=== PATIENT | male | born 1960 | race Caucasian/White ===

== ENCOUNTER → 2016-06-29 | Outpatient (CLI) | payer BC ==
[~2016-06-29] MED LIST: LNS30CCR; MTC10T; PNT40TEC; SCR1T1
--- NOTE | 2016-06-29 07:54 | Diagnostic Imaging Report ---
PROCEDURE: US Gallbladder. TECHNIQUE: Multiple real-time grayscale images were obtained over the right upper quadrant in various projections. INDICATION: Epigastric and right upper quadrant abdominal pain. FINDINGS: Grayscale imaging of the gallbladder reveals no intraluminal filling defect. There is no gallbladder wall thickening or pericholecystic fluid. No intra or extrahepatic biliary ductal dilatation is identified. Pancreas was obscured. Right kidney contains a 4-cm cyst. IMPRESSION: Unremarkable gallbladder ultrasound. Dictated by: Dictated on workstation # [id number]
== END ==
LOC: RAD 06:54
PROVIDERS: ATTEND Nurse Practitioner Family
DX: R10.13 Epigastric pain (principal)
CPT/HCPCS: 76705

== ENCOUNTER → 2016-07-17 | Outpatient (CLI) | payer BC ==
[~2016-07-17] MED LIST changes: +CATHETER FLUSH 10 ML SYR IV PRN
--- NOTE | 2016-07-17 14:58 | Diagnostic Imaging Report ---
EXAMINATION: HIDA with EF measurements Indication: Abdominal pain TECHNIQUE: After the intravenous administration of 5.2 mCi of Tc 99m Choletec, imaging over the abdomen was obtained. This was followed by administration of Ensure orally to stimulate intrinsic CCK secretion, followed by continued imaging with ejection fraction measured. FINDINGS: There is homogeneous uptake in the liver with prompt bile duct and gallbladder filling seen. Bowel activity is seen at 15 minutes. Based on further imaging and gallbladder area of interest activity measurements after the administration of Ensure, the gallbladder ejection fraction is estimated at 54%. IMPRESSION: 1. Normal hepatobiliary uptake and Gallbladder filling. 2. Borderline normal gallbladder ejection fraction. Correlate clinically. Dictated by: Dictated on workstation # [id number]
== END ==
LOC: CARD 12:44
PROVIDERS: ATTEND Nurse Practitioner Family
DX: R10.13 Epigastric pain (principal)
CPT/HCPCS: 78227

== ENCOUNTER → 2016-08-14 | Outpatient (CLI) | payer BC, OTHER ==
[~2016-08-14] MED LIST changes: -CATHETER FLUSH 10 ML SYR IV PRN
--- NOTE | 2016-08-14 10:28 | Diagnostic Imaging Report ---
PROCEDURE: CT abdomen without contrast. TECHNIQUE: Multiple contiguous axial images were obtained through the abdomen without the use of intravenous contrast. INDICATION: Ventral hernia. FINDINGS: There is a small/ moderate supraumbilical ventral hernia with suggestion of 2-cm abdominal wall defect to the right side of the midline. The craniocaudal extent of the defect is not well seen on this exam but is suspected to be around 1 to 2 cm. The hernia contains omental fat with stranding which may relate to panniculitis or strangulation. There is no herniating bowel loop. There is also a tiny fat-containing umbilical hernia. The lung bases demonstrate no significant abnormality. There is diffuse hepatic steatosis. The gallbladder demonstrates no calcified stones. The spleen is not enlarged. The pancreas and the adrenal glands appear unremarkable for an unenhanced exam. The kidneys demonstrate no hydronephrosis. There are nonobstructive stones up to 3 mm in the right kidney and up to 4 mm in the left kidney. There is a cystic lesion in the lower pole of the right kidney measuring 3.9 cm which was demonstrated to be a simple cyst on ultrasound performed 06/29/2016. The abdominal aorta is normal in caliber. No para-aortic significantly enlarged lymph nodes. The osseous structures appear grossly unremarkable. IMPRESSION: 1. Supraumbilical ventral hernia with defect seen just to the right of the midline and just above the level of the umbilicus. There is stranding in the herniating fat suggestive of panniculitis or strangulation. Correlate clinically. No herniating bowel loops seen. 2. Nonobstructive bilateral kidney stones. 3. Diffuse hepatic steatosis. Dictated by: Dictated on workstation # [id number]
== END ==
LOC: RAD 08:35
PROVIDERS: ATTEND Surgery
DX: K43.9 Ventral hernia without obstruction or gangrene (principal); K76.0 Fatty (change of) liver, not elsewhere classified; N20.0 Calculus of kidney
CPT/HCPCS: 74150

== ENCOUNTER 2016-08-22 15:04 | Outpatient (CLI) | payer OTHER ==
[~2016-08-22] VITALS: Ht 185.4 cm; Wt 131.5 kg
[2016-08-22 15:11] VITALS: BP 120/79
[2016-08-22] MEDS ORDERED: LOVA20TA2 PO (15:15)
[2016-08-22] MEDS ORDERED: METF500T4 PO (15:15)
[2016-08-22] MEDS ORDERED: OMEP20TA7 PO (15:15)
[2016-08-22] MEDS ORDERED: LOSA1TAB69 PO (15:15)
[2016-08-22 15:35] LABS: BASOPHILS % (AUTO) 0 % (0-10); EOSINOPHILS # (AUTO) 0.4 10^3/uL (0.0-0.3); EOSINOPHILS % (AUTO) 4 % (0-10); LYMPHOCYTES # (AUTO) 3.3 X 10^3 (1.0-4.0); LYMPHOCYTES % (AUTO) 33 % (12-44); MEAN CORPUSCULAR HEMOGLOBIN 29 PG (25-34); MEAN CORPUSCULAR HGB CONC 34 G/DL (32-36); MEAN CORPUSCULAR VOLUME 85 FL (80-99); MEAN PLATELET VOLUME 10.4 FL (7.4-10.4); MONOCYTES # (AUTO) 0.8 X 10^3 (0.0-1.0); MONOCYTES % (AUTO) 9 % (0-12); NEUTROPHILS # (AUTO) 5.4 X 10^3 (1.8-7.8); NEUTROPHILS % (AUTO) 54 % (42-75); PLATELET COUNT 217 10^3/uL (130-400); RED BLOOD COUNT 4.85 10^6/uL (4.35-5.85); RED CELL DISTRIBUTION WIDTH 13.7 % (10.0-14.5); WHITE BLOOD COUNT 9.9 10^3/uL (4.3-11.0)
[2016-08-22 15:55] LABS: ANION GAP 9 MMOL/L (5-14); BLOOD UREA NITROGEN 12 MG/DL (7-18); BUN/CREATININE RATIO 16; CALCIUM 9.3 MG/DL (8.5-10.1); CARBON DIOXIDE 25 MMOL/L (21-32); CHLORIDE 106 MMOL/L (98-107); CREATININE SERUM 0.74 MG/DL (0.60-1.30); GFR ESTIMATED > 60; GLUCOSE 125 MG/DL (70-105); POTASSIUM 3.7 MMOL/L (3.6-5.0); SODIUM 140 MMOL/L (135-145)
== END 2016-08-22 15:30 | disposition home or self-care (01) ==
LOC: PREOP 15:04
PROVIDERS: ATTEND Surgery
DX: Z01.812 Encounter for preprocedural laboratory examination (principal); Z11.2 Encounter for screening for other bacterial diseases; K43.9 Ventral hernia without obstruction or gangrene
CPT/HCPCS: 36415; 80048; 85025; 87081

== ENCOUNTER 2016-08-25 06:00 | Day surgery (SDC) | payer OTHER ==
[~2016-08-25] VITALS: Ht 185.4 cm; Wt 131.5 kg
[~2016-08-25 06:00] MED LIST changes: +LOSA1TAB69 PO; +LOVA20TA2 PO; +METF500T4 PO; +OMEP20TA7 PO
[2016-08-25] MEDS ORDERED: morphine INJ 10 MG/ML 1ML (SYR OR VIAL) IV PRN ×2 (06:30→10:00)
[2016-08-25] MEDS ORDERED: CELECOXIB 100 MG (CeleBREX) CAP PO ONE ×2 (06:30→06:44)
[2016-08-25] MEDS ORDERED: oxyCODONE ER 10 MG (OxyCONTIN CR) TAB PO ONE ×2 (06:30→06:44)
[2016-08-25] MEDS ORDERED: PREGABALIN 75 MG (LYRICA) CAP PO ONE (06:30)
[2016-08-25] MEDS ORDERED: KETOROLAC 30 MG/ML VIAL IV PRN (06:30)
[2016-08-25] MEDS ORDERED: ACETAMINOPHEN 500 MG TAB (TYLENOL) PO ONE (06:30)
[2016-08-25] MEDS ORDERED: ACETAMINOPHEN 500 MG TAB (TYLENOL) ONE (06:44)
[2016-08-25] MEDS ORDERED: PREGABALIN 75 MG (LYRICA) CAP ONE (06:44)
[2016-08-25] MEDS ORDERED: ceFAZolin 2 GM/50 ML NS 50 ML ONE (06:45)
[2016-08-25] MEDS: LACTATED RINGERS 1,000 ML IV PRN ×2 (06:54→09:00)
[2016-08-25] MEDS ORDERED: BUP/EPI 0.25% 1:200,000 (MARCAINE) 30 ML VIAL ONE (07:09)
[2016-08-25] MEDS ORDERED: ceFAZolin 2 GM/NS 50 ML IV ONE (07:15)
[2016-08-25] MEDS ORDERED: fentaNYL INJECTION 100 MCG/2 ML AMP ONE (07:23)
[2016-08-25] MEDS ORDERED: proPOfol 200 MG/20 ML (DIPRIVAN) VIAL IV ONE (07:23)
[2016-08-25] MEDS ORDERED: SEVOFLURANE (ULTANE) 15 ML INHAL SOLN ONE ×2 (07:23→09:48)
[2016-08-25] MEDS ORDERED: MIDAZOLAM 2 MG/2 ML (VERSED) VIAL ONE (07:23)
[2016-08-25] MEDS ORDERED: LIDOCAINE PF 2% 5 ML (XYLOCAINE) VIAL ONE (07:23)
--- NOTE | 2016-08-25 07:28 | Progress Note-Pre Operative ---
Pre-Operative Progress Note H&P Reviewed The H&P was reviewed, patient examined and no changes noted. Date H&P Reviewed: Aug 25, 2016 Time H&P Reviewed: 07:28 Pre-Operative Diagnosis: ventral hernia JEAN VEGAS MD Aug 25, 2016 7:28 am
[2016-08-25] MEDS ORDERED: KETAMINE HCL 100 MG/ML 5 ML VIAL ONE (07:30)
[2016-08-25 07:52] VITALS: BP 139/89
[2016-08-25] MEDS ORDERED: NS (IVPB) 100 ML ONE (09:42)
[2016-08-25] MEDS ORDERED: LACTATED RINGERS 2,000 ML IV ONE (09:48)
[2016-08-25] MEDS ORDERED: ONDANSETRON 4 MG/2 ML (SDV) Z0FRAN ONE (09:49)
[2016-08-25] MEDS ORDERED: LIDOCAINE PF 0.5% 50 ML (XYLOCAINE) VIAL ONE (09:49)
--- NOTE | 2016-08-25 09:54 | Progress Note-Post Operative ---
Post-Operative Progess Note Surgeon (s)/Line Maintenance Supervisor (s) Surgeon JEAN VEGAS MD Line Maintenance Supervisor: not applicable Pre-Operative Diagnosis VENTRAL HERNIA Post-Operative Diagnosis same Procedure & Operative Findings Date of Procedure 08/25/16 Procedure Performed/Findings robotic assisted repair with mesh Anesthesia Type Gen. Estimated Blood Loss Estimated blood loss (mL): minimal Specimens/Packing Specimens Removed hernia contents JEAN VEGAS MD Aug 25, 2016 9:54 am
[2016-08-25] MEDS ORDERED: HYDR-3812 PO (09:56)
--- NOTE | 2016-08-25 09:57 | Discharge Inst-Simple/Standard ---
Discharge Inst-Standard Discharge Medications New, Converted or Re-Newed RX: RX on Chart Patient Instructions/Follow Up Plan of Care/Instructions/FU: dressings off in a.m. Abdominal binder while and bleeding. Incentive spirometry. Follow-up in 4 weeks Activity as Tolerated: No Goal: no lifting over 10 pounds Discharge Diet: ADA Diet JEAN VEGAS MD Aug 25, 2016 9:57 am
[2016-08-25] MEDS ORDERED: ACETAMINOPHEN 500 MG TAB (TYLENOL) PO NR (10:00)
[2016-08-25] MEDS ORDERED: PREGABALIN 75 MG (LYRICA) CAP PO NR (10:00)
[2016-08-25] MEDS ORDERED: oxyCODONE ER 10 MG (OxyCONTIN CR) TAB PO NR (10:00)
[2016-08-25] MEDS ORDERED: CELECOXIB 100 MG (CeleBREX) CAP PO NR (10:00)
[2016-08-25] MEDS ORDERED: GLYCOPYRROLATE 0.2 MG/ML (ROBINUL) 2 ML VIAL ONE (10:42)
[2016-08-25] MEDS ORDERED: NEOSTIGMINE (BLOXIVERZ ) 1 MG/1ML 10 ML VIAL ONE (10:42)
[2016-08-25] MEDS ORDERED: ROCURONIUM 50 MG/5 ML (ZEMURON) VIAL IV ONE (10:45)
[2016-08-25 12:24] VITALS: BP 118/72
--- NOTE | 2016-08-25 13:49 | OPERATIVE REPORT ---
DATE OF SERVICE: 08/25/2016 PREOPERATIVE DIAGNOSIS: Ventral hernia. POSTOPERATIVE DIAGNOSIS: Ventral hernia. OPERATION: Robotic-assisted repair of ventral hernia with mesh. SURGEON: Jean Vegas MD ANESTHESIA: General anesthesia. BLOOD LOSS: Minimal. FLUIDS: 1200 mL of crystalloid. TYPE OF WOUND: Type 1 (clean wound). INDICATION FOR PROCEDURE: This gentleman presented with a symptomatic ventral hernia just superior to his umbilicus. He was offered minimally invasive repair with robotic assistance and mesh reinforcement. Informed consent was obtained after reviewing the operative details and complications of wound infection, infection of the mesh and recurrence of the hernia. DESCRIPTION OF PROCEDURE: He was placed supine on the operating table and general anesthesia induced using an endotracheal tube. Ancef 2 grams were administered intravenously as prophylaxis against wound infection. Sequential compression devices were placed around his legs to minimize the risk of venous thrombosis. Abdomen was prepared and draped in the usual sterile manner. The right side of his body was tilted up on a roll to facilitate triangulation of the robotic system. Pneumoperitoneum was established using a Veress needle introduced over the right subcostal margin, along the mid clavicular line. Intraabdominal pressure was maintained at 15 mmHg using carbon dioxide insufflation. A 12 mm trocar was placed and anatomy visualized using the high definition, three-dimensional laparoscope associated with [employer] system. Omentum was trapped within the hernia superior to the umbilicus. Under direct view, I placed another 12 mm trocar over the right side of abdomen along the mid axillary line, followed by an 8 mm cannula over the right lower quadrant. The robotic system was docked in place. Omentum was taken down using hook cautery, delineating the defect measuring 3 cm in diameter. It was then reapproximated using a 0 V-Loc permanent suture with robotic assistance. During this maneuver, intraabdominal pressure was reduced to 11 mm to avoid tension on the suture line. The repair was then reinforced using a polypropylene mesh measuring 11.4 cm in diameter. A self-retaining balloon system was used to secure the mesh during the suturing process. The edges were secured to the abdominal wall using 2-0 V-Loc sutures with robotic assistance. Hemostasis was satisfactory and the operation concluded. Incisions were closed using 4-0 Vicryl, in a subcuticular fashion. He tolerated the procedure well, was extubated in the operating room and taken to the recovery room in a stable condition. Peosta, sponges and instruments were correct at the end of the operation. Job ID: [id number] DocumentID: [id number] Dictated Date: 08/25/2016 09:51:26 Pbx Mechanic Date: 08/25/2016 13:05:33 Dictated By: JEAN VEGAS MD MTDD
[2016-08-25 16:14] VITALS: BP 126/84
[2016-08-25] MEDS ORDERED: metFORMIN 500 MG (GLUCOPHAGE) TAB PO SCH (18:00)
[2016-08-25 19:40] VITALS: BP 126/76
[2016-08-25] MEDS: KETOROLAC 30 MG/ML VIAL IV PRN (20:01)
[2016-08-25] MEDS ORDERED: SIMvastatin 10 MG (ZOCOR) TAB PO SCH (21:00)
[2016-08-26] VITALS: BP 117/54
[2016-08-26 04:10] VITALS: BP 105/52
[2016-08-26] MEDS: KETOROLAC 30 MG/ML VIAL IV PRN (05:55)
[2016-08-26] MEDS ORDERED: PANTOPRAZOLE 20 MG TABLET (PROTONIX) PO SCH (07:00)
[2016-08-26 08:00] VITALS: BP 99/55
[2016-08-26] MEDS ORDERED: HYDROCHLOROTHIAZIDE 12.5 MG (HCTZ) CAP PO SCH (09:00)
[2016-08-26] MEDS ORDERED: lisINopril 10 MG (PRINIVIL) TAB PO SCH (09:00)
== END 2016-08-26 11:18 | disposition home or self-care (01) ==
LOC: SDC 06:00 → 4TH 11:12 → ENPENDDIS 08-26 10:00 → SDC 08-26 11:18
PROVIDERS: ATTEND Surgery
DX: K43.9 Ventral hernia without obstruction or gangrene (principal); I10 Essential (primary) hypertension; E11.9 Type 2 diabetes mellitus without complications; Z79.84 Long term (current) use of oral hypoglycemic drugs
CPT/HCPCS: 82962; 94664; 94760

== ENCOUNTER 2016-10-12 19:37 | Outpatient (CLI) | payer OTHER ==
[~2016-10-12 19:37] MED LIST changes: +HYDR-3812 PO
== END 2016-10-13 06:15 | disposition home or self-care (01) ==
LOC: SLEEP 19:37
PROVIDERS: ATTEND Nurse Practitioner Family
DX: G47.10 Hypersomnia, unspecified (principal)
CPT/HCPCS: 95810

== ENCOUNTER → 2017-01-11 | Outpatient (CLI) | payer OTHER ==
--- NOTE | 2017-01-11 10:58 | Diagnostic Imaging Report ---
PROCEDURE: MRI right joint lower extremity without contrast. TECHNIQUE: Multiplanar, multisequence non contrast-enhanced MRI of the right lower extremity was accomplished. INDICATION: Right knee pain. FINDINGS: There is a small suprapatellar effusion. There is a tiny Gonzalez's cyst with edema around it suggestive of leak. There is increased signal in the patellar tendon proximally and distally probably related to old injury and tendinosis. No high-grade tear. The quadriceps tendon appears unremarkable. The ACL and the PCL are both intact. The medial meniscus demonstrate slight extrusion at its anterior body level with a complex meniscus tear in the body and posterior horn extending to the posterior root of the medial meniscus. The anterior horn demonstrates no tear. Along the anterior aspect of the body of the medial meniscus there is a torn meniscus fragment suggested migrated slightly inferiorly abutting the undersurface of the extruded meniscus medial to the medial tibial plateau and deep to the MCL. This fragment measures less than 4 mm. The lateral meniscus demonstrates increased intrasubstance signal in the anterior horn and the body of the meniscus compatible with meniscus degeneration. The medial meniscus demonstrates mild thickening without significant tear. The lateral collateral ligament complex appears intact. The cartilage in the medial compartment demonstrates mild to moderate thinning with mild cartilage fissuring. Mild thinning of the cartilage with fissuring is seen in the patellofemoral compartment. There is mild bone marrow signal abnormality along the medial aspect of the medial tibial plateau, probably degenerative given its subchondral location with possible small contusion component. IMPRESSION: 1. Medial meniscus complex tear involving the body and posterior horn of the meniscus with suggestion of a tiny meniscus fragment displaced along the undersurface of the body of the meniscus between the MCL and the medial margin of the medial tibial plateau. 2. Increased signal in the substance of the lateral meniscus with no definite tear. 3. Generally mild osteoarthritis changes more prominent in the medial and patellofemoral compartments. Dictated by: Dictated on workstation # [id number]
== END ==
LOC: RAD 06:58
PROVIDERS: ATTEND Nurse Practitioner
DX: S83.241A Other tear of medial meniscus, current injury, right knee, initial encounter (principal); X58.XXXA Exposure to other specified factors, initial encounter; Y99.8 Other external cause status
CPT/HCPCS: 73721

== ENCOUNTER 2017-02-21 13:25 | Outpatient (CLI) | payer OTHER ==
[~2017-02-21] VITALS: Ht 185.4 cm; Wt 134.3 kg
[~2017-02-21 13:25] MED LIST changes: +LOSA1TAB20 PO; -LOSA1TAB69 PO
[2017-02-21 13:38] VITALS: BP 118/75
== END 2017-02-21 13:50 | disposition home or self-care (01) ==
LOC: PREOP 13:25
PROVIDERS: ATTEND Orthopaedic Surgery
DX: Z01.818 Encounter for other preprocedural examination (principal); Z11.2 Encounter for screening for other bacterial diseases; M23.231 Derangement of other medial meniscus due to old tear or injury, right knee
CPT/HCPCS: 87081

== ENCOUNTER 2017-02-28 06:00 | Day surgery (SDC) | payer OTHER ==
--- NOTE | 2017-02-19 10:03 | HISTORY AND PHYSICAL ---
DATE OF SERVICE: 02/28/2017 ADMISSION HISTORY AND PHYSICAL REASON FOR ADMISSION: Outpatient right knee arthroscopy. HISTORY OF PRESENT ILLNESS: The patient is a 56-year-old gentleman with complaints of progressive worsening right knee pain. He reports catching, locking, and swelling. He reports pain with twisting activities. He reports pain with kneeling and squatting. He underwent an MRI, which revealed evidence of complex medial meniscal tear. Due to functional impairment and failure to improve with conservative measures, the patient has elected to proceed with surgical intervention. REVIEW OF SYSTEMS: No chest pain, no shortness of breath. No dysuria. PAST MEDICAL HISTORY: Cholelithiasis, diabetes mellitus, hyperlipidemia, hypertension. PAST SURGICAL HISTORY: Hiatal hernia and ventral hernia. FAMILY HISTORY: Significant for hypertension, diabetes. PRIMARY CARE PROVIDER: [facility]. CURRENT MEDICATIONS: Losartan, lovastatin, metformin, Celebrex. ALLERGIES: No known drug allergies. SOCIAL HISTORY: The patient is a former smoker. Denies alcohol use. PHYSICAL EXAMINATION: GENERAL: The patient is well-developed, well-nourished, in no acute distress. HEENT: Normocephalic, atraumatic. Pupils are equal, round and react to light. Oropharynx is clear. NECK: Supple. No lymphadenopathy. LUNGS: Clear to auscultation bilaterally. HEART: Regular rate and rhythm. ABDOMEN: Soft, nontender, nondistended. EXTREMITIES: The right knee demonstrates moderate effusions, tender along his medial joint line. He has pain medially with Jaquan's. He ambulates with antalgic gait. Range of motion is 0/135. Negative Elana. Negative anterior and posterior drawer. No varus valgus laxity. Negative pivot shift. RADIOGRAPHS: Reveal mild medial compartment degenerative changes. MRI is as above. IMPRESSION: Right knee medial meniscal tear. PLAN: Right knee arthroscopy, partial medial meniscectomy. The risks, benefits, options, complications and recovery have been discussed at length with the patient. He understands and wishes to proceed. Job ID: [id number] DocumentID: [id number] Dictated Date: 02/19/2017 08:13:35 Asbestos Worker Date: 02/19/2017 09:24:28 Dictated By: RADHA JEAN MD
[~2017-02-28] VITALS: Ht 185.4 cm; Wt 134.3 kg
--- OUTSIDE RECORDS SUMMARY | 2017-02-28 06:14 | XMS REPORT ---
Author Author TRINA AVINA Organization [facility] Address [address] [place] [address] Care Team Providers Care Stitcher Hand Name Role Phone TRINA AVINA Unavailable PROBLEMS Type Condition ICD9-CM Code [id number] Code Onset Dates Condition Status SNOMED Code Problem Abnormal biliary HIDA scan R94.8 Active 437642949 Problem Daytime hypersomnia G47.19 Active 70498032661254 Problem Arthritis of shoulder region, left M19.012 Active 692162013 Problem Type 2 diabetes mellitus without complication, without long-term current use of insulin E11.9 Active 144614232 Problem Nocturnal hypoxia G47.34 Active 847818776 Problem Mixed hyperlipidemia E78.2 Active 019725764 Problem Essential hypertension I10 Active 70352254 ALLERGIES No Known Allergies SOCIAL HISTORY Never Assessed PLAN OF CARE Activity Details Follow Up 3 Months Reason:DM/HTN VITAL SIGNS Height 61 in 2016-06-08 Weight 293.8 lbs 2016-06-08 Temperature 98.3 degrees Fahrenheit 2016-06-08 Heart Rate 92 bpm 2016-06-08 Respiratory Rate 20 2016-06-08 BMI 55.51 kg/m2 2016-06-08 Blood pressure systolic 126 mmHg 2016-06-08 Blood pressure diastolic 80 mmHg 2016-06-08 MEDICATIONS Medication Instructions Dosage Frequency Start Date End Date Duration Status Tylenol 325 MG Orally every 6 hrs 1 tablet as needed 6h Active Meloxicam 15 MG Orally Once a day 1 tablet 24h 30 day(s) Active Lovastatin 20 mg Orally Once a day 1 tablet with a meal 24h Active Losartan Potassium-HCTZ 50-12.5 MG Orally Once a day 1 tablet 24h May, 30 day(s) Active MetFORMIN HCl ER 500 MG Orally Once a day 1 tablet with evening meal 24h Active RESULTS Name Result Date Reference Range A1C (IN HOUSE) 2016-06-08 A1C IN HOUSE 6.7 4.3 - 5.6 % Previous A1c 6.8 Lot [id number] Exp date 03/2018 CMP 2016-06-08 Glucose, Serum 115 65-99 BUN 12 6-24 Creatinine, Serum 0.70 0.76-1.27 eGFR If NonAfricn Am 106 >59 eGFR If Africn Am 123 >59 BUN/Creatinine Ratio 17 9-20 Sodium, Serum 142 134-144 Potassium, Serum 4.2 3.5-5.2 Chloride, Serum 103 96-106 Carbon Dioxide, Total 22 18-29 Calcium, Serum 9.2 8.7-10.2 Protein, Total, Serum 6.8 6.0-8.5 Albumin, Serum 4.0 3.5-5.5 Globulin, Total 2.8 1.5-4.5 A/G Ratio 1.4 1.2-2.2 Bilirubin, Total 0.7 0.0-1.2 Alkaline Phosphatase, S 93 39-117 AST (SGOT) 13 0-40 ALT (SGPT) 29 0-44 PROCEDURES Procedure Date Ordered Result Body Site GLYCATED HEMOGLOBIN TEST June 08, 2016 COMPREHEN METABOLIC PANEL June 08, 2016 VENIPUNCT, ROUTINE* June 08, 2016 IMMUNIZATIONS No Known Immunizations MEDICAL (GENERAL) HISTORY Type Description Date Medical History kidney stones Medical History Pre-diabetes Medical History Type 2 diabetes mellitus without complication, without long- term current use of insulin Medical History Type 2 diabetes mellitus without complication, without long- term current use of insulin Surgical History hiatal hernia 2004 Surgical History vental hernia repair 08/25/2016 Hospitalization History hernia surgery 2004
--- OUTSIDE RECORDS SUMMARY | 2017-02-28 06:14 | XMS REPORT ---
Author Author MESSI SHARMA Organization [facility] Address [address] [place] [address] Care Team Providers Care Electric Motor Fitter Name Role Phone MESSI SHARMA Unavailable PROBLEMS Type Condition ICD9-CM Code [id number] Code Onset Dates Condition Status SNOMED Code Problem Abnormal biliary HIDA scan R94.8 Active 025494933 Problem Daytime hypersomnia G47.19 Active 73289147693730 Problem Arthritis of shoulder region, left M19.012 Active 306902148 Problem Type 2 diabetes mellitus without complication, without long-term current use of insulin E11.9 Active 582175354 Problem Nocturnal hypoxia G47.34 Active 477299356 Problem Mixed hyperlipidemia E78.2 Active 285233794 Problem Essential hypertension I10 Active 07048049 ALLERGIES Substance Reaction Event Type Date Status N.K.D.A. Unknown Non Drug Allergy Mar, Unknown SOCIAL HISTORY No smoking Hx information available PLAN OF CARE Activity Details Follow Up prn Reason: VITAL SIGNS Height 61 in 2016-04-13 Weight 290.4 lbs 2016-04-13 Temperature 97.5 degrees Fahrenheit 2016-04-13 Heart Rate 78 bpm 2016-04-13 Respiratory Rate 20 2016-04-13 BMI 54.86 kg/m2 2016-04-13 Blood pressure systolic 120 mmHg 2016-04-13 Blood pressure diastolic 76 mmHg 2016-04-13 MEDICATIONS Medication Instructions Dosage Frequency Start Date End Date Duration Status MetFORMIN HCl ER 500 MG Orally Once a day 1 tablet with evening meal 24h Active Lisinopril-Hydrochlorothiazide 10-12.5 MG Orally Once a day 1 tablet 24h Feb, Active Valacyclovir HCl 1 GM Orally every 8 hours 1 tablet 8h Mar,Mar 7 days Active Meloxicam 15 MG Orally Once a day 1 tablet 24h 30 day(s) Active Tramadol HCl 50 MG Orally every 6 hrs 1 tablet as needed 6h Mar, Mar, 10 days Active Lovastatin 20 mg Orally Once a day 1 tablet with a meal 24h Dec, Active Tylenol 325 MG Orally every 6 hrs 1 tablet as needed 6h Active RESULTS No Results PROCEDURES Procedure Date Ordered Related Diagnosis Body Site Office Visit, Est Pt., Level 3 Apr 13, 2016 IMMUNIZATIONS No Known Immunizations
--- OUTSIDE RECORDS SUMMARY | 2017-02-28 06:14 | XMS REPORT ---
Author Author TRINA AVINA [facility] Address [address] [place] [address] Care Team Providers Care Lead Accountant Name Role Phone TRINA AVINA Unavailable PROBLEMS Type Condition ICD9-CM Code [id number]-DS Code Onset Dates Condition Status SNOMED Code Problem Abnormal biliary HIDA scan R94.8 Active 963236475 Problem Daytime hypersomnia G47.19 Active 37876172278183 Problem Arthritis of shoulder region, left M19.012 Active 851194098 Problem Type 2 diabetes mellitus without complication, without long-term current use of insulin E11.9 Active 572175740 Problem Nocturnal hypoxia G47.34 Active 926163743 Problem Mixed hyperlipidemia E78.2 Active 201107695 Problem Essential hypertension I10 Active 68619360 ALLERGIES No Information SOCIAL HISTORY Never Assessed PLAN OF CARE VITAL SIGNS MEDICATIONS Unknown Medications RESULTS No Results PROCEDURES No Known procedures IMMUNIZATIONS No Known Immunizations MEDICAL (GENERAL) HISTORY [...]
--- OUTSIDE RECORDS SUMMARY | 2017-02-28 06:15 | XMS REPORT ---
Author Author TRINA AVINA [facility] Address [address] [place] [address] Care Team Providers Care Prenatal Teacher Name Role Phone TRINA AVINA Unavailable PROBLEMS Type Condition ICD9-CM Code NPU60-EM Code Onset Dates Condition Status SNOMED Code Problem Abnormal biliary HIDA scan R94.8 Active 135894456 Problem Daytime hypersomnia G47.19 Active 16068422483783 Problem Arthritis of shoulder region, left M19.012 Active 062098550 Problem Type 2 diabetes mellitus without complication, without long-term current use of insulin E11.9 Active 202452493 Problem Nocturnal hypoxia G47.34 Active 555676169 Problem Mixed hyperlipidemia E78.2 Active 831368881 Problem Essential hypertension I10 Active 19523741 ALLERGIES Unknown Allergies SOCIAL HISTORY No smoking Hx information available PLAN OF CARE VITAL SIGNS MEDICATIONS Medication Instructions Dosage Frequency Start Date End Date Duration Status Meloxicam 15 MG Orally Once a day 1 tablet 24h 30 day(s) Active RESULTS No Results PROCEDURES No Known procedures IMMUNIZATIONS No Known Immunizations
[2017-02-28] MEDS ORDERED: FAMOTIDINE 20MG/2ML IV (PEPCID) IV ONE ×2 (06:30→07:30)
[2017-02-28] MEDS ORDERED: NS (IVPB) 50 ML ONE (06:38)
[2017-02-28] MEDS ORDERED: ceFAZolin 1,000 MG (ANCEF) VIAL ONE (06:38)
[2017-02-28] MEDS ORDERED: ceFAZolin 1 GM/NS 50 ML IVPB IV ONE ×2 (07:00)
[2017-02-28] MEDS ORDERED: BUPIVACAINE 0.25% 30 ML (SENSORCAINE) VIAL ONE (07:05)
[2017-02-28] MEDS ORDERED: morphine PF (DURAMORPH) 10 MG/10 ML AMP ONE (07:05)
[2017-02-28] MEDS ORDERED: ONDANSETRON 4 MG/2 ML (SDV) Z0FRAN ONE (07:06)
[2017-02-28] MEDS ORDERED: proPOfol 200 MG/20 ML (DIPRIVAN) VIAL IV ONE ×2 (07:06→08:05)
[2017-02-28] MEDS ORDERED: LIDOCAINE PF 2% 5 ML (XYLOCAINE) VIAL ONE (07:06)
[2017-02-28] MEDS ORDERED: DEXAMETHASONE 10 MG/ML (DECADRON) 1 ML VIAL ONE (07:06)
[2017-02-28] MEDS ORDERED: fentaNYL INJECTION 100 MCG/2 ML AMP ONE ×2 (07:09→07:10)
[2017-02-28] MEDS ORDERED: MIDAZOLAM 2 MG/2 ML (VERSED) VIAL ONE (07:09)
[2017-02-28] MEDS ORDERED: LACTATED RINGERS 1,000 ML IV PRN (07:16)
--- NOTE | 2017-02-28 07:28 | Progress Note-Pre Operative ---
Pre-Operative Progress Note H&P Reviewed The H&P was reviewed, patient examined and no changes noted. Date Seen by Provider: Feb 28, 2017 Time Seen by Provider: 07:20 Date H&P Reviewed: Feb 28, 2017 Time H&P Reviewed: 07:28 Pre-Operative Diagnosis: right medial meniscus tear and chondromalacia RADHA JEAN MD Feb 28, 2017 07:28
[2017-02-28 07:29] VITALS: BP 123/80
[2017-02-28] MEDS ORDERED: HYDROcodone/APAP 7.5 MG/325 MG (LORTAB, LORCET PLUS) TABLET PO PRN (07:30)
--- NOTE | 2017-02-28 07:30 | Progress Note-Post Operative ---
Post-Operative Progess Note Surgeon (s)/Branch Service Representative (s) Surgeon RADHA JEAN MD Branch Service Representative: Brain Peña Pre-Operative Diagnosis right medial meniscus tear and chondromalacia Post-Operative Diagnosis right knee medial meniscus tear and chondromalacia of the patella Procedure & Operative Findings Date of Procedure 02/28/17 Procedure Performed/Findings right knee arthroscopic partial medial meniscectomy and chondroplasty of the patella Anesthesia Type GETA Estimated Blood Loss Estimated blood loss (mL): minimal Specimens/Packing Specimens Removed none Packing: none RADHA JEAN MD Feb 28, 2017 07:30
[2017-02-28] MEDS ORDERED: SEVOFLURANE (ULTANE) 15 ML INHAL SOLN ONE (08:05)
[2017-02-28] MEDS ORDERED: SUCCINYLCHOLINE INJ 100 MG/5 ML SYR ONE (08:05)
[2017-02-28] MEDS ORDERED: ONDANSETRON 4 MG/2 ML (SDV) Z0FRAN IVP PRN (08:30)
[2017-02-28] MEDS ORDERED: morphine INJ 10 MG/ML 1ML (SYR OR VIAL) IVP PRN (08:30)
[2017-02-28 09:20] VITALS: BP 123/80
--- NOTE | 2017-02-28 09:30 | OPERATIVE REPORT ---
DATE OF SERVICE: 02/28/2017 PREOPERATIVE DIAGNOSIS: Right knee medial meniscal tear. POSTOPERATIVE DIAGNOSES: 1. Right knee medial meniscal tear. 2. Right knee chondromalacia of the patella. PROCEDURES: 1. Right knee arthroscopic partial medial meniscectomy. 2. Right knee arthroscopic chondroplasty of the patella. SURGEON: RADHA JEAN MD BOTTOM BLEACHER: Brain Camargo who assisted throughout the procedure and closed the incisions. ANESTHESIA: General endotracheal by Thu Leung CRNA. TOURNIQUET TIME: Not applicable. ESTIMATED BLOOD LOSS: Minimal. DRAINS: None. COMPLICATIONS: None. POSTOPERATIVE PLAN: Routine arthroscopy protocol. The patient was transferred to the recovery room awake in stable condition. STATEMENT OF MEDICAL NECESSITY: The patient is a 56-year-old active gentleman with complaints of right medial knee pain which has progressed to the point where he is having catching, locking and activity limitations. He has tried rest, activity modifications and anti-inflammatories without relief. An MRI revealed a complex medial meniscal tear and due to failure to improve with conservative measures, the patient elected to proceed with surgical intervention. Examination under anesthesia revealed range of motion zero/zero/135 with a negative Elana, negative anterior, posterior drawer. No varus valgus laxity, negative pivot shift. Arthroscopic findings, the patella demonstrated grade II chondral flaps centrally in a 15 x 15 area. The trochlea demonstrated no gross chondral abnormalities. The medial and lateral gutters were clear. The lateral compartment demonstrated no meniscal or chondral pathology. The ACL and PCL were intact. Medial compartment demonstrated complex tear of the posterior horn and body of the medial meniscus along the proximal one-half of the posterior horn and body. In addition, there were diffuse grade II chondral changes over the central portion of the femoral condyle with no unstable chondral flaps. DESCRIPTION OF PROCEDURE: After risks and benefits of procedure were discussed and questions were answered, informed consent was signed and placed on chart. The operative site was confirmed, preoperatively initialed by the surgeon. The patient was then transferred to the operating room. After adequate level of general endotracheal anesthetic was obtained, a timeout was called confirming the operative site. Examination under anesthesia was performed with the above findings noted. The right lower extremity was then prepped and draped in the usual sterile fashion. The knee joint was injected with 60 mL of fluid. A standard inferolateral portal was placed with the arthroscope under direct visualization inferior medial portal was created. The meniscal cruciate was carefully probed, above findings noted. The unstable chondral flaps on the patella were debrided with shaver back to a stable edge. Scope was redirected into the medial compartment and the unstable medial meniscal tear was debrided. The biter and shaver removed approximately 1/2 the posterior horn and body. This was carefully probed with no further tearing or instability noted. The knee was copiously irrigated. Portal sites closed with 3 nylon in simple interrupted fashion. Knee was injected with Duramorph. Portal sites were infiltrated with plain Marcaine. Soft dressing was applied. The patient transferred to recovery room awake and stable condition. Job ID: [id number] DocumentID: [id number] Dictated Date: 02/28/2017 08:15:44 Underwriting Sales Representative Date: 02/28/2017 09:30:11 Dictated By: RADHA JEAN MD
[2017-02-28 09:50] VITALS: BP 120/72
[2017-02-28] MEDS ORDERED: HYDR-3816 PO (09:57)
[2017-02-28 10:20] VITALS: BP 119/67
== END 2017-02-28 10:55 | disposition home or self-care (01) ==
LOC: SDC 06:00
PROVIDERS: ATTEND Orthopaedic Surgery
DX: M23.221 Derangement of posterior horn of medial meniscus due to old tear or injury, right knee (principal); M22.41 Chondromalacia patellae, right knee; E11.9 Type 2 diabetes mellitus without complications; I10 Essential (primary) hypertension; E78.5 Hyperlipidemia, unspecified; G47.33 Obstructive sleep apnea (adult) (pediatric); E66.01 Morbid (severe) obesity due to excess calories; Z68.39 Body mass index [BMI] 39.0-39.9, adult; Z79.84 Long term (current) use of oral hypoglycemic drugs; Z79.899 Other long term (current) drug therapy; Z87.891 Personal history of nicotine dependence
CPT/HCPCS: 82962

== ENCOUNTER 2018-02-04 14:00 | Outpatient (CLI) | payer OTHER ==
[~2018-02-04] VITALS: Ht 185.4 cm; Wt 134.3 kg
[~2018-02-04 14:00] MED LIST changes: +ACHD5005 PO; +HYDR-34 PO; -HYDR-3812 PO; +METF-397 PO; -METF500T4 PO
[2018-02-04] MEDS ORDERED: FLUO20CA42 PO (16:09)
== END 2018-02-05 10:35 | disposition home or self-care (01) ==
LOC: PREOP 14:00
PROVIDERS: ATTEND Surgery
DX: Z01.818 Encounter for other preprocedural examination (principal)

== ENCOUNTER 2018-02-06 08:28 | Day surgery (SDC) | payer OTHER ==
[~2018-02-06] VITALS: Ht 185.4 cm; Wt 134.3 kg
[~2018-02-06 08:28] MED LIST changes: +FLUO20CA42 PO
[2018-02-06] MEDS ORDERED: LACTATED RINGERS 1,000 ML IV STA (08:35)
[2018-02-06] MEDS ORDERED: LACTATED RINGERS 1,000 ML IV ONE (08:36)
[2018-02-06 08:50] VITALS: BP 128/90
--- OUTSIDE RECORDS SUMMARY | 2018-02-06 08:52 | XMS REPORT ---
Author Author TRINA AVINA Organization [facility] Address [address] [place] [address] Care Team Providers Care Leak Detector Name Role Phone TRINA AVINA Unavailable PROBLEMS Type Condition ICD9-CM Code PPV13-FC Code Onset Dates Condition Status SNOMED Code Problem Nocturnal hypoxia G47.34 Active 408934870 Problem Type 2 diabetes mellitus without complication, without long-term current use of insulin E11.9 Active 680431155 Problem Abnormal biliary HIDA scan R94.8 Active 325039980 Problem Complex tear of medial meniscus of right knee as current injury, subsequent encounter S83.231D Active 182120622 Problem Plantar fasciitis, bilateral M72.2 Active 96237324929614178 Problem Nocturnal hypoxemia G47.34 Active 787293552 Problem Mixed hyperlipidemia E78.2 Active 697695096 Problem Essential hypertension I10 Active 44823668 Problem Daytime hypersomnia G47.19 Active 75502615907027 Problem Arthritis of shoulder region, left M19.012 Active 527827434 ALLERGIES No Known Allergies ENCOUNTERS Encounter Location Date Diagnosis [place] [address] [place] [address] Oct, [place] [id number] [place] [id number] [place] [address] Jun, Type 2 diabetes mellitus without complication, without long- term current use of insulin E11.9 ; Plantar fasciitis, bilateral M72.2 ; Essential hypertension I10 ; Mixed hyperlipidemia E78.2 ; Wheezing R06.2 and BMI 50.0-59.9, adult Z68.43 [facility] [address] [place] [address] Mar, Type 2 diabetes mellitus without complication, without long- term current use of insulin E11.9 ; Mixed hyperlipidemia E78.2 ; Essential hypertension I10 ; Arthralgia of right knee M25.561 ; Shortness of breath R06.02 ; Nocturnal hypoxemia G47.34 and BMI 50.0-59.9, adult Z68.43 [facility] [address] [address] Mar, Viral upper respiratory tract infection J06.9 ; Localized edema R60.0 ; Shortness of breath R06.02 ; Sore throat J02.9 and BMI 50.0-59.9, adult Z68.43 [place] [address] [address] Jan, Complex tear of medial meniscus of right knee as current injury, subsequent encounter S83.231D [place] [address] [address] Jan, [place] [address] [address] Dec, Tear of medial meniscus of right knee, current, unspecified tear type, initial encounter S83.241A [place] [address] [address] Nov, Mixed hyperlipidemia E78.2 [place] [address] [address] Nov, Type 2 diabetes mellitus without complication, without long- term current use of insulin E11.9 ; Mixed hyperlipidemia E78.2 ; Essential hypertension I10 and Arthralgia of right knee M25.561 [place] [address] [place] [id number] [place] [address]- 67[address] Oct, Acute pain of right knee M25.561 ; Type 2 diabetes mellitus without complication, without long-term current use of insulin E11.9 ; Essential hypertension I10 and Mixed hyperlipidemia E78.2 [place] [address] [address] Oct, Nocturnal hypoxia G47.34 [place] [address] [address] Sep, Type 2 diabetes mellitus without complication, without long- term current use of insulin E11.9 [place] [address] [address] Aug, Hypoxia R09.02 ; Type 2 diabetes mellitus without complication, without long-term current use of insulin E11.9 ; Daytime hypersomnia G47.19 ; Mixed hyperlipidemia E78.2 and Essential hypertension I10 [place] [address] [address] July, Abnormal biliary HIDA scan R94.8 [place] [address] [address] Jun, Epigastric abdominal pain R10.13 [place] [address] [address] Jun, [place] [address] [address]- [address] Jun, Epigastric abdominal pain R10.13 and Nausea R11.0 [place] [address] [address] May, Type 2 diabetes mellitus without complication, without long- term current use of insulin E11.9 ; Mixed hyperlipidemia E78.2 ; Essential hypertension I10 and Arthritis of shoulder region, left M19.012 [facility] [address] [place] [id number] [place] [address] Mar, Herpes zoster without complication B02.9 [place] [address] [place] [id number] [place] [address] 87784- 4[address] Feb, Pain of left foot M79.672 [place] [address] [address] Feb, Type 2 diabetes mellitus without complication, without long- term current use of insulin E11.9 ; Mixed hyperlipidemia E78.2 and Essential hypertension I10 [place] [address] [address] Dec, [place] [address] [place] [id number] [place] [address]- [address] Dec, [place] [address] [address] Dec, Pain of left foot M79.672 ; Elevated blood pressure I10 and Type 2 diabetes mellitus without complication, without long-term current use of insulin E11.9 [place] [address] [address]- [address] Oct, Pain of left foot M79.672 ; Pain in right foot M79.671 ; Pre -diabetes R73.09 ; Elevated blood pressure I10 and Type 2 diabetes mellitus without complication, without long-term current use of insulin E11.9 [place] [address] [address] Feb, Encounter for immunization Z23 [place] [address] [address] Jan, Cough R05 and Pneumonia of both lower lobes due to infectious organism J16.[address] [address] Dec, [place] [address] 269[address]- [address] Dec, Right shoulder pain M25.511 [place] [address] [address] Oct, TWINRIX DX V05.3 [place] [id number] [place] [address]- 4263 Sep, [address] [address] Sep, Family history of diabetes mellitus V18.0 ; Family history of heart disease V17.49 and Examination, general medical V70.[address] [address] Sep, Family history of diabetes mellitus V18.0 ; Family history of heart disease V17.49 and Examination, general medical V70.9 [place] [address] [place] [address]60- 4[address] Aug, Back pain 724.5 and Fever 780.60 [place] [address] [place] [id number] [place] [address]- [address] July, HEP B (ADULT) DX V05.3 [place] [address] [place] [id number] [place] [address]- 8[address] Mar, [place] [address] [place] [id number] [place] [address]39- 1146 Mar, [place] [address] [place] [id number] [place] [address] 86[address]- 58[address] Mar, [place] [address] [place] [id number] [place] [address] 65267- 3[address] Mar, IMMUNIZATIONS No Known Immunizations SOCIAL HISTORY Never Assessed REASON FOR VISIT Diabetes--tjanssenMA, --c/o his feet hurting him a little bit. Pain while stepping on it or putting pressrue on it. PLAN OF CARE Activity Details Follow Up 3 Months with josé manuel Ryder if wheezing not improved Reason:DM VITAL SIGNS Height 61 in 2017-07-10 Weight 304.7 lbs 2017-07-10 Temperature 98.1 degrees Fahrenheit 2017-07-10 Heart Rate 84 bpm 2017-07-10 Respiratory Rate 20 2017-07-10 BMI 57.57 kg/m2 2017-07-10 Blood pressure systolic 112 mmHg 2017-07-10 Blood pressure diastolic 72 mmHg 2017-07-10 MEDICATIONS Medication Instructions Dosage Frequency Start Date End Date Duration Status Diclofenac Sodium 1 % Transdermal 4 times a day 2 grams 6h Jun, Sep, 30 days Active Lovastatin 20 mg Orally Once a day 1 tablet with a meal 24h 30 Active Oxygen 1 L as directed Oct, Active ProAir HFA 108 (90 Base) MCG/ACT Inhalation every 6 hrs 2 puffs as needed 6h Jun, 30 days Active Tylenol 325 MG Orally every 6 hrs 1 tablet as needed 6h Active MetFORMIN HCl ER 500 mg Orally twice a day wiht food 1 tablet with evening meal 30 days Active Losartan Potassium-HCTZ 50-12.5 MG Orally Once a day 1 tablet 24h 30 day(s) Active RESULTS Name Result Date Reference Range A1C (IN HOUSE) 2017-07-10 A1C IN HOUSE 7.4 4.3 - 5.6 % Previous A1c 7.7 Lot [id number] Exp date 04/2019 PROCEDURES Procedure Date Ordered Result Body Site GLYCATED HEMOGLOBIN TEST July 10, 2017 INSTRUCTIONS MEDICATIONS ADMINISTERED No Known Medications MEDICAL (GENERAL) HISTORY Type Description Date Medical History kidney stones Medical History Pre-diabetes Medical History Type 2 diabetes mellitus without complication, without long- term current use of insulin Medical History Type 2 diabetes mellitus without complication, without long- term current use of insulin Surgical History hiatal hernia 2004 Surgical History vental hernia repair 08/25/2016 Surgical History RT knee surgery 02/28/2017 Hospitalization History hernia surgery 2004
--- OUTSIDE RECORDS SUMMARY | 2018-02-06 08:52 | XMS REPORT ---
Author Author GATO HERRON Organization [facility] Address [address] [place] [address] Care Team Providers Care Slipper Maker Name Role Phone GATO HERRON Unavailable PROBLEMS Type Condition ICD9-CM Code XJZ07-DY Code Onset Dates Condition Status SNOMED Code Problem Nocturnal hypoxia G47.34 Active 619119863 Problem Type 2 diabetes mellitus without complication, without long-term current use of insulin E11.9 Active 023323449 Problem Abnormal biliary HIDA scan R94.8 Active 448671652 Problem Complex tear of medial meniscus of right knee as current injury, subsequent encounter S83.231D Active 363791438 Problem Plantar fasciitis, bilateral M72.2 Active 05322817628983016 Problem Nocturnal hypoxemia G47.34 Active 280075946 Problem Mixed hyperlipidemia E78.2 Active 503397508 Problem Essential hypertension I10 Active 49172266 Problem Daytime hypersomnia G47.19 Active 42148383849747 Problem Arthritis of shoulder region, left M19.012 Active 699361382 ALLERGIES No Known Allergies ENCOUNTERS Encounter Location Date Diagnosis [facility] [address] [place] [address]2765- [address] Dec, [facility] [address] [place] [id number] [place] [address]16- 6767 Oct, Mixed hyperlipidemia E78.2 and Type 2 diabetes mellitus without complication, without long-term current use of insulin E11.9 [facility] [address] [place] [address] 50448- 3[address] Oct, [facility] [address] [place] [id number] [place] [address] 08544- 3633 Oct, Mixed hyperlipidemia E78.2 ; Type 2 diabetes mellitus without complication, without long-term current use of insulin E11.9 ; Essential hypertension I10 ; Blister of right foot, initial encounter S90.821A and BMI 50.0-59.9, adult Z68.43 [facility] [address] [address] Jun, Type 2 diabetes mellitus without complication, without long- term current use of insulin E11.9 ; Plantar fasciitis, bilateral M72.2 ; Essential hypertension I10 ; Mixed hyperlipidemia E78.2 ; Wheezing R06.2 and BMI 50.0-59.9, adult Z68.43 [place] [address] 29589- [address] 17 Mar, 2017 Type 2 diabetes mellitus without complication, without long- term current use of insulin E11.9 ; Mixed hyperlipidemia E78.2 ; Essential hypertension I10 ; Arthralgia of right knee M25.561 ; Shortness of breath R06.02 ; Nocturnal hypoxemia G47.34 and BMI 50.0-59.9, adult Z68.43 [facility] [address] [address] Mar, Viral upper respiratory tract infection J06.9 ; Localized edema R60.0 ; Shortness of breath R06.02 ; Sore throat J02.9 and BMI 50.0-59.9, adult Z68.43 [place] [address] [address] 03 Jan, 2017 Complex tear of medial meniscus of right knee as current injury, subsequent encounter S83.231D [place] [address] 85[address]- [address] Jan, [place] [address] 01766- 0996 Dec, Tear of medial meniscus of right knee, current, unspecified tear type, initial encounter S83.241A [place] [address] 19224- 7136 Nov, Mixed hyperlipidemia E78.2 [place] [address] 22779- 5436 Nov, Type 2 diabetes mellitus without complication, without long- term current use of insulin E11.9 ; Mixed hyperlipidemia E78.2 ; Essential hypertension I10 and Arthralgia of right knee M25.561 [place] [address] 04558- 5838 Oct, Acute pain of right knee M25.561 ; Type 2 diabetes mellitus without complication, without long-term current use of insulin E11.9 ; Essential hypertension I10 and Mixed hyperlipidemia E78.2 [place] [address] 57743- 1238 Oct, Nocturnal hypoxia G47.[address] 26777- [address] Sep, Type 2 diabetes mellitus without complication, without long- term current use of insulin E11.[address] 05[address]- 3862 Aug, Hypoxia R09.02 ; Type 2 diabetes mellitus without complication, without long-term current use of insulin E11.9 ; Daytime hypersomnia G47.19 ; Mixed hyperlipidemia E78.2 and Essential hypertension I10 [address] 32[address]- [address] July, Abnormal biliary HIDA scan R94.[address] 27539- [address] Jun, Epigastric abdominal pain R10.[address] 0[address]- [address]00 Jun, [address] 13848- 2103 Jun, Epigastric abdominal pain R10.13 and Nausea R11.[address] 94[address]- [address] 16 May, 2016 Type 2 diabetes mellitus without complication, without long- term current use of insulin E11.9 ; Mixed hyperlipidemia E78.2 ; Essential hypertension I10 and Arthritis of shoulder region, left M19.012 [facility] [address] [place] [id number] [place] [address] Mar, Herpes zoster without complication B02.9 [facility] [address] [place] [id number] [place] [address] 37631- 4116 Feb, Pain of left foot M79.672 [place] [address] 21207- 6[address] Feb, Type 2 diabetes mellitus without complication, without long- term current use of insulin E11.9 ; Mixed hyperlipidemia E78.2 and Essential hypertension I10 [place] [address] 16662- 4834 Dec, [place] [address] 51565- 6[address] Dec, [place] [address] 06[address]- 74[address] Dec, Pain of left foot M79.672 ; Elevated blood pressure I10 and Type 2 diabetes mellitus without complication, without long-term current use of insulin E11.9 [place] [address] [place] [id number] [place] [address] 77882- 5873 Oct, Pain of left foot M79.672 ; Pain in right foot M79.671 ; Pre -diabetes R73.09 ; Elevated blood pressure I10 and Type 2 diabetes mellitus without complication, without long-term current use of insulin E11.9 [place] [address] [place] [id number] [place] [address] 69286- 3674 Feb, Encounter for immunization Z23 [address] 90[address]- 8852 Jan, Cough R05 and Pneumonia of both lower lobes due to infectious organism J16.8 [place] [address] [place] [id number] [place] [address] 09572- 9180 Dec, [place] [address] [place] [address] Dec, Right shoulder pain M25.511 [place] [address] 199[address]- 395[address] Oct, TWINRIX DX V05.3 [place] [address] 22791- 4281 Sep, [place] [address] 857[address]- [address]147 Sep, Family history of diabetes mellitus V18.0 ; Family history of heart disease V17.49 and Examination, general medical V70.[address] 50[address]- 6396 Sep, Family history of diabetes mellitus V18.0 ; Family history of heart disease V17.49 and Examination, general medical V70.9 [place] [address] 38877- 2292 Aug, Back pain 724.5 and Fever 780.60 [place] [address] 45521- 9510 July, HEP B (ADULT) DX V05.3 [place] [address] 75[address]- [address]307 Mar, [place] [address] 25426- 3065 Mar, [place] [address] [place] [id number] [place] [address] 70868- 7424 Mar, [place] [address] 33075- 7652 Mar, IMMUNIZATIONS No Known Immunizations SOCIAL HISTORY Never Assessed REASON FOR VISIT Blood pressure f/u, Transition of care. LIZZY Mcneil PLAN OF CARE Activity Details Follow Up 3 Months for f.u DM/HTN Reason: VITAL SIGNS Height 61 in 2017-10-30 Weight 301.5 lbs 2017-10-30 Temperature 98.5 degrees Fahrenheit 2017-10-30 Heart Rate 97 bpm 2017-10-30 Respiratory Rate 20 2017-10-30 Oximetry 97 % 2017-10-30 BMI 56.96 kg/m2 2017-10-30 Blood pressure systolic 118 mmHg 2017-10-30 Blood pressure diastolic 80 mmHg 2017-10-30 MEDICATIONS Medication Instructions Dosage Frequency Start Date End Date Duration Status Lovastatin 20 mg Orally Once a day 1 tablet with a meal 24h 30 Active ProAir HFA 108 (90 Base) MCG/ACT Inhalation every 6 hrs 2 puffs as needed 6h Jun, 30 days Active Oxygen 1 L as directed Oct, Active Losartan Potassium-HCTZ 50-12.5 MG Orally Once a day 1 tablet 24h 30 day(s) Active MetFORMIN HCl ER 500 mg Orally twice a day wiht food 1 tablet with evening meal 30 days Active Tylenol 325 MG Orally every 6 hrs 1 tablet as needed 6h Active RESULTS No Results PROCEDURES No Known procedures INSTRUCTIONS MEDICATIONS ADMINISTERED No Known Medications MEDICAL [...]
--- OUTSIDE RECORDS SUMMARY | 2018-02-06 08:52 | XMS REPORT ---
Author Author GATO HERRON Organization [facility] Address [address] [place] [address] Care Team Providers Care Vascular Tech Name Role Phone GATO HERRON Unavailable PROBLEMS Type Condition ICD9-CM Code NVF14-PQ Code Onset Dates Condition Status SNOMED Code Problem Nocturnal hypoxia G47.34 Active 389498004 Problem Type 2 diabetes mellitus without complication, without long-term current use of insulin E11.9 Active 116555471 Problem Abnormal biliary HIDA scan R94.8 Active 046540302 Problem Complex tear of medial meniscus of right knee as current injury, subsequent encounter S83.231D Active 373507417 Problem Plantar fasciitis, bilateral M72.2 Active [id number] Problem Nocturnal hypoxemia G47.34 Active 696453457 Problem Mixed hyperlipidemia E78.2 Active 112092818 Problem Essential hypertension I10 Active 13817154 Problem Daytime hypersomnia G47.19 Active 93171307848650 Problem Arthritis of shoulder region, left M19.012 Active 272151016 ALLERGIES No Information ENCOUNTERS Encounter Location Date Diagnosis [facility] [id number] [place] [address] Dec, [facility] [id number] [place] [address]231- 1780 Oct, Mixed hyperlipidemia E78.2 and Type 2 diabetes mellitus without complication, without long-term current use of insulin E11.9 [facility] [id number] [place] [address]46- 7827 Oct, [place] [id number] [place] [address] 85683- 7689 Oct, Mixed hyperlipidemia E78.2 ; Type 2 diabetes mellitus without complication, without long-term current use of insulin E11.9 ; Essential hypertension I10 ; Blister of right foot, initial encounter S90.821A and BMI 50.0-59.9, adult Z68.43 [facility] [address] [address] Jun, Type 2 diabetes mellitus without complication, without long- term current use of insulin E11.9 ; Plantar fasciitis, bilateral M72.2 ; Essential hypertension I10 ; Mixed hyperlipidemia E78.2 ; Wheezing R06.2 and BMI 50.0-59.9, adult Z68.43 [place] [address] [address]- 7395 17 Mar, 2017 Type 2 diabetes mellitus without complication, without long- term current use of insulin E11.9 ; Mixed hyperlipidemia E78.2 ; Essential hypertension I10 ; Arthralgia of right knee M25.561 ; Shortness of breath R06.02 ; Nocturnal hypoxemia G47.34 and BMI 50.0-59.9, adult Z68.43 [facility] [address] [address] Mar, Viral upper respiratory tract infection J06.9 ; Localized edema R60.0 ; Shortness of breath R06.02 ; Sore throat J02.9 and BMI 50.0-59.9, adult Z68.43 [place] [address] [address]- 58[address] 03 Jan, 2017 Complex tear of medial meniscus of right knee as current injury, subsequent encounter S83.231D [place] [address] 15842- 8587 Jan, [place] [address] 194[address]- 2907 Dec, Tear of medial meniscus of right knee, current, unspecified tear type, initial encounter S83.241A [place] [address] 13795- 7027 Nov, Mixed hyperlipidemia E78.2 [place] [address] 02666- 0652 Nov, Type 2 diabetes mellitus without complication, without long- term current use of insulin E11.9 ; Mixed hyperlipidemia E78.2 ; Essential hypertension I10 and Arthralgia of right knee M25.561 [place] [address] 8[address]10- 1120 Oct, Acute pain of right knee M25.561 ; Type 2 diabetes mellitus without complication, without long-term current use of insulin E11.9 ; Essential hypertension I10 and Mixed hyperlipidemia E78.2 [place] [address] 45859- 6996 Oct, Nocturnal hypoxia G47.[address] [address]- 2796 Sep, Type 2 diabetes mellitus without complication, without long- term current use of insulin E11.[address] [address]- 3526 Aug, Hypoxia R09.02 ; Type 2 diabetes mellitus without complication, without long-term current use of insulin E11.9 ; Daytime hypersomnia G47.19 ; Mixed hyperlipidemia E78.2 and Essential hypertension I10 [address] 9[address]71- 3497 July, Abnormal biliary HIDA scan R94.[address] 07[address]- 4646 Jun, Epigastric abdominal pain R10.13 [place] [address] 16957- 4448 Jun, [address] 26[address]- 0355 Jun, Epigastric abdominal pain R10.13 and Nausea R11.[address] [address]61- 3453 16 May, 2016 Type 2 diabetes mellitus without complication, without long- term current use of insulin E11.9 ; Mixed hyperlipidemia E78.2 ; Essential hypertension I10 and Arthritis of shoulder region, left M19.012 [facility] [id number] [place] [address] -2458 Mar, Herpes zoster without complication B02.9 [facility] [id number] [place] [address] 03371- 4146 Feb, Pain of left foot M79.672 [facility] [address] 50149- 4243 Feb, Type 2 diabetes mellitus without complication, without long- term current use of insulin E11.9 ; Mixed hyperlipidemia E78.2 and Essential hypertension I10 [place] [address] 42904- 7682 Dec, [place] [address] 95974- 0126 Dec, [place] [address] 23279- 5329 Dec, Pain of left foot M79.672 ; Elevated blood pressure I10 and Type 2 diabetes mellitus without complication, without long-term current use of insulin E11.9 [place] [id number] [place] [address]78- 8883 Oct, Pain of left foot M79.672 ; Pain in right foot M79.671 ; Pre -diabetes R73.09 ; Elevated blood pressure I10 and Type 2 diabetes mellitus without complication, without long-term current use of insulin E11.9 [place] [id number] [place] [address] 03238- 5798 Feb, Encounter for immunization Z23 [place] [address] 91221- 3884 Jan, Cough R05 and Pneumonia of both lower lobes due to infectious organism J16.8 [place] [address] 96797- 0861 Dec, [place] [address] 20338- 9350 Dec, Right shoulder pain M25.511 [place] [address] 82351- 1611 Oct, TWINRIX DX V05.3 [place] [address] 69764- 5465 Sep, [place] [address] 88880- 1141 Sep, Family history of diabetes mellitus V18.0 ; Family history of heart disease V17.49 and Examination, general medical V70.9 [place] [address] 12[address]- 3790 Sep, Family history of diabetes mellitus V18.0 ; Family history of heart disease V17.49 and Examination, general medical V70.9 [place] [address] 31691- 9682 Aug, Back pain 724.5 and Fever 780.60 [place] [address] [address]23- 2696 July, HEP B (ADULT) DX V05.3 [place] [address] 75013- 3089 Mar, [place] [address] 35215- 0082 Mar, [place] [address] 69427- 3621 Mar, [place] [address] 24155- 2198 Mar, IMMUNIZATIONS No Known Immunizations SOCIAL HISTORY Never Assessed REASON FOR VISIT Requests return call PLAN OF CARE VITAL SIGNS MEDICATIONS Medication Instructions Dosage Frequency Start Date End Date Duration Status Fluoxetine HCl 20 mg Orally Once a day 1/2 tab daily for 4 days and 1 tab daily 24h Oct, 30 day(s) Active RESULTS No Results PROCEDURES [...]
--- OUTSIDE RECORDS SUMMARY | 2018-02-06 08:52 | XMS REPORT ---
Author Author GATO HERRON Organization [facility] Address [address] [place] [address] Care Team Providers Care Cooky Packer Name Role Phone GATO HERRON Unavailable PROBLEMS Type Condition ICD9-CM Code JNY51-MD Code Onset Dates Condition Status SNOMED Code Problem Abnormal biliary HIDA scan R94.8 Active 856693966 Problem Essential hypertension I10 Active 67791565 Problem Type 2 diabetes mellitus without complication, without long-term current use of insulin E11.9 Active 687286861 Problem Complex tear of medial meniscus of right knee as current injury, subsequent encounter S83.231D Active 366686335 Problem Nocturnal hypoxia G47.34 Active 094115058 Problem Type 2 diabetes mellitus with other specified complication, without long-term current use of insulin E11.69 Active 50132683 Problem Plantar fasciitis, bilateral M72.2 Active 26514841243831713 Problem Arthritis of shoulder region, left M19.012 Active 730729657 Problem Mixed hyperlipidemia E78.2 Active 752587142 Problem Nocturnal hypoxemia G47.34 Active 765025971 Problem Daytime hypersomnia G47.19 Active [id number] ALLERGIES No Known Allergies ENCOUNTERS Encounter Location Date Diagnosis [facility] [address] [address] Dec, Type 2 diabetes mellitus with other specified complication, without long-term current use of insulin E11.69 ; Mixed hyperlipidemia E78.2 ; Essential hypertension I10 ; BMI 50.0-59.9, adult Z68.43 and Colon cancer screening Z12.11 [facility] [id number] [address] Oct, Mixed hyperlipidemia E78.2 and Type 2 diabetes mellitus without complication, without long-term current use of insulin E11.9 [facility] [address] [place] [address] 86014- 50[address] Oct, [facility] [id number] [place] [address] 25159- 8263 Oct, Mixed hyperlipidemia E78.2 ; Type 2 diabetes mellitus without complication, without long-term current use of insulin E11.9 ; Essential hypertension I10 ; Blister of right foot, initial encounter S90.821A and BMI 50.0-59.9, adult Z68.43 [facility] [address] 28[address]- 7358 Jun, Type 2 diabetes mellitus without complication, without long- term current use of insulin E11.9 ; Plantar fasciitis, bilateral M72.2 ; Essential hypertension I10 ; Mixed hyperlipidemia E78.2 ; Wheezing R06.2 and BMI 50.0-59.9, adult Z68.43 [place] [id number] [place] [address] 48528- 4792 Mar, Type 2 diabetes mellitus without complication, without long- term current use of insulin E11.9 ; Mixed hyperlipidemia E78.2 ; Essential hypertension I10 ; Arthralgia of right knee M25.561 ; Shortness of breath R06.02 ; Nocturnal hypoxemia G47.34 and BMI 50.0-59.9, adult Z68.43 [facility] [id number] [place] [address] 20768 -5140 Mar, Viral upper respiratory tract infection J06.9 ; Localized edema R60.0 ; Shortness of breath R06.02 ; Sore throat J02.9 and BMI 50.0-59.9, adult Z68.43 [place] [id number] [place] [address] 23005- 9738 Jan, Complex tear of medial meniscus of right knee as current injury, subsequent encounter S83.231D [place] [id number] [place] [address] 62979- 8176 Jan, [facility] [id number] [place] [address] 85028- 2757 Dec, Tear of medial meniscus of right knee, current, unspecified tear type, initial encounter S83.241A [place] [id number] [place] [address] 33754- 4916 Nov, Mixed hyperlipidemia E78.2 [place] [id number] [place] [address] 71330- 8365 Nov, Type 2 diabetes mellitus without complication, without long- term current use of insulin E11.9 ; Mixed hyperlipidemia E78.2 ; Essential hypertension I10 and Arthralgia of right knee M25.561 [place] [address] 14023- 0852 Oct, Acute pain of right knee M25.561 ; Type 2 diabetes mellitus without complication, without long-term current use of insulin E11.9 ; Essential hypertension I10 and Mixed hyperlipidemia E78.2 [place] [address] 96222- 6234 Oct, Nocturnal hypoxia G47.[address] 27[address]- 0683 Sep, Type 2 diabetes mellitus without complication, without long- term current use of insulin E11.9 [place] [id number] [place] [address] 47727- 2666 Aug, Hypoxia R09.02 ; Type 2 diabetes mellitus without complication, without long-term current use of insulin E11.9 ; Daytime hypersomnia G47.19 ; Mixed hyperlipidemia E78.2 and Essential hypertension I10 [place] [id number] [place] [address] 79930- 4103 July, Abnormal biliary HIDA scan R94.[address] [address]658- 8508 Jun, Epigastric abdominal pain R10.[address] 33439- 8455 Jun, [place] [address] 11779- 5102 Jun, Epigastric abdominal pain R10.13 and Nausea R11.0 [place] [id number] [place] [address] 31885- 9535 May, Type 2 diabetes mellitus without complication, without long- term current use of insulin E11.9 ; Mixed hyperlipidemia E78.2 ; Essential hypertension I10 and Arthritis of shoulder region, left M19.012 [facility] [address] [address] -[address] Mar, Herpes zoster without complication B02.9 [place] [address] 75818- 8071 Feb, Pain of left foot M79.672 [place] [address] 53349- 7389 Feb, Type 2 diabetes mellitus without complication, without long- term current use of insulin E11.9 ; Mixed hyperlipidemia E78.2 and Essential hypertension I10 [place] [address] 01054- 6998 Dec, [place] [address] 03326- 9386 Dec, [place] [address] 63704- 5614 Dec, Pain of left foot M79.672 ; Elevated blood pressure I10 and Type 2 diabetes mellitus without complication, without long-term current use of insulin E11.9 [place] [id number] [place] [address] 00449- 9413 Oct, Pain of left foot M79.672 ; Pain in right foot M79.671 ; Pre -diabetes R73.09 ; Elevated blood pressure I10 and Type 2 diabetes mellitus without complication, without long-term current use of insulin E11.9 [place] [id number] [place] [address] 05607- 9294 Feb, Encounter for immunization Z23 [place] [address] [place] [address] 1635 Jan, Cough R05 and Pneumonia of both lower lobes due to infectious organism J16.8 [place] [id number] [place] [address] 39492- 4799 Dec, [place] [id number] [place] [address] 39125- 6904 Dec, Right shoulder pain M25.511 [facility] [id number] [place] [address] 95223- 2502 Oct, TWINRIX DX V05.3 [place] [address] 47832- 6815 Sep, [place] [id number] [place] [address] 44249- 8930 Sep, Family history of diabetes mellitus V18.0 ; Family history of heart disease V17.49 and Examination, general medical V70.9 [place] [id number] [place] [address] 59542- 6122 Sep, Family history of diabetes mellitus V18.0 ; Family history of heart disease V17.49 and Examination, general medical V70.9 [place] [id number] [place] [address] 28511- 7520 Aug, Back pain 724.5 and Fever 780.60 [place] [id number] [place] [address] 45113- 9026 July, HEP B (ADULT) DX V05.3 [place] [id number] [place] [address] 40579- 8156 Mar, [place] [address] 36422- 5369 Mar, [place] [id number] [place] [address] 85658- 6948 Mar, [place] [address] 03848822- 9397 Mar, IMMUNIZATIONS No Known Immunizations SOCIAL HISTORY Never Assessed REASON FOR VISIT Diabetes--[place]ettNANDINI PLAN OF CARE Activity Details Follow Up 4 Months with Mariya f/u DM Reason: Pending Test A1C (IN HOUSE) VITAL SIGNS Height 61 in 2018-01-15 Weight 291.8 lbs 2018-01-15 Temperature 98.3 degrees Fahrenheit 2018-01-15 Heart Rate 80 bpm 2018-01-15 Respiratory Rate 18 2018-01-15 BMI 55.13 kg/m2 2018-01-15 Blood pressure systolic 106 mmHg 2018-01-15 Blood pressure diastolic 60 mmHg 2018-01-15 MEDICATIONS Medication Instructions Dosage Frequency Start Date End Date Duration Status Losartan Potassium-HCTZ 50-12.5 MG Orally Once a day 1 tablet 24h 30 day(s) Active MetFORMIN HCl ER 500 mg Orally twice a day wiht food 1 tablet with evening meal 30 days Active Tylenol 325 MG Orally every 6 hrs 1 tablet as needed 6h Active Fluoxetine HCl 20 mg Orally Once a day 1/2 tab daily for 4 days and 1 tab daily 24h Oct, 30 day(s) Active Oxygen 1 L as directed Oct, Active Lovastatin 20 mg Orally Once a day 1 tablet with a meal 24h 30 Active ProAir HFA 108 (90 Base) MCG/ACT Inhalation every 6 hrs 2 puffs as needed 6h Jun, 30 days Active RESULTS No Results PROCEDURES Procedure Date Ordered Result Body Site GLYCATED HEMOGLOBIN TEST Jan 15, 2018 INSTRUCTIONS MEDICATIONS ADMINISTERED No Known Medications MEDICAL [...]
--- OUTSIDE RECORDS SUMMARY | 2018-02-06 08:52 | XMS REPORT ---
Author Author KARIME THOMAS Organization [facility] Address [address] [place] [address] Care Team Providers Care Tie Presser Name Role Phone KARIME THOMAS Unavailable PROBLEMS Type Condition ICD9-CM Code DNC49-JL Code Onset Dates Condition Status SNOMED Code Problem Nocturnal hypoxia G47.34 Active 725979305 Problem Type 2 diabetes mellitus without complication, without long-term current use of insulin E11.9 Active 775460310 Problem Abnormal biliary HIDA scan R94.8 Active 128754652 Problem Complex tear of medial meniscus of right knee as current injury, subsequent encounter S83.231D Active 361690457 Problem Plantar fasciitis, bilateral M72.2 Active 01161630722564036 Problem Nocturnal hypoxemia G47.34 Active 060401031 Problem Mixed hyperlipidemia E78.2 Active 763887837 Problem Essential hypertension I10 Active 43875809 Problem Daytime hypersomnia G47.19 Active 25075179347090 Problem Arthritis of shoulder region, left M19.012 Active 718695333 ALLERGIES No Information ENCOUNTERS Encounter Location Date Diagnosis [place] [id number] [place] [id number] [place] [address] 52320- 5540 Dec, [place] [address] [id number] [place] [address] 02000- 0896 Oct, Mixed hyperlipidemia E78.2 and Type 2 diabetes mellitus without complication, without long-term current use of insulin E11.9 [facility] [id number] [place] [address] 53026- 6819 Oct, [place] [address] 64027- 9926 Oct, Mixed hyperlipidemia E78.2 ; Type 2 diabetes mellitus without complication, without long-term current use of insulin E11.9 ; Essential hypertension I10 ; Blister of right foot, initial encounter S90.821A and BMI 50.0-59.9, adult Z68.43 [facility] [id number] [place] [address] 77691- 6187 Jun, Type 2 diabetes mellitus without complication, without long- term current use of insulin E11.9 ; Plantar fasciitis, bilateral M72.2 ; Essential hypertension I10 ; Mixed hyperlipidemia E78.2 ; Wheezing R06.2 and BMI 50.0-59.9, adult Z68.43 [place] [address] 35762- 7487 Mar, Type 2 diabetes mellitus without complication, without long- term current use of insulin E11.9 ; Mixed hyperlipidemia E78.2 ; Essential hypertension I10 ; Arthralgia of right knee M25.561 ; Shortness of breath R06.02 ; Nocturnal hypoxemia G47.34 and BMI 50.0-59.9, adult Z68.43 [facility] [address] 61751 -[address]21 Mar, Viral upper respiratory tract infection J06.9 ; Localized edema R60.0 ; Shortness of breath R06.02 ; Sore throat J02.9 and BMI 50.0-59.9, adult Z68.43 [place] [address] 36556- 9182 03 Jan, 2017 Complex tear of medial meniscus of right knee as current injury, subsequent encounter S83.231D [place] [address] 71458- 0240 Jan, [place] [address] 21633- 3574 Dec, Tear of medial meniscus of right knee, current, unspecified tear type, initial encounter S83.241A [place] [address] 49719- 6072 Nov, Mixed hyperlipidemia E78.2 [place] [address] 14558- 6830 Nov, Type 2 diabetes mellitus without complication, without long- term current use of insulin E11.9 ; Mixed hyperlipidemia E78.2 ; Essential hypertension I10 and Arthralgia of right knee M25.561 [place] [address] 46170- 1304 23 Oct, 2016 Acute pain of right knee M25.561 ; Type 2 diabetes mellitus without complication, without long-term current use of insulin E11.9 ; Essential hypertension I10 and Mixed hyperlipidemia E78.2 [place] [address] 82790- 8473 Oct, Nocturnal hypoxia G47.[address] 95934- 6069 Sep, Type 2 diabetes mellitus without complication, without long- term current use of insulin E11.[address] 43564- 3119 Aug, Hypoxia R09.02 ; Type 2 diabetes mellitus without complication, without long-term current use of insulin E11.9 ; Daytime hypersomnia G47.19 ; Mixed hyperlipidemia E78.2 and Essential hypertension I10 [address] 11989- 7437 July, Abnormal biliary HIDA scan R94.8 [place] [address] 99602- 6775 Jun, Epigastric abdominal pain R10.13 [place] [address] 32105- 3486 04 Jun, 2016 [place] [address] 60746- 1372 03 Jun, 2016 Epigastric abdominal pain R10.13 and Nausea R11.0 [place] [address] 04356- 3847 16 May, 2016 Type 2 diabetes mellitus without complication, without long- term current use of insulin E11.9 ; Mixed hyperlipidemia E78.2 ; Essential hypertension I10 and Arthritis of shoulder region, left M19.012 [facility] [id number] [place] [address] 00523 -3846 Mar, Herpes zoster without complication B02.9 [place] [address] 37290- 2171 Feb, Pain of left foot M79.672 [place] [address] 99284- 9439 Feb, Type 2 diabetes mellitus without complication, without long- term current use of insulin E11.9 ; Mixed hyperlipidemia E78.2 and Essential hypertension I10 [place] [address] 27583- 4176 Dec, [place] [address] 43488- 3413 Dec, [place] [address] 57798- 6955 Dec, Pain of left foot M79.672 ; Elevated blood pressure I10 and Type 2 diabetes mellitus without complication, without long-term current use of insulin E11.9 [place] [address] 86987- 8014 Oct, Pain of left foot M79.672 ; Pain in right foot M79.671 ; Pre -diabetes R73.09 ; Elevated blood pressure I10 and Type 2 diabetes mellitus without complication, without long-term current use of insulin E11.9 [place] [address] [address] [id number] [place] [address] 25516- 3957 15 Feb, 2015 Encounter for immunization Z23 [address] 30298- 2273 Jan, Cough R05 and Pneumonia of both lower lobes due to infectious organism J16.8 [place] [address] 26973- 3366 Dec, [place] [address] 63491- 3332 Dec, Right shoulder pain M25.511 [place] [address] [id number] [place] [address] 24643- 7402 Oct, TWINRIX DX V05.3 [place] [address] [id number] [place] [address] 56582- 9099 Sep, [place] [address] 71832- 0706 Sep, Family history of diabetes mellitus V18.0 ; Family history of heart disease V17.49 and Examination, general medical V70.9 [place] [address] 99692- 6899 Sep, Family history of diabetes mellitus V18.0 ; Family history of heart disease V17.49 and Examination, general medical V70.9 [place] [address] 47216- 0689 Aug, Back pain 724.5 and Fever 780.60 [place] [address] [address] [id number] [place] [address] 46865- 3496 July, HEP B (ADULT) DX V05.3 [place] [address] [address] [id number] [place] [address] 33719- 5683 Mar, [place] [address] [address] [id number] [place] [address] 94276- 1479 Mar, [place] [address] [id number] [place] [address] 51878- 7515 Mar, [place] [address] [address] [id number] [place] [address] 46131- 6360 Mar, IMMUNIZATIONS No Known Immunizations SOCIAL HISTORY Never Assessed REASON FOR VISIT Lab (walk-in) PLAN OF CARE VITAL SIGNS MEDICATIONS Unknown Medications RESULTS No Results PROCEDURES Procedure Date Ordered Result Body Site MICROALBUMIN, SEMIQUANT Nov 01, 2017 LIPID PANEL Nov 01, 2017 COMPLETE CBC W/AUTO DIFF WBC Nov 01, 2017 COMPREHEN METABOLIC PANEL Nov 01, 2017 INSTRUCTIONS MEDICATIONS ADMINISTERED No Known Medications [...]
--- OUTSIDE RECORDS SUMMARY | 2018-02-06 08:53 | XMS REPORT ---
Author Author TRINA AVINA Organization [facility] Address [address] [place] [address] Care Team Providers Care Can Closing Machine Operator Name Role Phone TRINA AVINA Unavailable PROBLEMS Type Condition ICD9-CM Code MOG39-FB Code Onset Dates Condition Status SNOMED Code Problem Nocturnal hypoxia G47.34 Active 422476140 Problem Type 2 diabetes mellitus without complication, without long-term current use of insulin E11.9 Active 663364954 Problem Abnormal biliary HIDA scan R94.8 Active 190200428 Problem Complex tear of medial meniscus of right knee as current injury, subsequent encounter S83.231D Active 352369715 Problem Plantar fasciitis, bilateral M72.2 Active 76544185977599763 Problem Nocturnal hypoxemia G47.34 Active 254871720 Problem Mixed hyperlipidemia E78.2 Active 878723281 Problem Essential hypertension I10 Active 18290353 Problem Daytime hypersomnia G47.19 Active 81762586514610 Problem Arthritis of shoulder region, left M19.012 Active 196047671 ALLERGIES No Information ENCOUNTERS Encounter Location Date Diagnosis [facility] [address] [place] [address] 64642- 2483 Jun, Type 2 diabetes mellitus without complication, without long- term current use of insulin E11.9 ; Plantar fasciitis, bilateral M72.2 ; Essential hypertension I10 ; Mixed hyperlipidemia E78.2 ; Wheezing R06.2 and BMI 50.0-59.9, adult Z68.43 [facility] [address] [place] [address] 97270- 0472 Mar, Type 2 diabetes mellitus without complication, without long- term current use of insulin E11.9 ; Mixed hyperlipidemia E78.2 ; Essential hypertension I10 ; Arthralgia of right knee M25.561 ; Shortness of breath R06.02 ; Nocturnal hypoxemia G47.34 and BMI 50.0-59.9, adult Z68.43 [facility] [address] [place] [address] 80373 -0687 Mar, Viral upper respiratory tract infection J06.9 ; Localized edema R60.0 ; Shortness of breath R06.02 ; Sore throat J02.9 and BMI 50.0-59.9, adult Z68.43 [facility] [address] 76185- 9535 03 Jan, 2017 Complex tear of medial meniscus of right knee as current injury, subsequent encounter S83.231D [place] [address] 60640- 8214 Jan, [place] [address] 88066- 9263 Dec, Tear of medial meniscus of right knee, current, unspecified tear type, initial encounter S83.241A [place] [address] 21683- 7951 Nov, Mixed hyperlipidemia E78.2 [place] [address] 39995- 0071 Nov, Type 2 diabetes mellitus without complication, without long- term current use of insulin E11.9 ; Mixed hyperlipidemia E78.2 ; Essential hypertension I10 and Arthralgia of right knee M25.561 [place] [address] [place] [id number] [place] [address] 24789- 6958 Oct, Acute pain of right knee M25.561 ; Type 2 diabetes mellitus without complication, without long-term current use of insulin E11.9 ; Essential hypertension I10 and Mixed hyperlipidemia E78.2 [place] [address] 73282- 5345 Oct, Nocturnal hypoxia G47.34 [place] [address] [place] [id number] [place] [address] 57883- 6835 Sep, Type 2 diabetes mellitus without complication, without long- term current use of insulin E11.9 [place] [address] [place] [id number] [place] [address] 00042- 4097 07 Aug, 2016 Hypoxia R09.02 ; Type 2 diabetes mellitus without complication, without long-term current use of insulin E11.9 ; Daytime hypersomnia G47.19 ; Mixed hyperlipidemia E78.2 and Essential hypertension I10 [place] [address] 13632- 5332 July, Abnormal biliary HIDA scan R94.8 [place] [address] 51848- 6143 Jun, Epigastric abdominal pain R10.13 [place] [address] 51201- 4655 Jun, [place] [address] 16289- 6365 Jun, Epigastric abdominal pain R10.13 and Nausea R11.0 [place] [address] 67632- 6975 16 May, 2016 Type 2 diabetes mellitus without complication, without long- term current use of insulin E11.9 ; Mixed hyperlipidemia E78.2 ; Essential hypertension I10 and Arthritis of shoulder region, left M19.012 [facility] [address] [place] [address] [id number] [place] [address] 02823 -5427 Mar, Herpes zoster without complication B02.9 [place] [address] 52792- 5086 Feb, Pain of left foot M79.672 [place] [address] [place] [address] [id number] [place] [address] 16771- 3691 Feb, Type 2 diabetes mellitus without complication, without long- term current use of insulin E11.9 ; Mixed hyperlipidemia E78.2 and Essential hypertension I10 [place] [address] [place] [id number] [place] [address] 28555- 1699 18 Dec, 2015 [facility] [address] 15714- 2584 Dec, [place] [address] [place] [id number] [place] [address] 74770- 9130 Dec, Pain of left foot M79.672 ; Elevated blood pressure I10 and Type 2 diabetes mellitus without complication, without long-term current use of insulin E11.9 [place] [address] [place] [id number] [place] [address] 58023- 0113 Oct, Pain of left foot M79.672 ; Pain in right foot M79.671 ; Pre -diabetes R73.09 ; Elevated blood pressure I10 and Type 2 diabetes mellitus without complication, without long-term current use of insulin E11.9 [place] [address] [place] [id number] [place] [address] 39420- 5913 Feb, Encounter for immunization Z23 [place] [address] [place] [address] [id number] [place] [address] 32033- 8551 Jan, Cough R05 and Pneumonia of both lower lobes due to infectious organism J16.8 [place] [address] [place] [address] [id number] [place] [address] 03690- 1993 Dec, [place] [address] 69525- 6829 Dec, Right shoulder pain M25.511 [place] [address] [place] [id number] [place] [address] 94039- 6395 Oct, T[place] DX V05.3 [place] [address] [place] [address] [id number] [place] [address] 74076- 2212 Sep, [place] [address] [place] [address] [id number] [place] [address] 95997- 5795 Sep, Family history of diabetes mellitus V18.0 ; Family history of heart disease V17.49 and Examination, general medical V70.9 [place] [address] [place] [address] [id number] [place] [address] 39536- 7102 Sep, Family history of diabetes mellitus V18.0 ; Family history of heart disease V17.49 and Examination, general medical V70.9 [facility] [address] [address]- 0772 Aug, Back pain 724.5 and Fever 780.60 [facility] [address] [address]- 3790 July, HEP B (ADULT) DX V05.3 [place] [address] [place] [address] [id number] [place] [address] 50763- 0545 Mar, [facility] [address] [place] [id number] [place] [address] 37211- 3397 Mar, [place] [address] [place] [address] [id number] [place] [address] 15484- 3870 Mar, [facility] [address] [address]- 7973 Mar, IMMUNIZATIONS No Known Immunizations SOCIAL HISTORY Never Assessed REASON FOR VISIT Lab (walk-in) PLAN OF CARE VITAL SIGNS MEDICATIONS No Known Medications RESULTS Name Result Date Reference Range LIPID PANEL 2016-12-14 Cholesterol, Total 148 100-199 Triglycerides 117 0-149 HDL Cholesterol 36 >39 VLDL Cholesterol Edgardo 23 5-40 LDL Cholesterol Calc 89 0-99 Comment: PROCEDURES Procedure Date Ordered Result Body Site LIPID PANEL Dec 14, 2016 VENIPUNCT, ROUTINE* Dec 14, 2016 INSTRUCTIONS MEDICATIONS ADMINISTERED No Known Medications MEDICAL [...]
--- OUTSIDE RECORDS SUMMARY | 2018-02-06 08:53 | XMS REPORT ---
Author Author JACKIE Finnegan Organization [facility] Address [address] [place] [address] Care Team Providers Care Billing Manager Name Role Phone JACKIE Finnegan Unavailable PROBLEMS Type Condition ICD9-CM Code KPE97-SP Code Onset Dates Condition Status SNOMED Code Problem Nocturnal hypoxia G47.34 Active 119729956 Problem Type 2 diabetes mellitus without complication, without long-term current use of insulin E11.9 Active 278963729 Problem Abnormal biliary HIDA scan R94.8 Active 371266832 Problem Complex tear of medial meniscus of right knee as current injury, subsequent encounter S83.231D Active 288749902 Problem Plantar fasciitis, bilateral M72.2 Active 65375551129185461 Problem Nocturnal hypoxemia G47.34 Active 359829372 Problem Mixed hyperlipidemia E78.2 Active 214521459 Problem Essential hypertension I10 Active 80308406 Problem Daytime hypersomnia G47.19 Active 22980230816016 Problem Arthritis of shoulder region, left M19.012 Active 043568085 ALLERGIES No Known Allergies ENCOUNTERS Encounter Location Date Diagnosis [place] [address] [place] [id number] [place] [address] 89538- 0020 Oct, [facility] [address] [place] [id number] [place] [address] 04493- 7108 Jun, Type 2 diabetes mellitus without complication, without long- term current use of insulin E11.9 ; Plantar fasciitis, bilateral M72.2 ; Essential hypertension I10 ; Mixed hyperlipidemia E78.2 ; Wheezing R06.2 and BMI 50.0-59.9, adult Z68.43 [place] [address] [place] [id number] [place] [address] 17205- 8454 Mar, Type 2 diabetes mellitus without complication, without long- term current use of insulin E11.9 ; Mixed hyperlipidemia E78.2 ; Essential hypertension I10 ; Arthralgia of right knee M25.561 ; Shortness of breath R06.02 ; Nocturnal hypoxemia G47.34 and BMI 50.0-59.9, adult Z68.43 [facility] [address] [place] [address] [id number] [place] [address] 44569 -6332 Mar, Viral upper respiratory tract infection J06.9 ; Localized edema R60.0 ; Shortness of breath R06.02 ; Sore throat J02.9 and BMI 50.0-59.9, adult Z68.43 [place] [address] 66506- 5036 Jan, Complex tear of medial meniscus of right knee as current injury, subsequent encounter S83.231D [place] [address] 59809- 0654 Jan, [place] [address] 14245- 2644 Dec, Tear of medial meniscus of right knee, current, unspecified tear type, initial encounter S83.241A [place] [address] 62377- 3953 Nov, Mixed hyperlipidemia E78.2 [place] [address] 70816- 5842 Nov, Type 2 diabetes mellitus without complication, without long- term current use of insulin E11.9 ; Mixed hyperlipidemia E78.2 ; Essential hypertension I10 and Arthralgia of right knee M25.561 [place] [address] 09699- 6404 Oct, Acute pain of right knee M25.561 ; Type 2 diabetes mellitus without complication, without long-term current use of insulin E11.9 ; Essential hypertension I10 and Mixed hyperlipidemia E78.2 [place] [address] [place] [id number] [place] [address] 68734- 1635 Oct, Nocturnal hypoxia G47.34 [place] [address] 90902- 5632 Sep, Type 2 diabetes mellitus without complication, without long- term current use of insulin E11.9 [place] [address] 60878- 2841 Aug, Hypoxia R09.02 ; Type 2 diabetes mellitus without complication, without long-term current use of insulin E11.9 ; Daytime hypersomnia G47.19 ; Mixed hyperlipidemia E78.2 and Essential hypertension I10 [place] [address] 70290- 5879 July, Abnormal biliary HIDA scan R94.8 [place] [address] 02656- 0878 Jun, Epigastric abdominal pain R10.13 [place] [address] 75838- 2170 Jun, [place] [address] 36877- 1678 Jun, Epigastric abdominal pain R10.13 and Nausea R11.0 [place] [address] 89971- 9422 May, Type 2 diabetes mellitus without complication, without long- term current use of insulin E11.9 ; Mixed hyperlipidemia E78.2 ; Essential hypertension I10 and Arthritis of shoulder region, left M19.012 [facility] [address] [place] [id number] [place] [address] 08729 -6213 Mar, Herpes zoster without complication B02.9 [place] [address] 42815- 6740 Feb, Pain of left foot M79.672 [place] [address] 31350- 2974 Feb, Type 2 diabetes mellitus without complication, without long- term current use of insulin E11.9 ; Mixed hyperlipidemia E78.2 and Essential hypertension I10 [place] [address] [place] [address]- 1961 Dec, [place] [address] 14908- 7400 Dec, [place] [address] 63982- 5145 Dec, Pain of left foot M79.672 ; Elevated blood pressure I10 and Type 2 diabetes mellitus without complication, without long-term current use of insulin E11.9 [place] [address] 91754- 5540 Oct, Pain of left foot M79.672 ; Pain in right foot M79.671 ; Pre -diabetes R73.09 ; Elevated blood pressure I10 and Type 2 diabetes mellitus without complication, without long-term current use of insulin E11.[address] 31864- 3386 Feb, Encounter for immunization Z23 [address] 68858- 9829 Jan, Cough R05 and Pneumonia of both lower lobes due to infectious organism J16.[address] 96290- 5553 Dec, [address] 36487- 0002 Dec, Right shoulder pain M25.511 [place] [address] 99416- 1702 Oct, [place] DX V05.[address] 62908- 3589 Sep, [address] 11660- 7894 Sep, Family history of diabetes mellitus V18.0 ; Family history of heart disease V17.49 and Examination, general medical V70.[address] [place] [address]- 8221 10 Sep, 2014 Family history of diabetes mellitus V18.0 ; Family history of heart disease V17.49 and Examination, general medical V70.9 [place] [address] [place] [address] 96466- 3908 16 Aug, 2014 Back pain 724.5 and Fever 780.60 [place] [address] [place] [id number] [place] [address] 72896- 2606 July, HEP B (ADULT) DX V05.3 [place] [address] [place] [id number] [place] [address] 639703- 9605 Mar, [place] [address] [place] [id number] [place] [address] 27883- 0821 Mar, [place] [address] [place] [id number] [place] [address] 68642- 1472 Mar, [place] [address] [place] [id number] [place] [address] 19881- 8678 Mar, IMMUNIZATIONS No Known Immunizations SOCIAL HISTORY Never Assessed REASON FOR VISIT headache, cough, chest congestion, sore throat since last sunday. antonino PLAN OF CARE Activity Details Follow Up prn. Reason: VITAL SIGNS Height 61 in 2017-04-02 Weight 294.2 lbs 2017-04-02 Temperature 98.1 degrees Fahrenheit 2017-04-02 Heart Rate 80 bpm 2017-04-02 Respiratory Rate 20 2017-04-02 BMI 55.58 kg/m2 2017-04-02 Blood pressure systolic 122 mmHg 2017-04-02 Blood pressure diastolic 74 mmHg 2017-04-02 MEDICATIONS Medication Instructions Dosage Frequency Start Date End Date Duration Status Tylenol 325 MG Orally every 6 hrs 1 tablet as needed 6h Active Omeprazole 20 mg Orally Once a day 1 capsule 24h Jun, 90 days Active Oxygen 1 L as directed Oct, Active Celebrex 200 mg Orally Once a day 1 capsule with food 24h Oct, 30 day(s) Active Lovastatin 20 mg Orally Once a day 1 tablet with a meal 24h 30 Active Lasix 40 mg Orally Once a day 1 tablet 24h Mar, Active MetFORMIN HCl ER 500 mg Orally twice a day wiht food 1 tablet with evening meal 30 Active Losartan Potassium-HCTZ 50-12.5 MG Orally Once a day 1 tablet 24h 30 Active RESULTS Name Result Date Reference Range STREP A (IN HOUSE) 2017-04-02 STREP A negative Control + Lot # [id number] Exp date 2017 Xray : Chest 2 View (IN HOUSE) 2017-04-02 PROCEDURES Procedure Date Ordered Result Body Site STREP A ASSAY W/OPTIC Apr 02, 2017 X-RAY EXAM CHEST 2 VIEWS Apr 02, 2017 INSTRUCTIONS MEDICATIONS ADMINISTERED No Known Medications [...]
--- OUTSIDE RECORDS SUMMARY | 2018-02-06 08:53 | XMS REPORT ---
Author Author TRINA AVINA Organization [facility] Address [address] [place] [address] Care Team Providers Care Plastic Press Operator Name Role Phone TRINA AVINA Unavailable PROBLEMS Type Condition ICD9-CM Code JKD07-KN Code Onset Dates Condition Status SNOMED Code Problem Nocturnal hypoxia G47.34 Active 019920936 Problem Type 2 diabetes mellitus without complication, without long-term current use of insulin E11.9 Active 803048798 Problem Abnormal biliary HIDA scan R94.8 Active 705457647 Problem Complex tear of medial meniscus of right knee as current injury, subsequent encounter S83.231D Active 604695188 Problem Plantar fasciitis, bilateral M72.2 Active 71496649261523050 Problem Nocturnal hypoxemia G47.34 Active 113229796 Problem Mixed hyperlipidemia E78.2 Active 766949709 Problem Essential hypertension I10 Active 31226449 Problem Daytime hypersomnia G47.19 Active 45993707011150 Problem Arthritis of shoulder region, left M19.012 Active 095893001 ALLERGIES No Known Allergies ENCOUNTERS Encounter Location Date Diagnosis [facility] [address] [place] [address] 58064- 9476 Jun, Type 2 diabetes mellitus without complication, without long- term current use of insulin E11.9 ; Plantar fasciitis, bilateral M72.2 ; Essential hypertension I10 ; Mixed hyperlipidemia E78.2 ; Wheezing R06.2 and BMI 50.0-59.9, adult Z68.43 [facility] [address] [place] [address] 76357- 7696 Mar, Type 2 diabetes mellitus without complication, without long- term current use of insulin E11.9 ; Mixed hyperlipidemia E78.2 ; Essential hypertension I10 ; Arthralgia of right knee M25.561 ; Shortness of breath R06.02 ; Nocturnal hypoxemia G47.34 and BMI 50.0-59.9, adult Z68.43 [facility] [address] [place] [address] 87554 -9330 Mar, Viral upper respiratory tract infection J06.9 ; Localized edema R60.0 ; Shortness of breath R06.02 ; Sore throat J02.9 and BMI 50.0-59.9, adult Z68.43 [place] [address] 57323- 0551 Jan, Complex tear of medial meniscus of right knee as current injury, subsequent encounter S83.231D [place] [address] 03760- 4438 Jan, [place] [address] 22652- 4192 Dec, Tear of medial meniscus of right knee, current, unspecified tear type, initial encounter S83.241A [place] [address] 27998- 5092 Nov, Mixed hyperlipidemia E78.2 [place] [address] 03874- 2964 Nov, Type 2 diabetes mellitus without complication, without long- term current use of insulin E11.9 ; Mixed hyperlipidemia E78.2 ; Essential hypertension I10 and Arthralgia of right knee M25.561 [place] [address] 89187- 8246 Oct, Acute pain of right knee M25.561 ; Type 2 diabetes mellitus without complication, without long-term current use of insulin E11.9 ; Essential hypertension I10 and Mixed hyperlipidemia E78.2 [place] [address] 04833- 4011 Oct, Nocturnal hypoxia G47.34 [place] [address] 40923- 5686 Sep, Type 2 diabetes mellitus without complication, without long- term current use of insulin E11.9 [place] [address] [place] [id number] [place] [address] 46918- 4831 07 Aug, 2016 Hypoxia R09.02 ; Type 2 diabetes mellitus without complication, without long-term current use of insulin E11.9 ; Daytime hypersomnia G47.19 ; Mixed hyperlipidemia E78.2 and Essential hypertension I10 [place] [address] [place] [id number] [place] [address] 42953- 6720 July, Abnormal biliary HIDA scan R94.8 [place] [address] 43789- 0575 Jun, Epigastric abdominal pain R10.13 [place] [address] 68046- 1662 Jun, [place] [address] 24128- 3375 Jun, Epigastric abdominal pain R10.13 and Nausea R11.0 [place] [address] 50635- 3706 16 May, 2016 Type 2 diabetes mellitus without complication, without long- term current use of insulin E11.9 ; Mixed hyperlipidemia E78.2 ; Essential hypertension I10 and Arthritis of shoulder region, left M19.012 [facility] [address] [place] [id number] [place] [address] 70430 -4907 Mar, Herpes zoster without complication B02.9 [place] [address] [place] [id number] [place] [address] 29462- 8685 Feb, Pain of left foot M79.672 [place] [address] [place] [id number] [place] [address] 80593- 2738 Feb, Type 2 diabetes mellitus without complication, without long- term current use of insulin E11.9 ; Mixed hyperlipidemia E78.2 and Essential hypertension I10 [place] [address] [place] [id number] [place] [address] 00227- 4794 Dec, [facility] [address] 54390- 4731 Dec, [place] [address] [place] [address] 83704- 5495 Dec, Pain of left foot M79.672 ; Elevated blood pressure I10 and Type 2 diabetes mellitus without complication, without long-term current use of insulin E11.9 [place] [address] [place] [id number] [place] [address] 96717- 5765 Oct, Pain of left foot M79.672 ; Pain in right foot M79.671 ; Pre -diabetes R73.09 ; Elevated blood pressure I10 and Type 2 diabetes mellitus without complication, without long-term current use of insulin E11.9 [place] [address] [place] [id number] [place] [address] 16616- 1361 Feb, Encounter for immunization Z23 [place] [address] [place] [id number] [place] [address] 87822- 4340 Jan, Cough R05 and Pneumonia of both lower lobes due to infectious organism J16.8 [place] [address] [place] [id number] [place] [address] 30146- 5502 Dec, [place] [address] [place] [id number] [place] [address] 34376- 4064 Dec, Right shoulder pain M25.511 [place] [address] [place] [id number] [place] [address] 37590- 5279 Oct, TWINRIX DX V05.3 [place] [address] [place] [id number] [place] [address] 80305- 5564 Sep, [place] [address] [place] [id number] [place] [address] 71205- 5926 Sep, Family history of diabetes mellitus V18.0 ; Family history of heart disease V17.49 and Examination, general medical V70.9 [place] [address] [place] [address] 29803- 9186 Sep, Family history of diabetes mellitus V18.0 ; Family history of heart disease V17.49 and Examination, general medical V70.9 [facility] [address] [address]- 7106 Aug, Back pain 724.5 and Fever 780.60 [facility] [address] [place] [address] 82510- 2331 July, HEP B (ADULT) DX V05.3 [place] [address] [place] [id number] [place] [address] 87709- 9179 Mar, [facility] [address] [place] [id number] [place] [address] 39851- 9181 Mar, [facility] [address] [place] [id number] [place] [address] 45559- 1226 Mar, [place] [address] [place] [id number] [place] [address] 82354- 2578 Mar, IMMUNIZATIONS No Known Immunizations SOCIAL HISTORY Never Assessed REASON FOR VISIT Knee pain-right knee began hurting a couple weeks ago, does not recall any injury to [facility] PLAN OF CARE Activity Details Follow Up pending xray and with 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 Reason: VITAL SIGNS Height 61 in 2016-11-15 Weight 292.0 lbs 2016-11-15 Temperature 98.8 degrees Fahrenheit 2016-11-15 Heart Rate 78 bpm 2016-11-15 Respiratory Rate 22 2016-11-15 BMI 55.17 kg/m2 2016-11-15 Blood pressure systolic 106 mmHg 2016-11-15 Blood pressure diastolic 70 mmHg 2016-11-15 MEDICATIONS Medication Instructions Dosage Frequency Start Date End Date Duration Status Omeprazole 20 mg Orally Once a day 1 capsule 24h Jun, 90 days Active Oxygen 1 L as directed Oct, Active Celebrex 200 mg Orally Once a day 1 capsule with food 24h Oct, Nov, 30 day(s) Active Tylenol 325 MG Orally every 6 hrs 1 tablet as needed 6h Active MetFORMIN HCl ER 500 mg Orally twice a day wiht food 1 tablet with evening meal 30 days Active Lovastatin 20 mg Orally Once a day 1 tablet with a meal 24h 30 days Active Losartan Potassium-HCTZ 50-12.5 MG Orally Once a day 1 tablet 24h 30 day(s) Active RESULTS No Results PROCEDURES Procedure Date Ordered Result Body Site X-RAY EXAM OF KNEE, 3 Nov 15, 2016 INSTRUCTIONS MEDICATIONS ADMINISTERED No Known Medications [...]
--- OUTSIDE RECORDS SUMMARY | 2018-02-06 08:53 | XMS REPORT ---
Author Author TRINA AVINA Organization [facility] Address [address] [place] [address] Care Team Providers Care Machine Feeder Floorperson Name Role Phone TRINA AVINA Unavailable PROBLEMS Type Condition ICD9-CM Code FHB16-TZ Code Onset Dates Condition Status SNOMED Code Problem Nocturnal hypoxia G47.34 Active 661991983 Problem Type 2 diabetes mellitus without complication, without long-term current use of insulin E11.9 Active 189849069 Problem Abnormal biliary HIDA scan R94.8 Active 524731113 Problem Complex tear of medial meniscus of right knee as current injury, subsequent encounter S83.231D Active 962819959 Problem Plantar fasciitis, bilateral M72.2 Active 61439676586177811 Problem Nocturnal hypoxemia G47.34 Active 249163649 Problem Mixed hyperlipidemia E78.2 Active 767870350 Problem Essential hypertension I10 Active 03026219 Problem Daytime hypersomnia G47.19 Active 06743125207411 Problem Arthritis of shoulder region, left M19.012 Active 717280566 ALLERGIES No Information ENCOUNTERS Encounter Location Date Diagnosis [facility] [address] [place] [address] 45433- 6149 Jun, Type 2 diabetes mellitus without complication, without long- term current use of insulin E11.9 ; Plantar fasciitis, bilateral M72.2 ; Essential hypertension I10 ; Mixed hyperlipidemia E78.2 ; Wheezing R06.2 and BMI 50.0-59.9, adult Z68.43 [facility] [address] [place] [address] 09022- 6203 Mar, Type 2 diabetes mellitus without complication, without long- term current use of insulin E11.9 ; Mixed hyperlipidemia E78.2 ; Essential hypertension I10 ; Arthralgia of right knee M25.561 ; Shortness of breath R06.02 ; Nocturnal hypoxemia G47.34 and BMI 50.0-59.9, adult Z68.43 [facility] [address] [place] [address] 63885 -4729 Mar, Viral upper respiratory tract infection J06.9 ; Localized edema R60.0 ; Shortness of breath R06.02 ; Sore throat J02.9 and BMI 50.0-59.9, adult Z68.43 [facility] [address] 05378- 7665 03 Jan, 2017 Complex tear of medial meniscus of right knee as current injury, subsequent encounter S83.231D [place] [address] 89820- 5644 Jan, [place] [address] 28019- 0831 Dec, Tear of medial meniscus of right knee, current, unspecified tear type, initial encounter S83.241A [place] [address] 01481- 9857 Nov, Mixed hyperlipidemia E78.2 [place] [address] 93977- 7979 Nov, Type 2 diabetes mellitus without complication, without long- term current use of insulin E11.9 ; Mixed hyperlipidemia E78.2 ; Essential hypertension I10 and Arthralgia of right knee M25.561 [place] [address] [place] [id number] [place] [address] 79050- 6049 Oct, Acute pain of right knee M25.561 ; Type 2 diabetes mellitus without complication, without long-term current use of insulin E11.9 ; Essential hypertension I10 and Mixed hyperlipidemia E78.2 [place] [address] 59445- 0981 Oct, Nocturnal hypoxia G47.34 [place] [address] [place] [id number] [place] [address] 14371- 9798 Sep, Type 2 diabetes mellitus without complication, without long- term current use of insulin E11.9 [place] [address] [place] [id number] [place] [address] 40946- 3462 07 Aug, 2016 Hypoxia R09.02 ; Type 2 diabetes mellitus without complication, without long-term current use of insulin E11.9 ; Daytime hypersomnia G47.19 ; Mixed hyperlipidemia E78.2 and Essential hypertension I10 [place] [address] 63128- 3579 July, Abnormal biliary HIDA scan R94.8 [place] [address] 50559- 8034 Jun, Epigastric abdominal pain R10.13 [place] [address] 05083- 2665 Jun, [place] [address] 09725- 8101 Jun, Epigastric abdominal pain R10.13 and Nausea R11.0 [place] [address] 44438- 6862 16 May, 2016 Type 2 diabetes mellitus without complication, without long- term current use of insulin E11.9 ; Mixed hyperlipidemia E78.2 ; Essential hypertension I10 and Arthritis of shoulder region, left M19.012 [facility] [address] [place] [id number] [place] [address] 09008 -4267 Mar, Herpes zoster without complication B02.9 [place] [address] 20056- 2056 Feb, Pain of left foot M79.672 [place] [address] [place] [id number] [place] [address] 99397- 4494 Feb, Type 2 diabetes mellitus without complication, without long- term current use of insulin E11.9 ; Mixed hyperlipidemia E78.2 and Essential hypertension I10 [place] [address] [place] [id number] [place] [address] 37629- 5070 18 Dec, 2015 [facility] [address] 71735- 5162 Dec, [place] [address] [place] [id number] [place] [address] 01102- 3323 Dec, Pain of left foot M79.672 ; Elevated blood pressure I10 and Type 2 diabetes mellitus without complication, without long-term current use of insulin E11.9 [place] [address] [place] [id number] [place] [address] 78661- 3165 Oct, Pain of left foot M79.672 ; Pain in right foot M79.671 ; Pre -diabetes R73.09 ; Elevated blood pressure I10 and Type 2 diabetes mellitus without complication, without long-term current use of insulin E11.9 [place] [address] [place] [id number] [place] [address] 47743- 1661 Feb, Encounter for immunization Z23 [place] [address] [place] [id number] [place] [address] 67878- 8903 Jan, Cough R05 and Pneumonia of both lower lobes due to infectious organism J16.8 [place] [address] [place] [id number] [place] [address] 28037- 1390 Dec, [place] [address] 34497- 7822 Dec, Right shoulder pain M25.511 [place] [address] [place] [id number] [place] [address] 84775- 4488 Oct, TWINRIX DX V05.3 [place] [address] [place] [id number] [place] [address] 86349- 6201 Sep, [place] [address] [place] [id number] [place] [address] 45017- 8944 Sep, Family history of diabetes mellitus V18.0 ; Family history of heart disease V17.49 and Examination, general medical V70.9 [place] [address] [place] [id number] [place] [address] 52912- 5877 Sep, Family history of diabetes mellitus V18.0 ; Family history of heart disease V17.49 and Examination, general medical V70.9 [facility] [address] [place] [address] 36177- 0560 Aug, Back pain 724.5 and Fever 780.60 [place] [address] [place] [id number] [place] [address] 26278- 3604 July, HEP B (ADULT) DX V05.3 [place] [address] 83443- 9612 Mar, [place] [address] 71596- 7292 Mar, [place] [address] [place] [id number] [place] [address] 10600- 3484 Mar, [place] [address] [place] [id number] [place] [address] 16199- 7746 Mar, IMMUNIZATIONS No Known Immunizations SOCIAL HISTORY Never Assessed REASON FOR VISIT Referral PLAN OF CARE VITAL SIGNS MEDICATIONS No Known Medications RESULTS No Results PROCEDURES No Known [...]
--- OUTSIDE RECORDS SUMMARY | 2018-02-06 08:54 | XMS REPORT ---
Author Author TRINA AVINA Organization [facility] Address [address] [place] [address] Care Team Providers Care Voice Instructor Name Role Phone TRINA AVINA Unavailable PROBLEMS Type Condition ICD9-CM Code VNZ11-WC Code Onset Dates Condition Status SNOMED Code Problem Abnormal biliary HIDA scan R94.8 Active 046119557 Problem Nocturnal hypoxia G47.34 Active 871333565 Problem Complex tear of medial meniscus of right knee as current injury, subsequent encounter S83.231D Active 223977260 Problem Nocturnal hypoxemia G47.34 Active 328236859 Problem Daytime hypersomnia G47.19 Active 19583494199159 Problem Essential hypertension I10 Active 27318333 Problem Type 2 diabetes mellitus without complication, without long-term current use of insulin E11.9 Active 089098710 Problem Arthritis of shoulder region, left M19.012 Active 767278891 Problem Mixed hyperlipidemia E78.2 Active 253757470 ALLERGIES No Information ENCOUNTERS Encounter Location Date Diagnosis [facility] [address] [place] [id number] [address] 2[address] Jun, [facility] [address] [address]- 5321 Mar, Type 2 diabetes mellitus without complication, without long- term current use of insulin E11.9 ; Mixed hyperlipidemia E78.2 ; Essential hypertension I10 ; Arthralgia of right knee M25.561 ; Shortness of breath R06.02 ; Nocturnal hypoxemia G47.34 and BMI 50.0-59.9, adult Z68.43 [facility] [id number] [address] Mar, Viral upper respiratory tract infection J06.9 ; Localized edema R60.0 ; Shortness of breath R06.02 ; Sore throat J02.9 and BMI 50.0-59.9, adult Z68.43 [place] [address] [place] [address] 72708- 1350 Jan, Complex tear of medial meniscus of right knee as current injury, subsequent encounter S83.231D [place] [address] [place] [id number] [place] [address] 00019- 6595 Jan, [place] [address] [place] [id number] [place] [address] 35777- 5495 Dec, Tear of medial meniscus of right knee, current, unspecified tear type, initial encounter S83.241A [place] [address] [place] [id number] [place] [address] 40843- 8231 Nov, Mixed hyperlipidemia E78.2 [place] [address] [place] [id number] [place] [address] 37494- 3747 Nov, Type 2 diabetes mellitus without complication, without long- term current use of insulin E11.9 ; Mixed hyperlipidemia E78.2 ; Essential hypertension I10 and Arthralgia of right knee M25.561 [place] [address] [place] [id number] [place] [address] 80178- 1518 Oct, Acute pain of right knee M25.561 ; Type 2 diabetes mellitus without complication, without long-term current use of insulin E11.9 ; Essential hypertension I10 and Mixed hyperlipidemia E78.2 [place] [address] [place] [id number] [place] [address] 13105- 1432 Oct, Nocturnal hypoxia G47.34 [place] [address] [place] [id number] [place] [address] 72971- 6032 Sep, Type 2 diabetes mellitus without complication, without long- term current use of insulin E11.9 [place] [address] [place] [id number] [place] [address] 89395- 6865 Aug, Hypoxia R09.02 ; Type 2 diabetes mellitus without complication, without long-term current use of insulin E11.9 ; Daytime hypersomnia G47.19 ; Mixed hyperlipidemia E78.2 and Essential hypertension I10 [place] [address] [place] [id number] [place] [address] 74999- 8351 10 Jul, 2016 Abnormal biliary HIDA scan R94.8 [place] [address] 87742- 2507 07 Jun, 2016 Epigastric abdominal pain R10.13 [place] [address] 83269- 5563 Jun, [place] [address] 74008- 6828 Jun, Epigastric abdominal pain R10.13 and Nausea R11.0 [place] [address] 26108- 3989 16 May, 2016 Type 2 diabetes mellitus without complication, without long- term current use of insulin E11.9 ; Mixed hyperlipidemia E78.2 ; Essential hypertension I10 and Arthritis of shoulder region, left M19.012 [facility] [address] [place] [id number] [place] [address] 87910 -5421 Mar, Herpes zoster without complication B02.9 [place] [address] [place] [id number] [place] [address] 18082- 7772 Feb, Pain of left foot M79.672 [place] [address] [place] [id number] [place] [address] 12841- 2553 Feb, Type 2 diabetes mellitus without complication, without long- term current use of insulin E11.9 ; Mixed hyperlipidemia E78.2 and Essential hypertension I10 [place] [address] [place] [id number] [place] [address] 78439- 9394 Dec, [place] [address] [place] [id number] [place] [address] 79883- 9812 Dec, [place] [address] 58426- 5696 Dec, Pain of left foot M79.672 ; Elevated blood pressure I10 and Type 2 diabetes mellitus without complication, without long-term current use of insulin E11.9 [place] [address] [place] [address] 43417- 8251 Oct, Pain of left foot M79.672 ; Pain in right foot M79.671 ; Pre -diabetes R73.09 ; Elevated blood pressure I10 and Type 2 diabetes mellitus without complication, without long-term current use of insulin E11.[address] 90830- 8924 15 Feb, 2015 Encounter for immunization Z23 [address] 63650- 0631 Jan, Cough R05 and Pneumonia of both lower lobes due to infectious organism J16.[address] 31527- 2878 Dec, [address] 66301- 7312 Dec, Right shoulder pain M25.[address] 23491- 5101 Oct, [place] DX V05.[address] 79511- 8724 Sep, [address] 24896- 9635 Sep, Family history of diabetes mellitus V18.0 ; Family history of heart disease V17.49 and Examination, general medical V70.9 [place] [id number] [place] [address] 18109- 6894 Sep, Family history of diabetes mellitus V18.0 ; Family history of heart disease V17.49 and Examination, general medical V70.9 [place] [id number] [place] [address] 61106- 3109 Aug, Back pain 724.5 and Fever 780.[address] 67251- 6151 July, HEP B (ADULT) DX V05.3 [facility] [address] [facility] [id number] [address] 3955 Mar, [facility] [id number] [address]- 8112 Mar, [facility] [address] [facility] [id number] [address]- 6861 Mar, [facility] [address] [facility] [id number] 9970 Mar, IMMUNIZATIONS No Known Immunizations SOCIAL HISTORY Never Assessed REASON FOR VISIT Blood sugar PLAN OF CARE VITAL SIGNS MEDICATIONS Medication Instructions Dosage Frequency Start Date End Date Duration Status MetFORMIN HCl ER 500 mg Orally twice a day wiht food 1 tablet with evening meal Active RESULTS No Results PROCEDURES No Known [...]
--- OUTSIDE RECORDS SUMMARY | 2018-02-06 08:54 | XMS REPORT ---
Author Author TIRNA AVINA Organization [facility] Address [address] [place] [address] Care Team Providers Care Service Supervisor Name Role Phone TRINA AVINA Unavailable PROBLEMS Type Condition ICD9-CM Code OYR46-KX Code Onset Dates Condition Status SNOMED Code Problem Nocturnal hypoxia G47.34 Active 863312601 Problem Type 2 diabetes mellitus without complication, without long-term current use of insulin E11.9 Active 993114306 Problem Abnormal biliary HIDA scan R94.8 Active 120437031 Problem Complex tear of medial meniscus of right knee as current injury, subsequent encounter S83.231D Active 179083188 Problem Plantar fasciitis, bilateral M72.2 Active [id number] Problem Nocturnal hypoxemia G47.34 Active 250021406 Problem Mixed hyperlipidemia E78.2 Active 750268174 Problem Essential hypertension I10 Active 34351474 Problem Daytime hypersomnia G47.19 Active 32131595334085 Problem Arthritis of shoulder region, left M19.012 Active 220365242 ALLERGIES No Information ENCOUNTERS Encounter Location Date Diagnosis [facility] [id number] [place] [address] Jun, Type 2 diabetes mellitus without complication, without long- term current use of insulin E11.9 ; Plantar fasciitis, bilateral M72.2 ; Essential hypertension I10 ; Mixed hyperlipidemia E78.2 ; Wheezing R06.2 and BMI 50.0-59.9, adult Z68.43 [facility] [id number] [place] [address] 57[address]- [address]70 Mar, Type 2 diabetes mellitus without complication, without long- term current use of insulin E11.9 ; Mixed hyperlipidemia E78.2 ; Essential hypertension I10 ; Arthralgia of right knee M25.561 ; Shortness of breath R06.02 ; Nocturnal hypoxemia G47.34 and BMI 50.0-59.9, adult Z68.43 [facility] [address] [place] [address]605 Mar, Viral upper respiratory tract infection J06.9 ; Localized edema R60.0 ; Shortness of breath R06.02 ; Sore throat J02.9 and BMI 50.0-59.9, adult Z68.43 [facility] [address] [address] 03 Jan, 2017 Complex tear of medial meniscus of right knee as current injury, subsequent encounter S83.231D [place] [address] [address] Jan, [place] [address] 260[address] Dec, Tear of medial meniscus of right knee, current, unspecified tear type, initial encounter S83.241A [place] [address] [address] Nov, Mixed hyperlipidemia E78.2 [place] [address] [address]- [address] Nov, Type 2 diabetes mellitus without complication, without long- term current use of insulin E11.9 ; Mixed hyperlipidemia E78.2 ; Essential hypertension I10 and Arthralgia of right knee M25.561 [place] [address] [place] [id number] [place] [address] 78252- 5142 Oct, Acute pain of right knee M25.561 ; Type 2 diabetes mellitus without complication, without long-term current use of insulin E11.9 ; Essential hypertension I10 and Mixed hyperlipidemia E78.2 [place] [address] [address]- [address]77 Oct, Nocturnal hypoxia G47.34 [place] [address] [place] [id number] [place] [address] 72625- 5195 Sep, Type 2 diabetes mellitus without complication, without long- term current use of insulin E11.9 [place] [address] [place] [id number] [place] [address] 54223- 6[address] 07 Aug, 2016 Hypoxia R09.02 ; Type 2 diabetes mellitus without complication, without long-term current use of insulin E11.9 ; Daytime hypersomnia G47.19 ; Mixed hyperlipidemia E78.2 and Essential hypertension I10 [place] [address] 6[address]- [address] July, Abnormal biliary HIDA scan R94.8 [place] [address] 57[address]- 57[address] Jun, Epigastric abdominal pain R10.13 [place] [address] 0[address]- [address] Jun, [place] [address] 9[address]28- 4095 Jun, Epigastric abdominal pain R10.13 and Nausea R11.0 [place] [address] 23986- [address] 16 May, 2016 Type 2 diabetes mellitus without complication, without long- term current use of insulin E11.9 ; Mixed hyperlipidemia E78.2 ; Essential hypertension I10 and Arthritis of shoulder region, left M19.012 [facility] [address] [place] [id number] [place] [address]778 -[address]283 Mar, Herpes zoster without complication B02.9 [place] [address] 47579- 6[address] Feb, Pain of left foot M79.672 [place] [address] [place] [id number] [place] [address] 54020- 1495 Feb, Type 2 diabetes mellitus without complication, without long- term current use of insulin E11.9 ; Mixed hyperlipidemia E78.2 and Essential hypertension I10 [place] [address] [place] [id number] [place] [address] 07366- 0515 18 Dec, 2015 [facility] [address] [address]- [address] Dec, [place] [address] [place] [id number] [place] [address] 66892- 4747 Dec, Pain of left foot M79.672 ; Elevated blood pressure I10 and Type 2 diabetes mellitus without complication, without long-term current use of insulin E11.9 [place] [address] [place] [id number] [place] [address] 32491- 3039 Oct, Pain of left foot M79.672 ; Pain in right foot M79.671 ; Pre -diabetes R73.09 ; Elevated blood pressure I10 and Type 2 diabetes mellitus without complication, without long-term current use of insulin E11.9 [place] [address] [place] [id number] [place] [address] 95615- 3918 Feb, Encounter for immunization Z23 [place] [address] [place] [id number] [place] [address] 92456- 7498 Jan, Cough R05 and Pneumonia of both lower lobes due to infectious organism J16.8 [place] [address] [place] [id number] [place] [address] 46542- 3520 Dec, [place] [address] 38748- [address]16 Dec, Right shoulder pain M25.511 [place] [address] [place] [id number] [place] [address] 35849- 8290 Oct, TWINRIX DX V05.3 [place] [address] [place] [id number] [place] [address] 87944- 8595 Sep, [place] [address] [place] [id number] [place] [address] 20746- 5593 Sep, Family history of diabetes mellitus V18.0 ; Family history of heart disease V17.49 and Examination, general medical V70.9 [place] [address] [place] [id number] [place] [address] 69360- 3371 Sep, Family history of diabetes mellitus V18.0 ; Family history of heart disease V17.49 and Examination, general medical V70.9 [facility] [address] [address] Aug, Back pain 724.5 and Fever 780.60 [facility] [address] [place] [id number] [place] [address] 23909- 8840 July, HEP B (ADULT) DX V05.3 [place] [address] 9[address]43- [address]888 Mar, [place] [address] [place] [id number] [place] [address] 68547- 9387 Mar, [place] [address] [place] [id number] [place] [address] 12673- 1861 Mar, [place] [address] [place] [id number] [place] [address] 74888- 6673 Mar, IMMUNIZATIONS No Known Immunizations SOCIAL HISTORY Never Assessed REASON FOR VISIT MRI results PLAN OF CARE VITAL SIGNS MEDICATIONS No [...]
--- OUTSIDE RECORDS SUMMARY | 2018-02-06 08:55 | XMS REPORT | Continuity of Care Document ---
Author Author [facility] Organization [facility] Address Unknown Phone Unavailable Allergies Active Description Code Type Severity Reaction Onset Reported/Identified Relationship to Patient Clinical Status Yes NKANo Known Allergies NKA Miscellaneous Allergy Unknown N/A 12/26/2005 Yes No Known Drug Allergies [id number] Drug Allergy Unknown N/A 02/04/2018 Medications There is no data. Problems Date Dx Coded Attending Type Code Diagnosis Diagnosed By 07/25/2015 Ot 535.50 07/25/2015 Ot 789.01 07/25/2015 Ot V15.82 07/25/2015 Ot V58.69 06/29/2016 SARAH TADEO, ISAC Benitez Ot 592.0 CALCULUS OF KIDNEY 06/29/2016 ISAC SMITH MD Ot 789.09 ABDOMINAL PAIN, OTHER SPECIFIED SITE 06/30/2016 YANG LOPEZ STORES ASSISTANT Ot R10.13 EPIGASTRIC PAIN 07/19/2016 MADTRINA Dunne COUNTER INTELLIGENCE TECHNICIAN Ot R10.13 EPIGASTRIC PAIN 07/21/2016 YANG LOPEZ STORES ASSISTANT Ot R10.13 EPIGASTRIC PAIN 08/02/2016 TRINA AVINA COUNTER INTELLIGENCE TECHNICIAN Ot R10.13 EPIGASTRIC PAIN 08/10/2016 ISAC SMITH MD Ot 592.0 CALCULUS OF KIDNEY 08/10/2016 ISAC SMITH MD Ot 789.09 ABDOMINAL PAIN, OTHER SPECIFIED SITE 08/10/2016 YANG LOPEZ STORES ASSISTANT Ot R10.13 EPIGASTRIC PAIN 08/10/2016 TRINA AVINA COUNTER INTELLIGENCE TECHNICIAN Ot R10.13 EPIGASTRIC PAIN 08/14/2016 ISAC SMITH MD Ot 592.0 CALCULUS OF KIDNEY 08/14/2016 ISAC SMITH MD Ot 789.09 ABDOMINAL PAIN, OTHER SPECIFIED SITE 08/14/2016 YANG LOPEZ STORES ASSISTANT Ot R10.13 EPIGASTRIC PAIN 08/14/2016 DAVI AVINAA L COUNTER INTELLIGENCE TECHNICIAN Ot R10.13 EPIGASTRIC PAIN 08/14/2016 SARAH TADEO, ISAC Benitez Ot 592.0 CALCULUS OF KIDNEY 08/14/2016 ISAC SMITH MD Ot 789.09 ABDOMINAL PAIN, OTHER SPECIFIED SITE 08/14/2016 YANG LOPEZ STORES ASSISTANT Ot R10.13 EPIGASTRIC PAIN 08/14/2016 MADL, TRINA L COUNTER INTELLIGENCE TECHNICIAN Ot R10.13 EPIGASTRIC PAIN 08/16/2016 JEAN VEGAS MD Ot K43.9 VENTRAL HERNIA WITHOUT OBSTRUCTION OR GA 08/16/2016 JEAN VEGAS MD Ot K76.0 FATTY (CHANGE OF) LIVER, NOT ELSEWHERE C 08/16/2016 JEAN VEGAS MD Ot N20.0 CALCULUS OF KIDNEY 08/20/2016 JEAN VEGAS MD, Ot K43.9 VENTRAL HERNIA WITHOUT OBSTRUCTION OR GA 08/20/2016 JEAN VEGAS MD Ot K76.0 FATTY (CHANGE OF) LIVER, NOT ELSEWHERE C 08/20/2016 JEAN VEGAS MD Ot N20.0 CALCULUS OF KIDNEY 08/21/2016 MADL, TRINA L COUNTER INTELLIGENCE TECHNICIAN Ot R10.13 EPIGASTRIC PAIN 08/21/2016 MADL, TRINA L COUNTER INTELLIGENCE TECHNICIAN Ot R10.13 EPIGASTRIC PAIN 08/22/2016 JEAN VEGAS MD Ot K43.9 VENTRAL HERNIA WITHOUT OBSTRUCTION OR GA 08/22/2016 JEAN EVGAS MD Ot Z01.812 ENCOUNTER FOR PREPROCEDURAL LABORATORY E 08/22/2016 JEAN VEGAS MD Ot Z11.2 ENCOUNTER FOR SCREENING FOR OTHER BACTER 08/23/2016 JEAN VEGAS MD, Ot K43.9 VENTRAL HERNIA WITHOUT OBSTRUCTION OR GA 08/23/2016 JEAN VEGAS MD Ot Z01.812 ENCOUNTER FOR PREPROCEDURAL LABORATORY E 08/23/2016 JEAN VEGAS MD Ot Z11.2 ENCOUNTER FOR SCREENING FOR OTHER BACTER 08/24/2016 Ot 535.50 08/24/2016 Ot 789.01 08/24/2016 Ot V15.82 08/24/2016 Ot V58.69 08/26/2016 JEAN VEGAS MD Ot E11.9 TYPE 2 DIABETES MELLITUS WITHOUT COMPLIC 08/26/2016 ASCENCION TADEO, JEAN Santos Ot I10 ESSENTIAL (PRIMARY) HYPERTENSION 08/26/2016 ASCENCION TADEO, JEAN Santos Ot K43.9 VENTRAL HERNIA WITHOUT OBSTRUCTION OR GA 08/26/2016 JEAN VEGAS MD Ot 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 08/29/2016 JEAN VEGAS MD Ot E11.9 TYPE 2 DIABETES MELLITUS WITHOUT COMPLIC 08/29/2016 JEAN VEGAS MD Ot I10 ESSENTIAL (PRIMARY) HYPERTENSION 08/29/2016 JEAN VEGAS MD Ot K43.9 VENTRAL HERNIA WITHOUT OBSTRUCTION OR GA 08/29/2016 JEAN VEGAS MD Ot 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 09/02/2016 JEAN VEGAS MD Ot E11.9 TYPE 2 DIABETES MELLITUS WITHOUT COMPLIC 09/02/2016 JEAN VEGAS MD Ot I10 ESSENTIAL (PRIMARY) HYPERTENSION 09/02/2016 JEAN VEGAS MD Ot K43.9 VENTRAL HERNIA WITHOUT OBSTRUCTION OR GA 09/02/2016 JEAN VEGAS MD Ot Z79.84 GROUP HOME (CURRENT) USE OF ORAL HYPOGLYC 09/06/2016 JEAN VEGAS MD Ot E11.9 TYPE 2 DIABETES MELLITUS WITHOUT COMPLIC 09/06/2016 JEAN VEGAS MD Ot I10 ESSENTIAL (PRIMARY) HYPERTENSION 09/06/2016 JEAN VEGAS MD Ot K43.9 VENTRAL HERNIA WITHOUT OBSTRUCTION OR GA 09/06/2016 JEAN VEGAS MD Ot Z79.84 GROUP HOME (CURRENT) USE OF ORAL HYPOGLYC 10/13/2016 TRINA AVINA COUNTER INTELLIGENCE TECHNICIAN Ot G47.10 HYPERSOMNIA, UNSPECIFIED 01/09/2017 SARAH TADEO, ISAC Benitez Ot 592.0 CALCULUS OF KIDNEY 01/09/2017 SARAH TADEO, ISAC Benitez Ot 789.09 ABDOMINAL PAIN, OTHER SPECIFIED SITE 01/09/2017 YANG LOPEZ APRN Ot R10.13 EPIGASTRIC PAIN 01/09/2017 TRINA AVINA COUNTER INTELLIGENCE TECHNICIAN Ot R10.13 EPIGASTRIC PAIN 01/09/2017 JEAN VEGAS MD Ot K43.9 VENTRAL HERNIA WITHOUT OBSTRUCTION OR GA 01/09/2017 JEAN VEGAS MD Ot K76.0 FATTY (CHANGE OF) LIVER, NOT ELSEWHERE C 01/09/2017 JEAN VEGAS MD Ot N20.0 CALCULUS OF KIDNEY 01/11/2017 EVANGELINA CARTER Ot S83.241A OTH TEAR OF MEDIAL MENISCUS, CURRENT INJ 01/11/2017 EVANGELINA CARTER Ot X58.XXXA EXPOSURE TO OTHER SPECIFIED FACTORS, INI 01/11/2017 EVANGELINA CARTER Ot Y99.8 OTHER EXTERNAL CAUSE STATUS 02/28/2017 RADHA JEAN MD Ot E11.9 TYPE 2 DIABETES MELLITUS WITHOUT COMPLIC 02/28/2017 RADHA JEAN MD Ot E66.01 MORBID (SEVERE) OBESITY DUE TO EXCESS CA 02/28/2017 RADHA JEAN MD, Ot E78.5 HYPERLIPIDEMIA, UNSPECIFIED 02/28/2017 RADHA JEAN MD, Ot G47.33 OBSTRUCTIVE SLEEP APNEA (ADULT) (PEDIATR 02/28/2017 RADHA JEAN MD Ot I10 ESSENTIAL (PRIMARY) HYPERTENSION 02/28/2017 RADHA JEAN MD Ot M22.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, RIGHT KNEE 02/28/2017 RADHA JEAN MD Ot M23.221 DERANG OF POST HORN OF MEDIAL MENSC D/T 02/28/2017 RADHA JEAN MD Ot Z68.39 BODY MASS INDEX (BMI) 39.0-39.9, ADULT 02/28/2017 RADHA JEAN MD Ot Z79.84 GROUP HOME (CURRENT) USE OF ORAL HYPOGLYC 02/28/2017 RADHA JEAN MD, Ot Z79.899 OTHER GROUP HOME (CURRENT) DRUG THERAPY 02/28/2017 RADHA JEAN MD, Ot Z87.891 PERSONAL HISTORY OF NICOTINE DEPENDENCE 03/01/2017 RADHA JEAN MD Ot E11.9 TYPE 2 DIABETES MELLITUS WITHOUT COMPLIC 03/01/2017 RADHA JEAN MD Ot E66.01 MORBID (SEVERE) OBESITY DUE TO EXCESS CA 03/01/2017 RADHA JEAN MD Ot E78.5 HYPERLIPIDEMIA, UNSPECIFIED 03/01/2017 RADHA JEAN MD Ot G47.33 OBSTRUCTIVE SLEEP APNEA (ADULT) (PEDIATR 03/01/2017 RADHA JEAN MD Ot I10 ESSENTIAL (PRIMARY) HYPERTENSION 03/01/2017 RADHA JEAN MD, Ot M22.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, RIGHT KNEE 03/01/2017 RADHA JEAN MD, Ot M23.221 DERANG OF POST HORN OF MEDIAL MENSC D/T 03/01/2017 RADHA JEAN MD, Ot Z68.39 BODY MASS INDEX (BMI) 39.0-39.9, ADULT 03/01/2017 RADHA JEAN MD, Ot Z79.84 GROUP HOME (CURRENT) USE OF ORAL HYPOGLYC 03/01/2017 RADHA JEAN MD, Ot Z79.899 OTHER LABORATORY ANIMAL CARETAKER (CURRENT) DRUG THERAPY 03/01/2017 RADHA JEAN MD, Ot Z87.891 PERSONAL HISTORY OF NICOTINE DEPENDENCE 03/30/2017 RADHA JEAN MD, Ot E11.9 TYPE 2 DIABETES MELLITUS WITHOUT COMPLIC 03/30/2017 RADHA JEAN MD Ot E66.01 MORBID (SEVERE) OBESITY DUE TO EXCESS CA 03/30/2017 RADHA JEAN MD, Ot E78.5 HYPERLIPIDEMIA, UNSPECIFIED 03/30/2017 RADHA JEAN MD, Ot G47.33 OBSTRUCTIVE SLEEP APNEA (ADULT) (PEDIATR 03/30/2017 RADHA JEAN MD Ot I10 ESSENTIAL (PRIMARY) HYPERTENSION 03/30/2017 RADHA JEAN MD, Ot M22.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, RIGHT KNEE 03/30/2017 RADHA JEAN MD Ot M23.221 DERANG OF POST HORN OF MEDIAL MENSC D/T 03/30/2017 RADHA JEAN MD, Ot Z68.39 BODY MASS INDEX (BMI) 39.0-39.9, ADULT 03/30/2017 RADHA JEAN MD, Ot 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 03/30/2017 RADHA JEAN MD, Ot Z79.899 OTHER LABORATORY ANIMAL CARETAKER (CURRENT) DRUG THERAPY 03/30/2017 RADHA JEAN MD, Ot Z87.891 PERSONAL HISTORY OF NICOTINE DEPENDENCE 04/13/2017 YANG LOPEZ APRN Ot R10.13 EPIGASTRIC PAIN 08/27/2017 YANG LOPEZ APRN Ot R10.13 EPIGASTRIC PAIN 12/24/2017 Ot 535.50 12/24/2017 Ot 789.01 12/24/2017 Ot V15.82 12/24/2017 Ot V58.69 01/31/2018 LEEANNA FAB Donna Ot Z01.818 ENCOUNTER FOR OTHER PREPROCEDURAL EXAMIN 02/04/2018 KIRSTY DURÁN DOIC Donna Ot Z01.818 ENCOUNTER FOR OTHER PREPROCEDURAL EXAMIN Procedures There is no data. Results Test Result Range Comp. Metabolic Panel (14) - 11/24/15 12:25 Glucose, Serum 129 mg/dL 65-99 BUN 7 mg/dL 6-24 Creatinine, Serum 0.71 mg/dL 0.76-1.27 eGFR If NonAfricn Am 106 mL/min/1.73 >59 eGFR If Africn Am 122 mL/min/1.73 >59 BUN/Creatinine Ratio 10 9-20 Sodium, Serum 140 mmol/L 134-144 Potassium, Serum 4.2 mmol/L 3.5-5.2 Chloride, Serum 100 mmol/L 97-108 Carbon Dioxide, Total 20 mmol/L 18-29 Calcium, Serum 9.2 mg/dL 8.7-10.2 Protein, Total, Serum 7.0 g/dL 6.0-8.5 Albumin, Serum 4.2 g/dL 3.5-5.5 Globulin, Total 2.8 g/dL 1.5-4.5 A/G Ratio 1.5 1.1-2.5 Bilirubin, Total 0.9 mg/dL 0.0-1.2 Alkaline Phosphatase, S 105 IU/L 39-117 AST (SGOT) 17 IU/L 0-40 ALT (SGPT) 31 IU/L 0-44 Comp. Metabolic Panel (14) - 12/29/15 09:58 Glucose, Serum 124 mg/dL 65-99 BUN 11 mg/dL 6-24 Creatinine, Serum 0.64 mg/dL 0.76-1.27 eGFR If NonAfricn Am 110 mL/min/1.73 >59 eGFR If Africn Am 127 mL/min/1.73 >59 BUN/Creatinine Ratio 17 9-20 Sodium, Serum 145 mmol/L 134-144 Potassium, Serum 4.6 mmol/L 3.5-5.2 Chloride, Serum 105 mmol/L 97-108 Carbon Dioxide, Total 24 mmol/L 18-29 Calcium, Serum 9.1 mg/dL 8.7-10.2 Protein, Total, Serum 6.8 g/dL 6.0-8.5 Albumin, Serum 4.4 g/dL 3.5-5.5 Globulin, Total 2.4 g/dL 1.5-4.5 A/G Ratio 1.8 1.1-2.5 Bilirubin, Total 1.1 mg/dL 0.0-1.2 Alkaline Phosphatase, S 92 IU/L 39-117 AST (SGOT) 18 IU/L 0-40 ALT (SGPT) 37 IU/L 0-44 Lipid Panel - 12/29/15 09:58 Cholesterol, Total 204 mg/dL 100-199 Triglycerides 117 mg/dL 0-149 HDL Cholesterol 37 mg/dL >39 VLDL Cholesterol Edgardo 23 mg/dL 5-40 LDL Cholesterol Calc 144 mg/dL 0-99 Comp. Metabolic Panel (14) - 06/08/16 12:56 Glucose, Serum 115 mg/dL 65-99 BUN 12 mg/dL 6-24 Creatinine, Serum 0.70 mg/dL 0.76-1.27 eGFR If NonAfricn Am 106 mL/min/1.73 >59 eGFR If Africn Am 123 mL/min/1.73 >59 BUN/Creatinine Ratio 17 9-20 Sodium, Serum 142 mmol/L 134-144 Potassium, Serum 4.2 mmol/L 3.5-5.2 Chloride, Serum 103 mmol/L 96-106 Carbon Dioxide, Total 22 mmol/L 18-29 Calcium, Serum 9.2 mg/dL 8.7-10.2 Protein, Total, Serum 6.8 g/dL 6.0-8.5 Albumin, Serum 4.0 g/dL 3.5-5.5 Globulin, Total 2.8 g/dL 1.5-4.5 A/G Ratio 1.4 1.2-2.2 Bilirubin, Total 0.7 mg/dL 0.0-1.2 Alkaline Phosphatase, S 93 IU/L 39-117 AST (SGOT) 13 IU/L 0-40 ALT (SGPT) 29 IU/L 0-44 CBC With Differential/Platelet - 06/26/16 16:34 WBC 10.2 x10E3/uL 3.4-10.8 RBC 5.01 x10E6/uL 4.14-5.80 Hemoglobin 14.5 g/dL 12.6-17.7 Hematocrit 43.2 % 37.5-51.0 MCV 86 fL 79-97 MCH 28.9 pg 26.6-33.0 MCHC 33.6 g/dL 31.5-35.7 RDW 14.3 % 12.3-15.4 Platelets 241 x10E3/uL 150-379 Neutrophils 48 % Lymphs 39 % Monocytes 8 % Eos 4 % Basos 0 % Neutrophils (Absolute) 4.9 x10E3/uL 1.4-7.0 Lymphs (Absolute) 4.0 x10E3/uL 0.7-3.1 Monocytes(Absolute) 0.8 x10E3/uL 0.1-0.9 Eos (Absolute) 0.4 x10E3/uL 0.0-0.4 Baso (Absolute) 0.0 x10E3/uL 0.0-0.2 Immature Granulocytes 1 % Immature Grans (Abs) 0.1 x10E3/uL 0.0-0.1 Comp. Metabolic Panel (14) - 06/26/16 16:34 Glucose, Serum 102 mg/dL 65-99 BUN 13 mg/dL 6-24 Creatinine, Serum 0.74 mg/dL 0.76-1.27 eGFR If NonAfricn Am 104 mL/min/1.73 >59 eGFR If Africn Am 120 mL/min/1.73 >59 BUN/Creatinine Ratio 18 9-20 Sodium, Serum 141 mmol/L 134-144 Potassium, Serum 4.1 mmol/L 3.5-5.2 Chloride, Serum 101 mmol/L 96-106 Carbon Dioxide, Total 23 mmol/L 18-29 Calcium, Serum 10.0 mg/dL 8.7-10.2 Protein, Total, Serum 7.1 g/dL 6.0-8.5 Albumin, Serum 4.3 g/dL 3.5-5.5 Globulin, Total 2.8 g/dL 1.5-4.5 A/G Ratio 1.5 1.2-2.2 Bilirubin, Total 0.6 mg/dL 0.0-1.2 Alkaline Phosphatase, S 86 IU/L 39-117 AST (SGOT) 21 IU/L 0-40 ALT (SGPT) 35 IU/L 0-44 Amylase, Serum - 06/26/16 16:34 Amylase, Serum 61 U/L 31-124 Lipase, Serum - 06/26/16 16:34 Lipase, Serum 35 U/L 0-59 Complete blood count (CBC) with automated white blood cell (WBC) differential - 08/22/16 15:20 Blood leukocytes automated count (number/volume) 9.9 10*3/uL 4.3-11.0 Blood erythrocytes automated count (number/volume) 4.85 10*6/uL 4.35-5.85 Venous blood hemoglobin measurement (mass/volume) 13.9 g/dL 13.3-17.7 Blood hematocrit (volume fraction) 41 % 40-54 Automated erythrocyte mean corpuscular volume 85 [foz_us] 80-99 Automated erythrocyte mean corpuscular hemoglobin (mass per erythrocyte) 29 pg 25-34 Automated erythrocyte mean corpuscular hemoglobin concentration measurement ( mass/volume) 34 g/dL 32-36 Automated erythrocyte distribution width ratio 13.7 % 10.0-14.5 Automated blood platelet count (count/volume) 217 10*3/uL 130-400 Automated blood platelet mean volume measurement 10.4 [foz_us] 7.4-10.4 Automated blood neutrophils/100 leukocytes 54 % 42-75 Automated blood lymphocytes/100 leukocytes 33 % 12-44 Blood monocytes/100 leukocytes 9 % 0-12 Automated blood eosinophils/100 leukocytes 4 % 0-10 Automated blood basophils/100 leukocytes 0 % 0-10 Blood neutrophils automated count (number/volume) 5.4 10*3 1.8-7.8 Blood lymphocytes automated count (number/volume) 3.3 10*3 1.0-4.0 Blood monocytes automated count (number/volume) 0.8 10*3 0.0-1.0 Automated eosinophil count 0.4 10*3/uL 0.0-0.3 Automated blood basophil count (count/volume) 0.0 10*3/uL 0.0-0.1 Whole blood basic metabolic panel - 08/22/16 15:20 Serum or plasma sodium measurement (moles/volume) 140 mmol/L 135-145 Serum or plasma potassium measurement (moles/volume) 3.7 mmol/L 3.6-5.0 Serum or plasma chloride measurement (moles/volume) 106 mmol/L 98-107 Carbon dioxide 25 mmol/L 21-32 Serum or plasma anion gap determination (moles/volume) 9 mmol/L 5-14 Serum or plasma urea nitrogen measurement (mass/volume) 12 mg/dL 7-18 Serum or plasma creatinine measurement (mass/volume) 0.74 mg/dL 0.60-1.30 Serum or plasma urea nitrogen/creatinine mass ratio 16 NRG Serum or plasma creatinine measurement with calculation of estimated glomerular filtration rate > NRG Serum or plasma glucose measurement (mass/volume) 125 mg/dL 70-105 Serum or plasma calcium measurement (mass/volume) 9.3 mg/dL 8.5-10.1 Methicillin resistant Staphylococcus aureus (MRSA) screening culture - 15:20 Methicillin resistant Staphylococcus aureus (MRSA) screening culture NEG NRG Capillary blood glucose measurement by glucometer (mass/volume) - 08/25/16 06: 33 Capillary blood glucose measurement by glucometer (mass/volume) 148 mg/dL 70-110 Capillary blood glucose measurement by glucometer (mass/volume) - 08/25/16 19: 40 Capillary blood glucose measurement by glucometer (mass/volume) 155 mg/dL 70-110 Capillary blood glucose measurement by glucometer (mass/volume) - 08/26/16 05: 43 Capillary blood glucose measurement by glucometer (mass/volume) 130 mg/dL 70-110 Capillary blood glucose measurement by glucometer (mass/volume) - 08/26/16 08: 54 Capillary blood glucose measurement by glucometer (mass/volume) 212 mg/dL 70-110 LIPID PANEL - 12/14/16 08:41 Cholesterol, Total 148 mg/dL 100-199 Triglycerides 117 mg/dL 0-149 HDL Cholesterol 36 mg/dL >39 VLDL Cholesterol Edgardo 23 mg/dL 5-40 LDL Cholesterol Calc 89 mg/dL 0-99 Comment: NRG Lipid Panel - 12/14/16 08:41 Cholesterol, Total 148 mg/dL 100-199 Triglycerides 117 mg/dL 0-149 HDL Cholesterol 36 mg/dL >39 VLDL Cholesterol Edgardo 23 mg/dL 5-40 LDL Cholesterol Calc 89 mg/dL 0-99 Methicillin resistant Staphylococcus aureus (MRSA) screening culture - 13:45 Methicillin resistant Staphylococcus aureus (MRSA) screening culture NEG NRG Capillary blood glucose measurement by glucometer (mass/volume) - 02/28/17 06: 28 Capillary blood glucose measurement by glucometer (mass/volume) 137 mg/dL 70-110 CMP - 04/11/17 16:34 GLUCOSE 132 mg/dL 65-99 UREA NITROGEN (BUN) 16 mg/dL 7-25 CREATININE 0.85 mg/dL 0.70-1.33 eGFR NON-AFR. SRI LANKAN 97 mL/min/1.73m2 > OR=60 eGFR 113 mL/min/1.73m2 > OR=60 BUN/CREATININE RATIO NOT APPLICABLE (calc) 6-22 SODIUM 138 mmol/L 135-146 POTASSIUM 4.0 mmol/L 3.5-5.3 CHLORIDE 100 mmol/L 98-110 CARBON DIOXIDE 25 mmol/L 20-31 CALCIUM 9.3 mg/dL 8.6-10.3 PROTEIN, TOTAL 6.9 g/dL 6.1-8.1 ALBUMIN 4.4 g/dL 3.6-5.1 GLOBULIN 2.5 g/dL (calc) 1.9-3.7 ALBUMIN/GLOBULIN RATIO 1.8 (calc) 1.0-2.5 BILIRUBIN, TOTAL 0.8 mg/dL 0.2-1.2 ALKALINE PHOSPHATASE 84 U/L 40-115 AST 18 U/L 10-35 ALT 40 U/L 9-46 LIPID PANEL - 11/01/17 08:34 CHOLESTEROL, TOTAL 153 mg/dL <200 HDL CHOLESTEROL 33 mg/dL >40 TRIGLYCERIDES 101 mg/dL <150 LDL-CHOLESTEROL 101 mg/dL (calc) NRG CHOL/HDLC RATIO 4.6 (calc) <5.0 NON HDL CHOLESTEROL 120 mg/dL (calc) <130 [facility] - 11/01/17 08:34 GLUCOSE 155 mg/dL 65-99 UREA NITROGEN (BUN) 13 mg/dL 7-25 CREATININE 0.71 mg/dL 0.70-1.33 eGFR NON-AFR. SRI LANKAN 104 mL/min/1.73m2 > OR=60 eGFR 121 mL/min/1.73m2 > OR=60 BUN/CREATININE RATIO NOT APPLICABLE (calc) 6-22 SODIUM 140 mmol/L 135-146 POTASSIUM 4.3 mmol/L 3.5-5.3 CHLORIDE 107 mmol/L 98-110 CARBON DIOXIDE 30 mmol/L 20-32 CALCIUM 9.3 mg/dL 8.6-10.3 PROTEIN, TOTAL 6.7 g/dL 6.1-8.1 ALBUMIN 4.2 g/dL 3.6-5.1 GLOBULIN 2.5 g/dL (calc) 1.9-3.7 ALBUMIN/GLOBULIN RATIO 1.7 (calc) 1.0-2.5 BILIRUBIN, TOTAL 1.0 mg/dL 0.2-1.2 ALKALINE PHOSPHATASE 84 U/L 40-115 AST 17 U/L 10-35 ALT 30 U/L 9-46 CBC - 11/01/17 08:34 WHITE BLOOD CELL COUNT 8.9 Thousand/uL 3.8-10.8 RED BLOOD CELL COUNT 5.23 Million/uL 4.20-5.80 HEMOGLOBIN 14.9 g/dL 13.2-17.1 HEMATOCRIT 45.6 % 38.5-50.0 MCV 87.2 fL 80.0-100.0 MCH 28.5 pg 27.0-33.0 MCHC 32.7 g/dL 32.0-36.0 RDW 13.4 % 11.0-15.0 PLATELET COUNT 221 Thousand/uL 140-400 MPV 10.1 fL 7.5-12.5 ABSOLUTE NEUTROPHILS 4370 cells/uL 9525-8422 ABSOLUTE LYMPHOCYTES 3266 cells/uL 850-3900 ABSOLUTE MONOCYTES 837 cells/uL 200-950 ABSOLUTE EOSINOPHILS 356 cells/uL 15-500 ABSOLUTE BASOPHILS 71 cells/uL 0-200 NEUTROPHILS 49.1 % NRG LYMPHOCYTES 36.7 % NRG MONOCYTES 9.4 % NRG EOSINOPHILS 4.0 % NRG BASOPHILS 0.8 % NRG Encounters ACCT No. Visit Date/Time Discharge Status Pt. Type Provider Facility Loc./Unit Complaint [id number] 02/04/2018 14:00:00 02/05/2018 10:35:00 DIS Outpatient FAB DURÁN DO [facility] PREOP COLONOSCOPY [id number] 02/28/2017 06:00:00 02/28/2017 10:55:00 DIS Outpatient RADHA JEAN MD [facility] DERANGEMENT OF OTHER MEDIAL MENISCUS RIGHT KNEE [id number] 02/21/2017 13:25:00 02/21/2017 13:50:00 DIS Outpatient RADHA JEAN MD [facility] PREOP DERANGEMENT OF OTHER MEDIAL MENISCUS; RIGHT KNEE [id number] 01/11/2017 06:58:00 01/11/2017 23:59:59 CLS Outpatient EVANGELINA CARTER [facility] RAD TEAR OF MEDIAL MENISCUS OF RT KNEE [id number] 10/12/2016 19:37:00 10/13/2016 06:15:00 DIS Outpatient TRINA AVINA [facility] SLEEP HTN,INSOMNIA,EXCESSIVE DAYTIME SLEEPINESS [id number] 08/25/2016 06:00:00 08/26/2016 11:18:00 DIS Outpatient JEAN VEGAS MD [facility] SDC VENTRAL HERNIA [id number] 08/22/2016 15:04:00 08/22/2016 15:30:00 DIS Outpatient JEAN VEGAS MD [facility] PREOP VENTRAL HERNIA [id number] 08/14/2016 08:35:00 08/14/2016 23:59:59 CLS Outpatient JEAN VEGAS MD [facility] RAD VENTRAL HERNIA [id number] 07/17/2016 12:44:00 07/17/2016 23:59:59 CLS Outpatient TRINA AVINA [facility] CARD R10.13 [id number] 06/29/2016 06:54:00 06/29/2016 23:59:59 CLS Outpatient YANG LOPEZ APRN [facility] RAD EPIGASTRIC ABDOMINAL PAIN [id number] 08/12/2015 14:36:00 08/12/2015 23:59:59 CLS Outpatient SAMI KENNY DO [facility] OCC [id number] 07/14/2013 14:30:00 07/14/2013 23:59:59 CLS Outpatient ISAC SMITH MD [facility] RAD RT FLANK PAIN, BILAT RENAL STONE [id number] 07/14/2013 13:06:00 07/14/2013 23:59:59 CLS Outpatient ISAC SMITH MD [facility] RAD STONE [id number] 02/06/2018 14:40:00 PEN Preadmit FAB DURÁN DO [facility] ENDO SCREENING [id number] 06/03/2007 06:32:00 Document Registration [id number] 11/01/2017 08:40:00 11/01/2017 23:59:59 [facility] GATO Gandara [facility] [id number] 11/01/2017 08:40:00 Document Registration [id number] 04/11/2017 15:40:00 Document Registration [id number] 12/14/2016 08:20:00 Document Registration [id number] 11/25/2015 07:06:00 Document Registration [id number] 06/09/2016 07:06:00 Document Registration [id number] 12/30/2015 08:07:00 Document Registration [id number] 12/15/2016 08:07:00 Document Registration [id number] 06/27/2016 15:09:00 Document Registration
[2018-02-06] MEDS ORDERED: PROPOFOL INJECTION 50 ML IV ONE ×2 (09:14→10:06)
[2018-02-06] MEDS ORDERED: MIDAZOLAM 2 MG/2 ML (VERSED) VIAL ONE (09:14)
--- NOTE | 2018-02-06 09:38 | Progress Note-Pre Operative ---
Pre-Operative Progress Note H&P Reviewed The H&P was reviewed, patient examined and no changes noted. Time Seen by Provider: 09:35 Date H&P Reviewed: Feb 06, 2018 Time H&P Reviewed: 09:36 Pre-Operative Diagnosis: Screening colonoscopy FAB DURÁN DO Feb 06, 2018 09:38
[2018-02-06 10:55] VITALS: BP 99/58
--- NOTE | 2018-02-06 10:57 | Progress Note-Post Operative ---
Post-Operative Progess Note Surgeon (s)/Plastic And Reconstructive Surgeon (s) Surgeon FAB DURÁN DO Plastic And Reconstructive Surgeon: none Pre-Operative Diagnosis Screening colonoscopy Post-Operative Diagnosis Diverticula Internal Hemorrhoids Procedure & Operative Findings Date of Procedure 02/06/18 Procedure Performed/Findings Colonoscopy Anesthesia Type IV sedation by SCARFER Estimated Blood Loss Estimated blood loss (mL): none Specimens/Packing Specimens Removed none FAB DURÁN DO Feb 06, 2018 10:57
--- NOTE | 2018-02-06 10:59 | Endoscopy Discharge Instruct ---
Endo Procedure/Findings Findings 1.: Diverticulosis 2.: Internal Hemorrhoids Discharge Instructions - Activity: You might feel a little sleepy until tomorrow. This is due to the medicine you received to relax you. Until tomorrow, you should: NOT drive a car, operate machinery or power tools. NOT drink any alcoholic beverages. NOT make any important decisions or sign importortant papers. Do not return to work until tomorrow, unless otherwise instructed. Resume previous activities tomorrow. Diet: Clear liquids only until tomorrow after radiology procedure. You are being set up for BE contrast enema, to visualize Cecum. Make an appointment for one week. Instructions: 1.: Colonscopy in 5 years Notify Physician - If you experience excessive bleeding, unusual abdominal pain, fever, or chest pain, contact your doctor immediately. Follow-Up: - I have received and understand the above instructions and will call my doctor if I have any further questions. Patient Signature Date Nurse Signature Other (Relationship) FAB DURÁN DO Feb 06, 2018 10:59
--- NOTE | 2018-02-06 11:12 | Anesthesia-General Post-Op ---
MAC Patient Condition Mental Status/LOC: Same as Preop Cardiovascular: Satisfactory Nausea/Vomiting: Absent Respiratory: Satisfactory Pain: Controlled Complications: Absent Post Op Complications Complications None Follow Up Care/Instructions Patient Instructions None needed. Anesthesiology Discharge Order Discharge Order Patient is doing well, no complaints, stable vital signs, no apparent adverse anesthesia problems. No complications reported per nursing. KARINA LUNA CRNA Feb 06, 2018 11:12
[2018-02-06 11:25] VITALS: BP 118/83
[2018-02-06 11:50] VITALS: BP 118/83
--- NOTE | 2018-02-06 14:29 | OPERATIVE REPORT ---
DATE OF SERVICE: 02/06/2018 PREOPERATIVE DIAGNOSIS: Screening colonoscopy. POSTOPERATIVE DIAGNOSES: Diverticula, internal hemorrhoids. PROCEDURE: Colonoscopy. SURGEON: Alfie Lu DO EDITOR MANAGING DIRECTOR: None. ANESTHESIA: IV sedation by the CHANNEL DEVELOPMENT DIRECTOR. SPECIMENS: None. BLOOD LOSS: None. FLUIDS: Per anesthesia. POSTOPERATIVE CONDITION: Stable. INDICATION FOR PROCEDURE: The patient is a 57-year-old male in need of screening colonoscopy. FINDINGS: The patient had very minimal diverticulosis and small internal hemorrhoids. Unfortunately, he had such a long colon, unable to get all the way to the cecum. Cut just outside the cecal cap, but could not advance further. The patient will need a BE contrast enema. PROCEDURE NOTE: After informed consent was obtained, the patient was brought to the endoscopy suite and placed in the left lateral decubitus position. He was administered IV sedation by the CHANNEL DEVELOPMENT DIRECTOR, who then monitored his vitals the entire time, heart rate, blood pressure and pulse ox, and the scope was inserted, pushed all the way to 160 cm and then even further in, could not get into the cecal cap, thought I saw the ileocecal valve, but could not get down all the way, tried to make sure there was no loop in the colonoscope, tried the patient on his back, tried him on his right side, tried pressure to try and get the scope around and could not get it all the way. I spent about at least an hour trying to get in there. At this point, elected to just stop, did not want to cause any problems. Slowly withdrew the scope looking at the ascending colon up to the hepatic flexure, then down the transverse colon, splenic flexure, into the descending colon, where we saw some tiny diverticula, took a picture of this and then down in the sigmoid into the rectum, saw some small internal hemorrhoids, took a picture and then removed the scope. The patient tolerated the procedure. We will order a BE contrast enema for tomorrow. I spoke with Radiology. They felt giving some of that enema would help him. The patient was sent home on clear liquids and BE contrast will be performed first thing tomorrow morning. Job ID: [id number] DocumentID: [id number] Dictated Date: 02/06/2018 11:08:32 Warp Tester Date: 02/06/2018 14:28:33 Dictated By: ALFIE LU DO
== END 2018-02-06 11:50 | disposition home or self-care (01) ==
LOC: ENDO 08:28
PROVIDERS: ATTEND Surgery
DX: Z12.11 Encounter for screening for malignant neoplasm of colon (principal); K57.30 Diverticulosis of large intestine without perforation or abscess without bleeding; K64.8 Other hemorrhoids; E11.9 Type 2 diabetes mellitus without complications; E78.5 Hyperlipidemia, unspecified; I10 Essential (primary) hypertension; G47.33 Obstructive sleep apnea (adult) (pediatric); F32.9 Major depressive disorder, single episode, unspecified; Z87.891 Personal history of nicotine dependence; Z99.81 Dependence on supplemental oxygen; Z79.84 Long term (current) use of oral hypoglycemic drugs; Z79.899 Other long term (current) drug therapy
CPT/HCPCS: 82962

== ENCOUNTER → 2018-02-07 | Outpatient (CLI) | payer OTHER ==
--- NOTE | 2018-02-07 09:11 | Diagnostic Imaging Report ---
PROCEDURE: CT abdomen and pelvis without contrast. TECHNIQUE: Multiple contiguous axial images were obtained through the abdomen and pelvis without the use of intravenous contrast. INDICATION: Incomplete colonoscopy. The lung bases are clear. The liver does show some generalized low density suggestive of hepatic steatosis. No discrete liver mass is seen. The gallbladder is unremarkable. No biliary duct dilatation is seen. Pancreas and spleen are unremarkable. No adrenal mass is identified. There are small nonobstructing renal calculi bilaterally. There is a 3.7 cm low-density lesion lower pole right kidney suggestive of a cyst. No hydronephrosis is identified. The aorta is non-aneurysmal. Rectal contrast was administered. There is filling of the rectum, sigmoid, descending and transverse colon. The distal half of the ascending colon was also opacified. We were unable to adequately opacify the cecum and most proximal aspect of the ascending colon. There appears to be some possible spasm at this location. The opacified portions of the colon appear to be unremarkable. No intrinsic or echogenic mass is seen. No diverticuli are seen. Small bowel is nondilated. There is no ascites. Bladder is decompressed. There does appear to be some mild prostatic enlargement. The bony structures are unremarkable. IMPRESSION: 1. Hepatic steatosis. 2. Bilateral nonobstructing nephrolithiasis. 3. A 3.7 cm right renal cyst. 4. No focal abnormality of the colon is identified, however, the most proximal aspect of the colon including cecum cannot be opacified with barium. There is significant tortuosity of the colon. There may be some spasm at the ascending colon. A reattempt at barium enema could be performed at a later date, if clinically indicated. No other significant abnormality is seen. Dictated by: Dictated on workstation # [id number]
== END ==
LOC: RAD 06:52
PROVIDERS: ATTEND Surgery
DX: K76.0 Fatty (change of) liver, not elsewhere classified (principal); N20.0 Calculus of kidney; N28.1 Cyst of kidney, acquired; K76.89 Other specified diseases of liver
CPT/HCPCS: 74176

== ENCOUNTER 2018-03-03 06:45 | Emergency (ER) | payer OTHER ==
[~2018-03-03] VITALS: Ht 185.4 cm; Wt 131.5 kg
--- OUTSIDE RECORDS SUMMARY | 2018-03-03 06:53 | XMS REPORT | Continuity of Care Document ---
Author Author [facility] Organization [facility] Address Unknown Phone Unavailable Allergies Active Description Code Type Severity Reaction Onset Reported/Identified Relationship to Patient Clinical Status Yes NKANo Known Allergies NKA Miscellaneous Allergy Unknown N/A 12/26/2005 Yes No Known Drug Allergies [id number] Drug Allergy Unknown N/A 02/04/2018 Medications There is no data. Problems Date Dx Coded Attending Type Code Diagnosis Diagnosed By 07/25/2015 Ot 535.50 07/25/2015 Ot 789.01 07/25/2015 Ot V15.82 07/25/2015 Ot V58.69 06/29/2016 SARAH TADEO, ISAC Benitez Ot 592.0 CALCULUS OF KIDNEY 06/29/2016 ISAC SMITH MD Ot 789.09 ABDOMINAL PAIN, OTHER SPECIFIED SITE 06/30/2016 YANG LOPEZ HIGH SCHOOL COUNSELOR Ot R10.13 EPIGASTRIC PAIN 07/19/2016 MADTRINA Dunne NAIL TECH Ot R10.13 EPIGASTRIC PAIN 07/21/2016 YANG LOPEZ HIGH SCHOOL COUNSELOR Ot R10.13 EPIGASTRIC PAIN 08/02/2016 TRINA AVINA NAIL TECH Ot R10.13 EPIGASTRIC PAIN 08/10/2016 ISAC SMITH MD Ot 592.0 CALCULUS OF KIDNEY 08/10/2016 ISAC SMITH MD Ot 789.09 ABDOMINAL PAIN, OTHER SPECIFIED SITE 08/10/2016 YANG LOPEZ HIGH SCHOOL COUNSELOR Ot R10.13 EPIGASTRIC PAIN 08/10/2016 TRINA AVINA NAIL TECH Ot R10.13 EPIGASTRIC PAIN 08/14/2016 ISAC SMITH MD Ot 592.0 CALCULUS OF KIDNEY 08/14/2016 ISAC SMITH MD Ot 789.09 ABDOMINAL PAIN, OTHER SPECIFIED SITE 08/14/2016 YANG LOPEZ HIGH SCHOOL COUNSELOR Ot R10.13 EPIGASTRIC PAIN 08/14/2016 DAVI AVINAA L NAIL TECH Ot R10.13 EPIGASTRIC PAIN 08/14/2016 SARAH TADEO, ISAC Benitez Ot 592.0 CALCULUS OF KIDNEY 08/14/2016 ISAC SMITH MD Ot 789.09 ABDOMINAL PAIN, OTHER SPECIFIED SITE 08/14/2016 YANG LOPEZ HIGH SCHOOL COUNSELOR Ot R10.13 EPIGASTRIC PAIN 08/14/2016 MADL, TRINA L NAIL TECH Ot R10.13 EPIGASTRIC PAIN 08/16/2016 JEAN VEGAS [...] CALCULUS OF KIDNEY 08/21/2016 MADL, TRINA L NAIL TECH Ot R10.13 EPIGASTRIC PAIN 08/21/2016 MADL, TRINA L NAIL TECH Ot R10.13 EPIGASTRIC PAIN 08/22/2016 JEAN VEGAS MD Ot K43.9 VENTRAL HERNIA WITHOUT OBSTRUCTION OR GA 08/22/2016 JEAN VEGAS MD Ot Z01.812 ENCOUNTER FOR [...] GA 08/26/2016 JEAN VEGAS MD Ot Z79.84 FORENSIC PSYCHOLOGIST (CURRENT) USE OF ORAL HYPOGLYC 08/29/2016 JEAN VEGAS MD Ot E11.9 TYPE 2 DIABETES MELLITUS WITHOUT COMPLIC 08/29/2016 JEAN VEGAS MD Ot I10 ESSENTIAL (PRIMARY) HYPERTENSION 08/29/2016 JEAN VEGAS MD Ot K43.9 VENTRAL HERNIA WITHOUT OBSTRUCTION OR GA 08/29/2016 JEAN VEGAS MD Ot Z79.84 FORENSIC PSYCHOLOGIST (CURRENT) USE OF ORAL HYPOGLYC 09/02/2016 JEAN VEGAS MD Ot E11.9 TYPE 2 DIABETES MELLITUS WITHOUT COMPLIC 09/02/2016 JEAN VEGAS MD Ot I10 ESSENTIAL (PRIMARY) HYPERTENSION 09/02/2016 JEAN VEGAS MD Ot K43.9 VENTRAL HERNIA WITHOUT OBSTRUCTION OR GA 09/02/2016 JEAN VEGAS MD Ot Z79.84 [facility] (CURRENT) USE OF ORAL HYPOGLYC 09/06/2016 JEAN VEGAS MD Ot E11.9 TYPE 2 DIABETES MELLITUS WITHOUT COMPLIC 09/06/2016 JEAN VEGAS MD Ot I10 ESSENTIAL (PRIMARY) HYPERTENSION 09/06/2016 JEAN VEGAS MD Ot K43.9 VENTRAL HERNIA WITHOUT OBSTRUCTION OR GA 09/06/2016 JEAN VEGAS MD Ot Z79.84 [facility] (CURRENT) USE OF ORAL HYPOGLYC 10/13/2016 TRINA AVINA NAIL TECH Ot G47.10 HYPERSOMNIA, UNSPECIFIED 01/09/2017 SARAH TADEO, ISAC Benitez Ot 592.0 CALCULUS OF KIDNEY 01/09/2017 SARAH TADEO, ISAC Benitez Ot 789.09 ABDOMINAL PAIN, OTHER SPECIFIED SITE 01/09/2017 YANG LOPEZ APRN Ot R10.13 EPIGASTRIC PAIN 01/09/2017 TRINA AVINA NAIL TECH Ot R10.13 EPIGASTRIC PAIN 01/09/2017 JEAN VEGAS [...] ADULT 02/28/2017 RADHA JEAN MD Ot Z79.84 [facility] (CURRENT) USE OF ORAL HYPOGLYC 02/28/2017 RADHA JEAN MD, Ot Z79.899 OTHER [facility] (CURRENT) DRUG THERAPY 02/28/2017 RADHA JEAN MD, [...] ADULT 03/01/2017 RADHA JEAN MD, Ot Z79.84 [facility] (CURRENT) USE OF ORAL HYPOGLYC 03/01/2017 RADHA JEAN MD, Ot Z79.899 OTHER FORENSIC PSYCHOLOGIST (CURRENT) DRUG THERAPY 03/01/2017 RADHA JEAN MD, [...] ADULT 03/30/2017 RADHA JEAN MD, Ot Z79.84 FORENSIC PSYCHOLOGIST (CURRENT) USE OF ORAL HYPOGLYC 03/30/2017 RADHA JEAN MD, Ot Z79.899 OTHER FORENSIC PSYCHOLOGIST (CURRENT) DRUG THERAPY 03/30/2017 RADHA JEAN MD, Ot Z87.891 PERSONAL HISTORY OF NICOTINE DEPENDENCE 04/13/2017 YANG LOPEZ APRN Ot R10.13 EPIGASTRIC PAIN 08/27/2017 YANG LOPEZ APRN Ot R10.13 EPIGASTRIC PAIN 12/24/2017 Ot 535.50 12/24/2017 Ot 789.01 12/24/2017 Ot V15.82 12/24/2017 Ot V58.69 01/31/2018 FAB DURÁN DO Ot Z01.818 ENCOUNTER FOR OTHER PREPROCEDURAL EXAMIN 02/04/2018 FAB DURÁN DO Ot Z01.818 ENCOUNTER FOR OTHER PREPROCEDURAL EXAMIN 02/05/2018 FAB DURÁN DO Ot Z01.818 ENCOUNTER FOR OTHER PREPROCEDURAL EXAMIN 02/06/2018 FAB DURÁN DO Ot E11.9 TYPE 2 DIABETES MELLITUS WITHOUT COMPLIC 02/06/2018 FAB DURÁN DO Ot E78.5 HYPERLIPIDEMIA, UNSPECIFIED 02/06/2018 FAB DURÁN DO Ot F32.9 MAJOR DEPRESSIVE DISORDER, SINGLE EPISOD 02/06/2018 FAB DURÁN DO Ot G47.33 OBSTRUCTIVE SLEEP APNEA (ADULT) (PEDIATR 02/06/2018 FAB DURÁN DO Ot I10 ESSENTIAL (PRIMARY) HYPERTENSION 02/06/2018 FAB DURÁN DO Ot K57.30 DVRTCLOS OF LG INT W/O PERFORATION OR AB 02/06/2018 FAB DURÁN DO Ot K64.8 OTHER HEMORRHOIDS 02/06/2018 FAB DURÁN DO Ot Z12.11 ENCOUNTER FOR SCREENING FOR MALIGNANT NE 02/06/2018 FAB DURÁN DO Ot Z79.84 [facility] (CURRENT) USE OF ORAL HYPOGLYC 02/06/2018 FAB DURÁN DO Ot Z79.899 OTHER FORENSIC PSYCHOLOGIST (CURRENT) DRUG THERAPY 02/06/2018 FAB DURÁN DO Ot Z87.891 PERSONAL HISTORY OF NICOTINE DEPENDENCE 02/06/2018 FAB DURÁN DO Ot Z99.81 DEPENDENCE ON SUPPLEMENTAL OXYGEN 02/07/2018 FAB DURÁN DO Ot Z01.818 ENCOUNTER FOR OTHER PREPROCEDURAL EXAMIN 02/07/2018 FAB DURÁN DO Ot Z01.818 ENCOUNTER FOR OTHER PREPROCEDURAL EXAMIN 02/08/2018 FAB DURÁN DO Ot K76.0 FATTY (CHANGE OF) LIVER, NOT ELSEWHERE C 02/08/2018 FAB DURÁN DO Ot K76.89 OTHER SPECIFIED DISEASES OF LIVER 02/08/2018 DELMAN DO, FAB B Ot N20.0 CALCULUS OF KIDNEY 02/08/2018 FAB DURÁN DO B Ot N28.1 CYST OF KIDNEY, ACQUIRED 02/08/2018 LEEANNA NG FAB B Ot E11.9 TYPE 2 DIABETES MELLITUS WITHOUT COMPLIC 02/08/2018 FAB DURÁN DO B Ot E78.5 HYPERLIPIDEMIA, UNSPECIFIED 02/08/2018 LEEANNA NG FAB B Ot F32.9 MAJOR DEPRESSIVE DISORDER, SINGLE EPISOD 02/08/2018 LEEANNA NG FAB B Ot G47.33 OBSTRUCTIVE SLEEP APNEA (ADULT) (PEDIATR 02/08/2018 LEEANNA NG FAB B Ot I10 ESSENTIAL (PRIMARY) HYPERTENSION 02/08/2018 LEEANNA NG FAB Thompson Ot K57.30 DVRTCLOS OF LG INT W/O PERFORATION OR AB 02/08/2018 LEEANNA NG FAB B Ot K64.8 OTHER HEMORRHOIDS 02/08/2018 LEEANNA NG FAB Thompson Ot Z12.11 ENCOUNTER FOR SCREENING FOR MALIGNANT NE 02/08/2018 LEONELMAMADOU NG FAB Thompson Ot Z79.84 FORENSIC PSYCHOLOGIST (CURRENT) USE OF ORAL HYPOGLYC 02/08/2018 LEEANNA NG FAB B Ot Z79.899 OTHER FORENSIC PSYCHOLOGIST (CURRENT) DRUG THERAPY 02/08/2018 LEEANNA NG FAB Thompson Ot Z87.891 PERSONAL HISTORY OF NICOTINE DEPENDENCE 02/08/2018 LEEANNA NG FAB B Ot Z99.81 DEPENDENCE ON SUPPLEMENTAL OXYGEN Procedures There is no data. Results Test [...] resistant Staphylococcus aureus (MRSA) screening culture NEG [facility] Capillary blood glucose measurement by glucometer (mass/volume) - 02/28/17 06: 28 Capillary blood glucose measurement by glucometer (mass/volume) 137 mg/dL 70-110 CMP - 04/11/17 16:34 GLUCOSE 132 mg/dL 65-99 UREA NITROGEN (BUN) 16 mg/dL 7-25 CREATININE 0.85 mg/dL 0.70-1.33 eGFR NON-AFR. SUDANESE 97 mL/min/1.73m2 > OR=60 eGFR 113 mL/min/1.73m2 [...] ALT 40 U/L 9-46 LIPID PANEL - 08/09/18 08:34 CHOLESTEROL, TOTAL 153 mg/dL <200 HDL CHOLESTEROL 33 mg/dL >40 TRIGLYCERIDES 101 mg/dL <150 LDL-CHOLESTEROL 101 mg/dL (calc) NRG CHOL/HDLC RATIO 4.6 (calc) <5.0 NON HDL CHOLESTEROL 120 mg/dL (calc) <130 CMP - 11/01/17 08:34 GLUCOSE 155 mg/dL 65-99 UREA NITROGEN (BUN) 13 mg/dL 7-25 CREATININE 0.71 mg/dL 0.70-1.33 eGFR NON-AFR. SUDANESE 104 mL/min/1.73m2 > OR=60 eGFR 121 mL/min/1.73m2 [...] 10.1 fL 7.5-12.5 ABSOLUTE NEUTROPHILS 4370 cells/uL 9640-0997 ABSOLUTE LYMPHOCYTES 3266 cells/uL 850-3900 ABSOLUTE MONOCYTES 837 cells/uL 200-950 ABSOLUTE EOSINOPHILS 356 cells/uL 15-500 ABSOLUTE BASOPHILS 71 cells/uL 0-200 NEUTROPHILS 49.1 % NRG LYMPHOCYTES 36.7 % NRG MONOCYTES 9.4 % NRG EOSINOPHILS 4.0 % NRG BASOPHILS 0.8 % NRG Capillary blood glucose measurement by glucometer (mass/volume) - 02/06/18 08: 43 Capillary blood glucose measurement by glucometer (mass/volume) 156 mg/dL 70-110 Encounters ACCT No. Visit Date/Time Discharge Status Pt. Type Provider Facility Loc./Unit Complaint [id number] 02/07/2018 06:52:00 02/07/2018 23:59:59 CLS Outpatient FAB DURÁN DO [facility] RAD INCOMPLETE COLONOSCOPY [id number] 02/06/2018 08:28:00 02/06/2018 11:50:00 DIS Outpatient FAB DURÁN DO [facility] ENDO SCREENING [id number] 02/04/2018 14:00:00 02/05/2018 10:35:00 DIS Outpatient FAB DURÁN DO [facility] PREOP COLONOSCOPY [id number] 02/28/2017 06:00:00 02/28/2017 10:55:00 DIS Outpatient RADHA JEAN MD [facility] SDC DERANGEMENT OF OTHER MEDIAL MENISCUS RIGHT KNEE [id number] 02/21/2017 13:25:00 02/21/2017 13:50:00 DIS Outpatient RADHA JEAN MD [facility] PREOP DERANGEMENT OF OTHER MEDIAL MENISCUS; RIGHT KNEE [id number] 01/11/2017 06:58:00 01/11/2017 23:59:59 CLS Outpatient EVANGELINA CARTER [facility] RAD TEAR OF MEDIAL MENISCUS OF RT KNEE [id number] 10/12/2016 19:37:00 10/13/2016 06:15:00 DIS Outpatient TRINA AVINA [facility] SLEEP HTN,INSOMNIA,EXCESSIVE DAYTIME SLEEPINESS [id number] 08/25/2016 06:00:00 08/26/2016 11:18:00 DIS Outpatient JEAN VEGAS MD [facility] SDC VENTRAL HERNIA [id number] 08/22/2016 15:04:00 08/22/2016 15:30:00 DIS Outpatient JEAN VEGAS MD [facility] PREOP VENTRAL HERNIA [id number] 08/14/2016 08:35:00 08/14/2016 23:59:59 CLS Outpatient JEAN VEGAS MD [facility] RAD VENTRAL HERNIA [id number] 07/17/2016 12:44:00 07/17/2016 23:59:59 CLS Outpatient TRINA AVINA NAIL TECH [facility] CARD R10.13 [id number] 06/29/2016 06:54:00 06/29/2016 23:59:59 CLS Outpatient YANG LOPEZ APRN [facility] RAD EPIGASTRIC ABDOMINAL PAIN [id number] 08/12/2015 14:36:00 08/12/2015 23:59:59 CLS Outpatient COLTHARP DO SAMI A [facility] OCC [id number] 07/14/2013 14:30:00 07/14/2013 23:59:59 CLS Outpatient ISAC SMITH MD [facility] RAD RT FLANK PAIN, BILAT RENAL STONE [id number] 07/14/2013 13:06:00 07/14/2013 23:59:59 CLS Outpatient ISAC SMITH MD [facility] RAD STONE [id number] 06/03/2007 06:32:00 Document Registration [id number] 11/01/2017 08:40:00 11/01/2017 23:59:59 CLS Outpatient GATO HERRON [facility] [id number] 11/01/2017 08:40:00 Document Registration [id number] 04/11/2017 15:40:00 Document Registration [id number] 12/14/2016 08:20:00 Document Registration [id number] 11/25/2015 07:06:00 Document Registration [id number] 06/09/2016 07:06:00 Document Registration [id number] 12/30/2015 08:07:00 Document Registration [id number] 12/15/2016 08:07:00 Document Registration [id number] 06/27/2016 15:09:00 Document Registration
[2018-03-03] MEDS ORDERED: NS IV 1000 ML 1,000 ML IV ONE (06:55)
[2018-03-03] MEDS ORDERED: fentaNYL INJECTION 100 MCG/2 ML AMP IVP STA ×2 (07:01→10:17)
[2018-03-03] MEDS ORDERED: ONDANSETRON 4 MG/2 ML (SDV) Z0FRAN IVP ONE (07:15)
[2018-03-03 07:18] LABS: BASOPHILS % (AUTO) 0 % (0-10); EOSINOPHILS % (AUTO) 0 % (0-10); HEMATOCRIT 43 % (40-54); HEMOGLOBIN 14.9 G/DL (13.3-17.7); LYMPHOCYTES # (AUTO) 1.8 X 10^3 (1.0-4.0); LYMPHOCYTES % (AUTO) 11 % (12-44); MEAN CORPUSCULAR HEMOGLOBIN 29 PG (25-34); MEAN CORPUSCULAR HGB CONC 35 G/DL (32-36); MEAN CORPUSCULAR VOLUME 85 FL (80-99); MEAN PLATELET VOLUME 10.5 FL (7.4-10.4); MONOCYTES # (AUTO) 1.4 X 10^3 (0.0-1.0); MONOCYTES % (AUTO) 9 % (0-12); NEUTROPHILS # (AUTO) 13.6 X 10^3 (1.8-7.8); NEUTROPHILS % (AUTO) 81 % (42-75); PLATELET COUNT 216 10^3/uL (130-400); RED BLOOD COUNT 5.08 10^6/uL (4.35-5.85); WHITE BLOOD COUNT 16.8 10^3/uL (4.3-11.0)
--- NOTE | 2018-03-03 07:22 | ED Abdominal Pain ---
General Stated Complaint: STOMACH PAIN,BACK PAIN Source of Information: Patient Exam Limitations: No Limitations History of Present Illness Date Seen by Provider: Mar 03, 2018 Time Seen by Provider: 06:49 Initial Comments Here with complaint of left upper quadrant abdominal pain that has been going on since 6 p.m. last night. Associated with several episodes of vomiting and had diarrhea last night. Diarrhea has subsequently resolved or stopped. Denies blood in his vomit or stool. Denies dysuria but states that he can't urinate and is concerned that he might have a kidney stone. He has had those in the past but states that pain is usually in his back. This is in the left upper quadrant anterior. Denies blood in his urine. Denies fevers. Timing/Duration: 12 Hours Severity/Quality: Moderate, Aching Location: LUQ Radiation: No Radiation Activities at Onset: None Modifying Factors: Worsens With Eating, Worsens With Movement Associated Symptoms: No Back Pain, No Chest Pain, No Fever/Chills; Nausea/ Vomiting; No Shortness of Air, No Weakness Allergies and Home Medications Allergies Coded Allergies: No Known Drug Allergies (Unverified , 02/04/18) Home Medications Fluoxetine HCl 20 Mg Capsule, 20 MG PO DAILY, (Reported) Losartan/Hydrochlorothiazide 1 Each Tablet, 1 EACH PO DAILY, (Reported) Lovastatin 20 Mg Tablet, 20 MG PO DAILY, (Reported) Metformin HCl 500 Mg Tablet, 500 MG PO BID, (Reported) Patient Home Medication List Home Medication List Reviewed: Yes Review of Systems Review of Systems Constitutional: see HPI; No chills, No fever EENTM: No Symptoms Reported Respiratory: No Symptoms Reported Cardiovascular: No Symptoms Reported Gastrointestinal: Abdominal Pain, Diarrhea, Nausea; Denies Rectal Bleeding; Vomiting Genitourinary: See HPI; Denies Hematuria; Pain Musculoskeletal: no symptoms reported Skin: no symptoms reported All Other Systems Reviewed Negative Unless Noted: Yes Past [id number]-[id number] Hx Past Med/Social Hx: Reviewed Nursing Past Med/Soc Hx Patient Social History Alcohol Use: Occasionally Uses Recreational Drug Use: No Smoking Status: Former Smoker Type Used: Cigarettes Former Smoker, Quit: August 23, 2011 Recent Foreign Travel: No Contact w/Someone Who Travel: No Recent Hopitalizations: No Immunizations Up To Date Tetanus Booster (TDap): Unknown Date of Influenza Vaccine: Nov 27, 2017 Seasonal Allergies Seasonal Allergies: No Past Medical History Surgeries: Yes Abdominal, Orthopedic Respiratory: Yes Sleep Apnea Cardiac: Yes High Cholesterol, Hypertension Reproductive Disorders: No Sexually Transmitted Disease: No HIV/AIDS: No Genitourinary: Yes Kidney Stones Gastrointestinal: Yes Abdominal Hernia Musculoskeletal: Yes Arthritis Loss of Vision: Bilateral Hearing Impairment: Denies Depression Adverse Reaction/Blood Tranf: No (N/A) Family Medical History Reviewed Nursing Family Hx Physical Exam Vital Signs Vital Signs - First Documented 03/03/18 06:55 Temp 97.4 Pulse 75 Resp 18 B/P (MAP) 143/89 (107) Pulse Ox 93 Capillary Refill : Height/Weight/BMI Height: 6'1.00" Weight: 296lbs. 0.0oz. [id number]; 39.1 BMI Method: General Appearance: WD/WN, no apparent distress HEENT: PERRL/EOMI, pharynx normal Neck: full range of motion, supple Respiratory: lungs clear, normal breath sounds Cardiovascular: regular rate, rhythm, no murmur Gastrointestinal: normal bowel sounds, soft; No guarding, No rebound; tenderness (left upper quadrant) Extremities: non-tender, normal inspection Back: normal inspection, no CVA tenderness, no vertebral tenderness Neurologic/Psychiatric: alert, oriented x 3 Skin: normal color, warm/dry Progress/Results/Core Measures Results/Orders Lab Results Laboratory Tests Test 03/03/18 07:05 03/03/18 08:14 Range/Units White Blood Count 16.8 H 4.3-11.0 10^3/uL Red Blood Count 5.08 4.35-5.85 10^6/uL Hemoglobin 14.9 13.3-17.7 G/DL Hematocrit 43 40-54 % Mean Corpuscular Volume 85 80-99 FL Mean Corpuscular Hemoglobin 29 25-34 PG Mean Corpuscular Hemoglobin Concent 35 32-36 G/DL Red Cell Distribution Width 14.0 10.0-14.5 % Platelet Count 216 130-400 10^3/uL Mean Platelet Volume 10.5 H 7.4-10.4 FL Neutrophils (%) (Auto) 81 H 42-75 % Lymphocytes (%) (Auto) 11 L 12-44 % Monocytes (%) (Auto) 9 0-12 % Eosinophils (%) (Auto) 0 0-10 % Basophils (%) (Auto) 0 0-10 % Neutrophils # (Auto) 13.6 H 1.8-7.8 X 10^3 Lymphocytes # (Auto) 1.8 1.0-4.0 X 10^3 Monocytes # (Auto) 1.4 H 0.0-1.0 X 10^3 Eosinophils # (Auto) 0.0 0.0-0.3 10^3/uL Basophils # (Auto) 0.0 0.0-0.1 10^3/uL Neutrophils % (Manual) 85 % Lymphocytes % (Manual) 3 % Monocytes % (Manual) 3 % Reactive Lymphocytes 9 % Blood Morphology Comment NORMAL Sodium Level 137 135-145 MMOL/L Potassium Level 4.2 3.6-5.0 MMOL/L Chloride Level 103 98-107 MMOL/L Carbon Dioxide Level 22 21-32 MMOL/L Anion Gap 12 5-14 MMOL/L Blood Urea Nitrogen 14 7-18 MG/DL Creatinine 1.19 0.60-1.30 MG/DL Estimat Glomerular Filtration Rate > 60 BUN/Creatinine Ratio 12 Glucose Level 183 H 70-105 MG/DL Calcium Level 9.7 8.5-10.1 MG/DL Corrected Calcium 9.4 8.5-10.1 MG/DL Magnesium Level 2.1 1.8-2.4 MG/DL Total Bilirubin 1.0 0.1-1.0 MG/DL Aspartate Amino Transf (AST/SGOT) 21 5-34 U/L Alanine Aminotransferase (ALT/SGPT) 35 0-55 U/L Alkaline Phosphatase 88 40-136 U/L Total Protein 7.4 6.4-8.2 GM/DL Albumin 4.4 3.2-4.5 GM/DL Amylase Level 54 25-125 U/L Lipase 12 8-78 U/L Urine Color YELLOW Urine Clarity CLEAR Urine pH 5 5-9 Urine Specific [place] 1.020 1.016-1.022 Urine Protein 1+ H NEGATIVE Urine Glucose (UA) 3+ H NEGATIVE Urine Ketones 2+ H NEGATIVE Urine Nitrite NEGATIVE NEGATIVE Urine Bilirubin NEGATIVE NEGATIVE Urine Urobilinogen 1 NORMAL MG/DL Urine Leukocyte Esterase NEGATIVE NEGATIVE Urine RBC (Auto) 1+ H NEGATIVE Urine RBC 0-2 /HPF Urine WBC 2-5 /HPF Urine Crystals NONE /LPF Urine Bacteria TRACE /HPF Urine Casts NONE /LPF Urine Mucus SMALL H /LPF Urine Culture Indicated NO My Orders Orders - CAMERON FISCHER MD Amylase (03/03/18 06:55) Cbc With Automated Diff (03/03/18 06:55) Comprehensive Metabolic Panel (03/03/18 06:55) Lipase (03/03/18 06:55) Magnesium (03/03/18 06:55) Ua Culture If Indicated (03/03/18 06:55) Saline Lock/Iv-Start (03/03/18 06:55) Ns Iv 1000 Ml (Sodium Chloride 0.9%) (03/03/18 06:55) Ondansetron Injection (Zofran Injectio (03/03/18 07:15) Fentanyl Injection (Sublimaze Injection (03/03/18 07:01) Manual Differential (03/03/18 07:05) Ct Abdomen/Pelvis W (03/03/18 09:00) Iohexol Injection (Omnipaque 350 Mg/Ml 1 (03/03/18 09:15) Contrast Received (Contrast Received) (03/03/18 09:15) Sodium Chloride Flush (Catheter Flush Sy (03/03/18 09:15) Ns (Ivpb) (Sodium Chloride 0.9%) (03/03/18 09:15) Fentanyl Injection (Sublimaze Injection (03/03/18 10:17) Hydrocodone/Apap 7.5/325 Tab (Lortab 7. (03/03/18 10:17) Ketorolac Injection (Toradol Injection) (03/03/18 10:17) Medications Given in ED Current Medications Medications Dose Ordered Sig/Thiago Route Start Time Stop Time Status Last Admin Dose Admin Iohexol 100 ml ONCE ONCE IV 03/03/18 09:15 03/03/18 09:16 DC 03/03/18 09:25 100 ML Ondansetron HCl 4 mg ONCE ONCE IVP 03/03/18 07:15 03/03/18 07:16 DC 03/03/18 07:10 4 MG Sodium Chloride 10 ml NEEDED PRN IV 03/03/18 09:15 03/03/18 09:25 10 ML Sodium Chloride 250 ml ONCE ONCE IV 03/03/18 09:15 12 09:16 DC 03/03/18 09:25 80 ML Sodium Chloride 1,000 ml @ 0 mls/hr Q0M ONCE IV 03/03/18 06:55 03/03/18 06:57 DC 03/03/18 07:10 0 MLS/HR Vital Signs/I&O 03/03/18 06:55 Temp 97.4 Pulse 75 Resp 18 B/P (MAP) 143/89 (107) Pulse Ox 93 Progress Progress Note : Progress Note Seen and evaluated. IV, labs, UA, normal saline 1 L bolus, fentanyl 50 g IV and Zofran 4 mg IV ordered. Monitor patient. CT abdomen and pelvis with contrast ordered after reviewing UA and lab results. 1010: CT notes ureteral stone. Toradol and hydrocodone as well as repeat fentanyl ordered although repeat fentanyl not given as pain improved after Toradol. 148: Discharged home with return precautions. Patient verbalize understanding instructions and agreement with plan. Diagnostic Imaging Diagonstic Imaging: CT Plain Films/CT/US/NM/MRI: abdomen, pelvis Comments [facility]. [place], [place] NAME: CLAUDIO GARCIA [facility] REC#: [id number] PT STATUS: REG ER : 1960 PHYSICIAN: CAMERON FISCHER MD ADMIT DATE: 03/03/18/ER Draft Date of Exam:03/03/18 CT ABDOMEN/PELVIS W PROCEDURE: CT abdomen and pelvis with contrast. TECHNIQUE: Multiple contiguous axial images were obtained through the abdomen and pelvis after administration of intravenous contrast. DATE: March 03, 2018. COMPARISON: CT abdomen and pelvis without contrast February 07, 2018. CT abdomen and pelvis July 14, 2013. INDICATION: 57-year-old male, left lower quadrant abdominal and back pain. Vomiting. FINDINGS: There is mild dependent atelectasis in the right lower lobe greater than the left lower lobe. There are also mild linear opacities in the lingula likely reflecting atelectasis and/or scarring. The heart is not enlarged. There is no pericardial effusion. The liver is diffusely low in attenuation compatible with diffuse fatty infiltration of the liver. The outer liver contours are not grossly nodular. There is no identified liver lesion. The main, right, and left portal veins are patent. The gallbladder is unremarkable. There is no intrahepatic or extrahepatic bile duct dilation. The main pancreatic duct is not abnormally dilated. Unremarkable appearance of the pancreatic parenchyma. The spleen is normal in size. The adrenal glands are unremarkable. There is a low-attenuation right renal lesion on axial image 50 which measures 4.0 cm in size with internal attenuation diagnostic for renal cyst. There is an additional benign right renal cyst measuring smaller in size on axial image 45. There is a low-attenuation left renal lesion compatible with benign left renal cyst on axial image 53 which measures 1.7 cm in size. There is a stone in the left distal ureter at the ureterovesical junction measuring 3.2 mm in size with very mild left hydroureteronephrosis. There is no identified right ureteral stone. The urinary bladder is unremarkable in appearance. The intestinal tract is not distended. The appendix is normal and well seen on axial image 51 and adjacent sequential images. There is no free intraperitoneal air. There is no drainable fluid collection. There is no free pelvic fluid. There are atherosclerotic calcifications. There is no identified abnormally enlarged lymph node in the abdomen or pelvis which meet CT size criteria for adenopathy. There is very mild left retroperitoneal inflammatory stranding. There is no identified acute bony abnormality. IMPRESSION: CT ABDOMEN AND PELVIS. 1. 3.2 mm stone in the left distal ureter at the level of the ureterovesical junction with very mild left hydronephrosis. This is new since February 07, 2018. 2. Bilateral benign renal cyst. 3. Diffuse fatty infiltration of the liver. Dictated on workstation # [id number] Dict: 03/03/1836 Trans: 03/03/[address] [facility] [id number] Interpreted by: YADIRA GUILLEN MD Electronically signed by: Departure Impression Primary Impression: Ureteral stone Additional Impression: Left sided abdominal pain Disposition: 01 HOME, SELF-CARE Condition: Improved Departure-Patient Inst. Decision time for Depature: 10:50 Referrals: GATO HERRON MD (PCP/Family) Primary Care Physician Patient Instructions: Acute Abdomen (Belly Pain), Adult (DC), Kidney Stones (DC ) Add. Discharge Instructions: Take medications as directed. Follow-up with your in a few days for recheck. Return for worse pain, fever, vomiting, weakness, breathing problems or other concerns as needed. You may take ibuprofen 800 mg every 8 hours as needed for pain. It is very important that he drink plenty of fluids. Call Dr. Garcia's office on [address] for appointment early this week. Strain urine each time you go to check for passage of stone. Scripts Hydrocodone Bit/Acetaminophen (Hydrocodone/Acetaminophen 5/325mg Tablet) 1 Tab Tab 1-2 EACH PO Q6H PRN for PAIN-MODERATE MDD 10, #16 TAB 0 Refills Prov: CAMERON FISCHER MD 03/03/18 Cephalexin (Cephalexin) 500 Mg Tablet 500 MG PO BID, #14 TAB 0 Refills Prov: CAMERON FISCHER MD 03/03/18 CAMERON FISCHER MD Mar 03, 2018 07:22
[2018-03-03 07:36] LABS: ALANINE AMINOTRANSFERASE 35 U/L (0-55); ALBUMIN 4.4 GM/DL (3.2-4.5); ALKALINE PHOSPHATASE 88 U/L (40-136); AMYLASE 54 U/L (25-125); BUN/CREATININE RATIO 12; CALCIUM 9.7 MG/DL (8.5-10.1); CARBON DIOXIDE 22 MMOL/L (21-32); CHLORIDE 103 MMOL/L (98-107); CREATININE SERUM 1.19 MG/DL (0.60-1.30); GFR ESTIMATED > 60; GLUCOSE 183 MG/DL (70-105); LIPASE 12 U/L (8-78); MAGNESIUM 2.1 MG/DL (1.8-2.4); POTASSIUM 4.2 MMOL/L (3.6-5.0); SODIUM 137 MMOL/L (135-145); TOTAL PROTEIN 7.4 GM/DL (6.4-8.2)
[2018-03-03 08:13] LABS: LYMPHOCYTES % (MANUAL) 3 %; MONOCYTES % (MANUAL) 3 %; NEUTROPHILS % (MANUAL) 85 %; REACTIVE LYMPHOCYTES 9 %
[2018-03-03 08:14] LABS: RBC MORPH NORMAL
[2018-03-03 08:21] LABS: BILIRUBIN,URINE NEGATIVE (NEGATIVE); CLARITY,URINE CLEAR; COLOR,URINE YELLOW; GLUCOSE, URINE (UA) 3+ (NEGATIVE); KETONES,URINE 2+ (NEGATIVE); LEUKOCYTE ESTERASE ,URINE NEGATIVE (NEGATIVE); NITRITE,URINE NEGATIVE (NEGATIVE); PH,URINE 5 (5-9); PROTEIN,URINE 1+ (NEGATIVE); UROBILINOGEN,URINE 1 MG/DL (NORMAL)
[2018-03-03 08:36] LABS: BACTERIA,URINE TRACE /HPF; RBC,URINE 0-2 /HPF
[2018-03-03] MEDS ORDERED: RECEIVED CONTRAST (Hold Metformin) IV SCH (09:15)
[2018-03-03] MEDS ORDERED: NS 250 ML (IVPB) BAG IV ONE (09:15)
[2018-03-03] MEDS ORDERED: IOHEXOL 350 MG/ML 100 ML (OMNIPAQUE 350) VIAL IV ONE (09:15)
[2018-03-03] MEDS ORDERED: CATHETER FLUSH 10 ML SYR IV PRN (09:15)
--- NOTE | 2018-03-03 09:46 | Diagnostic Imaging Report ---
PROCEDURE: CT abdomen and pelvis with contrast. TECHNIQUE: Multiple contiguous axial images were obtained through the abdomen and pelvis after administration of intravenous contrast. DATE: March 03, 2018. COMPARISON: CT abdomen and pelvis without contrast February 07, 2018. CT abdomen and pelvis July 14, 2013. INDICATION: 57-year-old male, left lower quadrant abdominal and back pain. Vomiting. FINDINGS: There is mild dependent atelectasis in the right lower lobe greater than the left lower lobe. There are also mild linear opacities in the lingula likely reflecting atelectasis and/or scarring. The heart is not enlarged. There is no pericardial effusion. The liver is diffusely low in attenuation compatible with diffuse fatty infiltration of the liver. The outer liver contours are not grossly nodular. There is no identified liver lesion. The main, right, and left portal veins are patent. The gallbladder is unremarkable. There is no intrahepatic or extrahepatic bile duct dilation. The main pancreatic duct is not abnormally dilated. Unremarkable appearance of the pancreatic parenchyma. The spleen is normal in size. The adrenal glands are unremarkable. There is a low-attenuation right renal lesion on axial image 50 which measures 4.0 cm in size with internal attenuation diagnostic for renal cyst. There is an additional benign right renal cyst measuring smaller in size on axial image 45. There is a low-attenuation left renal lesion compatible with benign left renal cyst on axial image 53 which measures 1.7 cm in size. There is a stone in the left distal ureter at the ureterovesical junction measuring 3.2 mm in size with very mild left hydroureteronephrosis. There is no identified right ureteral stone. The urinary bladder is unremarkable in appearance. The intestinal tract is not distended. The appendix is normal and well seen on axial image 51 and adjacent sequential images. There is no free intraperitoneal air. There is no drainable fluid collection. There is no free pelvic fluid. There are atherosclerotic calcifications. There is no identified abnormally enlarged lymph node in the abdomen or pelvis which meet CT size criteria for adenopathy. There is very mild left retroperitoneal inflammatory stranding. There is no identified acute bony abnormality. IMPRESSION: CT ABDOMEN AND PELVIS. 1. 3.2 mm stone in the left distal ureter at the level of the ureterovesical junction with very mild left hydronephrosis. This is new since February 07, 2018. 2. Bilateral benign renal cyst. 3. Diffuse fatty infiltration of the liver. Dictated by: Dictated on workstation # [id number]
[2018-03-03] MEDS ORDERED: KETOROLAC 30 MG/ML VIAL IVP STA (10:17)
[2018-03-03] MEDS ORDERED: HYDROcodone/APAP 7.5 MG/325 MG (LORTAB, LORCET PLUS) TABLET PO STA (10:17)
[2018-03-03] MEDS ORDERED: CEPH500T PO (11:00)
[2018-03-03] MEDS ORDERED: ACHD5005 PO (11:00)
[2018-03-03 11:02] VITALS: BP 143/89
== END 2018-03-03 12:02 | disposition home or self-care (01) ==
LOC: EDUNIT# 06:45 → ER 06:47
DX: N13.2 Hydronephrosis with renal and ureteral calculous obstruction (principal); G47.30 Sleep apnea, unspecified; E78.00 Pure hypercholesterolemia, unspecified; I10 Essential (primary) hypertension; F32.9 Major depressive disorder, single episode, unspecified; Z87.442 Personal history of urinary calculi; Z79.84 Long term (current) use of oral hypoglycemic drugs; Z87.891 Personal history of nicotine dependence
CPT/HCPCS: 36415; 74177; 80053; 81000; 82150; 83690; 83735; 85007; 85025; 85027

== ENCOUNTER 2018-04-01 14:50 | Outpatient (RCR) | payer OTHER | END 2018-06-30 | disposition home or self-care (01) | LOC: LAB 14:50 | PROVIDERS: ATTEND Urology | DX: N20.2 Calculus of kidney with calculus of ureter (principal) | CPT/HCPCS: 36415; 82140; 82340; 82507; 82570; 83735; 83945; 83986; 84105; 84133; 84300; 84392; 84560 ==

== ENCOUNTER → 2018-04-01 | Outpatient (CLI) | payer OTHER ==
[~2018-04-01] MED LIST changes: +CEPH500T PO
--- NOTE | 2018-04-01 13:48 | Diagnostic Imaging Report ---
INDICATION: Renal colic. KUB 1:56 PM. FINDINGS: Bowel gas pattern is normal. There are some calcified phleboliths in the pelvis. There are no calculi seen in the distribution of the ureters. IMPRESSION: Negative KUB. Dictated by: Dictated on workstation # [id number]
== END ==
LOC: RAD 13:23
PROVIDERS: ATTEND Urology
DX: N20.1 Calculus of ureter (principal)
CPT/HCPCS: 74018

== ENCOUNTER 2018-08-08 12:30 | Outpatient (CLI) | payer OTHER ==
[~2018-08-08] VITALS: Ht 185.4 cm; Wt 131.5 kg
== END 2018-08-08 12:51 | disposition home or self-care (01) ==
LOC: PREOP 12:30
PROVIDERS: ATTEND Surgery
DX: Z01.818 Encounter for other preprocedural examination (principal)

== ENCOUNTER 2018-08-12 06:53 | Day surgery (SDC) | payer OTHER ==
[~2018-08-12] VITALS: Ht 185.4 cm; Wt 131.5 kg
[2018-08-12] MEDS ORDERED: LACTATED RINGERS 1,000 ML IV ONE (06:56)
--- OUTSIDE RECORDS SUMMARY | 2018-08-12 06:58 | XMS REPORT ---
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 Name Role Phone GATO HERRON Unavailable PROBLEMS Type Condition ICD9-CM Code UJA84-IE Code Onset Dates Condition Status SNOMED Code Problem Abnormal biliary HIDA scan R94.8 Active 164491335 Problem Essential hypertension I10 Active 90931029 Problem Type 2 diabetes mellitus without complication, without long-term current use of insulin E11.9 Active 895743294 Problem Complex tear of medial meniscus of right knee as current injury, subsequent encounter S83.231D Active 559150144 Problem Nocturnal hypoxia G47.34 Active 997548378 Problem Type 2 diabetes mellitus with other specified complication, without long- term current use of insulin E11.69 Active 95557687 Problem Plantar fasciitis, bilateral M72.2 Active [id number] Problem Arthritis of shoulder region, left M19.012 Active 080507571 Problem Mixed hyperlipidemia E78.2 Active 867823253 Problem Nocturnal hypoxemia G47.34 Active 793582875 Problem Daytime hypersomnia G47.19 Active [id number] ALLERGIES No Information ENCOUNTERS Encounter Location Date Diagnosis [place] [id number] [place] [address] Feb, [facility] [address] [place] [id number] [place] [address] Feb, [facility] [id number] [place] [address] Dec, Type 2 diabetes mellitus with other specified complication, without long-term current use of insulin E11.69 ; Mixed hyperlipidemia E78.2 ; Essential hypertension I10 ; BMI 50.0-59.9, adult Z68.43 and Colon cancer screening Z12.11 [facility] [address] [id number] [place] [address] Oct, Mixed hyperlipidemia E78.2 and Type 2 diabetes mellitus without complication, without long-term current use of insulin E11.9 [facility] [address] [address] Oct, [facility] [address] [place] [id number] [place] [address] Oct, Mixed hyperlipidemia E78.2 ; Type 2 diabetes mellitus without complication, without long-term current use of insulin E11.9 ; Essential hypertension I10 ; Blister of right foot, initial encounter S90.821A and BMI 50.0-59.9, adult Z68.43 [place] [address] [place] [id number] [place] [address] Jun, Type 2 diabetes mellitus without complication, without long-term current use of insulin E11.9 ; Plantar fasciitis, bilateral M72.2 ; Essential hypertension I10 ; Mixed hyperlipidemia E78.2 ; Wheezing R06.2 and BMI 50.0- 59.9, adult Z68.43 [facility] [address] [place] [address] [id number] [place] [address] Mar, Type 2 diabetes mellitus without complication, without long-term current use of insulin E11.9 ; Mixed hyperlipidemia E78.2 ; Essential hypertension I10 ; Arthralgia of right knee M25.561 ; Shortness of breath R06.02 ; Nocturnal hypoxemia G47.34 and BMI 50.0-59.9, adult Z68.43 [facility] [address] [place] [address] Mar, Viral upper respiratory tract infection J06.9 ; Localized edema R60.0 ; Shortness of breath R06.02 ; Sore throat J02.9 and BMI 50.0-59.9, adult Z68.43 [facility] [address] [place] [address] Jan, Complex tear of medial meniscus of right knee as current injury, subsequent encounter S83.231D [place] [address] [address] [id number] [place] [address] Jan, [place] [address] [place] [id number] [place] [address] Dec, Tear of medial meniscus of right knee, current, unspecified tear type, initial encounter S83.241A [place] [address] [place] [id number] [place] [address] Nov, Mixed hyperlipidemia E78.2 [place] [address] [address] Nov, Type 2 diabetes mellitus without complication, without long-term current use of insulin E11.9 ; Mixed hyperlipidemia E78.2 ; Essential hypertension I10 and Arthralgia of right knee M25.561 [place] [address] [address] [id number] [place] [address] Oct, Acute pain of right knee M25.561 ; Type 2 diabetes mellitus without complication, without long-term current use of insulin E11.9 ; Essential hypertension I10 and Mixed hyperlipidemia E78.2 [place] [address] [place] [address] [id number] [place] [address] Oct, Nocturnal hypoxia G47.34 [place] [address] [place] [address] [id number] [place] [address] Sep, Type 2 diabetes mellitus without complication, without long-term current use of insulin E11.9 [place] [address] [place] [address] [id number] [place] [address] Aug, Hypoxia R09.02 ; Type 2 diabetes mellitus without complication, without long-term current use of insulin E11.9 ; Daytime hypersomnia G47.19 ; Mixed hyperlipidemia E78.2 and Essential hypertension I10 [place] [address] [address] July, Abnormal biliary HIDA scan R94.8 [place] [id number] [place] [address] Jun, Epigastric abdominal pain R10.13 [place] [address] [place] [address] [id number] [place] [address] Jun, [place] [address] [place] [id number] [place] [address] Jun, Epigastric abdominal pain R10.13 and Nausea R11.0 [place] [address] [place] [address] [id number] [place] [address] May, Type 2 diabetes mellitus without complication, without long-term current use of insulin E11.9 ; Mixed hyperlipidemia E78.2 ; Essential hypertension I10 and Arthritis of shoulder region, left M19.012 [facility] [address] [place] [id number] [place] [address] Mar, Herpes zoster without complication B02.9 [place] [address] [place] [address] [id number] [place] [address] Feb, Pain of left foot M79.672 [place] [address] [place] [id number] [place] [address] Feb, Type 2 diabetes mellitus without complication, without long-term current use of insulin E11.9 ; Mixed hyperlipidemia E78.2 and Essential hypertension I10 [place] [address] [place] [address] Dec, [place] [address] [place] [id number] [place] [address] Dec, [place] [address] [place] [id number] [place] [address] Dec, Pain of left foot M79.672 ; Elevated blood pressure I10 and Type 2 diabetes mellitus without complication, without long-term current use of insulin E11.9 [place] [address] [place] [address] Oct, Pain of left foot M79.672 ; Pain in right foot M79.671 ; Pre-diabetes R73.09 ; Elevated blood pressure I10 and Type 2 diabetes mellitus without complication, without long-term current use of insulin E11.9 [place] [address] [place] [address] [id number] [place] [address] 15 Feb, 2015 Encounter for immunization Z23 [place] [address] [address] Jan, Cough R05 and Pneumonia of both lower lobes due to infectious organism J16.8 [place] [address] [address] Dec, [place] [address] [address] Dec, Right shoulder pain M25.511 [place] [address] [address] Oct, [place] DX V05.[address] [address] Sep, [place] [address] [address] Sep, Family history of diabetes mellitus V18.0 ; Family history of heart disease V17.49 and Examination, general medical V70.[address] [address] Sep, Family history of diabetes mellitus V18.0 ; Family history of heart disease V17.49 and Examination, general medical V70.9 [place] [address] [address] Aug, Back pain 724.5 and Fever 780.[address] [address] July, HEP B (ADULT) DX V05.[address] [address] Mar, [place] [address] [address] Mar, [facility] [address] [facility] [id number] [place] [address] Mar, [facility] [address] [facility] [id number] [place] [address] Mar, IMMUNIZATIONS No Known Immunizations SOCIAL HISTORY Never Assessed REASON FOR VISIT Refill Request PLAN OF CARE VITAL SIGNS MEDICATIONS Medication Instructions Dosage Frequency Start Date End Date Duration Status Fluoxetine HCl 20 mg Orally Once a day 1 tablet 24h Oct, 30 day(s) Active RESULTS No Results PROCEDURES No Known procedures INSTRUCTIONS MEDICATIONS ADMINISTERED No Known Medications MEDICAL (GENERAL) HISTORY Type Description Date Medical History kidney stones Medical History Pre-diabetes Medical History Type 2 diabetes mellitus without complication, without long-term current use of insulin Medical History Type 2 diabetes mellitus without complication, without long-term current use of insulin Surgical History hiatal hernia 2004 Surgical History vental hernia repair 08/25/2016 Surgical History RT knee surgery 02/28/2017 Hospitalization History hernia surgery 2004
--- OUTSIDE RECORDS SUMMARY | 2018-08-12 06:58 | XMS REPORT ---
Author Author GATO HERRON Organization [facility] Address [address] [place] [address] Care Team Providers Care Network Control Operators Supervisor Name Role Phone GATO HERRON Unavailable PROBLEMS Type Condition ICD9-CM Code EMS25-ZT Code Onset Dates Condition Status SNOMED Code Problem Abnormal biliary HIDA scan R94.8 Active 423704223 Problem Essential hypertension I10 Active 46951403 Problem Type 2 diabetes mellitus without complication, without long-term current use of insulin E11.9 Active 054919363 Problem Complex tear of medial meniscus of right knee as current injury, subsequent encounter S83.231D Active 010253896 Problem Nocturnal hypoxia G47.34 Active 001807796 Problem Type 2 diabetes mellitus with other specified complication, without long- term current use of insulin E11.69 Active 17023456 Problem Plantar fasciitis, bilateral M72.2 Active 49436680439102182 Problem Arthritis of shoulder region, left M19.012 Active 857478727 Problem Mixed hyperlipidemia E78.2 Active 430462269 Problem Nocturnal hypoxemia G47.34 Active 090993810 Problem Daytime hypersomnia G47.19 Active [id number] ALLERGIES No Information ENCOUNTERS Encounter Location Date Diagnosis [place] [id number] [place] [address] Feb, [facility] [address] [place] [id number] [place] [address] Feb, [facility] [address] [place] [address] Dec, Type 2 diabetes mellitus with other specified complication, without long-term current use of insulin E11.69 ; Mixed hyperlipidemia E78.2 ; Essential hypertension I10 ; BMI 50.0-59.9, adult Z68.43 and Colon cancer screening Z12.11 [facility] [address] [place] [address] [id number] [place] [address] Oct, Mixed hyperlipidemia E78.2 and Type 2 diabetes mellitus without complication, without long-term current use of insulin E11.9 [facility] [address] [address] Oct, [facility] [address] [place] [id number] [place] [address] Oct, Mixed hyperlipidemia E78.2 ; Type 2 diabetes mellitus without complication, without long-term current use of insulin E11.9 ; Essential hypertension I10 ; Blister of right foot, initial encounter S90.821A and BMI 50.0-59.9, adult Z68.43 [place] [address] [place] [id number] [place] [address] Jun, Type 2 diabetes mellitus without complication, without long-term current use of insulin E11.9 ; Plantar fasciitis, bilateral M72.2 ; Essential hypertension I10 ; Mixed hyperlipidemia E78.2 ; Wheezing R06.2 and BMI 50.0- 59.9, adult Z68.43 [facility] [address] [place] [id number] [place] [address] Mar, Type 2 diabetes mellitus without complication, without long-term current use of insulin E11.9 ; Mixed hyperlipidemia E78.2 ; Essential hypertension I10 ; Arthralgia of right knee M25.561 ; Shortness of breath R06.02 ; Nocturnal hypoxemia G47.34 and BMI 50.0-59.9, adult Z68.43 [facility] [address] [place] [address] Mar, Viral upper respiratory tract infection J06.9 ; Localized edema R60.0 ; Shortness of breath R06.02 ; Sore throat J02.9 and BMI 50.0-59.9, adult Z68.43 [facility] [address] [place] [address] Jan, Complex tear of medial meniscus of right knee as current injury, subsequent encounter S83.231D [place] [address] [place] [id number] [place] [address] Jan, [place] [address] [place] [id number] [place] [address] Dec, Tear of medial meniscus of right knee, current, unspecified tear type, initial encounter S83.241A [place] [address] [place] [id number] [place] [address] Nov, Mixed hyperlipidemia E78.2 [place] [address] [address] Nov, Type 2 diabetes mellitus without complication, without long-term current use of insulin E11.9 ; Mixed hyperlipidemia E78.2 ; Essential hypertension I10 and Arthralgia of right knee M25.561 [place] [address] [place] [id number] [place] [address] Oct, Acute pain of right knee M25.561 ; Type 2 diabetes mellitus without complication, without long-term current use of insulin E11.9 ; Essential hypertension I10 and Mixed hyperlipidemia E78.2 [place] [address] [place] [id number] [place] [address] Oct, Nocturnal hypoxia G47.34 [place] [address] [place] [id number] [place] [address] Sep, Type 2 diabetes mellitus without complication, without long-term current use of insulin E11.9 [place] [address] [place] [id number] [place] [address] Aug, Hypoxia R09.02 ; Type 2 diabetes mellitus without complication, without long-term current use of insulin E11.9 ; Daytime hypersomnia G47.19 ; Mixed hyperlipidemia E78.2 and Essential hypertension I10 [place] [address] [address] July, Abnormal biliary HIDA scan R94.8 [place] [id number] [place] [address] Jun, Epigastric abdominal pain R10.13 [place] [address] [place] [id number] [place] [address] Jun, [place] [address] [place] [id number] [place] [address] Jun, Epigastric abdominal pain R10.13 and Nausea R11.0 [place] [address] [place] [id number] [place] [address] May, Type 2 diabetes mellitus without complication, without long-term current use of insulin E11.9 ; Mixed hyperlipidemia E78.2 ; Essential hypertension I10 and Arthritis of shoulder region, left M19.012 [facility] [address] [place] [id number] [place] [address] Mar, Herpes zoster without complication B02.9 [place] [address] [place] [id number] [place] [address] Feb, Pain of left foot M79.672 [place] [address] [place] [id number] [place] [address] Feb, Type 2 diabetes mellitus without complication, without long-term current use of insulin E11.9 ; Mixed hyperlipidemia E78.2 and Essential hypertension I10 [place] [address] [place] [address] Dec, [place] [address] [place] [id number] [place] [address] Dec, [place] [address] [place] [id number] [place] [address] Dec, Pain of left foot M79.672 ; Elevated blood pressure I10 and Type 2 diabetes mellitus without complication, without long-term current use of insulin E11.9 [place] [address] [place] [address] Oct, Pain of left foot M79.672 ; Pain in right foot M79.671 ; Pre-diabetes R73.09 ; Elevated blood pressure I10 and Type 2 diabetes mellitus without complication, without long-term current use of insulin E11.9 [place] [address] [place] [id number] [place] [address] 15 Feb, 2015 Encounter for immunization Z23 [place] [address] [address] Jan, Cough R05 and Pneumonia of both lower lobes due to infectious organism J16.8 [place] [address] [address] Dec, [place] [address] [address] Dec, Right shoulder pain M25.511 [place] [address] [address] Oct, [place] V05.[address] [address] Sep, [place] [address] [address] Sep, Family history of diabetes mellitus V18.0 ; Family history of heart disease V17.49 and Examination, general medical V70.[address] [address] Sep, Family history of diabetes mellitus V18.0 ; Family history of heart disease V17.49 and Examination, general medical V70.9 [place] [address] [address] Aug, Back pain 724.5 and Fever 780.[address] [address] July, HEP B (ADULT) DX V05.[address] [address] Mar, [place] [address] [address] Mar, [facility] [address] [facility] [id number] [place] [address] Mar, [facility] [address] [facility] [id number] [place] [address] Mar, IMMUNIZATIONS No Known Immunizations SOCIAL HISTORY Never Assessed REASON FOR VISIT Hospital F/U PLAN OF CARE VITAL SIGNS MEDICATIONS Unknown [...]
--- OUTSIDE RECORDS SUMMARY | 2018-08-12 07:01 | XMS REPORT | Continuity of Care Document ---
Author Organization Unknown Address Unknown Allergies Active Description Code Type Severity Reaction Onset Reported/Identified Relationship to Patient Clinical Status Yes NKANo Known Allergies NKA Miscellaneous Allergy Unknown N/A 12/26/2005 Yes No Known Drug Allergies [id number] Drug Allergy Unknown N/A 02/04/2018 Medications There is no data. Problems Date Dx Coded Attending Type Code Diagnosis Diagnosed By 07/25/2015 Ot 535.50 07/25/2015 Ot 789.01 07/25/2015 Ot V15.82 07/25/2015 Ot V58.69 06/29/2016 SARAH TADEO, ISAC Benitez Ot 592.0 CALCULUS OF KIDNEY 06/29/2016 ISAC SMITH MD Ot 789.09 ABDOMINAL PAIN, OTHER SPECIFIED SITE 06/30/2016 YANG LOPEZ FPGA ENGINEER Ot R10.13 EPIGASTRIC PAIN 07/19/2016 MADL, TRINA L RN TELEPHONIC Ot R10.13 EPIGASTRIC PAIN 07/21/2016 YANG LOPEZ FPGA ENGINEER Ot R10.13 EPIGASTRIC PAIN 08/02/2016 MADTRINA Dunne L RN TELEPHONIC Ot R10.13 EPIGASTRIC PAIN 08/10/2016 ISAC SMITH MD Ot 592.0 CALCULUS OF KIDNEY 08/10/2016 ISAC SMITH MD Ot 789.09 ABDOMINAL PAIN, OTHER SPECIFIED SITE 08/10/2016 YANG LOPEZ FPGA ENGINEER Ot R10.13 EPIGASTRIC PAIN 08/10/2016 MADVibha, TRINA L RN TELEPHONIC Ot R10.13 EPIGASTRIC PAIN 08/14/2016 ISAC SMITH MD Ot 592.0 CALCULUS OF KIDNEY 08/14/2016 ISAC SMITH MD Ot 789.09 ABDOMINAL PAIN, OTHER SPECIFIED SITE 08/14/2016 YANG LOPEZ FPGA ENGINEER Ot R10.13 EPIGASTRIC PAIN 08/14/2016 MADL, TRINA L RN TELEPHONIC Ot R10.13 EPIGASTRIC PAIN 08/14/2016 SARAH TADEO, ISAC Benitez Ot 592.0 CALCULUS OF KIDNEY 08/14/2016 SARAH TADEO, ISAC Benitez Ot 789.09 ABDOMINAL PAIN, OTHER SPECIFIED SITE 08/14/2016 YANG LOPEZ APRN Ot R10.13 EPIGASTRIC PAIN 08/14/2016 MADL, TRINA L RN TELEPHONIC Ot R10.13 EPIGASTRIC PAIN 08/16/2016 JEAN VEGAS [...] CALCULUS OF KIDNEY 08/21/2016 MADL, TRINA L RN TELEPHONIC Ot R10.13 EPIGASTRIC PAIN 08/21/2016 MADL, TRINA L RN TELEPHONIC Ot R10.13 EPIGASTRIC PAIN 08/22/2016 JEAN VEGAS [...] TYPE 2 DIABETES MELLITUS WITHOUT COMPLIC 08/26/2016 VEGAS MD, JEAN M Ot I10 ESSENTIAL (PRIMARY) HYPERTENSION 08/26/2016 ASCENCION TADEO, JEAN Santos Ot K43.9 VENTRAL HERNIA WITHOUT OBSTRUCTION OR GA 08/26/2016 JEAN VEGAS MD Ot Z79.84 ASSISTED (CURRENT) USE OF ORAL HYPOGLYC 08/29/2016 JEAN VEGAS MD Ot E11.9 TYPE 2 DIABETES MELLITUS WITHOUT COMPLIC 08/29/2016 JEAN VEGAS MD Ot I10 ESSENTIAL (PRIMARY) HYPERTENSION 08/29/2016 JEAN VEGAS MD Ot K43.9 VENTRAL HERNIA WITHOUT OBSTRUCTION OR GA 08/29/2016 JEAN VEGAS MD Ot Z79.84 ASSISTED (CURRENT) USE OF ORAL HYPOGLYC 09/02/2016 JEAN VEGAS MD Ot E11.9 TYPE 2 DIABETES MELLITUS WITHOUT COMPLIC 09/02/2016 JEAN VEGAS MD Ot I10 ESSENTIAL (PRIMARY) HYPERTENSION 09/02/2016 JEAN VEGAS MD Ot K43.9 VENTRAL HERNIA WITHOUT OBSTRUCTION OR GA 09/02/2016 JEAN VEGAS MD Ot Z79.84 ASSISTED (CURRENT) USE OF ORAL HYPOGLYC 09/06/2016 JEAN VEGAS MD Ot E11.9 TYPE 2 DIABETES MELLITUS WITHOUT COMPLIC 09/06/2016 JEAN VEGAS MD Ot I10 ESSENTIAL (PRIMARY) HYPERTENSION 09/06/2016 JEAN VEGAS MD Ot K43.9 VENTRAL HERNIA WITHOUT OBSTRUCTION OR GA 09/06/2016 JEAN VEGAS MD Ot Z79.84 ASSISTED (CURRENT) USE OF ORAL HYPOGLYC 10/13/2016 TRINA AVINA RN TELEPHONIC Ot G47.10 HYPERSOMNIA, UNSPECIFIED 01/09/2017 SARAH TADEO, ISAC Benitez Ot 592.0 CALCULUS OF KIDNEY 01/09/2017 SARAH TADEO, ISAC A Ot 789.09 ABDOMINAL PAIN, OTHER SPECIFIED SITE 01/09/2017 YANG LOPEZ APRN Ot R10.13 EPIGASTRIC PAIN 01/09/2017 TRINA AVINA RN TELEPHONIC Ot R10.13 EPIGASTRIC PAIN 01/09/2017 JEAN VEGAS MD Ot K43.9 VENTRAL HERNIA WITHOUT OBSTRUCTION OR GA 01/09/2017 JEAN VEGAS MD Ot K76.0 FATTY (CHANGE OF) LIVER, NOT ELSEWHERE C 01/09/2017 ASCENCION TADEO, JEAN M Ot N20.0 CALCULUS OF KIDNEY 01/11/2017 EVANGELINA CARTER Ot S83.241A OTH TEAR OF MEDIAL MENISCUS, CURRENT INJ 01/11/2017 EVANGELINA CARTER Ot X58.XXXA EXPOSURE TO OTHER SPECIFIED FACTORS, INI 01/11/2017 EVANGELINA CARTER Ot Y99.8 OTHER EXTERNAL CAUSE STATUS 02/28/2017 RADHA JEAN MD Ot E11.9 TYPE 2 DIABETES MELLITUS WITHOUT COMPLIC 02/28/2017 RADHA JEAN MD, Ot E66.01 MORBID (SEVERE) OBESITY DUE TO [...] OF MEDIAL MENSC D/T 02/28/2017 RADHA JEAN MD, Ot Z68.39 BODY MASS INDEX (BMI) 39.0-39.9, ADULT 02/28/2017 RADHA JEAN MD Ot Z79.84 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 DESIGNER (CURRENT) USE OF ORAL HYPOGLYC 02/28/2017 RADHA JEAN MD, Ot Z79.899 OTHER ASSISTED (CURRENT) DRUG THERAPY 02/28/2017 RADHA JEAN MD, Ot Z87.891 PERSONAL HISTORY OF NICOTINE DEPENDENCE 03/01/2017 RADHA JEAN MD Ot E11.9 TYPE 2 DIABETES MELLITUS WITHOUT COMPLIC 03/01/2017 RADHA JEAN MD, Ot E66.01 MORBID (SEVERE) OBESITY DUE TO EXCESS CA 03/01/2017 RADHA JEAN MD Ot E78.5 HYPERLIPIDEMIA, UNSPECIFIED 03/01/2017 RADHA JEAN MD Ot G47.33 OBSTRUCTIVE SLEEP APNEA (ADULT) (PEDIATR 03/01/2017 RADHA JEAN MD Ot I10 ESSENTIAL (PRIMARY) HYPERTENSION 03/01/2017 RADHA JEAN MD, Ot M22.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, RIGHT KNEE 03/01/2017 RADHA JEAN MD Ot M23.221 DERANG OF POST HORN OF MEDIAL MENSC D/T 03/01/2017 RADHA JEAN MD, Ot Z68.39 BODY MASS INDEX (BMI) 39.0-39.9, ADULT 03/01/2017 RADHA JEAN MD, Ot Z79.84 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 DESIGNER (CURRENT) USE OF ORAL HYPOGLYC 03/01/2017 RADHA JEAN MD, Ot Z79.899 OTHER 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 DESIGNER (CURRENT) DRUG THERAPY 03/01/2017 RADHA JEAN MD, Ot Z87.891 PERSONAL HISTORY OF NICOTINE DEPENDENCE 03/30/2017 RADHA JEAN MD, Ot E11.9 TYPE 2 DIABETES MELLITUS WITHOUT COMPLIC 03/30/2017 RADHA JEAN MD, Ot E66.01 MORBID (SEVERE) OBESITY DUE TO [...] INDEX (BMI) 39.0-39.9, ADULT 03/30/2017 RADHA JEAN MD Ot Z79.84 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 (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) USE OF ORAL HYPOGLYC 03/30/2017 RADHA JEAN MD, Ot Z79.899 OTHER ASSISTED (CURRENT) DRUG THERAPY 03/30/2017 RADHA JEAN MD, Ot Z87.891 PERSONAL HISTORY OF NICOTINE DEPENDENCE 04/13/2017 YANG LOPEZ APRN Ot R10.13 EPIGASTRIC PAIN 08/27/2017 YANG LOPEZ FPGA ENGINEER Ot R10.13 EPIGASTRIC PAIN 12/24/2017 Ot 535.50 12/24/2017 Ot 789.01 12/24/2017 Ot V15.82 12/24/2017 Ot V58.69 01/31/2018 FAB DURÁN DO, Ot Z01.818 ENCOUNTER FOR OTHER PREPROCEDURAL EXAMIN [...] NE 02/06/2018 FAB DURÁN DO Ot Z79.84 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 DESIGNER (CURRENT) USE OF ORAL HYPOGLYC 02/06/2018 FAB DURÁN DO Ot Z79.899 OTHER 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 DESIGNER (CURRENT) DRUG THERAPY 02/06/2018 FAB DURÁN DO [...] K76.89 OTHER SPECIFIED DISEASES OF LIVER 02/08/2018 FAB DURÁN DO Ot N20.0 CALCULUS OF KIDNEY 02/08/2018 FAB DURÁN DO Ot N28.1 CYST OF KIDNEY, ACQUIRED 02/08/2018 FAB DURÁN DO Ot E11.9 TYPE 2 DIABETES MELLITUS WITHOUT COMPLIC 02/08/2018 FAB DURÁN DO Ot E78.5 HYPERLIPIDEMIA, UNSPECIFIED 02/08/2018 FAB DURÁN DO Ot F32.9 MAJOR DEPRESSIVE DISORDER, SINGLE EPISOD 02/08/2018 FAB DURÁN DO Ot G47.33 OBSTRUCTIVE SLEEP APNEA (ADULT) (PEDIATR 02/08/2018 FAB DURÁN DO Ot I10 ESSENTIAL (PRIMARY) HYPERTENSION 02/08/2018 FAB DURÁN DO Ot K57.30 DVRTCLOS OF LG INT W/O PERFORATION OR AB 02/08/2018 FAB DURÁN DO Ot K64.8 OTHER HEMORRHOIDS 02/08/2018 FAB DURÁN DO Ot Z12.11 ENCOUNTER FOR SCREENING FOR MALIGNANT NE 02/08/2018 FAB DURÁN DO Ot Z79.84 ASSISTED (CURRENT) USE OF ORAL HYPOGLYC 02/08/2018 FAB DURÁN DO Ot Z79.899 OTHER 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 DESIGNER (CURRENT) DRUG THERAPY 02/08/2018 FAB DURÁN DO Ot Z87.891 PERSONAL HISTORY OF NICOTINE DEPENDENCE 02/08/2018 FAB DURÁN DO Ot Z99.81 DEPENDENCE ON SUPPLEMENTAL OXYGEN 03/03/2018 CAMERON FISCHER MD Ot E78.00 PURE HYPERCHOLESTEROLEMIA, UNSPECIFIED 03/03/2018 CAMERON FISCHER MD, Ot F32.9 MAJOR DEPRESSIVE DISORDER, SINGLE EPISOD 03/03/2018 CAMERON FISCHER MD Ot G47.30 SLEEP APNEA, UNSPECIFIED 03/03/2018 CAMERON FISCHER MD Ot I10 ESSENTIAL (PRIMARY) HYPERTENSION 03/03/2018 CAMERON FISCHER MD Ot N13.2 HYDRONEPHROSIS WITH RENAL AND URETERAL C 03/03/2018 CAMERON FISCHER MD Ot R10.12 LEFT UPPER QUADRANT PAIN 03/03/2018 CAMERON FISCHER MD Ot Z79.84 ASSISTED (CURRENT) USE OF ORAL HYPOGLYC 03/03/2018 CAMERON FISCHER MD Ot Z87.442 PERSONAL HISTORY OF URINARY CALCULI 03/03/2018 AMADO TADEO, CAMERON Peter Ot Z87.891 PERSONAL HISTORY OF NICOTINE DEPENDENCE 03/26/2018 Ot 535.50 03/26/2018 Ot 789.01 03/26/2018 Ot V15.82 03/26/2018 Ot V58.69 05/09/2018 SARAH TADEO, ISAC Benitez Ot N20.1 CALCULUS OF URETER 06/30/2018 SARAH TADEO, ISAC Benitez Ot N20.2 CALCULUS OF KIDNEY WITH CALCULUS OF URET 07/01/2018 SARAH TADEO, ISAC Benitez Ot N20.2 CALCULUS OF KIDNEY WITH CALCULUS OF URET 08/06/2018 FAB DURÁN DO Ot Z01.818 ENCOUNTER FOR OTHER PREPROCEDURAL EXAMIN 08/06/2018 FAB DURÁN DO Ot Z01.818 ENCOUNTER FOR OTHER PREPROCEDURAL EXAMIN 08/08/2018 FAB DURÁN DO, Ot Z01.818 ENCOUNTER FOR OTHER PREPROCEDURAL EXAMIN Procedures There is no data. Results Test Result Range Comp. Metabolic Panel () - 11/24/15 12:25 Glucose, Serum 129 mg/dL [...] Automated erythrocyte mean corpuscular hemoglobin concentration measurement (mass/volume) 34 g/dL 32-36 Automated erythrocyte distribution width ratio 13.7 % 10.0- 14.5 Automated blood platelet count (count/volume) 217 10*3/uL [...] Blood monocytes automated count (number/volume) 0.8 10*3 0.0- 1.0 Automated eosinophil count 0.4 10*3/uL 0.0-0.3 Automated [...] resistant Staphylococcus aureus (MRSA) screening culture - 08/22/16 15:20 Methicillin resistant Staphylococcus aureus (MRSA) screening culture NEG NRG Capillary blood glucose measurement by glucometer (mass/volume) - 08/25/16 06:33 Capillary blood glucose measurement by glucometer (mass/volume) 148 mg/dL 70-110 Capillary blood glucose measurement by glucometer (mass/volume) - 08/25/16 19:40 Capillary blood glucose measurement by glucometer (mass/volume) 155 mg/dL 70-110 Capillary blood glucose measurement by glucometer (mass/volume) - 08/26/16 05:43 Capillary blood glucose measurement by glucometer (mass/volume) 130 mg/dL 70-110 Capillary blood glucose measurement by glucometer (mass/volume) - 08/26/16 08:54 Capillary blood glucose measurement by glucometer (mass/volume) 212 mg/dL 70-110 LIPID PANEL - 12/14/16 08:41 Cholesterol, Total 148 mg/dL 100-199 Triglycerides 117 mg/dL 0-149 HDL Cholesterol 36 mg/dL >39 VLDL Cholesterol Edgardo 23 mg/dL 5-40 LDL Cholesterol Calc 89 mg/dL 0-99 Comment: [facility] Lipid Panel - 12/14/16 08:41 Cholesterol, Total 148 mg/dL 100-199 Triglycerides 117 mg/dL 0-149 HDL Cholesterol 36 mg/dL >39 VLDL Cholesterol Edgardo 23 mg/dL 5-40 LDL Cholesterol Calc 89 mg/dL 0-99 Methicillin resistant Staphylococcus aureus (MRSA) screening culture - 02/21/17 13:45 Methicillin resistant Staphylococcus aureus (MRSA) screening culture NEG [facility] Capillary blood glucose measurement by glucometer (mass/volume) - 02/28/17 06:28 Capillary blood glucose measurement by glucometer (mass/volume) [...] 101 mg/dL <150 LDL-CHOLESTEROL 101 mg/dL (calc) [facility] CHOL/HDLC RATIO 4.6 (calc) <5.0 NON HDL [...] 10.1 fL 7.5-12.5 ABSOLUTE NEUTROPHILS 4370 cells/uL 2189-8143 ABSOLUTE LYMPHOCYTES 3266 cells/uL 850-3900 ABSOLUTE MONOCYTES 837 cells/uL 200-950 ABSOLUTE EOSINOPHILS 356 cells/uL 15-500 ABSOLUTE BASOPHILS 71 cells/uL 0-200 NEUTROPHILS 49.1 % NRG LYMPHOCYTES 36.7 % NRG MONOCYTES 9.4 % NRG EOSINOPHILS 4.0 % NRG BASOPHILS 0.8 % NRG Capillary blood glucose measurement by glucometer (mass/volume) - 02/06/18 08:43 Capillary blood glucose measurement by glucometer (mass/volume) 156 mg/dL 70-110 Complete blood count (CBC) with automated white blood cell (WBC) differential - 03/03/18 07:05 Blood leukocytes automated count (number/volume) 16.8 10*3/uL 4.3-11.0 Blood erythrocytes automated count (number/volume) 5.08 10*6/uL 4.35-5.85 Venous blood hemoglobin measurement (mass/volume) 14.9 g/dL 13.3-17.7 Blood hematocrit (volume fraction) 43 % 40-54 Automated erythrocyte mean corpuscular volume 85 [foz_us] 80-99 Automated erythrocyte mean corpuscular hemoglobin (mass per erythrocyte) 29 pg 25-34 Automated erythrocyte mean corpuscular hemoglobin concentration measurement (mass/volume) 35 g/dL 32-36 Automated erythrocyte distribution width ratio 14.0 % 10.0- 14.5 Automated blood platelet count (count/volume) 216 10*3/uL 130-400 Automated blood platelet mean volume measurement 10.5 [foz_us] 7.4-10.4 Automated blood neutrophils/100 leukocytes 81 % 42-75 Automated blood lymphocytes/100 leukocytes 11 % 12-44 Blood monocytes/100 leukocytes 9 % 0-12 Automated blood eosinophils/100 leukocytes 0 % 0-10 Automated blood basophils/100 leukocytes 0 % 0-10 Blood neutrophils automated count (number/volume) 13.6 10*3 1.8-7.8 Blood lymphocytes automated count (number/volume) 1.8 10*3 1.0-4.0 Blood monocytes automated count (number/volume) 1.4 10*3 0.0- 1.0 Automated eosinophil count 0.0 10*3/uL 0.0-0.3 Automated blood basophil count (count/volume) 0.0 10*3/uL 0.0-0.1 Comprehensive metabolic panel - 03/03/18 07:05 Serum or plasma sodium measurement (moles/volume) 137 mmol/L 135-145 Serum or plasma potassium measurement (moles/volume) 4.2 mmol/L 3.6-5.0 Serum or plasma chloride measurement (moles/volume) 103 mmol/L 98-107 Carbon dioxide 22 mmol/L 21-32 Serum or plasma anion gap determination (moles/volume) 12 mmol/L 5-14 Serum or plasma urea nitrogen measurement (mass/volume) 14 mg/dL 7-18 Serum or plasma creatinine measurement (mass/volume) 1.19 mg/dL 0.60-1.30 Serum or plasma urea nitrogen/creatinine mass ratio 12 NRG Serum or plasma creatinine measurement with calculation of estimated glomerular filtration rate > NRG Serum or plasma glucose measurement (mass/volume) 183 mg/dL 70-105 Serum or plasma calcium measurement (mass/volume) 9.7 mg/dL 8.5-10.1 Serum or plasma total bilirubin measurement (mass/volume) 1.0 mg/dL 0.1-1.0 Serum or plasma alkaline phosphatase measurement (enzymatic activity/volume) 88 U/L 40-136 Serum or plasma aspartate aminotransferase measurement (enzymatic activity/volume) 21 U/L 5-34 Serum or plasma alanine aminotransferase measurement (enzymatic activity/volume) 35 U/L 0-55 Serum or plasma protein measurement (mass/volume) 7.4 g/dL 6.4-8.2 Serum or plasma albumin measurement (mass/volume) 4.4 g/dL 3.2-4.5 CALCIUM CORRECTED 9.4 mg/dL 8.5-10.1 Magnesium - 03/03/18 07:05 Magnesium 2.1 mg/dL 1.8-2.4 Serum or plasma amylase measurement (enzymatic activity/volume) - 03/03/18 07:05 Serum or plasma amylase measurement (enzymatic activity/volume) 54 U/L 25-125 Lipase - 03/03/18 07:05 Lipase 12 U/L 8-78 Blood manual differential performed detection - 03/03/18 07:05 Blood monocytes/100 leukocytes 3 % NRG Manual blood segmented neutrophils/100 leukocytes 85 % NRG Manual blood lymphocytes/100 leukocytes 3 % NRG Blood lymphocytes variant/100 leukocytes 9 % NRG Blood erythrocyte morphology finding identification NORMAL NRG Complete urinalysis with reflex to culture - 03/03/18 08:14 Urine color determination YELLOW NRG Urine clarity determination CLEAR NRG Urine pH measurement by test strip 5 5-9 Specific gravity of urine by test strip 1.020 1.016-1.022 Urine protein assay by test strip, semi-quantitative 1+ NEGATIVE Urine glucose detection by automated test strip 3+ NEGATIVE Erythrocytes detection in urine sediment by light microscopy 1+ NEGATIVE Urine ketones detection by automated test strip 2+ NEGATIVE Urine nitrite detection by test strip NEGATIVE NEGATIVE Urine total bilirubin detection by test strip NEGATIVE NEGATIVE Urine urobilinogen measurement by automated test strip (mass/volume) 1 mg/dL NORMAL Urine leukocyte esterase detection by dipstick NEGATIVE NEGATIVE Automated urine sediment erythrocyte count by microscopy (number/high power field) [HPF] NRG Automated urine sediment leukocyte count by microscopy (number/high power field) [HPF] NRG Bacteria detection in urine sediment by light microscopy TRACE NRG Crystals detection in urine sediment by light microscopy NONE NRG Casts detection in urine sediment by light microscopy NONE NRG Mucus detection in urine sediment by light microscopy SMALL NRG Complete urinalysis with reflex to culture NO NRG Encounters ACCT No. Visit Date/Time Discharge Status Pt. Type Provider Facility Loc./Unit Complaint [id number] 08/08/2018 12:30:00 08/08/2018 12:51:00 DIS Outpatient FAB DURÁN DO [facility] PREOP COLONOSCOPY [id number] 07/01/2018 00:18:00 07/01/2018 23:59:59 CLS Preadmit ISAC SMITH MD [facility] LAB STONES [id number] 04/01/2018 14:50:00 06/30/2018 00:01:00 DIS Outpatient ISAC SMITH MD [facility] LAB STONES [id number] 04/01/2018 13:23:00 04/01/2018 23:59:59 CLS Outpatient ISAC SMITH MD [facility] RAD LT URETERAL STONE [id number] 03/03/2018 06:47:00 03/03/2018 12:02:00 DIS Emergency CAMERON FISCHER MD [facility] ER STOMACH PAIN,BACK PAIN [id number] 02/07/2018 06:52:00 02/07/2018 23:59:59 CLS Outpatient FAB DURÁN DO [facility] RAD INCOMPLETE COLONOSCOPY [id number] 02/06/2018 08:28:00 02/06/2018 11:50:00 DIS Outpatient FAB DURÁN DO [facility] ENDO SCREENING [id number] 02/04/2018 14:00:00 02/05/2018 10:35:00 DIS Outpatient FAB DURÁN DO [facility] PREOP COLONOSCOPY [id number] 02/28/2017 06:00:00 02/28/2017 10:55:00 DIS Outpatient RADHA JEAN MD [facility] SDC DERANGEMENT OF OTHER MEDIAL MENISCUS RIGHT KNEE [id number] 02/21/2017 13:25:00 02/21/2017 13:50:00 DIS Outpatient RADHA JEAN MD [facility] PREOP DERANGEMENT OF OTHER MEDIAL MENISCUS; RIGHT KNEE [id number] 01/11/2017 06:58:00 01/11/2017 23:59:59 CLS Outpatient EVANGELINA CARTER [facility] RAD TEAR OF MEDIAL MENISCUS OF RT KNEE [id number] 10/12/2016 19:37:00 10/13/2016 06:15:00 DIS Outpatient TRINA AVINA [facility] SLEEP HTN,INSOMNIA,EXCESSIVE DAYTIME SLEEPINESS [id number] 08/25/2016 06:00:00 08/26/2016 11:18:00 DIS Outpatient JEAN VEGAS MD [facility] SDC VENTRAL HERNIA [id number] 08/22/2016 15:04:00 08/22/2016 15:30:00 DIS Outpatient JEAN VEGAS MD [facility] PREOP VENTRAL HERNIA [id number] 08/14/2016 08:35:00 08/14/2016 23:59:59 CLS Outpatient JEAN VEGAS MD [facility] RAD VENTRAL HERNIA [id number] 07/17/2016 12:44:00 07/17/2016 23:59:59 CLS Outpatient TRINA AVINA [facility] CARD R10.13 [id number] 06/29/2016 06:54:00 06/29/2016 23:59:59 CLS Outpatient YANG LOPEZ APRN [facility] RAD EPIGASTRIC ABDOMINAL PAIN [id number] 08/12/2015 14:36:00 08/12/2015 23:59:59 CLS Outpatient COLTHSAMI REDDING DO [facility] OCC [id number] 07/14/2013 14:30:00 07/14/2013 23:59:59 CLS Outpatient ISAC SMITH MD [facility] RAD RT FLANK PAIN, BILAT RENAL STONE [id number] 07/14/2013 13:06:00 07/14/2013 23:59:59 CLS Outpatient ISAC SMITH MD [facility] RAD STONE [id number] 08/12/2018 08:00:00 PEN Preadmit FAB DURÁN DO [facility] ENDO TORUOSITY OF COLON [id number] 06/03/2007 06:32:00 Document Registration [id number] 05/21/2018 16:40:00 05/21/2018 23:59:59 CLS Outpatient GATO HERRON [facility] [id number] 11/01/2017 08:40:00 Document Registration [id number] 04/11/2017 15:40:00 Document Registration [id number] 12/14/2016 08:20:00 Document Registration [id number] 11/25/2015 07:06:00 Document Registration [id number] 06/09/2016 07:06:00 Document Registration [id number] 12/30/2015 08:07:00 Document Registration [id number] 12/15/2016 08:07:00 Document Registration [id number] 06/27/2016 15:09:00 Document Registration
[2018-08-12] MEDS ORDERED: LACTATED RINGERS 1,000 ML IV STA (07:22)
[2018-08-12 07:26] VITALS: BP 115/81
[2018-08-12] MEDS ORDERED: PROPOFOL INJECTION 50 ML IV ONE (07:38)
[2018-08-12] MEDS ORDERED: MIDAZOLAM 2 MG/2 ML (VERSED) VIAL ONE (07:38)
--- NOTE | 2018-08-12 08:27 | Progress Note-Pre Operative ---
Pre-Operative Progress Note H&P Reviewed The H&P was reviewed, patient examined and no changes noted. Time Seen by Provider: 08:24 Date H&P Reviewed: August 12, 2018 Time H&P Reviewed: 08:23 Pre-Operative Diagnosis: Screening colonoscopy FAB DURÁN DO August 12, 2018 08:27
--- NOTE | 2018-08-12 09:07 | Progress Note-Post Operative ---
Post-Operative Progess Note Surgeon (s)/Ed Case Manager (s) Surgeon FAB DURÁN DO Ed Case Manager: none Pre-Operative Diagnosis Screening colonoscopy Post-Operative Diagnosis Tortuous colon poor prep Beginning of Diverticula Int hemorrhoids Procedure & Operative Findings Date of Procedure 08/12/18 Procedure Performed/Findings Colonoscopy Anesthesia Type IV sedation by PUPIL PERSONNEL SERVICES DIRECTOR Estimated Blood Loss Estimated blood loss (mL): none Specimens/Packing Specimens Removed none FAB DURÁN DO August 12, 2018 09:07
--- NOTE | 2018-08-12 09:08 | Endoscopy Discharge Instruct ---
Endo Procedure/Findings Findings 1.: Internal Hemorrhoids Discharge Instructions - Activity: You might feel a little sleepy until tomorrow. This is due to the me dicine you received to relax you. Until tomorrow, you should: NOT drive a car, operate machinery or power tools. NOT drink any alcoholic beverages. NOT make any important decisions or sign importortant papers. Do not return to work until tomorrow, unless otherwise instructed. Resume previous activities tomorrow. Diet: Start by taking liquids. If you tolerate liquids, advance to solid food. make an appointment for one week. Instructions: 1.: Colonoscopy in 1 year Notify Physician - If you experience excessive bleeding, unusual abdominal pain, fever, or chest pain, contact your doctor immediately. Follow-Up: - I have received and understand the above instructions and will call my doctor if I have any further questions. Patient Signature Date Nurse Signature Other (Relationship) FAB DURÁN DO August 12, 2018 09:08
[2018-08-12 09:20] VITALS: BP 133/72
[2018-08-12 09:50] VITALS: BP 114/88
[2018-08-12 09:53] VITALS: BP 114/88
--- NOTE | 2018-08-12 13:01 | Anesthesia-General Post-Op ---
MAC Patient Condition Mental Status/LOC: Same as Preop Cardiovascular: Satisfactory Nausea/Vomiting: Absent Respiratory: Satisfactory Pain: Controlled Complications: Absent Post Op Complications Complications None Follow Up Care/Instructions Patient Instructions None needed. Anesthesiology Discharge Order Discharge Order Patient is doing well, no complaints, stable vital signs, no apparent adverse anesthesia problems. No complications reported per nursing. EVANGELINA BARBOZA CRNA August 12, 2018 13:01
--- NOTE | 2018-08-12 15:37 | OPERATIVE REPORT ---
DATE OF SERVICE: 08/12/2018 PREOPERATIVE DIAGNOSIS: Screening colonoscopy. POSTOPERATIVE DIAGNOSES: Tortuous colon, poor prep, internal hemorrhoids. PROCEDURE: Colonoscopy. SURGEON: Alfie Lu DO SHAPE HAND: None. ANESTHESIA: IV sedation by PARAPROFESSIONAL EDUCATION ASSISTANT. SPECIMENS: None. BLOOD LOSS: None. FLUIDS: Per anesthesia. POSTOPERATIVE CONDITION: Stable. INDICATION FOR PROCEDURE: The patient is a 57-year-old male, who had a previously attempted colonoscopy, had a very long tortuous colon, wished for screening at that time, unable to get all the way to the cecum and a subsequent CT barium enema also unable to get all the way to the cecum, needed a repeat colonoscopy. FINDINGS: The patient again unfortunately had a little bit of a poor prep, some retained vegetable matter, but also again a very tortuous colon, unable to get all the way to the cecum. PROCEDURE NOTE: After informed consent was obtained, the patient was brought to the endoscopy suite, placed in the bed in left lateral decubitus position. He was administered IV sedation by the PARAPROFESSIONAL EDUCATION ASSISTANT, who then monitored his vitals the entire time, heart rate, blood pressure and pulse ox and the scope was inserted, pushed all the way to at least 160 cm, buried the scope, able to get all the way to the hepatic flexure, but again could not get down the descending colon. He had some retained vegetable matter in the rectum, saw the beginnings of some diverticula. He also had some internal hemorrhoids. I thought I may have seen some hyperplastic polyps, but no other obvious pathology. Removed the scope slowly looking circumferentially at the lugo. The hepatic flexure, transverse colon, descending colon, sigmoid and rectum, and elected not to retroflex in the rectal vault. The patient tolerated the procedure and he was recovered in endoscopy suite. Job ID: [id number] DocumentID: [id number] Dictated Date: 08/12/2018 10:02:03 Field Marketing Team Leader Date: 08/12/2018 15:37:17 Dictated By: ALFIE LU DO
== END 2018-08-12 10:10 | disposition home or self-care (01) ==
LOC: ENDO 06:53
PROVIDERS: ATTEND Surgery
DX: Z12.11 Encounter for screening for malignant neoplasm of colon (principal); K63.89 Other specified diseases of intestine; K64.8 Other hemorrhoids; I10 Essential (primary) hypertension; E78.5 Hyperlipidemia, unspecified; E11.9 Type 2 diabetes mellitus without complications; Z87.891 Personal history of nicotine dependence

== ENCOUNTER → 2018-11-05 | Outpatient (CLI) | payer OTHER ==
[~2018-11-05] MED LIST changes: +ACET-2267 PO; +ASPI-983 PO; +CEFD300C3 PO; +FLUO20TA28 PO; +METF-478 PO; +OMEP20CA13 PO
--- NOTE | 2018-11-05 12:54 | Diagnostic Imaging Report ---
PROCEDURE: US Gallbladder. TECHNIQUE: Multiple real-time grayscale images were obtained over the right upper quadrant in various projections. INDICATION: Epigastric pain COMPARISON: 06/29/2016 FINDINGS: The liver is mildly enlarged measuring up to 20 cm in length. The liver demonstrates a coarsened echotexture with poor acoustic transmission. No focal hepatic mass. The gallbladder is unremarkable without evidence of gallstones, gallbladder wall thickening, or pericholecystic fluid. The common bile duct is not seen secondary to overlying bowel gas. The pancreas is unable to be visualized secondary to overlying bowel gas. The right kidney is within normal limits in size. A 4.6 cm anechoic thin-walled cyst is noted within the right kidney. No evidence of hydronephrosis. Normal direction of flow within the main portal vein. No significant free fluid. Negative sonographic Matson's sign. IMPRESSION: 1. Hepatomegaly with associated fatty infiltration of the liver. 2. Right renal cyst. 3. Otherwise, unremarkable, though examination is limited as described above. Dictated by: Dictated on workstation # [id number]
== END ==
LOC: RAD 06:58
PROVIDERS: ATTEND Internal Medicine Gastroenterology
DX: K76.0 Fatty (change of) liver, not elsewhere classified (principal); N20.0 Calculus of kidney; R12 Heartburn
CPT/HCPCS: 76705

== ENCOUNTER 2018-11-06 08:22 | Inpatient (IN) | payer OTHER ==
[~2018-11-06] VITALS: Ht 185.4 cm; Wt 131.6 kg
[2018-11-06] VITALS (10 sets, daily range): BP systolic 108–120; BP diastolic 53–74
[~2018-11-06 08:22] MED LIST changes: -ACET-2267 PO; -ASPI-983 PO; -CEFD300C3 PO; -FLUO20TA28 PO; -METF-478 PO; -OMEP20CA13 PO
[2018-11-06] MEDS: NITROGLYCERIN 0.4 MG SL TABS BTL 25'S SL PRN ×3 (08:38→08:59)
--- NOTE | 2018-11-06 08:38 | ED Chest Pain ---
General Stated Complaint: CHEST PAIN Source: patient Exam Limitations: no limitations History of Present Illness Date Seen by Provider: Nov 06, 2018 Time Seen by Provider: 08:20 Initial Comments The patient presents to ER by private conveyance with chief complaint that since 7:00 this morning he is been expressing some epigastric and substernal chest pain nonradiating sharp burning in sensation. He has no history of coronary disease but said he had a similar symptom to this several years ago and was told it was anginal. He's never had a cardiac catheterization, stent or CABG. No History of RI. He's having some sweats and mild nausea but no vomiting diarrhea. He's been worked up by Dr. Lu and Dr. Rojas for gallbladder. He's had an ultrasound, EGD and colonoscopy in the next step is to do a HIDA scan. He was told his EGD that he had thickening of the esophagus and gastric mucosa secondary to acid reflux. He does take omeprazole daily and took it this morning. He ate bologna breakfast just before having the pain. He has not taken any antacids, aspirin or other pain medicines since the pain started. It is not worse with exertion and is reproducible by deep inspiration or direct palpation. He has high blood pressure, high cholesterol, quit smoking 8 years ago and is a diabetic. He's had 2 laparoscopic hernia repairs in his abdomen. He is known to [facility] and distantly with Dr. Harden. He does not follow with cardiology now. Allergies and Home Medications Allergies Coded Allergies: No Known Drug Allergies (Unverified , 02/04/18) Home Medications Fluoxetine HCl 20 Mg Capsule, 20 MG PO DAILY, (Reported) Losartan/Hydrochlorothiazide 1 Each Tablet, 1 EACH PO DAILY, (Reported) Lovastatin 20 Mg Tablet, 20 MG PO DAILY, (Reported) Metformin HCl 500 Mg Tablet, 500 MG PO BID, (Reported) Patient Home Medication List Home Medication List Reviewed: Yes Review of Systems Review of Systems Constitutional: No chills, No diaphoresis EENTM: No Blurred Vision, No Double Vision Respiratory: Denies Cough, Denies Shortness of Air Cardiovascular: See HPI, Chest Pain; Denies Edema Gastrointestinal: See HPI, Abdominal Pain; Denies Constipated, Denies Diarrhea; Nausea; Denies Vomiting Genitourinary: Denies Burning, Denies Discharge Musculoskeletal: No back pain, No joint pain Skin: No pruritus, No rash Psychiatric/Neurological: Denies Headache, Denies Numbness Past Fyqufcq-Grzzoh-Gxhggl Hx Patient Social History Alcohol Use: Occasionally Uses Alcohol Beverage of Choice: Beer Recreational Drug Use: No Smoking Status: Former Smoker Type Used: Cigarettes Former Smoker, Quit: August 23, 2011 Recent Hopitalizations: No Immunizations Up To Date Tetanus Booster (TDap): Unknown Date of Influenza Vaccine: Nov 27, 2017 Seasonal Allergies Seasonal Allergies: No Past Medical History Surgeries: Yes (hiatal hernia, ventral herna, knee scope) Abdominal, Orthopedic Respiratory: Yes (wears oxygen at hs) Sleep Apnea Cardiac: Yes High Cholesterol, Hypertension Neurological: No Reproductive Disorders: No Sexually Transmitted Disease: No HIV/AIDS: No Genitourinary: Yes Kidney Stones Gastrointestinal: Yes Abdominal Hernia Musculoskeletal: Yes Arthritis Endocrine: Yes Diabetes, Non-Insulin dep HEENT: Yes Loss of Vision: Bilateral Hearing Impairment: Denies Cancer: No Psychosocial: Yes Depression Integumentary: No Blood Disorders: No Adverse Reaction/Blood Tranf: No (N/A) Physical Exam Vital Signs Vital Signs - First Documented 11/06/18 11/06/18 08:22 08:45 Temp 98.0 Pulse 91 Resp 16 B/P (MAP) 138/76 (96) Pulse Ox 94 O2 Delivery Room Air O2 Flow Rate 2.00 Capillary Refill : Height, Weight, BMI Height: 6'1.00" Weight: 290lbs. 0.0oz. 131.392269wi; 38.3 BMI Method:Stated General Appearance: No Apparent Distress, WD/WN HEENT: PERRL/EOMI, Moist Mucous Membranes Neck: Full Range of Motion, Normal Inspection Respiratory: No Chest Non Tender; Lungs Clear, Normal Breath Sounds, No Accessory Muscle Use, No Respiratory Distress, Other (sternum reproduces the pain on direct palpation) Cardiovascular: Regular Rate, Rhythm, No Edema, Normal Peripheral Pulses Gastrointestinal: Normal Bowel Sounds, Soft, Tenderness (epigastric and right upper quadrant abdomen tender to palpation. Negative for Matson sign.) Extremity: Normal Capillary Refill, No Pedal Edema Neurologic/Psychiatric: Alert, Oriented x3 Focused Exam Lactate Level 11/06/18 09:46: Lactic Acid Level 0.98 Lactic Acid Level Laboratory Tests Test 11/06/18 09:46 Lactic Acid Level 0.98 MMOL/L (0.50-2.00) Progress/Results/Core Measures Results/Orders Lab Results Laboratory Tests Test 11/06/18 08:30 11/06/18 09:46 11/06/18 09:54 11/06/18 10:35 Range/Units White Blood Count 11.5 H 4.3-11.0 10^3/uL Red Blood Count 4.78 4.35-5.85 10^6/uL Hemoglobin 13.9 13.3-17.7 G/DL Hematocrit 41 40-54 % Mean Corpuscular Volume 86 80-99 FL Mean Corpuscular Hemoglobin 29 25-34 PG Mean Corpuscular Hemoglobin Concent 34 32-36 G/DL Red Cell Distribution Width 13.6 10.0-14.5 % Platelet Count 205 130-400 10^3/uL Mean Platelet Volume 10.3 7.4-10.4 FL Neutrophils (%) (Auto) 62 42-75 % Lymphocytes (%) (Auto) 27 12-44 % Monocytes (%) (Auto) 9 0-12 % Eosinophils (%) (Auto) 2 0-10 % Basophils (%) (Auto) 0 0-10 % Neutrophils # (Auto) 7.1 1.8-7.8 X 10^3 Lymphocytes # (Auto) 3.1 1.0-4.0 X 10^3 Monocytes # (Auto) 1.1 H 0.0-1.0 X 10^3 Eosinophils # (Auto) 0.2 0.0-0.3 10^3/uL Basophils # (Auto) 0.0 0.0-0.1 10^3/uL Prothrombin Time 13.1 12.2-14.7 SEC INR Comment 1.0 0.8-1.4 Activated Partial Thromboplast Time 28 24-35 SEC D-Dimer 0.47 0.00-0.49 UG/ML Sodium Level 140 135-145 MMOL/L Potassium Level 3.8 3.6-5.0 MMOL/L Chloride Level 103 98-107 MMOL/L Carbon Dioxide Level 26 21-32 MMOL/L Anion Gap 11 5-14 MMOL/L Blood Urea Nitrogen 18 7-18 MG/DL Creatinine 0.86 0.60-1.30 MG/DL Estimat Glomerular Filtration Rate > 60 BUN/Creatinine Ratio 21 Glucose Level 153 H 70-105 MG/DL Calcium Level 9.5 8.5-10.1 MG/DL Corrected Calcium 9.3 8.5-10.1 MG/DL Magnesium Level 1.8 1.6-2.4 MG/DL Total Bilirubin 1.2 H 0.1-1.0 MG/DL Aspartate Amino Transf (AST/SGOT) 18 5-34 U/L Alanine Aminotransferase (ALT/SGPT) 38 0-55 U/L Alkaline Phosphatase 84 40-136 U/L Myoglobin 111.8 H 10.0-92.0 NG/ML Troponin I < 0.028 <0.028 NG/ML B-Type Natriuretic Peptide 30.0 <100.0 PG/ML Total Protein 7.4 6.4-8.2 GM/DL Albumin 4.2 3.2-4.5 GM/DL Lipase 26 8-78 U/L Lactic Acid Level 0.98 0.50-2.00 MMOL/L Blood Gas Puncture Site LT RAD RT RAD Blood Gas Patient Temperature 98.4 98.0 Arterial Blood pH 7.35 L 7.36 L 7.37-7.43 Arterial Blood Partial Pressure CO2 51 H 50 H 35-45 MMHG Arterial Blood Partial Pressure O2 30 *L 44 L 79-93 MMHG Arterial Blood HCO3 28 H 28 H 23-27 MMOL/L Arterial Blood Total CO2 29.0 29.4 21.0-31.0 MMOL/L Arterial Blood Oxygen Saturation 48 L 76 L 94-100 % Arterial Blood Base Excess 2.4 2.8 H -2.5-2.5 MMOL/L Vito Test YES-POS YES-POS Blood Gas Ventilator Setting NO NO Blood Gas Inspired Oxygen 3 L 3 L My Orders Orders - TRENT THOMAS Ekg Tracing (11/06/18 08:24) Continuous Ekg Monitoring (11/06/18 08:24) Cbc With Automated Diff (11/06/18 08:32) Magnesium (11/06/18 08:32) Chest 1 View, Ap/Pa Only (11/06/18 08:32) Cardiac Profile 1 (11/06/18 08:32) Comprehensive Metabolic Panel (11/06/18 08:32) Myoglobin Serum (11/06/18 08:32) Protime With Inr (11/06/18 08:32) Partial Thromboplastin Time (11/06/18 08:32) O2 (11/06/18 08:32) Lipid Panel (11/07/18 06:00) Ed Iv/Invasive Line Start (11/06/18 08:32) Lipase (11/06/18 08:32) BNP (11/06/18 08:32) Nitroglycerin 0.4 Mg Btl 25's (Nitrostat (11/06/18 08:45) Aspirin Chewable Tablet (Baby Aspirin Ch (11/06/18 08:45) Blood Culture (11/06/18 09:44) Lactic Acid Analyzer (11/06/18 09:44) Ceftriaxone For Iv Use (Rocephin For I (11/06/18 09:45) Azithromycin Injection (Zithromax Inject (11/06/18 09:45) Arterial Blood Gas (11/06/18 10:00) Fibrin Degradation Products (11/06/18 10:24) Arterial Blood Gas (11/06/18 10:26) Medications Given in ED Current Medications Medications Dose Ordered Sig/Thiago Route Start Time Stop Time Status Last Admin Dose Admin Aspirin 324 mg ONCE ONCE PO 11/06/18 08:45 11/06/18 08:46 DC 11/06/18 08:37 324 MG Azithromycin 500 mg/Sodium Chloride 250 ml @ 250 mls/hr ONCE ONCE IV 11/06/18 09:45 11/06/18 10:44 DC 11/06/18 10:35 250 MLS/HR Ceftriaxone Sodium 1000 mg/ Sterile Water 10 ml @ 200 mls/hr ONCE ONCE IV 11/06/18 09:45 11/06/18 09:47 DC 11/06/18 10:30 200 MLS/HR Nitroglycerin 0.4 mg UD PRN SL 11/06/18 08:45 11/06/18 08:59 DC 11/06/18 08:59 0.4 MG Vital Signs/I&O 11/06/18 11/06/18 08:22 08:45 Temp 98.0 Pulse 91 Resp 16 B/P (MAP) 138/76 (96) Pulse Ox 94 89 O2 Delivery Room Air Nasal Cannula O2 Flow Rate 2.00 Progress Progress Note #1: Time: 08:36 Progress Note Aspirin, nitroglycerin and if that does not help and may try a GI cocktail. Cardiac workup. If his troponin is negative then he would have an initial heart score 5 points. [address] Harden showing an EF of 50%. Well score for a pulmonary embolism is 0 points or less than 1.5% chance. He has no fever or white count but he does have a cough and infiltrates on chest x-ray. Progress Note #2: Time: 11:07 Progress Note The patient did note that the nitroglycerin brought his pain down from a 07/25/00. We got him on 3 L of oxygen and keeping him in the 94-96% range. He is at baseline 1 L oxygen. His initial troponin is negative we will train. His chest x-ray is consistent with a pneumonia. He has a history of a cough but no significant white count or fever. He is not tachycardic. Does not breach the threshold of sepsis. Rocephin and azithromycin ordered. We have attempted to ABGs now both were venous draws. RT is down in the room attempting another arterial draw. Initial ECG Impression Date: Nov 06, 2018 Initial ECG Impression Time: 08:22 Initial ECG Rate: 91 Initial ECG Rhythm: Normal Sinus Initial ECG Intervals: QT (473) Initial ECG Impression: Normal, Nonspecific Changes Initial ECG Comparisson: Changed Comment Normal sinus rhythm with an incomplete right bundle-branch but no clinically significant ST elevation or depression. Diagnostic Imaging Diagonstic Imaging: Xray Plain Films/CT/US/NM/MRI: chest (1v) Comments NAME: CLAUDIO GARCIA [facility] REC#: [id number] PT STATUS: REG ER : 1960 PHYSICIAN: TRENT THOMAS MD ADMIT DATE: 11/06/18/ER Draft Date of Exam:11/06/18 CHEST 1 VIEW, AP/PA ONLY Indication: Chest pain Comparison: 06/03/2007 Technique: Single radiograph the chest dated 11/06/2018. Findings: The cardiac silhouette is upper limits of normal in size. No significant pulmonary vascular congestion. Extensive pulmonary infiltrate is noted within the left mid and lower lung. Additional mild infiltrate is noted within the right lung base. No significant pleural effusion. No pneumothorax. No acute osseous abnormality Impression: Extensive bilateral pulmonary infiltrates, left greater than right. Findings may relate to pneumonia. Edema felt less likely. Recommend radiographic followup to ensure resolution. Dictated on workstation # [id number] Dict: 11/06/18 0909 Trans: 11/06/18 0911 [facility] [id number] Interpreted by: RY GARCIA MD Electronically signed by: Reviewed: Reviewed by Me Departure Communication (Admissions) Time/Spoke to Admitting Phy: 10:25 Discussed the case with Dr. Glass [facility] and she agrees to accept the patient inpatient. Use of antibiotics and consulted with pulmonology. Time/Spoke to Consulting Phy: 10:[address] Coles, pulmonology and he agrees to consult on the case. Impression Primary Impression: Pneumonia Qualified Codes: J18.1 - Lobar pneumonia, unspecified organism Additional Impressions: Chest pain Qualified Codes: R07.1 - Chest pain on breathing Acute respiratory distress Hypoxia Disposition: ADMITTED INPATIENT Condition: Stable Admissions Decision to Admit Reason: Admit from ER (General) Decision to Admit/Date: Nov 06, 2018 Time/Decision to Admit Time: 09:40 Departure-Patient Inst. Referrals: GATO HERRON MD (PCP/Family) Primary Care Physician TRENT THOMAS Nov 06, 2018 08:38
[2018-11-06 08:41] LABS: BASOPHILS % (AUTO) 0 % (0-10); EOSINOPHILS # (AUTO) 0.2 10^3/uL (0.0-0.3); EOSINOPHILS % (AUTO) 2 % (0-10); HEMATOCRIT 41 % (40-54); HEMOGLOBIN 13.9 G/DL (13.3-17.7); LYMPHOCYTES # (AUTO) 3.1 X 10^3 (1.0-4.0); LYMPHOCYTES % (AUTO) 27 % (12-44); MEAN CORPUSCULAR HEMOGLOBIN 29 PG (25-34); MEAN CORPUSCULAR HGB CONC 34 G/DL (32-36); MEAN CORPUSCULAR VOLUME 86 FL (80-99); MEAN PLATELET VOLUME 10.3 FL (7.4-10.4); MONOCYTES # (AUTO) 1.1 X 10^3 (0.0-1.0); MONOCYTES % (AUTO) 9 % (0-12); NEUTROPHILS # (AUTO) 7.1 X 10^3 (1.8-7.8); NEUTROPHILS % (AUTO) 62 % (42-75); PLATELET COUNT 205 10^3/uL (130-400); RED CELL DISTRIBUTION WIDTH 13.6 % (10.0-14.5); WHITE BLOOD COUNT 11.5 10^3/uL (4.3-11.0)
[2018-11-06] MEDS ORDERED: ASPIRIN 81 MG CHEW (CHILDREN'S ASA) PO ONE (08:45)
[2018-11-06 08:51] LABS: PROTHROMBIN TIME PATIENT 13.1 SEC (12.2-14.7)
--- NOTE | 2018-11-06 09:00 | NUR ---
RESTING IN BED WITHOUT COMPLAINTS OF AT THIS TIME.
[2018-11-06 09:06] LABS: ALANINE AMINOTRANSFERASE 38 U/L (0-55); ALBUMIN 4.2 GM/DL (3.2-4.5); ALKALINE PHOSPHATASE 84 U/L (40-136); BILIRUBIN,TOTAL 1.2 MG/DL (0.1-1.0); BUN/CREATININE RATIO 21; CALCIUM 9.5 MG/DL (8.5-10.1); CARBON DIOXIDE 26 MMOL/L (21-32); CHLORIDE 103 MMOL/L (98-107); CREATININE SERUM 0.86 MG/DL (0.60-1.30); GFR ESTIMATED > 60; GLUCOSE 153 MG/DL (70-105); LIPASE 26 U/L (8-78); MAGNESIUM 1.8 MG/DL (1.6-2.4); POTASSIUM 3.8 MMOL/L (3.6-5.0); SODIUM 140 MMOL/L (135-145); TOTAL PROTEIN 7.4 GM/DL (6.4-8.2)
--- NOTE | 2018-11-06 09:12 | Diagnostic Imaging Report ---
Indication: Chest pain Comparison: 06/03/2007 Technique: Single radiograph the chest dated 11/06/2018. Findings: The cardiac silhouette is upper limits of normal in size. No significant pulmonary vascular congestion. Extensive pulmonary infiltrate is noted within the left mid and lower lung. Additional mild infiltrate is noted within the right lung base. No significant pleural effusion. No pneumothorax. No acute osseous abnormality Impression: Extensive bilateral pulmonary infiltrates, left greater than right. Findings may relate to pneumonia. Edema felt less likely. Recommend radiographic followup to ensure resolution. Dictated by: Dictated on workstation # [id number]
[2018-11-06] MEDS ORDERED: cefTRIAXone FOR IV USE 1,000 MG in WATER (STERILE) FOR INJECTION 10 ML IV ONE (09:45)
[2018-11-06] MEDS ORDERED: AZITHROMYCIN INJECTION 500 MG in NS (IVPB) 250 ML IV ONE (09:45)
[2018-11-06 10:09] LABS: ABG BASE EXCESS 2.4 MMOL/L (-2.5-2.5); ABG OXYGEN SATURATION 48 % (94-100); ABG PCO2 51 MMHG (35-45); ABG PH 7.35 (7.37-7.43)
[2018-11-06 10:11] LABS: ABG PO2 30 MMHG (79-93); ALLENS TEST YES-POS; INSPIRED O2 3 L; PATIENT TEMP 98.4; VENTILATOR NO
--- NOTE | 2018-11-06 10:30 | NUR ---
RT IN ROOM ATTEMPTING ABG DUE TO OTHER ONE BEING AZRA.
[2018-11-06 11:02] LABS: ABG PH 7.36 (7.37-7.43)
[2018-11-06 11:03] LABS: ABG BASE EXCESS 2.8 MMOL/L (-2.5-2.5); ABG OXYGEN SATURATION 76 % (94-100); ABG PCO2 50 MMHG (35-45); ABG PO2 44 MMHG (79-93); ABG TCO2 29.4 MMOL/L (21.0-31.0)
[2018-11-06 11:04] LABS: ALLENS TEST YES-POS; INSPIRED O2 3 L; VENTILATOR NO
--- NOTE | 2018-11-06 11:10 | NUR ---
RT IN ROOM ATTEMPTING OTHER ABG.
[2018-11-06 11:18] LABS: ABG BASE EXCESS 0.9 MMOL/L (-2.5-2.5); ABG OXYGEN SATURATION 98 % (94-100); ABG PCO2 45 MMHG (35-45); ABG PH 7.38 (7.37-7.43); ABG PO2 102 MMHG (79-93); ABG TCO2 26.8 MMOL/L (21.0-31.0)
[2018-11-06 11:20] LABS: ALLENS TEST YES-POS; INSPIRED O2 3 L; PATIENT TEMP 99.3; VENTILATOR NO
[2018-11-06] MEDS ORDERED: 1/2 NS W/KCL 20 MEQ/L 1,000 ML IV SCH (12:00)
[2018-11-06] MEDS ORDERED: NITROGLYCERIN 0.4 MG SL TABS BTL 25'S SL PRN (12:15)
[2018-11-06] MEDS ORDERED: CATHETER FLUSH 10 ML SYR IV PRN (12:15)
[2018-11-06] MEDS ORDERED: morphine INJ 4 MG/ML 1 ML (VIAL/SYRINGE) IV PRN (12:15)
--- NOTE | 2018-11-06 13:20 | Pulmonary Consultation ---
History of Present Illness History of Present Illness Date of Consultation 11/06/18 13:15 Time Seen by Provider: 13:17 Date of Admission History of Present Illness 58yo with hx of tobacco use (quit 8yrs ago), CAD presented to ED secondary to worsening nonradiating epigastric and substernal CP. Pt was found to have left sided pneumonia and hypoxia while in the ED . He was admitted to 4th floor for close observation. I am consulted for pulmonary management. Allergies and Home Medications Allergies Coded Allergies: No Known Drug Allergies (Unverified , 02/04/18) Home Medications Fluoxetine HCl 20 Mg Capsule, 20 MG PO DAILY, (Reported) Losartan/Hydrochlorothiazide 1 Each Tablet, 1 EACH PO DAILY, (Reported) Lovastatin 20 Mg Tablet, 20 MG PO DAILY, (Reported) Metformin HCl 500 Mg Tablet, 500 MG PO BID, (Reported) Past Grsmidq-Ostvqd-Aiivfc Hx Patient Social History Alcohol Use: Occasionally Uses Alcohol Beverage of Choice: Beer Recreational Drug Use: No Smoking Status: Former Smoker Type Used: Cigarettes Former Smoker, Quit: August 23, 2011 Recent Foreign Travel: No Contact w/Someone Who Travel: No Recent Infectious Disease Expo: No Recent Hopitalizations: No Immunizations Up To Date Tetanus Booster (TDap): Unknown Date of Pneumonia Vaccine: Dec 24, 2008 Date of Influenza Vaccine: Nov 27, 2017 Seasonal Allergies Seasonal Allergies: No Past Medical History Surgeries: Yes (hiatal hernia, ventral herna, knee scope) Abdominal, Orthopedic Respiratory: Yes (wears oxygen at hs) Pneumonia, Sleep Apnea Currently Using CPAP: No Currently Using BIPAP: No Cardiac: Yes High Cholesterol, Hypertension Neurological: Yes Reproductive Disorders: No Sexually Transmitted Disease: No HIV/AIDS: No Genitourinary: Yes Kidney Stones Gastrointestinal: Yes (EDG Sunday11/04/18) Abdominal Hernia, Gastroesophageal Reflux, Murphy's Esophagus Musculoskeletal: Yes Arthritis Endocrine: Yes Diabetes, Non-Insulin dep Are Your Blood Sugars Over 250: No HEENT: Yes Cataract Loss of Vision: Bilateral Hearing Impairment: Denies Cancer: No Psychosocial: Yes Depression Integumentary: No Blood Disorders: No Adverse Reaction/Blood Tranf: No (N/A) Family Medical History Arthritis 19 MOTHER Coronary thrombosis 19 FATHER Deafness or hearing loss 19 MOTHER Diabetes mellitus 19 MOTHER Headache disorder 19 MOTHER Hypercholesterolemia 19 MOTHER Hypertension 19 FATHER 19 MOTHER Myocardial infarction 19 FATHER Respiratory disorder 19 MOTHER Sepsis Event Evaluation Height, Weight, BMI Height: 6'1.00" Weight: 290lbs. 1.0oz. 131.902483tt; 38.3 BMI Method:Stated Exam Exam Vital Signs Date Time Temp Pulse Resp B/P (MAP) Pulse Ox O2 Delivery O2 Flow Rate FiO2 11/06/18 12:58 86 11/06/18 11:15 98.4 84 16 110/74 (86) 96 Nasal Cannula 3.00 11/06/18 08:45 89 Nasal Cannula 2.00 11/06/18 08:22 98.0 91 16 138/76 (96) 94 Room Air Height & Weight Height: 6'1.00" Weight: 290lbs. 1.0oz. 131.076931ay; 38.3 BMI Method:Stated General Appearance: No Apparent Distress, WD/WN HEENT: PERRL/EOMI, Moist Mucous Membranes Neck: Full Range of Motion, Normal Inspection Respiratory: No Chest Non Tender; Lungs Clear, Normal Breath Sounds, No Accessory Muscle Use, No Respiratory Distress, Other (sternum reproduces the pain on direct palpation) Cardiovascular: Regular Rate, Rhythm, No Edema, Normal Peripheral Pulses Capillary Refill: Less Than 3 Seconds Extremity: Normal Capillary Refill, No Pedal Edema Neurologic/Psychiatric: Alert, Oriented x3 Results Lab Laboratory Tests 11/06/18 08:30 Assessment/Plan Assessment/Plan Left pneumonia CAP with hypoxia -Continue Rocephin and azithromycin -SVNS -Maciel cultures. CHeck urine strep and legionella Ag -Pt will need f/u imaging after discharge to ensure complete resolution of infiltration morbid obesity with probable H[place] -Out pt testing ALANA GARDNER DO Nov 06, 2018 13:20
[2018-11-06] MEDS ORDERED: FLUO20TA28 PO (13:28)
[2018-11-06] MEDS ORDERED: METF-478 PO (13:28)
[2018-11-06] MEDS ORDERED: OMEP20CA13 PO (13:28)
[2018-11-06] MEDS ORDERED: ACET-2267 PO (13:29)
[2018-11-06] MEDS ORDERED: RT-ALBUTEROL/IPRATROPIUM 3 ML (DUONEB) VIAL INH PRN ×2 (13:30)
--- NOTE | 2018-11-06 13:30 | NUR ---
SPOKE WITH THE PATIENT ABOUT HIS MEDICATIONS, HE LISTED WHAT HE IS TAKING. I VERIFIED THE FLUOXETINE AND OMEPRAZOLE WITH THE EXT MED HX, HE FILLS THEM AT [facility]. THE OTHERS HE FILLES AT [facility]. [facility] FILLED: 10-23-18 LOSARTAN HCTZ 50-12.5MG DAILY 10-23-18 LOVASTATIN 20MG DAILY #30 10-10-18 METFORMIN ER 500MG BID WITH MEALS #60 HE TAKES TYLENOL PRN.
[2018-11-06] MEDS ORDERED: ONDANSETRON 4 MG/2 ML (SDV) Z0FRAN IV PRN (13:45)
[2018-11-06] MEDS: LACTATED RINGERS 1,000 ML IV SCH (13:47)
--- NOTE | 2018-11-06 14:09 | History & Physical-Hospitalist ---
[facility] 11/06/18 1408: History of Present Illness HPI/Chief Complaint C/C: Chest pain HPI: Olegario is a 58 year old white male that came to the ED with substernal and epigastric pain that was nonradiating. He denies having pain like this recently and states that he can remember something similar 14 years ago. Patient states that the pain started when he was moving around. He also states he has been experiencing acid reflux around the same time. Date Seen 11/06/18 Time Seen by a Provider: 13:00 Attending Physician Ti Whelan Holly R MD Referring Physician Date of Admission Nov 06, 2018 at 11:04 Home Medications & Allergies Home Medications Reviewed patient Home Medication Reconciliation performed by pharmacy medication reconciliations refinish technician and/or nursing. Patients Allergies have been reviewed. Please see med rec Allergies Allergies Coded Allergies No Known Drug Allergies ([id number]/12/18) Patient denied allergies to food, medication and environment Past Txtzfkp-Yltaun-Xnbbuc Hx Patient Social History Marrital Status: Employed/Student: employed Alcohol Use: Occasionally Uses Alcohol Beverage of Choice: Beer Recreational Drug Use: No Smoking Status: Former Smoker (Patient quit smocking about 8 years ago ) Former Smoker, Quit: August 23, 2011 Type Used: Cigarettes Physical Abuse Screen: No Sexual Abuse: No Recent Foreign Travel: No Contact w/other who traveled: No Recent Hopitalizations: No Recent Infectious Disease Expo: No Immunizations Up To Date Tetanus Booster (TDap): Unknown Date of Pneumonia Vaccine: Dec 24, 2008 Date of Influenza Vaccine: Nov 27, 2017 Seasonal Allergies Seasonal Allergies: No Past Medical History Surgeries: Abdominal, Orthopedic (Nahun had a right knee scope, hiatal hernia and ventral hernia ) Currently Using CPAP: No Currently Using BIPAP: No Cardiac: High Cholesterol, Hypertension Reproductive: No Sexually Transmitted Disease: No HIV/AIDS: No Genitourinary: Kidney Stones Gastrointestinal: Abdominal Hernia, Gastroesophageal Reflux, Murphy's Esophagus Musculoskeletal: Arthritis Endocrine: Diabetes, Non-Insulin dep Are Your Blood Sugars Over 250: No HEENT: Cataract Loss of Vision: Bilateral Hearing Impairment: Hard of Hearing (Patient stated left hearing issues ) Psychosocial: Depression History of Blood Disorders: No Adverse Reaction to Blood Adhikari: No (N/A) Family History Arthritis 19 MOTHER Coronary thrombosis 19 FATHER Deafness or hearing loss 19 MOTHER Diabetes mellitus 19 MOTHER Headache disorder 19 MOTHER Hypercholesterolemia 19 MOTHER Hypertension 19 FATHER 19 MOTHER Myocardial infarction 19 FATHER Respiratory disorder 19 MOTHER Father at 67 due to heart attack with PMH of HTN Mother is present at the age of 78 and has HTN, Diabetes, Coronary stent placement, valvular replacement, other heart issues patient could not rememeber. Patient has 4 brother: one brother past away from heart issues One sister: Good health Review of Systems Constitutional: dizziness; No weight loss EENTM: hearing loss (left ear ) Respiratory: no symptoms reported Cardiovascular: no symptoms reported Gastrointestinal: abdominal pain, nausea Genitourinary: no symptoms reported Musculoskeletal: other (Right shoulder pain) Skin: no symptoms reported Psychiatric/Neurological: Depressed Physical Exam Physical Exam Vital Signs Vital Signs - First Documented 11/06/18 11/06/18 11/06/18 08:22 08:45 11:12 Temp 98.0 Pulse 91 Resp 16 B/P (MAP) 138/76 (96) Pulse Ox 94 O2 Delivery Room Air O2 Flow Rate 2.00 FiO2 32 Capillary Refill : Less Than 3 Seconds Height, Weight, BMI Height: 6'1.00" Weight: 290lbs. 1.0oz. [id number]; 38.3 BMI Method:Stated General Appearance: No Apparent Distress, WD/WN HEENT: PERRL/EOMI, Pharynx Normal, Moist Mucous Membranes; No Tonsillar Enlargement; Other (Patient looked to have fillings in teeth and some removed. Patient denied the use of dentures ) Neck: Full Range of Motion Respiratory: Chest Non Tender, Crackles (Minor); No Respiratory Distress, No Stridor, No Wheezing Cardiovascular: Regular Rate, Rhythm, No Edema, No JVD Gastrointestinal: Normal Bowel Sounds, Tenderness Extremity: Normal Capillary Refill, No Pedal Edema, Other (Patient needs to be educated on proper foot care they were Dried and Cracked. 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 Assessment/Plan Assessment and Plan Assessment: 1. Stable Angina 2. cholecystitis 3. cholelithiasis 4. Atypical Pneumonia (myco,chlamydia, histo) 5. GERD, possible H.pylori 6. Reoccurrences of Hiatal hernia 7. Peptic Ulcer disease 8. Acute pancreatitis 9. Acute mesenteric bowel 10. Ascending cholangitis 11. Appendicitis 12. Kidney stone Plan: 1. Patient should be NPO and have patient on normal saline maintenance fluids 2. Abdominal Ultrasound or HIDA scan 3. Monitor Vitals q4 4. Start on Antibiotics (possible atypical pneumonia) 5. Monitor I/O 6. Consult cardiology, pulmonology, and general surgery (possible US or HIDA scan) 7. Monitor labs (CBC/ with diff, CMP, Lipids, GGT, lipase and amylase) 8. Sputum culture and stool culture 9. Consider antiplatelet therapy if the patient is not going to surgery and is not ambulating. Start on compression socks or LE compression machine 10. Urine sample 11. Monitor patients pain and keep comfortable 12. Ask patient about last colonoscopy? 13. 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 He was placed on empiric antibiotics, Dr. Coles was consulted due to the B/L nature and multi lobar type of pneumonia and occupational exposure at [employer] where he used to work many years ago. Dr. Harden has seen. the Pt in the past just for regular cardiology follow-ups so he will be consulted also in case this has any involvement with cardiac issues. Source: patient, family, RN/MD, old records Past Jkbmueg-[id number]-Abccxv Hx Past Med/Social Hx: Reviewed Nursing Past Med/Soc Hx, Reviewed and Corrections made Patient Social History Marrital Status: Employed/Student: employed Alcohol Beverage of Choice: Beer Smoking Status: Former Smoker (Patient quit smocking about 8 years ago ) Past Medical History Cardiac: High Cholesterol, Hypertension Genitourinary: Kidney Stones Gastrointestinal: Gastroesophageal Reflux Endocrine: Diabetes, Non-Insulin dep Hearing Impairment: Hard of Hearing (Patient stated left hearing issues ) Family History Arthritis 19 MOTHER Coronary thrombosis 19 FATHER Deafness or hearing loss 19 MOTHER Diabetes mellitus 19 MOTHER Headache disorder 19 MOTHER Hypercholesterolemia 19 MOTHER Hypertension 19 FATHER 19 MOTHER Myocardial infarction 19 FATHER Respiratory disorder 19 MOTHER Review of Systems Constitutional: see HPI, malaise, weakness Respiratory: cough Cardiovascular: chest pain Psychiatric/Neurological: Depressed All Other Systems Reviewed Negative Unless Noted: Yes Physical Exam Physical Exam General Appearance: No Apparent Distress, WD/WN, Chronically ill Eyes: Right Eye Normal Inspection, Right Eye PERRL HEENT: PERRL/EOMI, Normal ENT Inspection, Pharynx Normal, Moist Mucous Membranes Neck: Full Range of Motion, Normal Inspection, Non Tender Respiratory: Chest Non Tender, No Accessory Muscle Use, No Respiratory Distress, Crackles (Minor), Wheezing Cardiovascular: Regular Rate, Rhythm, No Edema, No Gallop, No JVD, No Murmur, Normal Peripheral Pulses Gastrointestinal: Normal Bowel Sounds, No Organomegaly, No Pulsatile Mass, Non Tender, Soft Back: Normal Inspection, No CVA Tenderness, No Vertebral Tenderness Extremity: Normal Capillary Refill, Normal Inspection, Normal Range of Motion, Non Tender, No Calf Tenderness, No Pedal Edema Neurologic/Psychiatric: Alert, Oriented x3, No Motor/Sensory Deficits, Normal Mood/Affect Skin: Normal Color, Warm/Dry Lymphatic: No Adenopathy Assessment/Plan Admission Diagnosis Assessment: Bilateral pneumonia Chest pain Dehydration DM HTN HLP Plan: Pulmonology and Cardiology is appreciated IV abx Nebs O2 Home meds Admission Status: Inpatient Order (span 2 midnights) Reason for Inpatient Admission: Bilateral pneumonia with chest pain will require cardiology pulmonology and IV abx Diagnosis/Problems Diagnosis/Problems (1) Pneumonia Status: Acute Qualifiers: Pneumonia type: due to unspecified organism Laterality: bilateral Lung location: lower lobe of lung Qualified Codes: J18.1 - Lobar pneumonia, unspecified organism (2) Dehydration Status: Acute (3) Former smoker Status: Chronic (4) Chest pain Status: Acute Qualifiers: Chest pain type: chest pain on breathing Qualified Codes: R07.1 - Chest pa in on breathing (5) Hypoxia Status: Acute (6) Sepsis Status: Acute Qualifiers: Sepsis type: sepsis due to unspecified organism Sepsis acute organ dysfunction status: unspecified Qualified Codes: A41.9 - Sepsis, unspecified organism Supervisory-Addendum Brief Verification & Attestation Participated in pt care: history, MDM, physical Personally performed: exam, history, MDM, supervision of care Care discussed with: Medical Student Procedures: n/a Results interpretation: Verified all documentation Verification and Attestation of Medical Student E/M Service A medical student performed and documented this service in my presence. I reviewed and verified all information documented by the medical student and made modifications to such information, when appropriate. I personally performed the physical exam and medical decision making. Ti Whelan, Nov 06, 2018,20:36 [facility] Nov 06, 2018 14:08 TI WHELAN DO Nov 06, 2018 20:37
[2018-11-06] MEDS: RT-ALBUTEROL/IPRATROPIUM 3 ML (DUONEB) VIAL INH SCH ×2 (14:11→19:37)
[2018-11-06] MEDS: inSUlin ASPART (NovoLOG) 1 UNIT/0.01 ML (CHARGE PER UNIT) SC SCH ×2 (17:08→20:35)
[2018-11-06] MEDS: ACETAMINOPHEN 500 MG TAB (TYLENOL) PO PRN (18:44)
[2018-11-06] MEDS: ATORVASTATIN 40 MG (LIPITOR) TABLET PO SCH (20:35)
[2018-11-06] MEDS ORDERED: CALCIUM CARBONATE 500 MG (TUMS) TAB.CHEW PO PRN (20:45)
[2018-11-06] MEDS ORDERED: HYDROcodone/APAP 5 MG/325 MG (LORTAB) TAB PO PRN (20:45)
[2018-11-06] MEDS ORDERED: ALPRAZolam 0.25 MG (XANAX) TAB PO PRN (20:45)
[2018-11-06] MEDS ORDERED: diphenhydrAMINE 25 MG TAB (BENADRYL) PO PRN (20:45)
[2018-11-06] MEDS ORDERED: DOCUSATE SODIUM 100 MG (COLACE) CAP PO PRN (20:45)
[2018-11-06] MEDS ORDERED: MELATONIN 3 MG TABLET PO PRN (20:45)
[2018-11-06] MEDS ORDERED: NON-FORMULARY MEDICATION 1 EA EA (Acetaminophen (Tylenol Extra Strength) 1,000 MG) PO PRN (20:45)
[2018-11-06] MEDS ORDERED: RT-ALBUTEROL/IPRATROPIUM 3 ML (DUONEB) VIAL INH SCH (21:00)
[2018-11-06] MEDS: SENNA W/DOCUSATE (SENOKOT S) TABLET PO SCH (21:49)
[2018-11-06] MEDS ORDERED: ACETAMINOPHEN 500 MG TAB (TYLENOL) PO PRN (22:15)
[2018-11-07 00:04] VITALS: BP 112/72
[2018-11-07] MEDS: LACTATED RINGERS 1,000 ML IV SCH (02:41)
[2018-11-07] MEDS: ACETAMINOPHEN 500 MG TAB (TYLENOL) PO PRN (03:22)
[2018-11-07 04:00] VITALS: BP 113/74
[2018-11-07 05:18] LABS: BASOPHILS % (AUTO) 0 % (0-10); EOSINOPHILS # (AUTO) 0.2 10^3/uL (0.0-0.3); EOSINOPHILS % (AUTO) 3 % (0-10); HEMATOCRIT 39 % (40-54); HEMOGLOBIN 12.5 G/DL (13.3-17.7); LYMPHOCYTES # (AUTO) 2.5 X 10^3 (1.0-4.0); LYMPHOCYTES % (AUTO) 31 % (12-44); MEAN CORPUSCULAR HEMOGLOBIN 28 PG (25-34); MEAN CORPUSCULAR HGB CONC 33 G/DL (32-36); MEAN CORPUSCULAR VOLUME 87 FL (80-99); MEAN PLATELET VOLUME 10.5 FL (7.4-10.4); MONOCYTES # (AUTO) 0.7 X 10^3 (0.0-1.0); MONOCYTES % (AUTO) 9 % (0-12); NEUTROPHILS # (AUTO) 4.5 X 10^3 (1.8-7.8); NEUTROPHILS % (AUTO) 57 % (42-75); PLATELET COUNT 210 10^3/uL (130-400); WHITE BLOOD COUNT 7.9 10^3/uL (4.3-11.0)
[2018-11-07] MEDS: inSUlin ASPART (NovoLOG) 1 UNIT/0.01 ML (CHARGE PER UNIT) SC SCH ×4 (05:29→21:45)
[2018-11-07 06:17] LABS: ALANINE AMINOTRANSFERASE 32 U/L (0-55); ALBUMIN 3.8 GM/DL (3.2-4.5); ALKALINE PHOSPHATASE 82 U/L (40-136); BILIRUBIN,TOTAL 0.8 MG/DL (0.1-1.0); BUN/CREATININE RATIO 16; CALCIUM 8.8 MG/DL (8.5-10.1); CARBON DIOXIDE 23 MMOL/L (21-32); CHLORIDE 103 MMOL/L (98-107); CHOLESTEROL 147 MG/DL (< 200); CREATININE SERUM 0.75 MG/DL (0.60-1.30); GFR ESTIMATED > 60; GLUCOSE 152 MG/DL (70-105); HDL CHOLESTEROL 31 MG/DL (40-60); MAGNESIUM 1.8 MG/DL (1.6-2.4); POTASSIUM 3.7 MMOL/L (3.6-5.0); SODIUM 138 MMOL/L (135-145); TOTAL PROTEIN 6.5 GM/DL (6.4-8.2); TRIGLYCERIDES 107 MG/DL (<150); VLDL CHOLESTEROL 21 MG/DL (5-40)
--- NOTE | 2018-11-07 07:06 | Consultation-Cardiology ---
HPI-Cardiology Cardiology Consultation Date of Consultation 11/07/18 Date of Admission Time Seen by Provider: 07:03 Indication: chest pain HPI 58 years old gentleman with history of diabetes mellitus, hypertension hyperlipidemia and addition to obesity, admitted for pneumonia and receiving treatment, started to have chest pain described as burning sensation in the retrosternal area with upper epigastric pain. Had mild shortness of breath. No palpitation, no syncope or near syncopal episode, currently is chest pain-free but still having tenderness in the epigastric area. Home Medications & Allergies Allergies: Coded Allergies: No Known Drug Allergies (Unverified , 02/04/18) Home Medication List Reviewed: Yes RIU-Oibdbg-O[facility]ohon Hx Patient Social History Marital Status: Employed/Student: employed Alcohol Use: Occasionally Uses Recreational Drug Use: No Smoking Status: Former Smoker (Patient quit smocking about 8 years ago ) Type Used: Cigarettes Recent Foreign Travel: No Recent Infectious Disease Expo: No Recent Hopitalizations: No Physical Abuse Screen: No Sexual Abuse: No Immunizations Up To Date Tetanus Booster (TDap): Unknown Date of Pneumonia Vaccine: Dec 24, 2008 Date of Influenza Vaccine: Nov 27, 2017 Past Medical History discussed below Family Medical History Family History: Arthritis 19 MOTHER Coronary thrombosis 19 FATHER Deafness or hearing loss 19 MOTHER Diabetes mellitus 19 MOTHER Headache disorder 19 MOTHER Hypercholesterolemia 19 MOTHER Hypertension 19 FATHER 19 MOTHER Myocardial infarction 19 FATHER Respiratory disorder 19 MOTHER Review of Systems-General Review of Systems Constitutional: see HPI, malaise, weakness EENTM: hearing loss (left ear ) Respiratory: see HPI, cough, dyspnea on exertion; No hemoptysis, No orthopnea, No phlegm; short of breath; No stridor, No wheezing, No other Cardiovascular: see HPI, chest pain; No edema, No Hx of Intervention, No palpitations, No syncope, No vascular heart diseas, No other Gastrointestinal: see HPI, abdominal pain, nausea Genitourinary: no symptoms reported, see HPI Musculoskeletal: other (Right shoulder pain) Skin: no symptoms reported, see HPI Psychiatric/Neurological: See HPI, Depressed All Other Systems Reviewed Negative Unless Noted: Yes Reviewed Test Results Reviewed Test Results Lab Laboratory Tests Test 11/06/18 08:30 11/06/18 09:46 11/06/18 09:54 11/06/18 10:35 Range/Units White Blood Count 11.5 H 4.3-11.0 10^3/uL Red Blood Count 4.78 4.35-5.85 10^6/uL Hemoglobin 13.9 13.3-17.7 G/DL Hematocrit 41 40-54 % Mean Corpuscular Volume 86 80-99 FL Mean Corpuscular Hemoglobin 29 25-34 PG Mean Corpuscular Hemoglobin Concent 34 32-36 G/DL Red Cell Distribution Width 13.6 10.0-14.5 % Platelet Count 205 130-400 10^3/uL Mean Platelet Volume 10.3 7.4-10.4 FL Neutrophils (%) (Auto) 62 42-75 % Lymphocytes (%) (Auto) 27 12-44 % Monocytes (%) (Auto) 9 0-12 % Eosinophils (%) (Auto) 2 0-10 % Basophils (%) (Auto) 0 0-10 % Neutrophils # (Auto) 7.1 1.8-7.8 X 10^3 Lymphocytes # (Auto) 3.1 1.0-4.0 X 10^3 Monocytes # (Auto) 1.1 H 0.0-1.0 X 10^3 Eosinophils # (Auto) 0.2 0.0-0.3 10^3/uL Basophils # (Auto) 0.0 0.0-0.1 10^3/uL Prothrombin Time 13.1 12.2-14.7 SEC INR Comment 1.0 0.8-1.4 Activated Partial Thromboplast Time 28 24-35 SEC D-Dimer 0.47 0.00-0.49 UG/ML Sodium Level 140 135-145 MMOL/L Potassium Level 3.8 3.6-5.0 MMOL/L Chloride Level 103 98-107 MMOL/L Carbon Dioxide Level 26 21-32 MMOL/L Anion Gap 11 5-14 MMOL/L Blood Urea Nitrogen 18 7-18 MG/DL Creatinine 0.86 0.60-1.30 MG/DL Estimat Glomerular Filtration Rate > 60 BUN/Creatinine Ratio 21 Glucose Level 153 H 70-105 MG/DL Calcium Level 9.5 8.5-10.1 MG/DL Corrected Calcium 9.3 8.5-10.1 MG/DL Magnesium Level 1.8 1.6-2.4 MG/DL Total Bilirubin 1.2 H 0.1-1.0 MG/DL Aspartate Amino Transf (AST/SGOT) 18 5-34 U/L Alanine Aminotransferase (ALT/SGPT) 38 0-55 U/L Alkaline Phosphatase 84 40-136 U/L Myoglobin 111.8 H 10.0-92.0 NG/ML Troponin I < 0.028 <0.028 NG/ML B-Type Natriuretic Peptide 30.0 <100.0 PG/ML Total Protein 7.4 6.4-8.2 GM/DL Albumin 4.2 3.2-4.5 GM/DL Lipase 26 8-78 U/L Lactic Acid Level 0.98 0.50-2.00 MMOL/L Blood Gas Puncture Site LT RAD RT RAD Blood Gas Patient Temperature 98.4 98.0 Arterial Blood pH 7.35 L 7.36 L 7.37-7.43 Arterial Blood Partial Pressure CO2 51 H 50 H 35-45 MMHG Arterial Blood Partial Pressure O2 30 *L 44 L 79-93 MMHG Arterial Blood HCO3 28 H 28 H 23-27 MMOL/L Arterial Blood Total CO2 29.0 29.4 21.0-31.0 MMOL/L Arterial Blood Oxygen Saturation 48 L 76 L 94-100 % Arterial Blood Base Excess 2.4 2.8 H -2.5-2.5 MMOL/L Vito Test YES-POS YES-POS Blood Gas Ventilator Setting NO NO Blood Gas Inspired Oxygen 3 L 3 L Test 11/06/18 11:12 11/06/18 11:39 11/06/18 13:15 11/06/18 14:30 Range/Units Blood Gas Puncture Site LT RAD Blood Gas Patient Temperature 99.3 Arterial Blood pH 7.38 7.37-7.43 Arterial Blood Partial Pressure CO2 45 35-45 MMHG Arterial Blood Partial Pressure O2 102 H 79-93 MMHG Arterial Blood HCO3 25 23-27 MMOL/L Arterial Blood Total CO2 26.8 21.0-31.0 MMOL/L Arterial Blood Oxygen Saturation 98 94-100 % Arterial Blood Base Excess 0.9 -2.5-2.5 MMOL/L Vito Test YES-POS Blood Gas Ventilator Setting NO Blood Gas Inspired Oxygen 3 L Glucometer 144 H 70-110 MG/DL Streptococcus pneumoniae Antigen Negative Troponin I < 0.028 <0.028 NG/ML Test 11/06/18 16:02 11/06/18 19:32 11/06/18 19:55 11/07/18 04:36 Range/Units Glucometer 204 H 139 H 70-110 MG/DL Troponin I < 0.028 <0.028 NG/ML White Blood Count 7.9 4.3-11.0 10^3/uL Red Blood Count 4.42 4.35-5.85 10^6/uL Hemoglobin 12.5 L 13.3-17.7 G/DL Hematocrit 39 L 40-54 % Mean Corpuscular Volume 87 80-99 FL Mean Corpuscular Hemoglobin 28 25-34 PG Mean Corpuscular Hemoglobin Concent 33 32-36 G/DL Red Cell Distribution Width 14.0 10.0-14.5 % Platelet Count 210 130-400 10^3/uL Mean Platelet Volume 10.5 H 7.4-10.4 FL Neutrophils (%) (Auto) 57 42-75 % Lymphocytes (%) (Auto) 31 12-44 % Monocytes (%) (Auto) 9 0-12 % Eosinophils (%) (Auto) 3 0-10 % Basophils (%) (Auto) 0 0-10 % Neutrophils # (Auto) 4.5 1.8-7.8 X 10^3 Lymphocytes # (Auto) 2.5 1.0-4.0 X 10^3 Monocytes # (Auto) 0.7 0.0-1.0 X 10^3 Eosinophils # (Auto) 0.2 0.0-0.3 10^3/uL Basophils # (Auto) 0.0 0.0-0.1 10^3/uL Sodium Level 138 135-145 MMOL/L Potassium Level 3.7 3.6-5.0 MMOL/L Chloride Level 103 98-107 MMOL/L Carbon Dioxide Level 23 21-32 MMOL/L Anion Gap 12 5-14 MMOL/L Blood Urea Nitrogen 12 7-18 MG/DL Creatinine 0.75 0.60-1.30 MG/DL Estimat Glomerular Filtration Rate > 60 BUN/Creatinine Ratio 16 Glucose Level 152 H 70-105 MG/DL Calcium Level 8.8 8.5-10.1 MG/DL Corrected Calcium 9.0 8.5-10.1 MG/DL Phosphorus Level 3.1 2.3-4.7 MG/DL Magnesium Level 1.8 1.6-2.4 MG/DL Total Bilirubin 0.8 0.1-1.0 MG/DL Aspartate Amino Transf (AST/SGOT) 12 5-34 U/L Alanine Aminotransferase (ALT/SGPT) 32 0-55 U/L Alkaline Phosphatase 82 40-136 U/L Total Protein 6.5 6.4-8.2 GM/DL Albumin 3.8 3.2-4.5 GM/DL Triglycerides Level 107 <150 MG/DL Cholesterol Level 147 < 200 MG/DL LDL Cholesterol Direct 108 1-129 MG/DL VLDL Cholesterol 21 5-40 MG/DL HDL Cholesterol 31 L 40-60 MG/DL Test 11/07/18 05:14 Range/Units Glucometer 166 H 70-110 MG/DL Physical Exam Physical Exam Vital Signs Vital Signs - First Documented 11/06/18 11/06/18 11/06/18 08:22 08:45 11:12 Temp 98.0 Pulse 91 Resp 16 B/P (MAP) 138/76 (96) Pulse Ox 94 O2 Delivery Room Air O2 Flow Rate 2.00 FiO2 32 Capillary Refill : Less Than 3 Seconds Height, Weight, BMI Height: 6'1.00" Weight: 290lbs. 1.0oz. 131.290978ys; 38.3 BMI Method:Stated General Appearance: No Apparent Distress, WD/WN, Chronically ill Eyes: Right Eye Normal Inspection, Right Eye PERRL HEENT: PERRL/EOMI, Normal ENT Inspection, Pharynx Normal, Moist Mucous Membranes Neck: Full Range of Motion, Normal Inspection, Non Tender Respiratory: Chest Non Tender, No Accessory Muscle Use, No Respiratory Distress, Crackles (Minor), Wheezing Cardiovascular: Regular Rate, Rhythm, No Edema, No Gallop, No JVD, No Murmur, Normal Peripheral Pulses Gastrointestinal: Normal Bowel Sounds, No Organomegaly, No Pulsatile Mass, Non Tender, Soft, Tenderness (mild epigastric tenderness) Back: Normal Inspection, No CVA Tenderness, No Vertebral Tenderness Extremity: Normal Capillary Refill, Normal Inspection, Normal Range of Motion, Non Tender, No Calf Tenderness, No Pedal Edema Neurologic/Psychiatric: Alert, Oriented x3, No Motor/Sensory Deficits, Normal Mood/Affect Skin: Normal Color, Warm/Dry Lymphatic: No Adenopathy A/P-Cardiology Admission Diagnosis chest pain Pneumonia Hypertension Hyperlipidemia Assessment/Plan chest pain nonspecific etiology, atypical in presentation, multiple risk factors for coronary artery disease, EKG and cardiac enzymes did not show any acute abnormality, could be secondary to his pneumonia. Continue with current treatment, planning to risk stratify him with stress test as an outpatient.next Pneumonia, receiving antibiotic, managed by primary care team Hypertension, continue to monitor blood pressure, continue on current medication Hyperlipidemia, monitor lipids Diabetes mellitus, followed and managed by primary care physician History of depression next Family history of heart disease Clinical Quality Measures AMI/AHF: ASA po Prior to arrival: No DVT/VTE Risk/Contraindication: Risk Factor Score Per Nursin RFS Level Per Nursing on Admit: 3=High DANIE CARDENAS MD Nov 07, 2018 07:05
[2018-11-07] MEDS: RT-ALBUTEROL/IPRATROPIUM 3 ML (DUONEB) VIAL INH SCH ×3 (07:20→23:45)
[2018-11-07 08:00] VITALS: BP 129/63
[2018-11-07] MEDS: ASPIRIN E.C. 81 MG (ECOTRIN) TAB PO SCH (08:15)
[2018-11-07] MEDS: AZITHROMYCIN 250 MG TAB (ZITHROMAX) PO SCH (08:15)
[2018-11-07] MEDS: SENNA W/DOCUSATE (SENOKOT S) TABLET PO SCH ×2 (08:15→20:26)
[2018-11-07] MEDS: PANTOPRAZOLE 40 MG (PROTONIX) TAB PO SCH (08:15)
[2018-11-07] MEDS: FLUoxetine HCL 20 MG (PROzac) CAP PO SCH (08:16)
--- NOTE | 2018-11-07 08:22 | Diagnostic Imaging Report ---
INDICATION: Respiratory distress PA and lateral chest There is some left lower lung infiltrate. This is improved from the previous day. There is no effusion or pneumothorax. IMPRESSION: Improving left lower lung infiltrate Dictated by: Dictated on workstation # [id number]
[2018-11-07] MEDS ORDERED: OMEPRAZOLE 20 MG (PriLOSEC) CAP NON-FORMULARY PO SCH (09:00)
[2018-11-07] MEDS: cefTRIAXone FOR IV USE 1,000 MG in WATER (STERILE) FOR INJECTION 10 ML IV SCH (10:00)
--- NOTE | 2018-11-07 10:54 | Progress Note - Hospitalist ---
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 He was placed on empiric antibiotics, Dr. Coles was consulted due to the B/L nature and multi lobar type of pneumonia and occupational exposure at [employer] where he used to work many years ago. Dr. Harden has seen. the Pt in the past just for regular cardiology follow-ups so he will be consulted also in case this has any involvement with cardiac issues. Subjective/Events-last exam Olegario has been sleeping better and is alert and oriented. He is urinating but has not had a bowel movement yet. ROS: patient still has abdominal pain, no chest pain, no SOB, no N/V and no feeling of fever or chills. Heart: HRRR, Radial pulse 2/4, No LE edema Lungs: Lungs are improving but still hear a little wheezing on the left side. Abdomen: Bowel sounds present, RUQ and LUQ pain. Labs: HgB 12.5 and that is down from yesterday at 13.9, Creatinine .75 and Glucose 166 Imaging: has both ECHO and X-ray planned today General Surgery Consult for abdominal pain, patient stated he recently had a scope from an outside doctor not too long ago which showed thickening of the vocal chords due to his GERD Focused Exam Lactate Level 11/06/18 09:46: Lactic Acid Level 0.98 Respiratory: Chest Non Tender, No Accessory Muscle Use, No Respiratory Distress Cardiovascular: Regular Rate, Rhythm, No Edema, No JVD Peripheral Pulses: 2+ Radial Pulses (R), 2+ Radial Pulses (L) Skin: normal color, warm/dry Objective Exam Vital Signs Vital Signs Date Time Temp Pulse Resp B/P (MAP) Pulse Ox O2 Delivery O2 Flow Rate FiO2 11/07/18 08:00 Nasal Cannula 1.50 11/07/18 07:19 88 11/07/18 07:00 76 11/07/18 04:00 98.4 18 113/74 (87) 11/06/18 11:12 32 Capillary Refill : Less Than 3 Seconds General Appearance: No Apparent Distress, WD/WN Neck: Full Range of Motion, Normal Inspection Respiratory: Chest Non Tender, No Accessory Muscle Use, No Respiratory Distress, Wheezing Cardiovascular: Regular Rate, Rhythm, No Edema, No JVD, Normal Peripheral Pulses Gastrointestinal: Normal Bowel Sounds, Tenderness Extremity: Normal Capillary Refill Neurologic/Psychiatric: Alert, Oriented x3 Skin: Normal Color, Warm/Dry Results/Procedures Lab Laboratory Tests 11/07/18 04:36 Patient resulted labs reviewed. Assessment/Plan Assessment and Plan Assess & Plan/Chief Complaint Assessment: 1. Stable Angina 2. cholecystitis 3. cholelithiasis 4. Atypical Pneumonia (myco,chlamydia, histo) 5. GERD, possible H.pylori 6. Reoccurrences of Hiatal hernia 7. Peptic Ulcer disease 8. Acute pancreatitis 9. Acute mesenteric bowel 10. Ascending cholangitis 11. Appendicitis 12. Kidney stone Plan: 1. Patient should be NPO and have patient on normal saline maintenance fluids until general surgery sees the patient 2. Abdominal Ultrasound or HIDA scan 3. Monitor Vitals q8 4. Start on Antibiotics (possible atypical pneumonia) 5. Monitor I/O 6. Review notes from cardiology, pulmonology, and general surgery 7. Monitor labs (CBC/ with diff, CMP, Lipids, GGT, lipase and amylase) 8. Sputum culture and stool culture 9. Consider antiplatelet therapy if the patient is not going to surgery and is not ambulating. Start on compression socks or LE compression machine 10. Urine sample 11. Monitor patients pain and keep comfortable 12. Ask patient about last colonoscopy and scope 13. Diabetes education (especially foot care). 14. Review cardiology notes and results of both the x-ray and the ECHO. 15. Have patient ambulating Clinical Quality Measures AMI/AHF: ASA po Prior to arrival: No DVT/VTE Risk/Contraindication: Risk Factor Score Per Nursin RFS Level Per Nursing on Admit: 3=High TRACEY WHELAN DO 11/07/182100: Subjective Subjective/Events-last exam Pt feeling much better Improved air expansion and feels much better Will consult Dr. Lu for abdominal pain but he just had an EGD and colonoscopy by Dr. Rojas on Sunday and it was inconclusive so it appears to be IBS Will hep-lock IV fluid WIll ambulate today Will continue IV antibiotics Appreciate Dr. Coles and Dr. Harden consultation and their expertise Review of Systems General: Fatigue Pulmonary: Dyspnea, Cough Objective Exam General Appearance: No Apparent Distress, WD/WN Respiratory: No Accessory Muscle Use, No Respiratory Distress, Crackles, Decreased Breath Sounds, Wheezing Neurologic/Psychiatric: Alert, Oriented x3, No Motor/Sensory Deficits, Normal Mood/Affect Assessment/Plan Assessment and Plan Assess & Plan/Chief Complaint Abx for pneumonia Dr Lu for likely IBS since recent endo normal Dr Rojas Home meds Monitor sugar Supervisory-Addendum Brief Verification & Attestation Participated in pt care: history, MDM, physical Personally performed: exam, history, MDM, supervision of care Care discussed with: Medical Student Procedures: n/a Results interpretation: Verified all documentation Verification and Attestation of Medical Student E/M Service A medical student performed and documented this service in my presence. I reviewed and verified all information documented by the medical student and made modifications to such information, when appropriate. I personally performed the physical exam and medical decision making. Tracey Whelan, Nov 07, 2018,21:01 [facility] Nov 07, 2018 10:54 TRACEY WHELAN DO Nov 07, 2018 21:01
--- NOTE | 2018-11-07 11:03 | NUR ---
CM/SS, respond to consult that patient is unable to afford to purchase his diabetic supplies; however, patient indicates this is not the case. DME: Has home O2 for hs through [facility]. Follow for any change in O2 needs and update HME as needed. Patient identifies no needs at this time, will continue intermittent review and assist as appropriate.
--- NOTE | 2018-11-07 11:40 | Pulmonary Progress Note ---
Sepsis Event Evaluation Height, Weight, BMI Height: 6'1.00" Weight: 290lbs. 1.0oz. 131.059101op; 38.3 BMI Method:Stated Focused Exam Lactate Level 11/06/18 09:46: Lactic Acid Level 0.98 Exam Exam Vital Signs Date Time Temp Pulse Resp B/P (MAP) Pulse Ox O2 Delivery O2 Flow Rate FiO2 11/07/18 08:00 Nasal Cannula 1.50 11/07/18 07:19 88 Nasal Cannula 3.00 11/07/18 07:00 76 11/07/18 04:00 98.4 69 18 113/74 (87) 94 Room Air 11/07/18 01:00 70 11/07/18 00:04 98.4 74 24 112/72 (85) 93 Room Air 11/06/18 20:00 Nasal Cannula 1.50 11/06/18 19:37 88 Nasal Cannula 0.50 11/06/18 19:26 97.9 81 19 115/59 (77) 93 Room Air 11/06/18 19:00 84 11/06/18 18:44 99.9 11/06/18 18:44 99.9 11/06/18 15:00 97 18 110/55 (73) 92 Room Air 11/06/18 14:13 89 Room Air 11/06/18 14:00 74 18 120/58 (78) 91 Room Air 11/06/18 13:16 Nasal Cannula 3.00 11/06/18 13:00 87 20 108/53 (71) 91 Room Air 11/06/18 12:58 86 11/06/18 12:45 78 18 116/63 (80) 96 Room Air 11/06/18 12:30 81 18 115/57 (76) 95 Room Air 11/06/18 12:15 80 18 119/62 (81) 96 Room Air 11/06/18 12:00 97.1 81 20 111/61 (78) 95 Room Air I & O 11/07/18 07:00 Intake Total 1730 ml Output Total 1290 ml Balance 440 ml Height & Weight Height: 6'1.00" Weight: 290lbs. 1.0oz. 131.056091rk; 38.3 BMI Method:Stated General Appearance: No Apparent Distress, WD/WN HEENT: PERRL/EOMI, Normal ENT Inspection, Pharynx Normal, Moist Mucous Membranes Neck: Full Range of Motion, Normal Inspection Respiratory: Chest Non Tender, No Accessory Muscle Use, No Respiratory Distress, Wheezing Cardiovascular: Regular Rate, Rhythm, No Edema, No JVD, Normal Peripheral Pulses Capillary Refill: Less Than 3 Seconds Peripheral Pulses: 2+ Radial Pulses (R), 2+ Radial Pulses (L) Extremity: Normal Capillary Refill Neurologic/Psychiatric: Alert, Oriented x3 Skin: Normal Color, Warm/Dry Lymphatic: No Adenopathy Results Lab Laboratory Tests 11/06/18 08:30 11/07/18 04:36 Assessment/Plan Assessment/Plan Left pneumonia CAP with hypoxia - Rocephin and azithromycin -SVNS -Maciel cultures. urine strep and legionella Ag -Pt will need f/u imaging after discharge to ensure complete resolution of infiltration morbid obesity with probable HENRIETTA -Out pt testing ALANA GARDNER DO Nov 07, 2018 11:40
--- NOTE | 2018-11-07 11:41 | NUR ---
Pt is Uatsdin. Adding Machine Mechanic offered prayer and blessing.
[2018-11-07 12:00] VITALS: BP 116/75
--- NOTE | 2018-11-07 15:21 | Consultation - Surgery ---
CHARI STALEY,MED STUDENT 11/07/18 1521: History of Present Illness History of Present Illness Patient Consulted On(jean carlos/time) 11/07/18 15:16 Date Seen by Provider: Nov 07, 2018 History of Present Illness Pt states he has been experiencing right sided upper abdominal pain for 4-5 yea rs that has gotten worse in the past week. Pain is colicky, 10/10 and occurs after meals. Pt also experiences nausea but denies vomiting. Nothing alleviates or aggravates his pain. Pain does not radiate. Allergies and Home Medications Allergies Coded Allergies: No Known Drug Allergies (Unverified , 02/04/18) Home Medications Acetaminophen 500 Mg Tablet, 500-1,000 MG PO Q4H PRN for PAIN-MILD, (Reported) Fluoxetine HCl 20 Mg Tablet, 20 MG PO DAILY, (Reported) Losartan/Hydrochlorothiazide 1 Each Tablet, 1 TAB PO DAILY, (Reported) Lovastatin 20 Mg Tablet, 20 MG PO DAILY, (Reported) Metformin HCl 500 Mg Tab.er.24, 500 MG PO BID, (Reported) Omeprazole 20 Mg Capsule.dr, 20 MG PO DAILY, (Reported) Patient Home Medication List Home Medication List Reviewed: Yes Past Yqjvaei-Pefcqo-Czegbu Hx Patient Social History Alcohol Use: Occasionally Uses Recreational Drug Use: No Smoking Status: Former Smoker (Patient quit smocking about 8 years ago ) Former Smoker, Quit: August 23, 2011 Type Used: Cigarettes Recent Foreign Travel: No Contact w/Someone Who Travel: No Recent Infectious Disease Expo: No Recent Hopitalizations: No Physical Abuse Screen: No Sexual Abuse: No Immunizations Up To Date Tetanus Booster (TDap): Unknown Date of Pneumonia Vaccine: Dec 24, 2008 Date of Influenza Vaccine: Nov 27, 2017 Seasonal Allergies Seasonal Allergies: No Surgeries History of Surgeries: Yes (hiatal hernia, ventral herna, knee scope) Surgeries: Abdominal, Orthopedic (Patinet had a right knee scope, hiatal hernia and ventral hernia ) Respiratory History of Respiratory Disorde: Yes (wears oxygen at hs) Respiratory Disorders: Pneumonia, Sleep Apnea Cardiovascular History of Cardiac Disorders: Yes Cardiac Disorders: High Cholesterol, Hypertension Neurological History of Neurological Disord: Yes Reproductive System Hx Reproductive Disorders: No Sexually Transmitted Disease: No HIV/AIDS: No Genitourinary History of Genitourinary Disor: Yes Genitourinary Disorders: Kidney Stones Gastrointestinal History of Gastrointestinal Di: Yes (EDG Sunday11/04/18) Gastrointestinal Disorders: Gastroesophageal Reflux Musculoskeletal History of Musculoskeletal Dis: Yes Musculoskeletal Disorders: Arthritis Endocrine History of Endocrine Disorders: Yes Endocrine Disorders: Diabetes, Non-Insulin dep HEENT History of HEENT Disorders: Yes HEENT Disorders: Cataract Loss of Vision: Bilateral Hearing Impairment: Hard of Hearing (Patient stated left hearing issues ) Cancer History of Cancer: No Psychosocial History of Psychiatric Problem: Yes Behavioral Health Disorders: Depression Integumentary History of Skin or Integumenta: No Blood Transfusions History of Blood Disorders: No Adverse Reaction to a Blood Tr: No (N/A) Family Medical History Significant Family History: Heart Disease, Diabetes, Hypertension Family Medial History: Arthritis 19 MOTHER Coronary thrombosis 19 FATHER Deafness or hearing loss 19 MOTHER Diabetes mellitus 19 MOTHER Headache disorder 19 MOTHER Hypercholesterolemia 19 MOTHER Hypertension 19 FATHER 19 MOTHER Myocardial infarction 19 FATHER Respiratory disorder 19 MOTHER Review of Systems-General Constitutional: chills, diaphoresis, fever EENTM: No hearing loss, No ear pain, No vision loss Respiratory: cough, dyspnea on exertion, short of breath (improves with rest) Cardiovascular: chest pain (Sunday - burning pain on deep inspiration) Gastrointestinal: RUQ, see HPI, abdominal pain (RUQ); No constipation, No diarrhea, No dysphagia, No hematemesis; heartburn; No melena; nausea; No vomiting Genitourinary: frequency; No incontinence Musculoskeletal: back pain (lower back pain), joint pain (hx arthritis ) Skin: No lesions, No lumps, No rash Psychiatric/Neurological: Depressed (currently being treated for depression ) Other Denies heat/cold intolerance. Has not previously been diagnosed with a bleeding disorder Physical Exam-General Problems Physical Exam Vital Signs Vital Signs - First Documented 11/06/18 11/06/18 11/06/18 08:22 08:45 11:12 Temp 98.0 Pulse 91 Resp 16 B/P (MAP) 138/76 (96) Pulse Ox 94 O2 Delivery Room Air O2 Flow Rate 2.00 FiO2 32 Capillary Refill : Less Than 3 Seconds General Appearance: WD/WN, no apparent distress, obese Eyes: Bilateral Eye PERRL, Bilateral Eye EOMI HEENT: No scleral icterus (R), No scleral icterus (L), No pale conjunctivae (R), No pale conjunctivae (L) Neck: non-tender; No carotid bruit, No lymphadenopathy (R), No lymphadenopathy (L), No thyromegaly Respiratory: chest non-tender, lungs clear, normal breath sounds, no respiratory distress, no accessory muscle use Cardiovascular: normal peripheral pulses, regular rate, rhythm, no edema Peripheral Pulses: 2+ Dorsalis Pedis (R), 2+ Left Dors-Pedis (L), 2+ Radial Pulses (R), 2+ Radial Pulses (L) Gastrointestinal: normal bowel sounds, no organomegaly, distended (slightly distended); No guarding; tenderness (tender RUQ, mild epigastric tenderness) Rectal: deferred Back: no CVA tenderness Extremities: no pedal edema, normal capillary refill Neurologic/Psychiatric: personnel security specialist II-XII nml as tested, no motor/sensory deficits, alert, normal mood/affect Skin: normal color, warm/dry Lymphatic: no adenopathy (no LAD neck, axilla ) Data Review Labs Laboratory Tests 11/06/18 16:02: Glucometer 204H 11/06/18 19:32: Glucometer 139H 11/06/18 19:55: Troponin I < 0.028 11/07/18 04:36: White Blood Count 7.9, Red Blood Count 4.42, Hemoglobin 12.5L, Hematocrit 39L, Mean Corpuscular Volume 87, Mean Corpuscular Hemoglobin 28, Mean Corpuscular Hemoglobin Concent 33, Red Cell Distribution Width 14.0, Platelet Count 210, Mean Platelet Volume 10.5H, Neutrophils (%) (Auto) 57, Lymphocytes (%) (Auto) 31, Monocytes (%) (Auto) 9, Eosinophils (%) (Auto) 3, Basophils (%) (Auto) 0, Neutrophils # (Auto) 4.5, Lymphocytes # (Auto) 2.5, Monocytes # (Auto) 0.7, Eosinophils # (Auto) 0.2, Basophils # (Auto) 0.0, Sodium Level 138, Potassium Level 3.7, Chloride Level 103, Carbon Dioxide Level 23, Anion Gap 12, Blood Urea Nitrogen 12, Creatinine 0.75, Estimat Glomerular Filtration Rate > 60, BUN/Creatinine Ratio 16, Glucose Level 152H, Calcium Level 8.8, Corrected Calcium 9.0, Phosphorus Level 3.1, Magnesium Level 1.8, Total Bilirubin 0.8, Aspartate Amino Transf (AST/SGOT) 12, Alanine Aminotransferase (ALT/SGPT) 32, Alkaline Phosphatase 82, Total Protein 6.5, Albumin 3.8, Triglycerides Level 107, Cholesterol Level 147, LDL Cholesterol Direct 108, VLDL Cholesterol 21, HDL Cholesterol 31L 11/07/18 05:14: Glucometer 166H 11/07/18 11:11: Glucometer 147H Assessment/Plan Assessment/Plan Assessment/Plan RUQ Abdominal pain HIDA scan showed 65% ejection fraction (within normal limits) and ultrasound found no stones or other abnormalities. Will advance diet as tolerated and continue to follow. Continue IVF, pain management as needed. Clinical Quality Measures AMI/AHF: ASA po Prior to arrival: No DVT/VTE Risk/Contraindication: Risk Factor Score Per Nursin RFS Level Per Nursing on Admit: 3=High ALFIE LU DO 11/07/185: History of Present Illness History of Present Illness Time Seen by Provider: 18:40 History of Present Illness Pt initially presented to the ER with chest pain. He states he had an EGD by Dr. Rojas on Sunday; it showed reflux and changes at vocal chords secondary to acid (per pt). Allergies and Home Medications Allergies Coded Allergies: No Known Drug Allergies (Unverified , 02/04/18) Home Medications Acetaminophen 500 Mg Tablet, 500-1,000 MG PO Q4H PRN for PAIN-MILD, (Reported) Fluoxetine HCl 20 Mg Tablet, 20 MG PO DAILY, (Reported) Losartan/Hydrochlorothiazide 1 Each Tablet, 1 TAB PO DAILY, (Reported) Lovastatin 20 Mg Tablet, 20 MG PO DAILY, (Reported) Metformin HCl 500 Mg Tab.er.24, 500 MG PO BID, (Reported) Omeprazole 20 Mg Capsule.dr, 20 MG PO DAILY, (Reported) Patient Home Medication List Home Medication List Reviewed: Yes Past Kyoesnq-Roqizk-Hspmkk Hx Patient Social History Alcohol Use: Denies Use Smoking Status: Never a Smoker Family Medical History Family Medial History: Arthritis 19 MOTHER Coronary thrombosis 19 FATHER Deafness or hearing loss 19 MOTHER Diabetes mellitus 19 MOTHER Headache disorder 19 MOTHER Hypercholesterolemia 19 MOTHER Hypertension 19 FATHER 19 MOTHER Myocardial infarction 19 FATHER Respiratory disorder 19 MOTHER Assessment/Plan Assessment/Plan Assessment/Plan HIDA from 6 yrs ago showed EF of 89% which is actually hyperfunctioning biliary dyskinesia. He is doing better now and is currently eating. No surgical intervention needed at this time. Supervisory-Addendum Brief Verification & Attestation Participated in pt care: history, MDM, physical Personally performed: exam, history, MDM Care discussed with: Medical Student Procedures: n/a Verification and Attestation of Medical Student E/M Service A medical student performed and documented this service in my presence. I reviewed and verified all information documented by the medical student and made modifications to such information, when appropriate. I personally performed the physical exam and medical decision making. Alfie Lu, Nov 07, 2018,19:05 CHARI STALEY,MED STUDENT Nov 07, 2018 15:21 ALFIE LU DO Nov 07, 2018 19:05
[2018-11-07 16:00] VITALS: BP 123/58
--- NOTE | 2018-11-07 16:03 | Diagnostic Imaging Report ---
INDICATION: Epigastric pain.. FINDINGS: The patient was administered 5.39 mCi of Tc 99m Choletec and sequential imaging was performed over the right upper abdomen. There is progressive, homogeneous accumulation of radiotracer within the liver parenchyma. There is filling of the bile ducts and subsequent filling of the gallbladder. There is progressive clearance of activity from the liver parenchyma and accumulation of radiotracer within loops of small bowel. The patient was then administered a fatty meal, utilizing 8 ounces of Ensure. The gallbladder ejection fraction was calculated to be approximately 65%. (Normal values post fatty meal stimulation are 33% or greater.) IMPRESSION: 1. Hepatobiliary scan demonstrates a patent biliary tree. 2. Normal gallbladder ejection fraction of approximately 65%. Dictated by: Dictated on workstation # [id number]
[2018-11-07 20:00] VITALS: BP 123/83
[2018-11-07] MEDS: ATORVASTATIN 40 MG (LIPITOR) TABLET PO SCH (20:26)
[2018-11-08] VITALS: BP 124/81
[2018-11-08 06:10] LABS: BASOPHILS % (AUTO) 0 % (0-10); EOSINOPHILS # (AUTO) 0.3 10^3/uL (0.0-0.3); EOSINOPHILS % (AUTO) 3 % (0-10); HEMATOCRIT 39 % (40-54); HEMOGLOBIN 12.7 G/DL (13.3-17.7); LYMPHOCYTES # (AUTO) 2.2 X 10^3 (1.0-4.0); LYMPHOCYTES % (AUTO) 28 % (12-44); MEAN CORPUSCULAR HEMOGLOBIN 29 PG (25-34); MEAN CORPUSCULAR HGB CONC 33 G/DL (32-36); MEAN CORPUSCULAR VOLUME 88 FL (80-99); MEAN PLATELET VOLUME 10.4 FL (7.4-10.4); MONOCYTES # (AUTO) 0.7 X 10^3 (0.0-1.0); MONOCYTES % (AUTO) 9 % (0-12); NEUTROPHILS # (AUTO) 4.8 X 10^3 (1.8-7.8); NEUTROPHILS % (AUTO) 60 % (42-75); PLATELET COUNT 213 10^3/uL (130-400); RED CELL DISTRIBUTION WIDTH 13.7 % (10.0-14.5); WHITE BLOOD COUNT 7.9 10^3/uL (4.3-11.0)
[2018-11-08] MEDS: inSUlin ASPART (NovoLOG) 1 UNIT/0.01 ML (CHARGE PER UNIT) SC SCH ×2 (06:30→11:11)
[2018-11-08 06:32] LABS: BUN/CREATININE RATIO 15; CALCIUM 9.1 MG/DL (8.5-10.1); CARBON DIOXIDE 25 MMOL/L (21-32); CHLORIDE 107 MMOL/L (98-107); CREATININE SERUM 0.72 MG/DL (0.60-1.30); GFR ESTIMATED > 60; GLUCOSE 142 MG/DL (70-105); MAGNESIUM 1.7 MG/DL (1.6-2.4); POTASSIUM 3.7 MMOL/L (3.6-5.0); SODIUM 143 MMOL/L (135-145)
[2018-11-08 07:45] VITALS: BP 132/88
[2018-11-08] MEDS: AZITHROMYCIN 250 MG TAB (ZITHROMAX) PO SCH (08:15)
[2018-11-08] MEDS: FLUoxetine HCL 20 MG (PROzac) CAP PO SCH (08:15)
[2018-11-08] MEDS: PANTOPRAZOLE 40 MG (PROTONIX) TAB PO SCH (08:15)
[2018-11-08] MEDS: SENNA W/DOCUSATE (SENOKOT S) TABLET PO SCH (08:15)
[2018-11-08] MEDS: ASPIRIN E.C. 81 MG (ECOTRIN) TAB PO SCH (08:15)
[2018-11-08] MEDS: RT-ALBUTEROL/IPRATROPIUM 3 ML (DUONEB) VIAL INH SCH (08:25)
--- NOTE | 2018-11-08 08:51 | Physician Query Clarification ---
PQ-Uncertain Diagnosis Admission/Discharge Admission Date: Nov 06, 2018 at 11:04 Discharge Date: The medical record reflects the following clinical scenario: History/Risk Factors: Pneumonia IBS Clinical Findings: T 98.0, P 91, Resp 16, BP 138/76, WBC 11.5, Lactic acid 0.98, Blood cultures-No growth. Treatment: IV Azithromycin 500mg, IV Cetriaxone Sodium 1,000mg. Question: Is Sepsis a clinically valid diagnosis? Sepsis was documented in the diagnosis qualifiers on H&P with no further documentation in the medical record. Please document a response in Progress Note or Discharge Summary. 1. Yes, clinically valid, condition resolved. 2. No, condition ruled out. 3. Other, with explanation of clinical findings. 4. Undetermined, no explanation for clinical findings. PHYSICIAN RESPONSE Diagnosis clinically valid: Yes, Conditon resolved Please remember a lack of response to the above will prompt a phone page by CDI/Coding staff. In responding to this query, please exercise your independent professional judgment. The purpose of this communication is to more accurately reflect the complexity of your patients condition. The fact that a question is asked does not imply that any particular answer is desired or expected. Thank you for your timely response to this clarification. Requestors name: Kamilah Lazo [facility] Phone # ext [phone] or [phone] THIS PHYSICIAN QUERY FORM IS A PERMANENT PART OF THE MEDICAL RECORD KAMILAH LAZO Nov 08, 2018 08:51 TI WHELAN DO Nov 08, 2018 15:53
--- NOTE | 2018-11-08 09:26 | Progress Note - Surgery ---
CHARI STALEY,MED STUDENT 11/08/18 0926: Subjective Date Seen by a Provider: Nov 08, 2018 Time Seen by a Provider: 07:50 Subjective/Events-last exam Pt states abdominal pain is significantly reduced. Tolerating advanced diet (diabetic). Has had no bowel movement for three days. Ambulates around hospital without issue and has been using inspiratory spirometer. Review of Systems General: No Chills, No Night Sweats HEENT: No Visual Changes, No Ear Pain Pulmonary: No Dyspnea; Cough Cardiovascular: Other (no SOB); No: Chest Pain Gastrointestinal: Abdominal Pain (reduced RUQ tenderness); No: Nausea, Vomiting Genitourinary: No Dysuria; Frequency Musculoskeletal: back pain Focused Exam Lactate Level 11/06/18 09:46: Lactic Acid Level 0.98 Objective Exam Vital Signs Date Time Temp Pulse Resp B/P (MAP) Pulse Ox O2 Delivery O2 Flow Rate FiO2 11/08/18 08:25 90 Room Air 11/08/18 07:45 98.2 83 15 132/88 (103) 91 Room Air 11/08/18 07:00 78 11/08/18 01:00 82 11/08/18 00:00 98.7 83 17 124/81 (95) 93 Nasal Cannula 1.00 11/07/18 20:00 Nasal Cannula 11/07/18 20:00 98.2 92 16 123/83 (96) 92 Nasal Cannula 1.00 11/07/18 19:00 98 11/07/18 16:22 89 Nasal Cannula 11/07/18 16:00 97.2 94 16 123/58 (79) 92 Room Air 11/07/18 12:51 77 11/07/18 12:00 97.0 78 20 116/75 (89) 91 Room Air I & O 11/08/18 07:00 Intake Total 1020 ml Output Total 1575 ml Balance -555 ml Capillary Refill : Less Than 3 Seconds General Appearance: No Apparent Distress, WD/WN, Obese HEENT: PERRL/EOMI, Moist Mucous Membranes; No Pale Conjunctivae (L), No Pale Conjunctivae (R) Neck: Normal Inspection, Non Tender; No Lymphadenopathy (L), No Lymphadenopathy (R) Respiratory: No Normal Breath Sounds; No Accessory Muscle Use, No Respiratory Distress, Decreased Breath Sounds Cardiovascular: Regular Rate, Rhythm, No Edema Peripheral Pulses: 2+ Dorsalis Pedis (R), 2+ Left Dors-Pedis (L), 2+ Radial Pulses (R), 2+ Radial Pulses (L) Gastrointestinal: no organomegaly, distended, tenderness Extremity: Normal Capillary Refill, Non Tender Neurologic/Psychiatric: Alert, Oriented x3, No Motor/Sensory Deficits, Normal Mood/Affect Skin: Normal Color, Warm/Dry Lymphatic: No Adenopathy (neck, axilla) Results Lab Laboratory Tests 11/07/18 11:11: Glucometer 147H 11/07/18 16:21: Glucometer 188H 11/07/18 20:51: Glucometer 179H 11/08/18 05:00: Sodium Level 143, Potassium Level 3.7, Chloride Level 107, Carbon Dioxide Level 25, Anion Gap 11, Blood Urea Nitrogen 11, Creatinine 0.72, Estimat Glomerular Filtration Rate > 60, BUN/Creatinine Ratio 15, Glucose Level 142H, Calcium Level 9.1, Phosphorus Level 3.0, Magnesium Level 1.7 11/08/18 05:20: White Blood Count 7.9, Red Blood Count 4.41, Hemoglobin 12.7L, Hematocrit 39L, Mean Corpuscular Volume 88, Mean Corpuscular Hemoglobin 29, Mean Corpuscular Hemoglobin Concent 33, Red Cell Distribution Width 13.7, Platelet Count 213, Mean Platelet Volume 10.4, Neutrophils (%) (Auto) 60, Lymphocytes (%) (Auto) 28, Monocytes (%) (Auto) 9, Eosinophils (%) (Auto) 3, Basophils (%) (Auto) 0, Neutrophils # (Auto) 4.8, Lymphocytes # (Auto) 2.2, Monocytes # (Auto) 0.7, Eosinophils # (Auto) 0.3, Basophils # (Auto) 0.0 11/08/18 06:25: Glucometer 148H Microbiology 11/06/18 Blood Culture - Preliminary, Resulted No growth Assessment/Plan Assessment/Plan Assessment/Plan HIDA from 6 yrs ago showed EF of 89% which is actually hyperfunctioning biliary dyskinesia. He is doing better now and tolerating his diet. Continue IVF, IS, and antibiotics for pneumonia. No surgical intervention indicated at this time. Clinical Quality Measures AMI/AHF: ASA po Prior to arrival: No DVT/VTE Risk/Contraindication: Risk Factor Score Per Nursin RFS Level Per Nursing on Admit: 3=High ALFIE LU DO 11/08/18 1035: Subjective Time Seen by a Provider: 10:08 Subjective/Events-last exam Pt tolerating diet and wants to go home. States "I feel great". Assessment/Plan Assessment/Plan Assessment/Plan Abdominal pain - resolved Ok to send home from surgical standpoint, no intervention needed at this time. Supervisory-Addendum Brief Verification & Attestation Participated in pt care: history, MDM, physical Personally performed: exam, history, MDM Care discussed with: Medical Student Procedures: n/a Verification and Attestation of Medical Student E/M Service A medical student performed and documented this service in my presence. I reviewed and verified all information documented by the medical student and made modifications to such information, when appropriate. I personally performed the physical exam and medical decision making. Alfie Lu, Nov 08, 2018,10:33 CHARI STALEY,MED STUDENT Nov 08, 2018 09:26 ALFIE LU DO Nov 08, 2018 10:35
[2018-11-08] MEDS: cefTRIAXone FOR IV USE 1,000 MG in WATER (STERILE) FOR INJECTION 10 ML IV SCH (10:00)
[2018-11-08] MEDS ORDERED: CEFD300C3 PO (10:20)
[2018-11-08] MEDS ORDERED: ASPI-983 PO (10:20)
--- NOTE | 2018-11-08 10:21 | Discharge Summary ---
Diagnosis/Chief Complaint Date of Admission Nov 06, 2018 at 11:04 Date of Discharge Discharge Date: Nov 08, 2018 Admission Diagnosis Assessment: Bilateral pneumonia Chest pain Dehydration DM HTN HLP Plan: Pulmonology and Cardiology is appreciated IV abx Nebs O2 Home meds Primary Care Sharmila Meraz MD Discharge Diagnosis (1) Pneumonia Status: Acute (2) Dehydration Status: Acute (3) Former smoker Status: Chronic (4) Chest pain Status: Acute (5) Hypoxia Status: Acute (6) Sepsis Status: Acute Discharge Summary Discharge Physical Exam Allergies: Coded Allergies: No Known Drug Allergies (Unverified , 02/04/18) Vitals & I&Os Vital Signs Date Time Temp Pulse Resp B/P (MAP) Pulse Ox O2 Delivery O2 Flow Rate FiO2 11/08/18 15:20 11/08/18 13:00 78 11/08/18 12:00 98.2 17 93 Room Air 11/08/18 00:00 1.00 11/06/18 11:12 32 General Appearance: No Apparent Distress, WD/WN, Chronically ill Respiratory: Chest Non Tender, Lungs Clear, Normal Breath Sounds, No Accessory Muscle Use, No Respiratory Distress Cardiovascular: Regular Rate, Rhythm, No Edema, No Gallop, No JVD, No Murmur, Normal Peripheral Pulses Neurologic/Psychiatric: Alert, Oriented x3, No Motor/Sensory Deficits, Normal Mood/Affect Hospital Course Was the Problem List Reviewed?: Yes Hospital course: patient had an uncomplicated course after admitted and placed on abx and O2 for pneumonia. Dr Coles and Dr Harden consulted for pulmo and cards evaluation. IV fluids given for sepsis and tolerated abx. Home meds were restarted and patient was then deemed stable for DC in improved condition. Labs (last 24 hrs) Microbiology 11/06/18 Blood Culture - Preliminary, Resulted No growth Patient resulted labs reviewed. Pending Labs Discussion & Recommendations Discharge Planning: <30 minutes discharge planning Discharge Home Medications: Active Scripts Active Cefdinir 300 Mg Capsule 300 Mg PO BID Aspirin EC (Aspirin) 81 Mg Tablet. 81 Mg PO DAILY Reported Tylenol Extra Strength (Acetaminophen) 500 Mg Tablet 500-1,000 Mg PO Q4H PRN Omeprazole 20 Mg Capsule. 20 Mg PO DAILY Fluoxetine HCl 20 Mg Tablet 20 Mg PO DAILY Metformin HCl ER (Metformin HCl) 500 Mg Tab.er.24 500 Mg PO BID Losartan-Hctz 50-12.5 mg Tab (Losartan/Hydrochlorothiazide) 1 Each Tablet 1 Tab PO DAILY Lovastatin 20 Mg Tablet 20 Mg PO DAILY Instructions to patient/family Please see electronic discharge instructions given to patient. Clinical Quality Measures AMI/AHF: ASA po Prior to arrival: No DVT/VTE Risk/Contraindication: Risk Factor Score Per Nursin RFS Level Per Nursing on Admit: 3=High Problem Qualifiers (1) Pneumonia: Pneumonia type: due to unspecified organism Laterality: bilateral Lung location: lower lobe of lung Qualified Codes: J18.1 - Lobar pneumonia, unspecified organism (2) Chest pain: Chest pain type: chest pain on breathing Qualified Codes: R07.1 - Chest pain on breathing (3) Sepsis: Sepsis type: sepsis due to unspecified organism Sepsis acute organ dysfunction status: unspecified Qualified Codes: A41.9 - Sepsis, unspecified organism TI WHELAN DO Nov 08, 2018 10:21
--- NOTE | 2018-11-08 10:43 | Pulmonary Progress Note ---
Subjective Time Seen by a Provider: 10:41 Subjective/Events-last exam No complications noted. Sepsis Event Evaluation Height, Weight, BMI Height: 6'1.00" Weight: 290lbs. 1.0oz. 131.561002yj; 38.3 BMI Method:Stated Focused Exam Lactate Level 11/06/18 09:46: Lactic Acid Level 0.98 Exam Exam Vital Signs Date Time Temp Pulse Resp B/P (MAP) Pulse Ox O2 Delivery O2 Flow Rate FiO2 11/08/18 08:25 90 Room Air 11/08/18 07:45 98.2 83 15 132/88 (103) 91 Room Air 11/08/18 07:00 78 11/08/18 01:00 82 11/08/18 00:00 98.7 83 17 124/81 (95) 93 Nasal Cannula 1.00 11/07/18 20:00 Nasal Cannula 11/07/18 20:00 98.2 92 16 123/83 (96) 92 Nasal Cannula 1.00 11/07/18 19:00 98 11/07/18 16:22 89 Nasal Cannula 11/07/18 16:00 97.2 94 16 123/58 (79) 92 Room Air 11/07/18 12:51 77 11/07/18 12:00 97.0 78 20 116/75 (89) 91 Room Air I & O 11/08/18 07:00 Intake Total 1020 ml Output Total 1575 ml Balance -555 ml Height & Weight Height: 6'1.00" Weight: 290lbs. 1.0oz. 131.553786yp; 38.3 BMI Method:Stated General Appearance: No Apparent Distress, WD/WN, Obese HEENT: PERRL/EOMI, Moist Mucous Membranes; No Pale Conjunctivae (L), No Pale Conjunctivae (R) Neck: Normal Inspection, Non Tender; No Lymphadenopathy (L), No Lymphadenopathy (R) Respiratory: No Normal Breath Sounds; No Accessory Muscle Use, No Respiratory Distress, Decreased Breath Sounds Cardiovascular: Regular Rate, Rhythm, No Edema Capillary Refill: Less Than 3 Seconds Peripheral Pulses: 2+ Dorsalis Pedis (R), 2+ Left Dors-Pedis (L), 2+ Radial Pulses (R), 2+ Radial Pulses (L) Gastrointestinal: no organomegaly, distended, tenderness Extremity: Normal Capillary Refill, Non Tender Neurologic/Psychiatric: Alert, Oriented x3, No Motor/Sensory Deficits, Normal Mood/Affect Skin: Normal Color, Warm/Dry Lymphatic: No Adenopathy (neck, axilla) Results Lab Laboratory Tests 11/07/18 04:36 11/08/18 05:00 11/08/18 05:20 Assessment/Plan Assessment/Plan Left pneumonia CAP with hypoxia -CXR shows improvement. - Rocephin and azithromycin -SVNS -Maciel cultures. urine strep and legionella Ag -Pt will need f/u imaging after discharge to ensure complete resolution of infiltration morbid obesity with probable HEN[place]ET[place] -Out pt testing ALANA GARDNER DO Nov 08, 2018 10:43
--- NOTE | 2018-11-08 10:45 | Cardiology Progress Note ---
Subjective Date Seen by Provider: Nov 08, 2018 Time Seen by Provider: 10:44 Subjective/Events-last exam patient is laying down in bed, feeling better, denied any chest pain Review of Systems General: No Chills, No Night Sweats, No Fatigue, No Malaise, No Appetite, No Other HEENT: No Head Aches, No Visual Changes, No Eye Pain, No Ear Pain, No Dysphasia, No Sinus Congestion, No Post Nasal Drip, No Sore Throat, No Other Pulmonary: No Dyspnea, No Cough, No Pleuritic Chest Pain, No Other Cardiovascular: No: Chest Pain, Palpitations, Orthopnea, Paroxysmal Noc. Dyspnea, Edema, Lt Headedness, Other Focused Exam Lactate Level 11/06/18 09:46: Lactic Acid Level 0.98 Objective-Cardiology Exam Last Set of Vital Signs Vital Signs 11/06/18 11/08/18 11/08/18 11/08/18 11:12 00:00 07:45 08:25 Temp 98.2 Pulse 83 Resp 15 B/P (MAP) 132/88 (103) Pulse Ox 90 O2 Delivery Room Air O2 Flow Rate 1.00 FiO2 32 Capillary Refill : Less Than 3 Seconds I&O Intake and Output 11/08/18 00:00 Intake Total 1020 ml Output Total 1400 ml Balance -380 ml Intake Oral 0 ml IV Total 1020 ml Output Urine Total 1400 ml # Voids 1 General: Alert, Oriented X3, Cooperative HEENT: Atraumatic, PERRLA Neck: Supple, No JVD, No Thyromegaly Lungs: Clear to Auscultation, Normal Air Movement Heart: Regular Rate, Normal S1, Normal S2, No Murmurs Abdomen: Normal Bowel Sounds, Soft, No Tenderness, No Hepatosplenomegaly, No Masses Extremities: No Clubbing, No Cyanosis, No Edema, Normal Pulses, No Tenderness/Swelling Skin: No Rashes, No Breakdown, No Significant Lesion Neuro: Normal Gait, Normal Speech, Strength at 5/5 X4 Ext, Normal Tone, Sensation Intact Psych/Mental Status: Mental Status NL, Mood NL Results Lab Laboratory Tests 11/08/18 05:00 11/08/18 05:20 A/P-Cardiology Admission Diagnosis chest pain Pneumonia Hypertension Hyperlipidemia Assessment/Plan Chest pain nonspecific etiology, atypical in presentation, multiple risk factors for coronary artery disease, EKG and cardiac enzymes did not show any acute abnormality, could be secondary to his pneumonia. will plan for follow-up as an outpatient and will consider stress test as an outpatient Pneumonia, receiving antibiotic, managed by primary care team Hypertension, continue to monitor blood pressure, continue on current medication Hyperlipidemia, monitor lipids Diabetes mellitus, followed and managed by primary care physician History of depression next Family history of heart disease Clinical Quality Measures AMI/AHF: ASA po Prior to arrival: No DVT/VTE Risk/Contraindication: Risk Factor Score Per Nursin RFS Level Per Nursing on Admit: 3=High DANIE CARDENAS MD Nov 08, 2018 10:45
--- NOTE | 2018-11-08 11:23 | Progress Note - Hospitalist ---
[facility] 11/08/18 1123: Progress Note Hospital Course: Olegario Hardy is a 58 year old white male. He presented to the ED on 11/06 with chest pain. He was diagnosed with pneumonia. There has been further evaluation for chest pain and abdominal pain, which has been continuously monitored. Olegario has undergo both X-ray which showed pneumonia and HIDA which has showed good ejection fraction and no indication for surgery at this time. On repeat X-ray the pneumonia has been clearing up with antibiotics. As of today the patients no longer has chest pain and abdominal pain is getting better. His diet is being moved from NPO to as tolerated. How he handles food is being closely monitored. It is our plan to have Olegario moving around a lot more today and getting his bowels moving. His lung are sounding a lot better on exam and he expresses no concerns right now. Patient has an extensive PMH of diabetes, hypertension, high cholesterol, depression and kidneys stones. Patient should continue to see PCP and follow up with providers listed in his discharge papers when it is time, if applicable. Patient should follow medication regimen on discharge papers. This hospital course is an abbreviation of this patients hospital stay at [facility] and is not all inclusive. For additional information please review the patients notes and history. If patients course continues to have an upward trend today he is a candidate for discharge. Last update 11/08/18 @ 8:15am Patient was alert and oriented with no distress Patient is feeling better Has been urinating and has not had a bowel movement yet Has been ambulating a little and it is out plan today to have patient moving around a lot more. ROS: patient has minor abdominal pain but states it is a lot better then it has been. Denied SOB, Chest pain, N/V, fever or chills Vitals Stable Labs: stable, glucose 142 Heart: HRRR Lungs: LCTAB Abdomen: minor tenderness in RUQ, bowel sounds present TRACEY WHELAN DO 11/09/18 1532: Supervisory-Addendum Brief Verification & Attestation Participated in pt care: history, MDM, physical Personally performed: exam, history, MDM, supervision of care Care discussed with: Medical Student Procedures: n/a Results interpretation: Verified all documentation Verification and Attestation of Medical Student E/M Service A medical student performed and documented this service in my presence. I reviewed and verified all information documented by the medical student and made modifications to such information, when appropriate. I personally performed the physical exam and medical decision making. Tracey Whelan, Nov 09, 2018,15:37 [facility] Nov 08, 2018 11:23 TRACEY WHELAN DO Nov 09, 2018 15:37
--- NOTE | 2018-11-08 11:29 | NUR ---
provided prayer and Communion.
[2018-11-08 12:00] VITALS: BP 142/85
== END 2018-11-08 15:20 | disposition home or self-care (01) | DRG 871 ==
LOC: EDUNIT# 08:22 → ER 08:23 → 4TH 11:04
PROVIDERS: ADMIT Internal Medicine; ATTEND Internal Medicine
DX: A41.9 Sepsis, unspecified organism (principal); J18.1 Lobar pneumonia, unspecified organism; R06.03 Acute respiratory distress; R07.2 Precordial pain; K58.9 Irritable bowel syndrome, unspecified; K82.8 Other specified diseases of gallbladder; E86.0 Dehydration; R09.02 Hypoxemia; E11.9 Type 2 diabetes mellitus without complications; I10 Essential (primary) hypertension; F32.9 Major depressive disorder, single episode, unspecified; H91.92 Unspecified hearing loss, left ear; K21.9 Gastro-esophageal reflux disease without esophagitis; K22.70 Barrett's esophagus without dysplasia; E66.01 Morbid (severe) obesity due to excess calories; G47.33 Obstructive sleep apnea (adult) (pediatric); E78.5 Hyperlipidemia, unspecified; M19.91 Primary osteoarthritis, unspecified site; Z87.891 Personal history of nicotine dependence; Z87.442 Personal history of urinary calculi; Z68.38 Body mass index [BMI] 38.0-38.9, adult
CPT/HCPCS: 36415; 36600; 71045; 71046; 78227; 80048; 80053; 80061; 82805; 82962; 83605; 83690; 83735; 83874; 83880; 84100; 84484; 85025; 85379; 85610; 85730; 87040; 87899; 93005; 93306; 94640; 94664; 94760

== ENCOUNTER → 2018-12-16 | Outpatient (CLI) | payer OTHER ==
[~2018-12-16] MED LIST changes: +ACET-2267 PO; +ASPI-983 PO; +CATHETER FLUSH 10 ML SYR IV PRN; +CEFD300C3 PO; +FLUO20TA28 PO; +METF-478 PO; +OMEP20CA13 PO
[2018-12-16 09:52] VITALS: BP 181/85
--- NOTE | 2018-12-16 16:19 | STRESS TEST ---
DATE OF SERVICE: 12/16/2018 EXERCISE MYOVIEW STRESS TEST REPORT REFERRING PHYSICIAN: Sharmila Meraz MD Baseline heart rate is 64. Baseline blood pressure 116/80. Baseline EKG is sinus rhythm with no ischemic changes. In summary, the patient was injected with 10.98 mCi of technetium-99 Myoview and the resting images were obtained. Then, the patient started exercising with a baseline heart rate, blood pressure and EKG mentioned above. The patient was able to exercise for 6 minutes 54 seconds on standard Glenn protocol. With peak exercise level, EKG was showing [address] depression in II, III, aVF, V4 and V5. Blood pressure at peak was 187/85. During recovery, heart rate and blood pressure returned to baseline. EKG returned to baseline. The resting and stress images were reviewed and compared in the short axis, horizontal long axis, and vertical long axis views. Review of the images showed diaphragmatic attenuation with decreased uptake at the inferior wall with mild reversibility. SSS is 2, SDS 2, TID value 0.99. On the gated images, the left ventricle appeared to be in normal size with normal contractility. Calculated ejection fraction 62%. CONCLUSION: 1. Fair exercise tolerance, a total of 6 minutes 54 seconds on standard Glenn protocol, total of 8.3 METS achieving 87% of maximum expected heart rate. 2. Nondiagnostic EKG changes with exercise returned to baseline during recovery. 3. Diaphragmatic attenuation with mild decreased uptake involving the inferior wall with mild reversibility. 4. Normal left ventricular size with normal contractility. Calculated ejection fraction 62%. Job ID: [id number] DocumentID: [id number] Dictated Date: 12/16/2018 11:51:29 Neuropathologist Date: 12/16/2018 16:19:07 Dictated By: DANIE CARDENAS MD
== END ==
LOC: CARD 07:29
PROVIDERS: ATTEND Physician Assistant
DX: E11.9 Type 2 diabetes mellitus without complications (principal); I10 Essential (primary) hypertension; E66.9 Obesity, unspecified; I07.1 Rheumatic tricuspid insufficiency
CPT/HCPCS: 78452; 93017

== ENCOUNTER 2018-12-24 13:51 | Emergency (ER) | payer OTHER ==
[~2018-12-24] VITALS: Ht 185 cm; Wt 133.0 kg
[~2018-12-24 13:51] MED LIST changes: -CATHETER FLUSH 10 ML SYR IV PRN
--- NOTE | 2018-12-24 14:05 | ED Chest Pain ---
General Stated Complaint: CHEST PAIN Source: patient Exam Limitations: no limitations History of Present Illness Date Seen by Provider: Dec 24, 2018 Time Seen by Provider: 14:03 Initial Comments To ER with reports of chest pain ongoing for a few weeks, he recently had an abnormal stress test, followed up with Dr. Harden today and was found to have active chest pain, was referred here to the emergency room. He is a diabetic on metformin and that this morning. He does have high cholesterol he is a nonsmoker. The pain gets better when he belches. Timing/Duration: 2-3 days Severity/Quality: moderate Location: central ASA po SHRINKER: No NTG SL SHRINKER: No Associated Symptoms: denies symptoms Allergies and Home Medications Allergies Coded Allergies: No Known Drug Allergies (Unverified , 12/24/18) Home Medications Acetaminophen 500 Mg Tablet, 500-1,000 MG PO Q4H PRN for PAIN-MILD, (Reported) Aspirin 81 Mg Tablet.dr, 81 MG PO DAILY Prescribed by: TI WHELAN on 11/08/18 1020 Cefdinir 300 Mg Capsule, 300 MG PO BID Prescribed by: TI WHELAN on 11/08/18 1020 Fluoxetine HCl 20 Mg Tablet, 20 MG PO DAILY, (Reported) Losartan/Hydrochlorothiazide 1 Each Tablet, 1 TAB PO DAILY, (Reported) Lovastatin 20 Mg Tablet, 20 MG PO DAILY, (Reported) Metformin HCl 500 Mg Tab.er.24, 500 MG PO BID, (Reported) Omeprazole 20 Mg Capsule.dr, 20 MG PO DAILY, (Reported) Patient Home Medication List Home Medication List Reviewed: Yes Review of Systems Review of Systems Constitutional: see HPI EENTM: No Symptoms Reported Respiratory: No Symptoms Reported Cardiovascular: See HPI, Chest Pain Gastrointestinal: No Symptoms Reported Genitourinary: No Symptoms Reported Musculoskeletal: no symptoms reported Skin: no symptoms reported Psychiatric/Neurological: No Symptoms Reported Endocrine: No Symptoms Reported Hematologic/Lymphatic: No Symptoms Reported Past Kgmumrw-Jazqbx-Jhreud Hx Family Medical History Arthritis 19 MOTHER Coronary thrombosis 19 FATHER Deafness or hearing loss 19 MOTHER Diabetes mellitus 19 MOTHER Headache disorder 19 MOTHER Hypercholesterolemia 19 MOTHER Hypertension 19 FATHER 19 MOTHER Myocardial infarction 19 FATHER Respiratory disorder 19 MOTHER Physical Exam Vital Signs Vital Signs - First Documented 12/24/18 14:24 Temp 37.1 Pulse 78 Resp 18 B/P (MAP) 138/90 (106) Capillary Refill : Height, Weight, BMI Height: '" Weight: lbs. oz. kg; BMI Method: General Appearance: No Apparent Distress, WD/WN Neck: Full Range of Motion, Normal Inspection Respiratory: No Accessory Muscle Use, No Respiratory Distress Cardiovascular: Regular Rate, Rhythm, Normal Peripheral Pulses Gastrointestinal: Normal Bowel Sounds, Soft, Other (left upper abdomen and left lower chest is somewhat tender to palpation) Extremity: Normal Capillary Refill, Normal Inspection Neurologic/Psychiatric: Alert, Oriented x3 Skin: Normal Color, Warm/Dry Progress/Results/Core Measures Results/Orders Lab Results Laboratory Tests Test 12/24/18 14:10 12/24/18 16:10 Range/Units White Blood Count 9.8 4.3-11.0 10^3/uL Red Blood Count 4.93 4.35-5.85 10^6/uL Hemoglobin 14.4 13.3-17.7 G/DL Hematocrit 42 40-54 % Mean Corpuscular Volume 86 80-99 FL Mean Corpuscular Hemoglobin 29 25-34 PG Mean Corpuscular Hemoglobin Concent 34 32-36 G/DL Red Cell Distribution Width 13.7 10.0-14.5 % Platelet Count 220 130-400 10^3/uL Mean Platelet Volume 10.5 H 7.4-10.4 FL Neutrophils (%) (Auto) 61 42-75 % Lymphocytes (%) (Auto) 27 12-44 % Monocytes (%) (Auto) 8 0-12 % Eosinophils (%) (Auto) 3 0-10 % Basophils (%) (Auto) 0 0-10 % Neutrophils # (Auto) 6.0 1.8-7.8 X 10^3 Lymphocytes # (Auto) 2.7 1.0-4.0 X 10^3 Monocytes # (Auto) 0.8 0.0-1.0 X 10^3 Eosinophils # (Auto) 0.3 0.0-0.3 10^3/uL Basophils # (Auto) 0.0 0.0-0.1 10^3/uL Prothrombin Time 13.2 12.2-14.7 SEC INR Comment 1.0 0.8-1.4 Activated Partial Thromboplast Time 28 24-35 SEC Sodium Level 140 135-145 MMOL/L Potassium Level 4.0 3.6-5.0 MMOL/L Chloride Level 106 98-107 MMOL/L Carbon Dioxide Level 28 21-32 MMOL/L Anion Gap 6 5-14 MMOL/L Blood Urea Nitrogen 11 7-18 MG/DL Creatinine 0.80 0.60-1.30 MG/DL Estimat Glomerular Filtration Rate > 60 BUN/Creatinine Ratio 14 Glucose Level 144 H 70-105 MG/DL Calcium Level 9.2 8.5-10.1 MG/DL Corrected Calcium 8.9 8.5-10.1 MG/DL Magnesium Level 1.9 1.6-2.4 MG/DL Total Bilirubin 0.7 0.1-1.0 MG/DL Aspartate Amino Transf (AST/SGOT) 21 5-34 U/L Alanine Aminotransferase (ALT/SGPT) 39 0-55 U/L Alkaline Phosphatase 113 40-136 U/L Myoglobin 121.4 H 10.0-92.0 NG/ML Troponin I < 0.028 < 0.028 <0.028 NG/ML B-Type Natriuretic Peptide 16.9 <100.0 PG/ML Total Protein 7.3 6.4-8.2 GM/DL Albumin 4.4 3.2-4.5 GM/DL My Orders Orders - [facility] [employer] Cbc With Automated Diff (12/24/18 13:55) Magnesium (12/24/18 13:55) Chest 1 View, Ap/Pa Only (12/24/18 13:55) Cardiac Profile 1 (12/24/18 13:55) Comprehensive Metabolic Panel (12/24/18 13:55) Myoglobin Serum (12/24/18 13:55) Protime With Inr (12/24/18 13:55) Partial Thromboplastin Time (12/24/18 13:55) O2 (12/24/18 13:55) Monitor-Rhythm Ecg Trace Only (12/24/18 13:55) Lipid Panel (12/25/18 06:00) Ed Iv/Invasive Line Start (12/24/18 13:55) BNP (12/24/18 13:55) Aspirin Chewable Tablet (Baby Aspirin Ch (12/24/18 14:15) Antacid Suspension (Mylanta Suspension (12/24/18 14:15) Lidocaine 2% Viscous 15 Ml (Xylocaine Vi (12/24/18 14:15) Troponin I (12/24/18 15:58) Medications Given in ED Current Medications Medications Dose Ordered Sig/Thiago Route Start Time Stop Time Status Last Admin Dose Admin Al Hydrox/Mg Hydrox/Simethicone 30 ml ONCE ONCE PO 12/24/18 14:15 12/24/18 14:16 DC 12/24/18 14:17 30 ML Aspirin 324 mg ONCE ONCE PO 12/24/18 14:15 12/24/18 14:16 DC 12/24/18 14:16 324 MG Lidocaine HCl 10 ml ONCE ONCE PO 12/24/18 14:15 12/24/18 14:16 DC 12/24/18 14:17 10 ML Vital Signs/I&O 12/24/18 14:24 Temp 37.1 Pulse 78 Resp 18 B/P (MAP) 138/90 (106) Departure Communication (Admissions) 1450-chest pain is completely resolved after GI cocktail and eructation here in the emergency room. Discussed with Dr. Harden, the patient's EKG is unremarkable for ST segment changes. If the patient is pain-free and ruled out for acute coronary syndrome he can be discharged home to proceed with cardiac catheterization in the outpatient setting. Patient is agreeable with this plan. We'll do a repeat troponin at 1610. Impression Primary Impression: Chest pain Qualified Codes: R07.9 - Chest pain, unspecified Additional Impression: Gastritis Qualified Codes: K29.00 - Acute gastritis without bleeding Disposition: HOME, SELF-CARE Condition: Stable Departure-Patient Inst. Decision time for Depature: 16:34 Patient Instructions: Chest Pain (DC) Add. Discharge Instructions: Return to ER for any concerns or worsening symptoms 2. Call Dr. Harden tomorrow to make an appointment to be seen to schedule your heart Catheterization Work/School Note: Work Release Form Date Seen in the Emergency Department: Dec 24, 2018 Return to Work: Dec 25, 2018 Copy Copies To 1: DANIE HARDEN MD, PETER J APRN Dec 24, 2018 14:05
[2018-12-24] MEDS ORDERED: ASPIRIN 81 MG CHEW (CHILDREN'S ASA) PO ONE (14:15)
[2018-12-24] MEDS ORDERED: ANTACID SUSP 30 ML UDC (MYLANTA) PO ONE (14:15)
[2018-12-24] MEDS ORDERED: LIDOCAINE 2% VISCOUS 15 ML UDC PO ONE (14:15)
[2018-12-24 14:16] LABS: BASOPHILS % (AUTO) 0 % (0-10); EOSINOPHILS # (AUTO) 0.3 10^3/uL (0.0-0.3); EOSINOPHILS % (AUTO) 3 % (0-10); HEMATOCRIT 42 % (40-54); HEMOGLOBIN 14.4 G/DL (13.3-17.7); LYMPHOCYTES # (AUTO) 2.7 X 10^3 (1.0-4.0); LYMPHOCYTES % (AUTO) 27 % (12-44); MEAN CORPUSCULAR HEMOGLOBIN 29 PG (25-34); MEAN CORPUSCULAR HGB CONC 34 G/DL (32-36); MEAN CORPUSCULAR VOLUME 86 FL (80-99); MEAN PLATELET VOLUME 10.5 FL (7.4-10.4); MONOCYTES # (AUTO) 0.8 X 10^3 (0.0-1.0); MONOCYTES % (AUTO) 8 % (0-12); NEUTROPHILS % (AUTO) 61 % (42-75); PLATELET COUNT 220 10^3/uL (130-400); RED CELL DISTRIBUTION WIDTH 13.7 % (10.0-14.5); WHITE BLOOD COUNT 9.8 10^3/uL (4.3-11.0)
[2018-12-24 14:27] LABS: PROTHROMBIN TIME PATIENT 13.2 SEC (12.2-14.7)
[2018-12-24 14:37] LABS: BUN/CREATININE RATIO 14; CARBON DIOXIDE 28 MMOL/L (21-32); CHLORIDE 106 MMOL/L (98-107); GFR ESTIMATED > 60; GLUCOSE 144 MG/DL (70-105); SODIUM 140 MMOL/L (135-145)
[2018-12-24 14:38] LABS: ALANINE AMINOTRANSFERASE 39 U/L (0-55); ALBUMIN 4.4 GM/DL (3.2-4.5); ALKALINE PHOSPHATASE 113 U/L (40-136); BILIRUBIN,TOTAL 0.7 MG/DL (0.1-1.0); CALCIUM 9.2 MG/DL (8.5-10.1); MAGNESIUM 1.9 MG/DL (1.6-2.4); TOTAL PROTEIN 7.3 GM/DL (6.4-8.2)
[2018-12-24] MEDS ORDERED: HOLD METFORMIN - RECEIVED CONTRAST 20 ML VIAL IV SCH (14:45)
[2018-12-24] MEDS ORDERED: NS 100 ML (IVPB) BAG IV ONE (14:45)
[2018-12-24] MEDS ORDERED: IOHEXOL 350 MG/ML 100 ML (OMNIPAQUE 350) VIAL IV ONE (14:45)
--- NOTE | 2018-12-24 15:23 | Diagnostic Imaging Report ---
INDICATION: Chest pain. Frontal chest obtained at 02:28 p.m. and compared to 11/07/2018. Heart and mediastinal silhouette are normal in appearance. There are no focal infiltrates. There is improvement in the aeration of both lung bases compared to the previous study. There is no pneumothorax or pleural fluid. IMPRESSION: No acute process in the chest with improvement in aeration of both lung bases compared to the previous study. Dictated by: Dictated on workstation # [id number]
--- NOTE | 2018-12-24 16:12 | NUR ---
THE PT IS RESTING WATCHING TV WITH FAMILY.
[2018-12-24 16:52] VITALS: BP 122/85
== END 2018-12-24 16:54 | disposition home or self-care (01) ==
LOC: EDUNIT# 13:51 → ER 13:52
DX: R07.9 Chest pain, unspecified (principal); K29.70 Gastritis, unspecified, without bleeding; E11.9 Type 2 diabetes mellitus without complications; E78.00 Pure hypercholesterolemia, unspecified; Z79.84 Long term (current) use of oral hypoglycemic drugs; Z79.82 Long term (current) use of aspirin; Z82.49 Family history of ischemic heart disease and other diseases of the circulatory system
CPT/HCPCS: 36415; 71045; 80053; 83735; 83874; 83880; 84484; 85025; 85610; 85730; 93005; 93041

== ENCOUNTER 2019-01-01 10:52 | Day surgery (SDC) | payer OTHER ==
[~2019-01-01] VITALS: Ht 185 cm; Wt 133.0 kg
[2019-01-01] VITALS (13 sets, daily range): BP systolic 126–149; BP diastolic 84–96
[2019-01-01] MEDS ORDERED: LIDOCAINE 1% INJ 20 ML 20 ML VIAL ONE (11:11)
[2019-01-01] MEDS ORDERED: HEParin (CATH LAB) 2,000 ML IV ONE (11:11)
[2019-01-01] MEDS ORDERED: NS IV 1000 ML 1,000 ML ONE (11:11)
[2019-01-01] MEDS ORDERED: NS IV 1000 ML 1,000 ML IV SCH ×2 (11:14→15:23)
[2019-01-01 11:32] LABS: MEAN PLATELET VOLUME 10.4 FL (7.4-10.4); RED CELL DISTRIBUTION WIDTH 13.7 % (10.0-14.5); WHITE BLOOD COUNT 9.9 10^3/uL (4.3-11.0)
[2019-01-01 11:38] LABS: BILIRUBIN,URINE NEGATIVE (NEGATIVE); CLARITY,URINE CLEAR; COLOR,URINE YELLOW; GLUCOSE, URINE (UA) NEGATIVE (NEGATIVE); KETONES,URINE NEGATIVE (NEGATIVE); LEUKOCYTE ESTERASE ,URINE NEGATIVE (NEGATIVE); NITRITE,URINE NEGATIVE (NEGATIVE); PH,URINE 5 (5-9); PROTEIN,URINE 1+ (NEGATIVE); UROBILINOGEN,URINE NORMAL (NORMAL)
[2019-01-01] MEDS ORDERED: LOSA1TAB23 PO (11:41)
[2019-01-01] MEDS ORDERED: DOCU-238 PO (11:44)
--- NOTE | 2019-01-01 11:46 | NUR ---
SPOKE WITH PT (HE BROUGHT IN HIS HOME BOTTLES) WELL CALLING [facility] TO COMPLETE THE MED REC. PT WAS ABLE TO TELL ME HOW/WHEN HE TAKES HIS MEDS. THE FOLLOWING FILL DATES ARE FROM [facility]: 11-27-2018 FLUOXETINE #30/30DS 11-28-2018 METFORMIN #60/30DS 12-09-2018 OMEPRAZOLE #30/30DS 12-27-2018 LOVASTATIN #30/30DS 12-28-2018 LOSARTAN #30/60DS OTC MEDS: APAP 500M-2 Q 6 H PRN ASPIRIN 81M DAILY STOOL SOFTENER: 2 CAPS BID
[2019-01-01 11:47] LABS: PROTHROMBIN TIME PATIENT 13.5 SEC (12.2-14.7)
--- NOTE | 2019-01-01 11:47 | Diagnostic Imaging Report ---
INDICATION: Preop for heart catheterization. Time of exam 11:24 a.m. COMPARISON: Correlation is made with prior chest from 12/24/2018. FINDINGS: The heart size is normal. The pulmonary vascularity is unremarkable. The lungs are clear apart from minimal scarring in the left base. No infiltrate, effusion or pneumothorax is detected. IMPRESSION: No acute cardiopulmonary process is detected. Dictated by: Dictated on workstation # [id number]
[2019-01-01 11:59] LABS: ALANINE AMINOTRANSFERASE 38 U/L (0-55); ALBUMIN 4.3 GM/DL (3.2-4.5); ALKALINE PHOSPHATASE 98 U/L (40-136); BILIRUBIN,TOTAL 1.1 MG/DL (0.1-1.0); BUN/CREATININE RATIO 14; CALCIUM 9.6 MG/DL (8.5-10.1); CARBON DIOXIDE 25 MMOL/L (21-32); CHLORIDE 105 MMOL/L (98-107); CHOLESTEROL 191 MG/DL (< 200); CREATININE SERUM 0.77 MG/DL (0.60-1.30); GFR ESTIMATED > 60; GLUCOSE 139 MG/DL (70-105); HDL CHOLESTEROL 41 MG/DL (40-60); SODIUM 140 MMOL/L (135-145); TOTAL PROTEIN 7.4 GM/DL (6.4-8.2); TRIGLYCERIDES 116 MG/DL (<150); VLDL CHOLESTEROL 23 MG/DL (5-40)
[2019-01-01 12:30] LABS: BACTERIA,URINE NEGATIVE /HPF; SQUAMOUS EPITHELIAL CELL,UR RARE /HPF; WBC,URINE RARE /HPF
[2019-01-01] MEDS ORDERED: MIDAZOLAM 5 MG/5 ML (VERSED) VIAL ONE (14:32)
[2019-01-01] MEDS ORDERED: fentaNYL INJECTION 100 MCG/2 ML AMP ONE (14:32)
[2019-01-01] MEDS ORDERED: VERAPAMIL 5 MG/2 ML (CALAN) VIAL IV ONE (14:34)
[2019-01-01] MEDS ORDERED: HEParin 1000 UNIT/ML (10ML VIAL) FOR BOLUS ONE (14:34)
[2019-01-01] MEDS ORDERED: NITRO DRIP 25000 MCG/D5W 250 ML IV ONE (14:35)
[2019-01-01] MEDS ORDERED: METF-478 PO (15:25)
--- NOTE | 2019-01-01 15:26 | Discharge Inst-Post CATH ---
Discharge Inst-CATH/EP Problems Reviewed?: Yes Post Cardiac Cath/EP D/C Inst Follow Up/Plan Hold metformin for [address] Harden's office in 2-4 weeks <b>CARDIAC CATH/EP PROCEDURE DISCHARGE INSTRUCTIONS</b> ACTIVITY * Go Home directly and rest. * Limit activity of the leg (or wrist if it was used) for 7 days including aerobics, swimming, jogging, bicycling, etc. * Restrict stair-climbing for 7 days if possible, if not, climb up with your non-cath leg, then bring together on the same step. * Avoid lifting, pushing, pulling or excessive movement of the affected extremity for 7 days. * Customary sexual activity may be resumed after 2 days-use caution not to use a position that strains or causes pain to the affected extremity. * No driving for 24 hours. * NO SMOKING. * Avoid straining for bowel movements for 7 days. * Gentle walking on level ground is allowed. * Returning to work will depend on the type of procedure and the results. Your doctor will discuss this with you. CALL YOUR DOCTOR FOR ANY OF THE FOLLOWING: *If bleeding from the puncture site occurs- Apply gentle pressure to site with clean cloth and call your doctor or EMS. * If a knot or lump forms under the skin, increases in size, or causes pain. * If bruising appears to be worsening or moving further down your leg instead of disappearing. * Temperature above 101 F. CARE OF YOUR GROIN INCISION; * Bruising or purple discoloration of the skin near the puncture site is common. * You may shower only, no bathtub bathing for 5 days. Be careful to avoid sli pping as your leg may feel stiff. * If a closure device was used on your femoral artery, please see the attached guide regarding care of the device and your leg. * Leave dressing on FOR 24 hours. CARE OF YOUR WRIST INCISION; * Bruising or purple discoloration of the skin near the puncture site is common. * You may shower. * DO NOT submerge wrist. * Leave dressing on FOR 24 hours. DANIE HARDEN MD Jan 01, 2019 15:26
[2019-01-01] MEDS ORDERED: PATIENT MAY USE OWN MEDS, ALL PO SCH (15:30)
--- NOTE | 2019-01-01 15:31 | Cardiac Cath Report ---
Cardiac Cath Report Physician (s)/Manager Mission (s) Physician DANIE CARDENAS MD Pre-Procedure Diagnosis Pre-Procedure Diagnosis: Coronary artery disease Post-Procedure Note Procedure Start Date: Jan 01, 2019 Name of Procedure: Left heart catheterization Left ventriculogram Aortic arch angiogram Findings/Procedure Note PROCEDURE NOTE: 58 years old gentleman with history of diabetes mellitus, hypertension hyperlipidemia, had an abnormal stress test, scheduled for cardiac catheterization possible PTCA After explaining the procedure to the patient, all pros and cons were explained, all questions were answered. The patient signed the consent and then he was placed on the cardiac catheterization laboratory. Groin was prepped SL fashion local anesthesia was used. Sheath placed in the right radial artery, multiple catheters were used without success in intubating the left coronary system, the JR catheter was used and was able to evaluate the right coronary artery, I decided to proceed with right groin sheath placement, additional sheath was placed in the right groin and then JL catheter was used to the left coronary system and angiogram was done the pigtail advanced to the left ventricular cavity and left ventricular gram was done pullback LV to aorta was then on aortic arch angiogram was done. At the end of the procedure the sheath was removed. Closure device was used in the groin and vascular band in the wrist FINDINGS: Hemodynamics LV 118/14 end-diastolic pressure 14 Aorta 112/68 mean of 92 ANATOMY: Left Main is free of obstructive disease Left Anterior Descending is slightly tortuous with mild Left Circumflex is moderate in size with moderate disease proximally nonobstructive disease Right Coronary Artery is dominant artery with mild disease nonobstructive disease LV Gram was done showing normal left ventricular size and systolic function estimated ejection fraction 60 percent Aorta aortic arch angiogram was done showing normal aortic arch, 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 Mild coronary artery disease nonobstructive disease 2. Normal left ventricular size and systolic function estimated ejection fraction 60 percent 3. 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
--- NOTE | 2019-01-01 18:31 | NUR ---
Pt brought to [facility] by day operating room surgical technician. States pt came to her from laboratory operations coordinator at 1545. Groin site emerita dawson c/d/i. at bedside
--- NOTE | 2019-01-01 20:13 | NUR ---
dc packet gone over with pt and , forms signed. right groin d/i, no swelling or bleeding noted. dc'd to home per private vehicle.
== END 2019-01-01 20:07 | disposition home or self-care (01) ==
LOC: CATH 10:52 → SDC 15:45 → ICU 18:31 → CATH 20:07
PROVIDERS: ATTEND Internal Medicine Cardiovascular Disease
DX: I25.10 Atherosclerotic heart disease of native coronary artery without angina pectoris (principal); I10 Essential (primary) hypertension; E78.5 Hyperlipidemia, unspecified; E11.9 Type 2 diabetes mellitus without complications; E66.9 Obesity, unspecified; Z87.01 Personal history of pneumonia (recurrent); K29.70 Gastritis, unspecified, without bleeding; Z79.82 Long term (current) use of aspirin; Z79.84 Long term (current) use of oral hypoglycemic drugs; Z79.899 Other long term (current) drug therapy; G47.36 Sleep related hypoventilation in conditions classified elsewhere; R06.83 Snoring; Z87.891 Personal history of nicotine dependence; I08.1 Rheumatic disorders of both mitral and tricuspid valves; G47.50 Parasomnia, unspecified; G47.10 Hypersomnia, unspecified; Z68.39 Body mass index [BMI] 39.0-39.9, adult; R94.39 Abnormal result of other cardiovascular function study
CPT/HCPCS: 36221; 36415; 71045; 80053; 80061; 81000; 85027; 85610; 85730; 87081; 93458

== ENCOUNTER → 2019-02-12 | Outpatient (CLI) | payer OTHER ==
[~2019-02-12] MED LIST changes: +DOCU-238 PO; +GADOBUTROL 15 MMOL/15 ML (GADAVIST) VIAL IV ONE; +LOSA1TAB23 PO
[2019-02-12 13:07] LABS: BUN/CREATININE RATIO 16; CREATININE SERUM 0.74 MG/DL (0.60-1.30); GFR ESTIMATED > 60
--- NOTE | 2019-02-12 14:57 | Diagnostic Imaging Report ---
PROCEDURE: MR imaging of the brain with and without contrast. TECHNIQUE: Multiplanar, multisequence MR imaging of the brain was performed with and without contrast. INDICATION: Left hearing loss. FINDINGS: Ventricles and sulci are within normal limits for size. Heath and white matter signal intensities are unremarkable. There is no abnormal mass effect or shift of midline structures in the brain. There is enlargement of the left vestibulocochlear nerve. This measures approximately 0.9 cm in maximal dimension and extends 1.8 cm from the left cerebellopontine angle into the internal auditory canal. There is diffuse contrast enhancement of this lesion. No other abnormal contrast enhancement is identified. There is an approximately 1.0 x 1.1 x 1.0 cm nodule along the posterior wall of the oropharynx, compatible with Tornwaldt cyst. IMPRESSION: 1. 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 2. Incidental finding is noted with Tornwaldt cyst measuring approximately 1 cm in size. Dictated by: Dictated on workstation # [id number]
== END ==
LOC: RAD 12:37
PROVIDERS: ATTEND Otolaryngology Otolaryngology/Facial Plastic Surgery
DX: H91.8X2 Other specified hearing loss, left ear (principal); J39.2 Other diseases of pharynx
CPT/HCPCS: 36415; 70553; 82565; 84520

== ENCOUNTER → 2019-02-14 | Outpatient (CLI) | payer OTHER ==
[~2019-02-14] MED LIST changes: +CATHETER FLUSH 10 ML SYR IV PRN; -GADOBUTROL 15 MMOL/15 ML (GADAVIST) VIAL IV ONE; +HOLD METFORMIN - RECEIVED CONTRAST 20 ML VIAL IV SCH; +IOHEXOL 350 MG/ML 100 ML (OMNIPAQUE 350) VIAL IV ONE; +NS 100 ML (IVPB) BAG IV ONE; +RT-ALBUTEROL SULF 2.5 MG/3 ML PRE-MIX VIAL INH ONE; +RT-ALBUTEROL SULF 2.5 MG/3 ML PRE-MIX VIAL ONE
[2019-02-14 11:03] LABS: BUN/CREATININE RATIO 14; CREATININE SERUM 0.71 MG/DL (0.60-1.30); GFR ESTIMATED > 60
--- NOTE | 2019-02-14 12:35 | Diagnostic Imaging Report ---
EXAMINATION: CT Chest with intravenous contrast. TECHNIQUE: Multiple contiguous axial images were obtained through the chest after the uneventful administration of intravenous contrast. All CT scans use one or more of the following dose optimizing techniques: automated exposure control, MA and/or KvP adjustment based on a patient size and exam type, or iterative reconstruction. HISTORY: Cough. COMPARISON: None available. FINDINGS: The lungs are clear without edema or pneumonia. No pleural effusion or pneumothorax. No suspicious nodules. There is minimal atelectasis in the lung bases. Heart size is normal. No pericardial effusion. Aorta is normal in caliber. There is no axillary or supraclavicular lymphadenopathy. There is no mediastinal lymphadenopathy. Liver is steatotic. There are no suspicious osseus lesions. IMPRESSION: 1. Hepatic steatosis, otherwise normal exam. Dictated by: Dictated on workstation # [id number]
== END ==
LOC: RT 10:34
PROVIDERS: ATTEND Nurse Practitioner Family
DX: J30.9 Allergic rhinitis, unspecified (principal); K76.0 Fatty (change of) liver, not elsewhere classified; G47.10 Hypersomnia, unspecified; J18.8 Other pneumonia, unspecified organism; G47.50 Parasomnia, unspecified; G47.36 Sleep related hypoventilation in conditions classified elsewhere; Z87.891 Personal history of nicotine dependence
CPT/HCPCS: 36415; 71260; 82565; 84520; 94060; 94726; 94729

== ENCOUNTER 2019-03-21 19:28 | Outpatient (CLI) | payer OTHER ==
[~2019-03-21 19:28] MED LIST changes: -CATHETER FLUSH 10 ML SYR IV PRN; -HOLD METFORMIN - RECEIVED CONTRAST 20 ML VIAL IV SCH; -IOHEXOL 350 MG/ML 100 ML (OMNIPAQUE 350) VIAL IV ONE; -NS 100 ML (IVPB) BAG IV ONE; -RT-ALBUTEROL SULF 2.5 MG/3 ML PRE-MIX VIAL INH ONE; -RT-ALBUTEROL SULF 2.5 MG/3 ML PRE-MIX VIAL ONE
== END 2019-03-22 06:20 | disposition home or self-care (01) ==
LOC: SLEEP 19:28
PROVIDERS: ATTEND Nurse Practitioner Family
DX: J30.9 Allergic rhinitis, unspecified (principal); G47.10 Hypersomnia, unspecified; J18.9 Pneumonia, unspecified organism; G47.50 Parasomnia, unspecified; G47.36 Sleep related hypoventilation in conditions classified elsewhere; R91.8 Other nonspecific abnormal finding of lung field; Z87.891 Personal history of nicotine dependence
CPT/HCPCS: 95810

== ENCOUNTER 2019-03-28 05:33 | Outpatient (CLI) | payer OTHER ==
[~2019-03-28] VITALS: Ht 185.5 cm; Wt 133.0 kg
[2019-03-28] MEDS ORDERED: METF500T8 PO (15:31)
[2019-03-28] MEDS ORDERED: FLUT1DIS26 IH (15:31)
[2019-03-28] MEDS ORDERED: ASPI-983 PO (15:31)
[2019-03-28] MEDS ORDERED: ROSU20TA32 PO (15:31)
== END 2019-03-28 15:36 | disposition home or self-care (01) ==
LOC: PREOP 05:33
PROVIDERS: ATTEND Surgery
DX: Z01.818 Encounter for other preprocedural examination (principal)

== ENCOUNTER → 2019-09-10 | Outpatient (CLI) | payer OTHER ==
[~2019-09-10] MED LIST changes: +FLUT1DIS26 IH; +GADOBUTROL 15 MMOL/15 ML (GADAVIST) VIAL IV ONE; +METF-865 PO; -OMEP20CA13 PO; +OMEP20CA18 PO; +ROSU20TA32 PO
[2019-09-10 09:21] LABS: CREATININE SERUM 0.73 MG/DL (0.60-1.30); GFR ESTIMATED > 60
[2019-09-10 09:22] LABS: BUN/CREATININE RATIO 15
--- NOTE | 2019-09-10 10:28 | Diagnostic Imaging Report ---
CLINICAL INDICATION: Patient states he has left-sided hearing loss. EXAM: MRI of the brain/ IACs performed without and with 13 cc of Gadavist IV contrast. Sequences include sagittal T1 localizer, axial T2, axial flair, axial T1, axial gradient echo, DWI, ADC map, axial T1 thin, axial T2 thin, coronal T1 thin, axial T2 3D FIESTA, axial T1 post contrast whole brain, coronal T1 fat-sat post IV contrast whole brain, sagittal T1 post IV contrast whole brain, axial T1 post IV contrast thin fat sat, and coronal T1 post IV contrast thin. COMPARISONS: MRI of the brain performed without and with IV contrast dated 02/12/2019. FINDINGS: There is a stable avidly enhancing mass in the left IAC which extends into the left cerebellopontine angle. This mass measures 0.9 cm x 1.8 cm x 1.0 cm (AP x Trans x CC). This mass extends all the way to the fundus. It is noted that the transverse dimensions of this mass measure longer on the whole brain post contrast sequence compared to the IAC post contrast sequences. There is no significant mass effect upon the left middle cerebellar peduncle region. The remainder of the bilateral temporal bone structures show no other significant abnormality. There is no evidence of acute cerebral infarct, intracranial hemorrhage, or gross mass effect. The brain parenchymal volume appears appropriate for patient's age. There is normal zimmer-white matter distinction. There is no significant midline shift or herniation. There is no evidence of hydrocephalus. The basal cisterns are unremarkable. Given the differences in technique, there is no significant change to the Tornwaldt cyst which measures 10 mm in greatest width and 15 mm in AP dimension. Otherwise, the skull, extracranial soft tissue, and orbits are unremarkable. There is minimal mucosal thickening involving the ethmoid sinus. Temporal bones show no significant abnormality. IMPRESSION: 1. Stable enhancing intracanalicular mass with extracanalicular extension into the right cerebellopontine angle, most consistent with a vestibular schwannoma. This mass extends all the way to the fundus of the left IAC. There is no significant mass effect upon the left middle cerebellar peduncle. 2. Stable Tornwaldt cyst. 3. The remainder of this exam shows no significant interval change compared to the prior study of comparison. Dictated by: Dictated on workstation # [id number]
== END ==
LOC: RAD 08-25 07:42
PROVIDERS: ATTEND Otolaryngology Otology & Neurotology
DX: D33.3 Benign neoplasm of cranial nerves (principal); H90.3 Sensorineural hearing loss, bilateral; J39.2 Other diseases of pharynx
CPT/HCPCS: 36415; 70553; 82565; 84520

== ENCOUNTER 2020-06-18 05:30 | Outpatient (RCR) | payer OTHER ==
[~2020-06-18] VITALS: Ht 185.5 cm; Wt 133.6 kg
[~2020-06-18 05:30] MED LIST changes: +ASPI-1238 PO; -ASPI-983 PO; +DIABETIC MED PO; -GADOBUTROL 15 MMOL/15 ML (GADAVIST) VIAL IV ONE
== END 2020-06-18 09:32 | disposition home or self-care (01) ==
LOC: PREOP 05:30
PROVIDERS: ATTEND Surgery
DX: Z01.812 Encounter for preprocedural laboratory examination (principal); Z12.11 Encounter for screening for malignant neoplasm of colon; K21.9 Gastro-esophageal reflux disease without esophagitis; Z20.822 Contact with and (suspected) exposure to COVID-19
CPT/HCPCS: 87635

== ENCOUNTER 2020-06-21 07:02 | Day surgery (SDC) | payer OTHER ==
[~2020-06-21] VITALS: Ht 185.5 cm; Wt 133.6 kg
[2020-06-21] VITALS (14 sets, daily range): BP systolic 99–156; BP diastolic 52–86
[2020-06-21] MEDS ORDERED: LACTATED RINGERS 1,000 ML IV ONE (07:08)
[2020-06-21] MEDS ORDERED: LACTATED RINGERS 1,000 ML IV STA (07:11)
[2020-06-21] MEDS ORDERED: PROPOFOL INJECTION 50 ML IV ONE (07:14)
[2020-06-21] MEDS ORDERED: MIDAZOLAM 2 MG/2 ML (VERSED) VIAL ONE (07:14)
[2020-06-21] MEDS ORDERED: HURRICAINE EXT TUBE (BENZOCAINE) XX PRN (07:15)
[2020-06-21] MEDS ORDERED: HURRICAINE EXT TUBE (BENZOCAINE) ONE (08:09)
--- NOTE | 2020-06-21 08:13 | Progress Note-Pre Operative ---
Pre-Operative Progress Note H&P Reviewed The H&P was reviewed, patient examined and no changes noted. Time Seen by Provider: 08:06 Date H&P Reviewed: Jun 21, 2020 Time H&P Reviewed: 08:07 Pre-Operative Diagnosis: Gastritis, Screening colon FAB DURÁN DO Jun 21, 2020 08:13
[2020-06-21] MEDS ORDERED: LIDOCAINE PF 2% 5 ML (XYLOCAINE) VIAL ONE (13:26)
[2020-06-21] MEDS ORDERED: ONDANSETRON 4 MG/2 ML (SDV) Z0FRAN ONE (13:26)
[2020-06-21] MEDS ORDERED: proPOfol 200 MG/20 ML (DIPRIVAN) VIAL IV ONE (13:26)
[2020-06-21] MEDS ORDERED: SUCCINYLCHOLINE INJ 100 MG/5 ML SYR/VIAL ONE (13:26)
[2020-06-21] MEDS ORDERED: SEVOFLURANE (ULTANE) 15 ML INHAL SOLN ONE ×2 (13:26→14:04)
[2020-06-21] MEDS ORDERED: ROCURONIUM 10 MG/ML 5 ML SYRINGE IV ONE (13:26)
[2020-06-21] MEDS ORDERED: ESMOLOL 100 MG/10 ML (BREVIBLOC) VIAL ONE (13:35)
[2020-06-21] MEDS ORDERED: NEOSTIGMINE 3 MG/3 ML VIAL ONE (14:04)
--- NOTE | 2020-06-21 14:35 | Anesthesia-General Post-Op ---
General Patient Condition Mental Status/LOC: Same as Preop Cardiovascular: Satisfactory Nausea/Vomiting: Absent Respiratory: Satisfactory Pain: Controlled Complications: Absent Post Op Complications Complications None Follow Up Care/Instructions Patient Instructions None needed. Anesthesia/Patient Condition Patient Condition Patient is doing well, no complaints, stable vital signs, no apparent adverse anesthesia problems. No complications reported per nursing. KARINA LUNA CRNA Jun 21, 2020 14:35
--- NOTE | 2020-06-21 15:09 | Progress Note-Post Operative ---
Post-Operative Progess Note Surgeon (s)/Aerospace Assembler (s) Surgeon FAB DURÁN DO Aerospace Assembler: none Pre-Operative Diagnosis Gastritis, Screening colon Post-Operative Diagnosis gastric ulcers conteh's esophagus colon polyps Procedure & Operative Findings Date of Procedure 06/21/20 Procedure Performed/Findings EGD with bx Colon with bx Anesthesia Type GET Estimated Blood Loss Estimated blood loss (mL): scant Specimens/Packing Specimens Removed antral bx x 2 GE jxn Esophageal bx Colon polps - maybe transverse colon FAB DURÁN DO Jun 21, 2020 15:09
--- NOTE | 2020-06-21 15:10 | Endoscopy Discharge Instruct ---
Endo Procedure/Findings Findings 1.: Gastric Ulcer 2.: Murphy's Esophagus 3.: Polyp 4.: Internal Hemorrhoids Discharge Instructions - Activity: You might feel a little sleepy until tomorrow. This is due to the medicine you received to relax you. Until tomorrow, you should: NOT drive a car, operate machinery or power tools. NOT drink any alcoholic beverages. NOT make any important decisions or sign importortant papers. Do not return to work until tomorrow, unless otherwise instructed. Resume previous activities tomorrow. Diet: Start by taking liquids. If you tolerate liquids, advance to solid food. 1.: EGD in 1 year 2.: Colonoscopy in 1 year Notify Physician - If you experience excessive bleeding, unusual abdominal pain, fever, or chest pain, contact your doctor immediately. FAB DURÁN DO Jun 21, 2020 15:10
--- NOTE | 2020-06-22 21:36 | OPERATIVE REPORT ---
DATE OF SERVICE: 06/21/2020 PREOPERATIVE DIAGNOSES: Gastritis and screening colonoscopy. POSTOPERATIVE DIAGNOSES: Gastric ulcers, Murphy's esophagus, colon polyps, internal hemorrhoids, and incomplete colonoscopy. SURGEON: lAfie Lu DO DATA ENTRY OPERATOR: None. ANESTHESIA: IV sedation by the RENEWABLE ENERGY CONSULTANT, as well as then general endotracheal tube. SPECIMEN: Biopsy from the stomach, biopsy from the esophagus and GE junction as well as then biopsy from polyps in the transverse colon. BLOOD LOSS: Scant. FLUIDS: Per anesthesia. POSTOPERATIVE CONDITION: Stable. INDICATION FOR PROCEDURE: The patient is a 59-year-old male who has some gastritis and abdominal pain, history of Murphy's esophagus and needed EGD as well. He has had a previously attempted colonoscopy, but always unable to get to the end and noted to have even on the barium enema could not get all the contrast to the end of his colon. FINDINGS: The patient had ulcers in his stomach as well as what looked like Murphy's esophagus. He had some polyps in the colon and some internal hemorrhoids. Again, unfortunately unable to get to the end of the colon. PROCEDURE NOTE: After informed consent was obtained, the patient was brought to the endoscopy suite, placed in bed in left lateral decubitus position. He was administered IV sedation by the RENEWABLE ENERGY CONSULTANT. We started the procedure with the EGD, placed the scope down the mouth through the esophagus into the stomach. There was no fluid in the stomach, but the patient had a lot of saliva and may have aspirated some saliva. His pulse ox dropped and we stopped the procedure. After taking some pictures, but did not do any biopsies took a while to get his oxygen up and we watched him all day and at the end of the day, his oxygen was normal on room air, I elected to do him up in the operating room under intubation. He was intubated in the operating room. Did start with the EGD again placing scope down the mouth through the esophagus into the stomach, could again see the ulcers and did biopsy of the ulcers. They were right at the antrum just before the pylorus. The duodenum looked okay. Retroflexed the scope, did not really have a hiatal hernia, pulled the scope up into the GE junction, did a biopsy of the GE junction as well just above this what looked like a Murphy's esophagus suctioned all the air out of the stomach and changed gloves and changed scopes and went down below, the patient was supine when he was intubated, so we did the scope with frog legged. Pushed the scope in, got into about the transverse colon, saw 2 polyps, took pictures of these and then did a biopsy. Again had a very hard time, could not get to the end of the colon with the scope all the way up and in as far as it could go possibly go; about 160 cm. Finally got past the hepatic flexure and could see into the ascending colon, but I am unsure I may have seen a polyp in the area that I could not tell; again could just could not get all the way in. At this point, then slowly withdrew the scope insufflating to look circumferentially at the lugo looking at the transverse colon all the way down to the splenic flexure, into the descending colon and sigmoid and then into the rectum, saw some minimal internal hemorrhoids, removed the scope. The patient tolerated the procedure. He was then recovered in the recovery room. Job ID: [id number] DocumentID: [id number] Dictated Date: 06/22/2020 17:45:20 Service Dispatcher Date: 06/22/2020 21:35:47 Dictated By: DO ELI SIMON
== END 2020-06-21 15:37 | disposition home or self-care (01) ==
LOC: ENDO 07:02
PROVIDERS: ATTEND Surgery
DX: Z12.11 Encounter for screening for malignant neoplasm of colon (principal); D12.3 Benign neoplasm of transverse colon; K25.9 Gastric ulcer, unspecified as acute or chronic, without hemorrhage or perforation; K22.70 Barrett's esophagus without dysplasia; K29.70 Gastritis, unspecified, without bleeding; K64.8 Other hemorrhoids; G47.33 Obstructive sleep apnea (adult) (pediatric); F32.9 Major depressive disorder, single episode, unspecified; M19.90 Unspecified osteoarthritis, unspecified site; K21.9 Gastro-esophageal reflux disease without esophagitis; E11.9 Type 2 diabetes mellitus without complications; G47.10 Hypersomnia, unspecified; J45.909 Unspecified asthma, uncomplicated; I08.1 Rheumatic disorders of both mitral and tricuspid valves; I11.9 Hypertensive heart disease without heart failure; E66.9 Obesity, unspecified; Z68.38 Body mass index [BMI] 38.0-38.9, adult; Z79.02 Long term (current) use of antithrombotics/antiplatelets; E78.5 Hyperlipidemia, unspecified; G47.36 Sleep related hypoventilation in conditions classified elsewhere; Z79.899 Other long term (current) drug therapy; Z79.84 Long term (current) use of oral hypoglycemic drugs; Z79.82 Long term (current) use of aspirin; Z85.038 Personal history of other malignant neoplasm of large intestine; Z87.891 Personal history of nicotine dependence
CPT/HCPCS: 82962; 88305

== ENCOUNTER → 2020-06-24 | Outpatient (CLI) | payer OTHER ==
[~2020-06-24] MED LIST changes: +RT-ALBUTEROL SULF 2.5 MG/3 ML PRE-MIX VIAL INH ONE
== END ==
LOC: RT 09:56
PROVIDERS: ATTEND Internal Medicine Critical Care Medicine
DX: J45.909 Unspecified asthma, uncomplicated (principal)
CPT/HCPCS: 94060; 94726; 94729

== ENCOUNTER → 2020-12-15 | Outpatient (CLI) | payer BC, OTHER ==
[~2020-12-15] MED LIST changes: -DOCU-238 PO; +DOCU-26 PO; +GADOBUTROL 15 MMOL/15 ML (GADAVIST) VIAL IV ONE; -RT-ALBUTEROL SULF 2.5 MG/3 ML PRE-MIX VIAL INH ONE
--- NOTE | 2020-12-15 14:37 | Diagnostic Imaging Report ---
EXAMINATION: MR imaging brain without contrast. TECHNIQUE: Multiplanar, multisequence MR imaging of the brain was performed without contrast. Additional dedicated sequences performed of the internal auditory canals. HISTORY: Left-sided hearing loss. Follow-up vestibular schwannoma. COMPARISON: 09/10/2019. FINDINGS: No acute ischemia, intraparenchymal mass, or hemorrhage. The ventricles, cortical sulci, and basilar cisterns are symmetric and unremarkable. The sellar and suprasellar regions have a normal appearance. The major intracranial flow voids are intact. A bilobed mass demonstrating avid enhancement is seen in the left CPA and extending into the left internal auditory canal measuring 0.8 x 1.3 cm and 0.8 cm craniocaudal. Overall, the size is stable compared to the prior exam. The mass extends to the fundus of the left internal auditory canal without evidence of CSF apical cap. No enhancement is seen extending into the inner ear structures on the left. The right seventh and eighth cranial nerves are unremarkable. The bilateral inner ear structures have a normal appearance. The Meckel's caves and cavernous sinuses are unremarkable. The paranasal sinuses and mastoid air cells demonstrate normal signal characteristics. 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 The globes and orbits are symmetric and unremarkable. The scalp and calvarium have a normal appearance. IMPRESSION: 1. Stable left-sided vestibular schwannoma. No evidence of invasion into the left inner ear structures. Recommend continued follow-up, as indicated. 2. No acute ischemia, intraparenchymal mass, or hemorrhage. Dictated by: Dictated on workstation # [id number]
== END ==
LOC: RAD 13:15
PROVIDERS: ATTEND Otolaryngology Otology & Neurotology
DX: D33.3 Benign neoplasm of cranial nerves (principal)
CPT/HCPCS: 70553

== ENCOUNTER → 2021-06-23 | Outpatient (CLI) | payer BC ==
[~2021-06-23] MED LIST changes: -GADOBUTROL 15 MMOL/15 ML (GADAVIST) VIAL IV ONE
== END ==
LOC: CARD 09:30
PROVIDERS: ATTEND Internal Medicine Cardiovascular Disease
DX: I11.9 Hypertensive heart disease without heart failure (principal); I25.10 Atherosclerotic heart disease of native coronary artery without angina pectoris
CPT/HCPCS: 93306

== ENCOUNTER 2021-12-14 12:03 | Emergency (ER) | payer BC ==
[~2021-12-14] VITALS: Ht 185 cm; Wt 131.0 kg
[~2021-12-14 12:03] MED LIST changes: +OMEP20TA56 PO; -OMEP20TA7 PO
--- NOTE | 2021-12-14 13:11 | ED Cough/URI ---
General Chief Complaint: COVID19 Suspect/Confirmed Stated Complaint: SORE THROAT/HEADACHE/ABD/BACK PAIN Nursing Triage Note: ARRIVED VIA AMB TO TRIAGE WITH COMPLAINTS OF - HEADACHE, FEVER, COUGH, CHEST PAIN WITH COUGH, AND BACK PAIN STARTING X2 DAYS AGO. Source: patient Exam Limitations: no limitations History of Present Illness Date Seen by Provider: Dec 14, 2021 Time Seen by Provider: 13:00 Initial Comments Pt is a 61 year old male who presents to the ED with 2 days of flu-like illness. Pt endorses nonproductive cough, subjective fever, body aches (worst in lower back), sore throat, and headache. He states he has some mild generalized chest pain that is worse with coughing. No known sick contacts. Has been immunized and boosted for COVID. Denies any previous h/o COVID. Denies any h/o smoking. Timing/Duration: yesterday Severity/Quality: no cough, moderate Prior Episodes/Possible Cause: no prior episodes Associated Symptoms: chest pain/soreness, cough, fever/chills (subjective), headache, sore throat Allergies and Home Medications Allergies Coded Allergies: No Known Drug Allergies (Unverified , 12/24/18) Patient Home Medication List Home Medication List Reviewed: Yes Aspirin (Aspirin EC) 81 Mg Tablet.dr, 81 MG PO DAILY, (Reported) Entered as Reported by: LYUBOV TERRELL on 03/28/19 1531 Docusate Sodium (Stool Softener) 100 Mg Capsule, 200 MG PO BID PRN for CONSTIPATION-1ST LINE, (Reported) Entered as Reported by: CHARLI WHITTEN on 01/01/19 1144 Fluoxetine HCl (Fluoxetine HCl) 20 Mg Tablet, 20 MG PO DAILY, (Reported) Entered as Reported by: MIKEY ONTIVEROS on 11/06/18 1328 Fluticasone/Salmeterol (Advair 250-50 Diskus) 1 Each Blst.w.dev, 1 EACH IH BID, (Reported) Entered as Reported by: LYUBOV TERRELL on 03/28/19 1531 Losartan/Hydrochlorothiazide (Losartan-Hctz 100-25 mg Tab) 1 Each Tablet, 0.5 TAB PO DAILY, (Reported) Entered as Reported by: CHARLI WHITTEN on 01/01/19 1141 Rosuvastatin Calcium (Rosuvastatin Calcium) 20 Mg Tablet, 20 MG PO DAILY, (Reported) Entered as Reported by: LYUBOV TERRELL on 03/28/19 1531 [Diabetic Med] , 1 TAB PO DAILY, (Reported) Entered as Reported by: LYUBOV TERRELL on 06/15/20 0975 Review of Systems Review of Systems Constitutional: chills, fever, malaise EENTM: nose congestion, throat pain Respiratory: cough Cardiovascular: chest pain (with coughing) Gastrointestinal: No diarrhea, No nausea Musculoskeletal: back pain Past Buqlpnm-Yeaogs-Nuflbn Hx Patient Social History Tobacco Use?: No Smoking Status: Never a Smoker Substance use?: No Alcohol Use?: No Immunizations Up To Date Tetanus Booster (TDap): Unknown COVID19 Vaccine Virtualization Architect: Aquaporin Seasonal Allergies Seasonal Allergies: No Past Medical History Surgeries: No (HIATAL HERNIA, VENTRAL HERNIA, KNEE SCOPE) Abdominal, Orthopedic Respiratory: No (OXYGEN AT NIGHT) Sleep Apnea Currently Using CPAP: No Currently Using BIPAP: No Cardiac: Yes High Cholesterol, Hypertension Neurological: No Reproductive Disorders: No Sexually Transmitted Disease: No HIV/AIDS: No Genitourinary: Yes Kidney Stones Gastrointestinal: Yes Gastroesophageal Reflux Musculoskeletal: Yes Arthritis Endocrine: Yes Diabetes, Non-Insulin dep HEENT: Yes Cataract Loss of Vision: Bilateral Hearing Impairment: Hard of Hearing Cancer: No Psychosocial: Yes Depression Integumentary: No Blood Disorders: No Adverse Reaction/Blood Tranf: No (N/A) Family Medical History Arthritis 19 MOTHER Coronary thrombosis 19 FATHER Deafness or hearing loss 19 MOTHER Diabetes mellitus 19 MOTHER Headache disorder 19 MOTHER Hypercholesterolemia 19 MOTHER Hypertension 19 FATHER 19 MOTHER Myocardial infarction 19 FATHER Respiratory disorder 19 MOTHER Heart Disease, Diabetes, Hypertension Father at 67 due to heart attack with PMH of HTN Mother is present at the age of 78 and has HTN, Diabetes, Coronary stent placement, valvular replacement, other heart issues patient could not rememeber. Patient has 4 brother: one brother past away from heart issues One sister: Good health Physical Exam Vital Signs - First Documented 12/14/21 12:08 Temp 37.3 Pulse 102 Resp 16 B/P (MAP) 120/73 (89) Pulse Ox 96 O2 Delivery Room Air Capillary Refill : Less Than 3 Seconds Height: 6'1.00" Weight: 290lbs. 1.0oz. [id number]; 38.00 BMI Method:Stated General Appearance: WD/WN, no apparent distress HEENT: PERRL/EOMI, normal ENT inspection, TMs normal, pharynx normal Neck: non-tender, full range of motion, supple, normal inspection, carotid brui t Respiratory: chest non-tender, lungs clear, normal breath sounds, no respiratory distress, no accessory muscle use, respiratory distress Cardiovascular: normal peripheral pulses, regular rate, rhythm, no edema, no gallop, no JVD, no murmur Gastrointestinal: normal bowel sounds, non tender, soft, no organomegaly, no pulsatile mass Extremities: normal range of motion, non-tender, normal inspection, no pedal edema, no calf tenderness, normal capillary refill, pelvis stable Neurologic/Psychiatric: technology training associate II-XII nml as tested, no motor/sensory deficits, alert, normal mood/affect, oriented x 3 Skin: normal color, warm/dry, cyanosis, cool, diaphoresis, damp Progress/Results/Core Measures Suspected Sepsis SIRS Temperature: Pulse: 102 Respiratory Rate: 16 Blood Pressure 120 /73 Mean: 89 Results/Orders Lab Results Laboratory Tests Test 12/14/21 12:14 Range/Units Influenza Type A (RT-PCR) Not Detected Not Detecte Influenza Type B (RT-PCR) Not Detected Not Detecte SARS-CoV-2 RNA (RT-PCR) Detected H Not Detecte My Orders Orders - ALANA RYAN APRN Chest 1 View, Ap/Pa Only (12/14/21 13:03) Bebtelovimab (Bebtelovimab) (12/14/21 14:30) Nursing Communication (Order) (12/14/21 14:28) Medications Given in ED Current Medications Medications Dose Ordered Sig/Thiago Route Start Time Stop Time Status Last Admin Dose Admin Bebtelovimab 175 mg ONCE ONCE IV 12/14/21 14:30 12/14/21 14:31 DC 12/14/21 14:59 175 MG Vital Signs/I&O 12/14/21 12/14/21 12:08 13:01 Temp 37.3 Pulse 102 Resp 16 B/P (MAP) 120/73 (89) Pulse Ox 96 O2 Delivery Room Air Room Air Capillary Refill : Less Than 3 Seconds Blood Pressure Mean: 89 Progress Note : Progress Note Pt is nontoxic and well hydrated on my exam. No adventitious lung sounds or increased WOB noted on exam. Vital signs are reassuring. COVID test noted to be positive. Given complex medical history and obesity, will treat with monoclonal antibody infusion. Pt was given benefits, risks, and alternative treatment options. He verbalized desire to have the monoclonal antibody infusion. Pt was given the Fact Sheet for Patients and Caregivers and was reviewed. Patient was informed of alternatives to receiving Monoclonal antibody(s). Patient was informed that the selected monoclonal antibody(s) are an unapproved drug that is authorized for use under [employer]. Pt recieved the monoclonal antibody infusion and tolerated this well. He was monitored for the prescribed period and had no adverse reactions. Will d/c home with recs for supportive care and follow-up with PCP. Return precautions for urgent symptomology discussed. Patient verbalized understanding. Diagnostic Imaging Diagonstic Imaging: Xray Plain Films/CT/US/NM/MRI: chest Comments Mild interstitial opacities within the lung bases which could be seen with atelectasis, pulmonary edema, or atypical infection. Departure Impression Primary Impression: COVID-19 Disposition: 01 HOME, SELF-CARE Condition: Stable Departure-Patient Inst. Referrals: GATO HERRON MD (PCP/Family) Primary Care Physician Patient Instructions: COVID-19 Home Care/Discharge ALANA RYAN APRN Dec 14, 2021 13:10
--- NOTE | 2021-12-14 13:46 | Diagnostic Imaging Report ---
EXAMINATION: Chest 1 view HISTORY: cough, fever COMPARISON: 01/01/2019. FINDINGS: Heart size and pulmonary vasculature are normal. Mild interstitial opacities within the lower lungs. No pleural effusion or pneumothorax. The osseous structures are intact. IMPRESSION: 1. Mild interstitial opacities within the lung bases which could be seen with atelectasis, pulmonary edema, or atypical infection. Dictated by: Dictated on workstation # [id number]
[2021-12-14] MEDS ORDERED: BEBTELOVIMAB 175 MG/2 ML VIAL IV ONE (14:30)
[2021-12-14 16:06] VITALS: BP 113/77
== END 2021-12-14 16:06 | disposition home or self-care (01) ==
LOC: EDUNIT# 12:03 → ER 12:06
DX: U07.1 COVID-19 (principal); E66.9 Obesity, unspecified; Z68.38 Body mass index [BMI] 38.0-38.9, adult
CPT/HCPCS: 71045; 87636

== ENCOUNTER → 2021-12-26 | Outpatient (CLI) | payer BC ==
[2021-12-26 10:44] LABS: ALBUMIN 4.1 GM/DL (3.2-4.5); BILIRUBIN,TOTAL 1.3 MG/DL (0.1-1.0); CALCIUM 9.5 MG/DL (8.5-10.1); CREATININE SERUM 0.74 MG/DL (0.60-1.30); POTASSIUM 4.4 MMOL/L (3.6-5.0); TOTAL PROTEIN 7.2 GM/DL (6.4-8.2)
== END ==
LOC: LAB 10:08
PROVIDERS: ATTEND Internal Medicine Cardiovascular Disease
DX: I10 Essential (primary) hypertension (principal); E78.2 Mixed hyperlipidemia; I25.10 Atherosclerotic heart disease of native coronary artery without angina pectoris; I65.23 Occlusion and stenosis of bilateral carotid arteries
CPT/HCPCS: 36415; 80053; 80061

== ENCOUNTER → 2022-05-29 | Outpatient (CLI) | payer BC ==
[~2022-05-29] MED LIST changes: +GADOTERATE 0.5 MMOL/ML (CLARISCAN) 20 ML VIAL IV ONE; +GADOTERATE 0.5 MMOL/ML (CLARISCAN) 5 ML VIAL IV ONE
--- NOTE | 2022-05-29 09:43 | Diagnostic Imaging Report ---
EXAMINATION: MR imaging brain with and without contrast. TECHNIQUE: Multiplanar, multisequence MR imaging of the brain was performed with and without contrast. Additional dedicated sequences are performed of the ICA. HISTORY: Left-sided hearing loss. History of vestibular schwannoma on the left. Followup. COMPARISON: 12/15/2020. FINDINGS: No acute ischemia or hemorrhage. The ventricles, cortical sulci, and basilar cisterns are symmetric and unremarkable. The sellar and suprasellar regions have a normal appearance. The major intracranial flow voids are intact. The mass within the left CPA and left internal auditory canal is again visualized measuring 1.4 x 0.8 cm and 0.9 cm craniocaudal. This has not significant change in size since the prior exam. No CSF apical cap is seen. No enhancing mass is seen within the left inner ear structures. The right CPA and internal auditory canal are unremarkable. The right 7th and 8th cranial nerves have a normal appearance. The bilateral Meckel's caves and cavernous sinuses have a normal appearance. The paranasal sinuses and mastoid air cells demonstrate normal signal characteristics. The globes and orbits are symmetric and unremarkable. The scalp and calvarium have a normal appearance. IMPRESSION: 1. Stable appearance of the mass within the left CPA and internal auditory canal, consistent with a history of left-sided vestibular schwannoma. No evidence of invasion into the inner ear structures on the left. Recommend continued followup as indicated. 2. No acute ischemia or hemorrhage. Dictated by: Dictated on workstation # [id number]
== END ==
LOC: RAD 07:25
PROVIDERS: ATTEND Otolaryngology Otology & Neurotology
DX: H93.8X2 Other specified disorders of left ear (principal); D33.3 Benign neoplasm of cranial nerves; H90.3 Sensorineural hearing loss, bilateral
CPT/HCPCS: 70553